=== PATIENT | male | born 1965 | race Two or more races ===

== ENCOUNTER 2023-11-25 05:59 | Emergency (ER) | payer MEDICARE, SELFPAY ==
[2023-11-25 06:07] VITALS: BP 110/68; PULSE 50; O2SAT 95
[2023-11-25 06:13] VITALS: BP 106/63; PULSE 53; RESP 20; TEMP 36.8; O2SAT 100; BMI 28.1
--- NOTE | 2023-11-25 06:52 | ED_ITS ---
HPI - General Adult General Chief complaint: General Medical Stated complaint: Urinary retention Time Seen by Provider: 11/25/23 06:37 Source: patient and EMS Mode of arrival: EMS Limitations: no limitations History of Present Illness ED Provider: Clarita Aguilar PA-C HPI narrative: Patient is a 58 year old assigned male at with a history of schizoaffective disorder presenting to the emergency department today with difficulty urinating and feeling generally fatigued. Patient arrives from [facility]. Patient states that over the last few days he has had an increased difficulty in urinating and has felt more fatigued. Patient states that he is prescribed flomax but has not gotten any of it while at [facility]. Patient denies any dizziness, lightheadedness, abdominal pain, nausea, vomiting, fever, chills, blurry vision, double vision, loss of vision, chest pain, difficulty breathing, shortness of breath, back pain, night sweats, pain with urination, increased urinary frequency, increased urinary urgency, blood in his urine or stool, syncope or a near syncopal episode, recent trauma or falls, bowel incontinence, bladder incontinence, bowel retention, bladder retention, or any other complaints at this time. Onset (ago): day(s) Severity: mild Severity scale (1-10): 3 Relieving factors: none Exacerbating factors: none Associated symptoms: denies other symptoms Treatments prior to arrival: none Related Data Previous Rx's ?Medication ?Instructions ?Recorded cefuroxime axetil 250 mg tablet 250 mg PO BID 7 days #14 tabs 11/25/23 ondansetron 4 mg disintegrating 4 mg PO Q8H 3 days #9 tabs 11/25/23 tablet Allergies Allergy/AdvReac Type Severity Reaction Status Date / Time haloperidol [From Haldol] AdvReac Anaphylaxis Verified 11/25/23 06:20 olanzapine [From Zyprexa] AdvReac Anaphylaxis Verified 11/25/23 06:20 Review of Systems 2 Constitutional: Constitutional: Reports no additional constitutional complaints, Denies chills, Reports fatigue, Denies fever(s) and Denies night sweats Eyes: Eyes: Reports no additional eye complaints, Denies blurry vision, Denies change in vision, Denies diplopia, Denies eye discharge, Denies loss of vision and Denies eye pain ENT: Denies dizziness Cardiovascular: Cardiovascular: Reports no additional cardiovascular complaints, Denies chest pain, Denies lightheadedness, Denies Loss of Consciousness and Denies dyspnea Respiratory: Respiratory: Reports no additional respiratory complaints and Denies dyspnea Gastrointestinal: Gastrointestinal: Reports no additional gastrointestinal complaints, Denies abdominal pain, Denies melena, Denies hematochezia, Denies change in bowel habits and Denies change in stool character Genitourinary: Genitourinary: Reports no additional male genitourinary complaints, Denies hematuria, Denies oliguria, Reports difficulty urinating, Denies dysuria, Denies urinary frequency, Denies urinary hesitancy, Denies urinary incontinence and Denies urinary urgency Musculoskeletal: Musculoskeletal: Reports no additional musculoskeletal complaints, Denies numbness and Denies tingling Neurologic: Denies dizziness, Denies loss of vision, Denies numbness and Denies tingling Psychiatric: Psychiatric: Reports no additional psychiatric complaints Endocrine: Endocrine: Reports no additional endocrine complaints and Reports fatigue Hematologic/Lymphatic: Hematologic/Lymphatic: Reports no additional hematologic/lymphatic complaints Allergic/Immunologic: Allergic/Immunologic: Reports no additional allergic/immunologic complaints [facility] Past Medical History Attestation statement: The following information was validated with the patient. Source: old records reviewed and nursing notes reviewed Social History Social History Alcohol intake: former Smoked in Last 30 Days: Yes Use of substances other than those prescribed or required for medical reasons: No Advance Directives: Yes Advance Directives Information Provided: Yes Advance Directives on File: No Do you have a plan to hurt others: No Plan Physical Exam ED Vital Signs: Vital Signs - 24 hr 11/25/23 06:13 11/25/23 09:44 Temperature 98.2 F 97.3 F Pulse Rate 53 64 Respiratory Rate 20 18 Blood Pressure 106/63 118/76 Pulse Oximetry 100 99 Oxygen Delivery Method Room Air Room Air BMI result Body Mass Index 28.1 Const General: cooperative, no acute distress, alert and awake Nutritional Appearance: well nourished Orientation/consciousness: patient oriented x3 Limitations: no limitations HENMT Head: Yes normal to inspection and Yes atraumatic Ears: hearing grossly normal bilaterally and external ears normal General nose exam: Normal external nose present, no nasal discharge noted and no epistaxis Face and sinus: Yes normal facial exam, No abrasion and No laceration Mouth: Normal oral and palatal mucosa present, no drooling and no muffled voice Eyes General: appearance normal, both eyes and all related structures Periorbital: periorbital findings normal Eyelids: Yes eyelids normal Conjunctivae: conjunctivae normal Pupils: Equal, round and reactive pupils present EOM: EOMs intact bilaterally Neck Neck: Yes normal visual inspection, Yes full ROM and Yes no lymphadenopathy Chest Chest palpation & inspection: normal inspection of the chest Resp Effort & Inspection: normal respiratory effort and able to speak in complete sentences GI Inspection: Yes normal to inspection Palpation (GI): Soft to palpation, not firm, nontender and no guarding Neuro General: patient oriented x3 and moves all extremities Cranial nerves: Yes Equal, round and reactive pupils present Cognition (Neuro): normal cognition Motor exam (neuro): 5/5 motor strength present throughout Sensory Exam: Normal double simultaneous stimulation for sensation Coordination: [id number] test normal Extrem General: Yes normal to inspection, Yes full ROM and Yes capillary refill normal Psych Appearance: grossly normal Mental Status: mental status grossly normal Affect: normal affect Attitude: cooperative Thought process: Normal thought process present Thought content: Normal thought content present Insight: Good insight present (Psych) Medications Administered Discontinued Medications Generic Name Dose Route Start Last Admin Trade Name Freq PRN Reason Stop Dose Admin Cefuroxime Axetil 250 mg 11/25/23 08:56 11/25/23 10:08 Cefuroxime Axetil 250 Mg Tablet PO 11/25/23 08:57 250 mg ONCE ONE Administration Tamsulosin HCl 0.4 mg 11/25/23 07:37 11/25/23 08:19 Tamsulosin Hcl 0.4 Mg Capsule PO 11/25/23 07:38 0.4 mg ONCE ONE Administration Medical Decision Making Medical Decision Making [facility] Narrative: Patient is a 58 year old assigned male at with a history of schizoaffective disorder presenting to the emergency department today with difficulty urinating and feeling exhausted. Patient's physical exam was unremarkable. Patient's blood work was unremarkable. Patient's urine showed a UTI. I explained my physical exam findings as well as all test results to the patient. I answered all questions asked by the patient. I stressed the importance of the patient taking his medication as prescribed. I stressed the importance of the patient following up with his primary care provider. I stressed the importance of the patient returning to the emergency department immediately if his symptoms were to worsen or if he were to develop any dizziness, shortness of breath, difficulty breathing, chest pain, blurry vision, loss of vision, nausea, vomiting, abdominal pain, fever, chills, back pain, or any other complaints. Patient verbalized agreement and understanding with this treatment plan and discharge. Differential Diagnosis Differential Diagnoses: The differential diagnosis associated with the presentation includes UTI Urinary retention Admission/Observation Consideration of admission/observation: Escalation of care including admission/observation considered Patient would have been admitted to the hospital had his work up had any findings where hospital admission was appropriate and his clinical presentation warranted hospital admission. Lab Data [facility] Lab Attestation statement: I reviewed the patient's lab results. My interpretation of these results are in the [facility] Rationale portion of this note. 11/25/23 07:45 11/25/23 07:45 Labs: Lab Results 11/25/23 11/25/23 Range/Units 07:20 07:45 WBC 5.8 (4.8-10.8) X10*3/uL RBC 4.75 (4.60-5.80) X10*6/uL Hgb 15.2 (14.0-18.0) g/dl Hct 44.1 (42.0-52.0) % MCV 92.8 (80.0-98.0) fL MCH 32.0 (27.0-33.0) pg MCHC 34.5 (31.0-36.0) g/dl RDW 13.1 (11.0-16.0) % Plt Count 155 L (160-400) X10*3/uL MPV 10.3 (9.4-12.4) fL Immature Gran % (Auto) 0.3 (0.0-0.4) % Neut % (Auto) 60.8 (45-73) % Lymph % (Auto) 25.3 (20-40) % Josephine % (Auto) 10.0 (2-11) % Eos % (Auto) 3.1 (0-4) % Baso % (Auto) 0.5 (0-2) % Lymph # (Auto) 1.5 (1.2-4.9) X10*3/uL Josephine # (Auto) 0.6 (0.1-1.2) X10*3/uL Eos # (Auto) 0.2 (0.0-0.4) X10*3/uL Baso # (Auto) 0.0 (0.0-0.2) X10*3/uL Abs Immat Gran (auto) 0.02 (0.00-0.03) X10*3/uL Absolute Neuts (auto) 3.5 (2.0-8.3) x10*3/uL Absolute Nucleated RBC 0.000 (0.0-0.012) X10*3/uL Nucleated RBC % (auto) 0.0 (0.0-0.2) /100WBC Sodium 140 (135-145) mmol/L Potassium 4.8 (3.3-5.1) mmol/L Chloride 105 (96-108) mmol/L Carbon Dioxide 28 (22-29) mmol/L Anion Gap 12 (12-20) BUN 15 (9-16) mg/dL Creatinine 0.90 (0.5-1.4) mg/dL Estim Creat Clear Calc 100.4 Estimated GFR > 60 Random Glucose 88 (60-115) mg/dL Calcium 9.5 (8.4-10.2) mg/dL Total Bilirubin 0.5 (0.0-1.0) mg/dL AST 58 H (5-37) U/L ALT 35 (0-40) U/L Alkaline Phosphatase 55 (39-117) U/L Total Protein 7.0 (6.5-8.0) g/dL Albumin 4.1 (3.5-5.0) g/dL Urine Color Yellow Urine Appearance Clear Urine pH 7.0 (5.0-9.0) Ur Specific [place] <= 1.005 (1.005-1.025) Urine Protein Negative (Neg-Trace) mg/dL Urine Glucose (UA) Negative (Negative) mg/dL Urine Ketones Negative (Negative) mg/dL Urine Blood Negative (Negative) Urine Nitrite Negative (Negative) Ur Leukocyte Esterase Moderate (2+) H (Negative) Urine RBC 0-2 (0-2) /HPF Urine WBC 11-20 H (0-5) /HPF Ur Squamous Epith Cells 0-2 (0-2) /HPF Urine Bacteria Trace (None Seen) Hyaline Casts 0-2 (0-2) /LPF Influenza Type A (PCR) NEGATIVE (Negative) Influenza Type B (PCR) NEGATIVE (Negative) RSV RNA Qual (PCR) NEGATIVE (Negative) SARS-CoV-2 RNA (RT-PCR) NEGATIVE (Negative) Independent Historian Clinical information obtained from an independent historian. History obtained from or confirmed by: EMS (EMS provided additional history and confirmed the history provided by the patient.) Prescription Management I considered prescription management with: Antibiotic (antibiotic prescribed for UTI) Discharge Plan Discharge Clinical Impression: Acute UTI Patient Disposition: Xfer Other Transfer Details: [facility] Instructions: Urinary Tract Infection in Men (DC) Additional Instructions: Your work up showed an acute urinary infection btu was otherwise urnemarkabel. Follow up with your primary care provider. Return to the emergency department immediately if your symptoms worsen or if you develop any dizziness, shortness of breath, difficulty breathing, chest pain, blurry vision, loss of vision, nausea, vomiting, abdominal pain, fever, chills, back pain, or any other complaints. Prescriptions: New ondansetron 4 mg tablet,disintegrating 4 mg PO Q8H 3 Days Qty: 9 0RF cefuroxime axetil 250 mg tablet 250 mg PO BID 7 Days Qty: 14 0RF Referrals: [facility] [Provider Group] (Call to establish and follow up with a primary care provider. If you already have a primary care provider, please follow up with them.) [facility] [Provider Group] [facility] [Provider Group] Print Language: Hebrew
--- NOTE | 2023-11-25 07:19 | PC.NURSE ---
Addendum entered by Shantelle Morris 11/25/23 07:23: according to paperwork from [facility], patient was started on flomax however has not received any to date at their facility. Original Note: post void bladder scan with 141 mL urine, patient states he has history of bladder wall thickening
[2023-11-25 07:27] LABS: Appearance Urine Clear; Color Urine Yellow; Glucose Urine UA Negative (Negative); Leukocyte Esterase Urine Moderate (2+) (Negative); Nitrite Urine Negative (Negative); Specific Gravity - Urine <= 1.005 (1.005-1.025); UMIC TRIGGER UACC YES; Urine Blood Negative (Negative); Urine Ketones Negative (Negative); Urine Protein Negative (Neg-Trace)
[2023-11-25 07:32] LABS: Bacteria Urine Trace (None Seen); Hyaline Casts Urine 0-2 /LPF (0-2); RBC Urine 0-2 /HPF (0-2); Squamous Epithelial Cell Urine 0-2 /HPF (0-2); UACC Culture Trigger YES
[2023-11-25 07:52] LABS: MANUAL DIFF FLAG NO
[2023-11-25 07:57] LABS: Basophils Percent Auto 0.5 % (0-2); Eosinophils Absolute Auto 0.2 X10*3/uL (0.0-0.4); Eosinophils Percent Auto 3.1 % (0-4); Hematocrit 44.1 % (42.0-52.0); Hemoglobin 15.2 g/dl (14.0-18.0); Imm Gran Abs Auto 0.02 X10*3/uL (0.00-0.03); Imm Gran Pct Auto 0.3 % (0.0-0.4); Lymphocytes Absolute Auto 1.5 X10*3/uL (1.2-4.9); Lymphocytes Percent Auto 25.3 % (20-40); Mean Corpuscular HGB Conc 34.5 g/dl (31.0-36.0); Mean Corpuscular Volume 92.8 fL (80.0-98.0); Mean Platelet Volume 10.3 fL (9.4-12.4); Monocytes Absolute Auto 0.6 X10*3/uL (0.1-1.2); Neutrophils Absolute Auto 3.5 x10*3/uL (2.0-8.3); Neutrophils Percent Auto 60.8 % (45-73); Platelet Count 155 X10*3/uL (160-400); Red Blood Count 4.75 X10*6/uL (4.60-5.80); Red Cell Distribution Width 13.1 % (11.0-16.0); White Blood Count 5.8 X10*3/uL (4.8-10.8)
[2023-11-25 08:17] LABS: Alanine Aminotransferase 35 U/L (0-40); Albumin Level 4.1 g/dL (3.5-5.0); Alkaline Phosphatase 55 U/L (39-117); Anion Gap 12 (12-20); Aspartate Amino Transferase 58 U/L (5-37); Bilirubin Total 0.5 mg/dL (0.0-1.0); Blood Urea Nitrogen 15 mg/dL (9-16); Calcium 9.5 mg/dL (8.4-10.2); Carbon Dioxide 28 mmol/L (22-29); Chloride 105 mmol/L (96-108); Creatinine Clr Calc Pharmacy 100.4; Estimated Glomerular Filt Rate > 60; Glucose Random 88 mg/dL (60-115); Potassium 4.8 mmol/L (3.3-5.1); Sodium 140 mmol/L (135-145)
[2023-11-25] MEDS: Tamsulosin HCL 0.4 MG CAPSULE PO (08:19)
[2023-11-25 08:41] LABS: Influenza A PCR NEGATIVE (Negative); Influenza B PCR NEGATIVE (Negative); Resp Syncy Virus RNA Qual PCR NEGATIVE (Negative); SARS COV2 PCR INHOUSE NEGATIVE (Negative)
[2023-11-25 09:44] VITALS: BP 118/76; PULSE 64; RESP 18; TEMP 36.3; O2SAT 99
[2023-11-25] MEDS: cefuroxime axetiL 250 MG TABLET PO (10:08)
== END 2023-11-25 15:28 | disposition other institution (70) ==
PROVIDERS: Physician Assistant Medical; Emergency Provider Student in an Organized Health Care Education/Training Program
DX: N39.0 Urinary tract infection, site not specified (principal); B95.7 Other staphylococcus as the cause of diseases classified elsewhere; R33.9 Retention of urine, unspecified; R53.83 Other fatigue; Z03.818 Encounter for observation for suspected exposure to other biological agents ruled out
CPT/HCPCS: 0241U; 36415; 80053; 81001; 85025; 87086; 87088; 87186; 99283; 99284

== ENCOUNTER 2024-01-02 07:02 | Inpatient (IN) | payer BC, MEDICARE, SELFPAY ==
[2024-01-02] VITALS (14 sets, daily range): BP systolic 91–137; BP diastolic 54–95; PULSE 58–94; RESP 12–22; TEMP 36.7–37.1; O2SAT 95–99; BMI 27.7
--- NOTE | ~2024-01-02 | CT_ITS ---
EXAMINATION: CT ABDOMEN AND PELVIS WITHOUT CONTRAST CLINICAL INFORMATION: Urinary retention COMPARISON: None available. TECHNIQUE: Multidetector volumetric imaging was performed from the superior aspect of the liver through the pubic symphysis. Sagittal and coronal reformatted images were obtained on the technologist's workstation. This CT examination was performed using dose optimization techniques as appropriate, variously including the following: *Automated exposure control *Adjustment of mA and/or kV according to patient size (this includes techniques or standardized protocols for targeted exams where dose is matched to indication/reason for exam; i.e. extremities or head) *Use of iterative reconstruction technique DLP: 469 mGy-cm FINDINGS: LUNG BASES: The visualized lung bases are unremarkable. LIVER, GALLBLADDER, AND BILIARY TREE: No focal hepatic mass. No intrahepatic biliary dilatation. These note that contrast was not utilized. The gallbladder is unremarkable with no evidence of radiopaque gallstones, gallbladder wall thickening, or obvious pericholecystic inflammatory changes. PANCREAS: Unremarkable. SPLEEN: Tiny punctate calcification in the central spleen likely a granuloma. Spleen otherwise normal. ADRENAL GLANDS: Unremarkable. KIDNEYS AND URETERS: The kidneys are normal in size, shape, and attenuation. No hydronephrosis, hydroureter, or calculi seen. No perinephric stranding. BLADDER: The bladder is decompressed around a Moses catheter balloon. GASTROINTESTINAL TRACT: Large stool burden within the rectal vault. Axial normal. No bowel obstruction or right or left lower quadrant inflammatory change. ABDOMINAL WALL: No significant hernia is appreciated. LYMPH NODES: Surgical clips seen in the right inguinal region. Surgical clips seen in the left internal iliac chain. VASCULAR: Left common iliac vascular stents. PELVIC VISCERA: Unremarkable. OSSEOUS STRUCTURES: Spondylitic change at the thoracolumbar junction. CT/CT abdomen pelvis wo IV con IMPRESSION: There is no evidence for renal mass or hydronephrosis. Evaluation of the bladder is limited since it is decompressed around a Moess catheter balloon. Fleischner guidelines were followed.
--- NOTE | ~2024-01-02 | XR_ITS ---
EXAMINATION: XR ABDOMEN COMPLETE CLINICAL INDICATION: Reason for Exam constipation and abd discomfort. Has Moses COMPARISON: CT abdomen pelvis 01/02/2024 TECHNIQUE: AP view of the abdomen. FINDINGS: Lines or devices: Left iliac vascular stent and embolization coil material in the left pelvis. Nonobstructive bowel gas pattern. Moderate colonic stool burden. No extraluminal subdiaphragmatic air. No abnormal calcifications. XR/XR abdomen min 2V IMPRESSION: Nonobstructive bowel gas pattern. Moderate colonic stool burden.
--- NOTE | ~2024-01-02 | XR_ITS ---
EXAMINATION: XR CHEST CLINICAL INFORMATION: Persisting cough COMPARISON: None available. TECHNIQUE: 2 views of the chest were obtained. FINDINGS: No significant abnormality is noted involving the heart, lungs, mediastinum, bony thorax or soft tissues. XR/XR chest 2V IMPRESSION: Unremarkable examination.
--- NOTE | 2024-01-02 07:23 | ED_ITS ---
HPI - Male Genitourinary General Chief complaint: Urogenital-Male Stated complaint: URINARY RETENTION,FROM [facility] PER EMS Time Seen by Provider: 01/02/24 07:14 Source: patient, EMS, RN notes reviewed and old records reviewed Mode of arrival: EMS History of Present Illness ED Provider: Denice Gomez PA-C HPI Narrative: 58-year-old male with a past medical history schizoaffective disorder, asthma, Mynor Luis F syndrome, presenting to the ED via EMS from [facility] complaining of urinary retention since last night. Per EMS patient was seen at [facility] ED yesterday for similar complaints and was straight cathed with 800cc output. Patient reports similar symptoms in the past. Reports lower abdominal/back discomfort. Denies nausea, vomiting, fever Related Data Previous Rx's ?Medication ?Instructions ?Recorded cefuroxime axetil 250 mg tablet 250 mg PO BID 7 days #14 tabs 11/25/23 ondansetron 4 mg disintegrating 4 mg PO Q8H 3 days #9 tabs 11/25/23 tablet nitrofurantoin 100 mg PO BID 5 days #10 caps 11/29/23 monohydrate/macrocrystals 100 mg capsule (Macrobid) Allergies Allergy/AdvReac Type Severity Reaction Status Date / Time haloperidol [From Haldol] AdvReac Anaphylaxis Verified 01/02/24 07:19 olanzapine [From Zyprexa] AdvReac Anaphylaxis Verified 01/02/24 07:19 Review of Systems 2 Review of Systems: Constitutional: No Fever, No Chills ENT/Mouth: No Ear Pain, No Nasal Congestion, No sore throat, No Rhinorrhea, No Swallowing Difficulty Cardiovascular: No Chest Pain, No SOB Respiratory: No Cough, No Sputum, No Wheezing Gastrointestinal: No Nausea, No Vomiting, No Diarrhea, No Constipation, No Abdominal pain Genitourinary: +urinary retention, No Dysuria, No Urinary Frequency, No Hematuria, No Urinary Incontinence, No Flank Pain Musculoskeletal: No joint pain, No Myalgias, No Joint Swelling Skin: No Skin Lesions, No rash Neuro: No Weakness Psych: + anxious Yes all other systems are reviewed and are negative Constitutional: Constitutional: Reports as per [facility] Past Medical History Attestation statement: The following information was validated with the patient. Source: old records reviewed Social History Social History Alcohol intake: former Smoked in Last 30 Days: No Use of substances other than those prescribed or required for medical reasons: No Advance Directives: No Do you have a plan to hurt others: No Plan Physical Exam 2 Vital Signs: Vital Signs: Last Vital Signs Temp 98.1 F 01/02/24 10:14 Pulse 68 01/02/24 10:14 Resp 16 01/02/24 12:25 BP 136/83 01/02/24 10:14 Pulse Ox 95 01/02/24 10:14 O2 Del Method Room Air 01/02/24 10:14 Oxygen Flow Rate 2 01/02/24 09:00 BMI result Body Mass Index 27.7 Const: Other: anxious, pacing General: no acute distress Orientation/consciousness: patient oriented x3 HEENT: Head: Yes normal to inspection and Yes atraumatic Ears: hearing grossly normal bilaterally General nose exam: Normal external nose present Face and sinus: Yes normal facial exam Eyes: General: appearance normal, both eyes and all related structures EOM: EOMs intact bilaterally Neck: Neck: Yes normal visual inspection and Yes no meningeal signs Resp: Effort & Inspection: normal respiratory effort and no respiratory distress Cardio: Rate: regular rate GI: Inspection: Yes normal to inspection Palpation (GI): Soft to palpation, Tenderness to palpation present (GI) suprapubicly, no guarding and not rigid : General: Yes no CVA tenderness Back/Spine/Pelvis: Back: no CVA tenderness Skin: Rashes: no rashes Wounds: no wounds Neuro: General: patient oriented x3, tone normal and no meningeal signs C ranial nerves: Yes CN's II-XII intact bilaterally Gait exam (Neuro): Normal gait present Extrem: General: Yes normal to inspection Course Course Course Narrative: -patient with 662 cc on bladder scan >> refused p.o. Ativan, patient requesting/needing to be sedated for Gracia catheter placement. Dr. Marks in agreement with plan -patient recived 200mg IV Propofol for procedural sedation and successful gracia catheter placement. Dr. Marks at bedside for procedure. Brief hypoxia noted & nonrebreather applied w/ good result. no other complications -15--patient awake and alert maintaining airway -WBC 14.6, Tbili 1.4, labs otherwise reassuring -UA not infected >> spoke with patient's nurse at [facility], unknown reason why patient is in urinary retention. Suspect side effect to medications. Will obtain CT for further eval. Your [facility] can also not accept patient back to facility with Gracia catheter in place. Case discussed with CARE team who will have to perform full eval CT abdomen pelvis wo IV con IMPRESSION: There is no evidence for renal mass or hydronephrosis. Evaluation of the bladder is limited since it is decompressed around a Gracia catheter balloon. Fleischner guidelines were followed. > physician observation initiated at 11:54 is patient needs more time to be evaluated by CARE team -1257--care team evaluated patient and will now be inpatient bed search -1630--ED care transferred to [facility] pending bedsearch Medications Administered Discontinued Medications Generic Name Dose Route Start Last Admin Trade Name Freq PRN Reason Stop Dose Admin Acetaminophen 975 mg 01/02/24 09:42 01/02/24 09:57 Acetaminophen 325 Mg Tablet PO 01/02/24 09:43 975 mg ONCE ONE Administration Lorazepam 2 mg 01/02/24 07:26 01/02/24 07:43 Lorazepam 1 Mg Tablet PO 01/02/24 07:27 Not Given ONCE ONE Propofol 200 mg 01/02/24 08:24 01/02/24 08:36 Propofol 200 Mg/20 Ml Vial IVPUSH 01/02/24 08:25 200 mg ONCE ONE Administration Medical Decision Making Medical Decision Making [facility] Narrative: 58-year-old male with a past medical history schizoaffective disorder, asthma, Mynor Luis F syndrome, presenting to the ED via EMS from [facility] complaining of urinary retention since last night. On exam vital signs stable, anxious, pacing, abdomen soft/nontender, no CVAT. Concern for urinary retention vs UTI. Lower suspicion for obstructing stone Plan: Labs, UA, Gracia catheter placement Please refer to course for remaining clinical decision making, interpretation of labs/imaging results, and discussions with consultants and/or family members. Differential Diagnosis Differential Diagnoses: The differential diagnosis associated with the presentation includes As above Admission/Observation Consideration of admission/observation: Escalation of care including admission/observation considered Consult Healthcare Provider ED Attending Dr. Marks Lab Data [facility] Lab Attestation statement: I reviewed the patient's lab results. 01/02/24 08:08 01/02/24 08:08 Labs: Lab Results 01/02/24 01/02/24 Range/Units 08:08 08:52 WBC 14.6 H (4.8-10.8) X10*3/uL RBC 5.12 (4.60-5.80) X10*6/uL Hgb 16.9 (14.0-18.0) g/dl Hct 45.7 (42.0-52.0) % MCV 89.3 (80.0-98.0) fL MCH 33.0 (27.0-33.0) pg MCHC 37.0 H (31.0-36.0) g/dl RDW 13.2 (11.0-16.0) % Plt Count 218 D (160-400) X10*3/uL MPV 10.4 (9.4-12.4) fL Immature Gran % (Auto) 0.3 (0.0-0.4) % Neut % (Auto) 76.0 H (45-73) % Lymph % (Auto) 15.9 L (20-40) % [place] % (Auto) 6.7 (2-11) % Eos % (Auto) 0.7 (0-4) % Baso % (Auto) 0.4 (0-2) % Lymph # (Auto) 2.3 (1.2-4.9) X10*3/uL [place] # (Auto) 1.0 (0.1-1.2) X10*3/uL Eos # (Auto) 0.1 (0.0-0.4) X10*3/uL Baso # (Auto) 0.1 (0.0-0.2) X10*3/uL Abs Immat Gran (auto) 0.05 H (0.00-0.03) X10*3/uL Absolute Neuts (auto) 11.1 H (2.0-8.3) x10*3/uL Absolute Nucleated RBC 0.000 (0.0-0.012) X10*3/uL Nucleated RBC % (auto) 0.0 (0.0-0.2) /100WBC Sodium 137 (135-145) mmol/L Potassium 4.0 (3.3-5.1) mmol/L Chloride 105 (96-108) mmol/L Carbon Dioxide 21 L (22-29) mmol/L Anion Gap 15 (12-20) BUN 17 H (9-16) mg/dL Creatinine 1.08 (0.5-1.4) mg/dL Estim Creat Clear Calc 76.9 Estimated GFR > 60 Random Glucose 103 (60-115) mg/dL Calcium 10.2 D (8.4-10.2) mg/dL Total Bilirubin 1.4 H (0.0-1.0) mg/dL Direct Bilirubin 0.5 (0.0-0.5) mg/dL AST 72 H (5-37) U/L ALT 25 (0-40) U/L Alkaline Phosphatase 74 (39-117) U/L Total Protein 8.3 H (6.5-8.0) g/dL Albumin 4.9 (3.5-5.0) g/dL Urine Color Yellow Urine Appearance Clear Urine pH 6.0 (5.0-9.0) Ur Specific [place] 1.020 (1.005-1.025) Urine Protein Negative (Neg-Trace) mg/dL Urine Glucose (UA) Negative (Negative) mg/dL Urine Ketones Trace (Negative) mg/dL Urine Blood Negative (Negative) Urine Nitrite Negative (Negative) Ur Leukocyte Esterase Negative (Negative) Radiology Impression Discussion of test interpretation with radiology: I have reviewed the radiologist's reading. Independent Historian Clinical information obtained from an independent historian. History obtained from or confirmed by: EMS External Record Review External record reviewed: Inpatient record, Office record, Outpatient record, Prior outpatient labs, Prior outpatient radiology, Primary care record and Outside ED record Tests considered The following testing was considered but not selected: As above Procedures Procedural Sedation Indication: other (gracia catheter placement) ASA Class: I Mallampati Class: I Preparation: cogeneration technician applied, pulse oximeter, capnometry used, supplemental O2 applied, suction/airway equipment at bedside and IV secured IV Propofol dose (mg): 200 Patient Tolerated Procedure: well Complications: hypoxia Interventions: oxygen applied Discharge Plan Discharge Clinical Impression: Acute retention of urine, Psychosis Patient Disposition: Still a Patient Prescriptions: No Action ondansetron 4 mg tablet,disintegrating 4 mg PO Q8H 3 Days Qty: 9 0RF cefuroxime axetil 250 mg tablet 250 mg PO BID 7 Days Qty: 14 0RF nitrofurantoin monohyd/m-cryst [Macrobid] 100 mg capsule 100 mg PO BID 5 Days Qty: 10 0RF Rx Instructions: must administer with a meal/food Referrals: [facility] [Provider Group] Karyna Gant MD [Primary Care Provider] - Print Language: Omani
[2024-01-02 08:12] LABS: MANUAL DIFF FLAG NO
[2024-01-02 08:14] LABS: Basophils Absolute Auto 0.1 X10*3/uL (0.0-0.2); Basophils Percent Auto 0.4 % (0-2); Eosinophils Absolute Auto 0.1 X10*3/uL (0.0-0.4); Eosinophils Percent Auto 0.7 % (0-4); Hematocrit 45.7 % (42.0-52.0); Hemoglobin 16.9 g/dl (14.0-18.0); Imm Gran Abs Auto 0.05 X10*3/uL (0.00-0.03); Imm Gran Pct Auto 0.3 % (0.0-0.4); Lymphocytes Absolute Auto 2.3 X10*3/uL (1.2-4.9); Lymphocytes Percent Auto 15.9 % (20-40); Mean Corpuscular Volume 89.3 fL (80.0-98.0); Mean Platelet Volume 10.4 fL (9.4-12.4); Monocytes Percent Auto 6.7 % (2-11); Neutrophils Absolute Auto 11.1 x10*3/uL (2.0-8.3); Platelet Count 218 X10*3/uL (160-400); Red Blood Count 5.12 X10*6/uL (4.60-5.80); Red Cell Distribution Width 13.2 % (11.0-16.0); White Blood Count 14.6 X10*3/uL (4.8-10.8)
[2024-01-02 08:27] LABS: Alanine Aminotransferase 25 U/L (0-40); Albumin Level 4.9 g/dL (3.5-5.0); Alkaline Phosphatase 74 U/L (39-117); Anion Gap 15 (12-20); Aspartate Amino Transferase 72 U/L (5-37); Bilirubin Direct 0.5 mg/dL (0.0-0.5); Bilirubin Total 1.4 mg/dL (0.0-1.0); Blood Urea Nitrogen 17 mg/dL (9-16); Calcium 10.2 mg/dL (8.4-10.2); Carbon Dioxide 21 mmol/L (22-29); Chloride 105 mmol/L (96-108); Creatinine Clr Calc Pharmacy 76.9; Estimated Glomerular Filt Rate > 60; Glucose Random 103 mg/dL (60-115); Sodium 137 mmol/L (135-145); Total Protein 8.3 g/dL (6.5-8.0)
[2024-01-02] MEDS: propofoL 200 MG/20 ML VIAL IVPUSH (08:36)
--- NOTE | 2024-01-02 09:08 | PC.NURSE ---
patient had conscious sedation for gracia placement. patient tolerated procedure well, patient is now awake and alert, took small sip of gingerale. VSS, respirations equal and unlabored. 700ml drainage from gracia cath after placement. patient states he feels much better. patient has sitetr 1:[address]
[2024-01-02 09:10] LABS: Appearance Urine Clear; Color Urine Yellow; Glucose Urine UA Negative (Negative); Leukocyte Esterase Urine Negative (Negative); Nitrite Urine Negative (Negative); Urine Blood Negative (Negative); Urine Ketones Trace mg/dL (Negative); Urine Protein Negative (Neg-Trace)
--- NOTE | 2024-01-02 09:12 | PC.NURSE ---
patient given ham sandwich, sitting up eating, alert and oriented.
[2024-01-02] MEDS: Acetaminophen 325 MG TABLET 975 MG PO (09:57)
--- NOTE | 2024-01-02 12:38 | PC.NURSE ---
Assumed care of patient at 1210, patient offers no complaints to this RN. He reports that he was at [facility] because of auditory and visual hallucinations, denies SI/HI. He reports that he was having trouble with urinary retention so he has a history of needing a catheter. Catheter was placed today, offering no concerns at this time. Patient aware of plan of care for CARE team evaluation patient is on a 1:1 due to having a catheter in the pod (making it a ligature risk)
--- NOTE | 2024-01-02 13:22 | MHC.EDTECH ---
Call to dining services for lunch tray. They will be sending one up.
[2024-01-02] MEDS: Nicotine Polacrilex 2 MG GUM BUCCAL ×2 (14:23→16:09)
--- NOTE | 2024-01-02 14:48 | MHC.CARE ---
Pt meets the criteria for IPLOC and will remain on the pod as an inpatient bed search at this time.
[2024-01-02 16:10] LABS: Amphetamine Screen Urine Not Detected (Not Detect); Barbiturates, Urine Not Detected (Not Detect); Benzodiazepines Screen Urine POSITIVE (Not Detect); Buprenorphine Scr Not Detected (Not Detect); Cannabinoid Screen Urine Not Detected (Not Detect); Cocaine Screen Urine Not Detected (Not Detect); Fentanyl, urine Not Detected (Not Detect); Methadone Screen, Urine Not Detected (Not Detect); Opiate Screen Urine Not Detected (Not Detect); Oxycodone Screen Urine Not Detected (Not Detect); Phencyclidine Screen Urine Not Detected (Not Detect)
[2024-01-02] MEDS: Tamsulosin HCL 0.4 MG CAPSULE PO (18:04)
[2024-01-02] MEDS: Nicotine Polacrilex 2 MG GUM 4 MG BUCCAL ×2 (18:34→21:00)
--- NOTE | 2024-01-02 19:25 | PC.NURSE ---
client maintained on 1:1 in behavioral pod, client requests analgesic and albuterol inhaler, request made to pod provider. t/w attempted to dc transfer orders, patient ambulates slowly in communal area.
--- NOTE | 2024-01-02 23:20 | PC.NURSE ---
notified supervisor mill in regards to medications still not available for client
[2024-01-02] MEDS: clonazePAM 1 MG TABLET PO (23:23)
[2024-01-03] VITALS: BP 138/82; PULSE 82; RESP 16; TEMP 37.1; O2SAT 97
--- NOTE | 2024-01-03 | ECG_ITS ---
Test Reason : ANXIETY Blood Pressure : / mmHG Vent. Rate : 062 BPM Atrial Rate : 062 BPM P-R Int : 168 ms QRS Dur : 088 ms QT Int : 422 ms P-R-T Axes : 021 027 042 degrees QTc Int : 428 ms Sinus rhythm with occasional Premature ventricular complexes Otherwise normal ECG No previous ECGs available Referred By: Caleb Villar Electronically Signed By:YENNI AVINA
--- NOTE | 2024-01-03 02:45 | PC.NURSE ---
patient during trip to restroom illustrates cough which is productive will advise morning shift to consult with medical should symptoms continue or with increased temps.
[2024-01-03] MEDS: Ondansetron ODT 4 MG TAB.RAPDIS TRANSLINGU (05:18)
[2024-01-03] MEDS: Nicotine Polacrilex 2 MG GUM 4 MG BUCCAL ×4 (06:33→22:10)
[2024-01-03 07:29] VITALS: BP 138/95; PULSE 87; RESP 14; TEMP 36.7; O2SAT 97
[2024-01-03] MEDS: Tamsulosin HCL 0.4 MG CAPSULE PO (08:22)
[2024-01-03] MEDS: LORazepam 2 MG/ML VIAL IM (11:27)
--- NOTE | 2024-01-03 11:31 | PC.NURSE ---
Patient noted to be diaphoretic and responding very little. Vitals were obtained t- 99.6 pulse was 109 b/p was 169/91 and o2 was 97%. Charge nurse and MD notified. MD was at bedside and discussed alternative measures for patient to take either po or im ativan for anxiety. Patient agreed to take IM ativan. Given in his right deltoid patient tolerated without issue. Patient 1:[address] will continue to monitor.
[2024-01-03 12:27] VITALS: BP 136/78; PULSE 75; RESP 17; TEMP 36.9; O2SAT 97
--- NOTE | 2024-01-03 13:02 | MHC.CARE ---
Pt re-evaluated by CARE team. Pt continues to meet criteria for IPLOC and will remain on the behavioral health pod at this time.
[2024-01-03 14:15] VITALS: BP 135/78; PULSE 60; RESP 17; TEMP 36.3; O2SAT 97
[2024-01-03] MEDS: Nicotine Polacrilex 2 MG GUM BUCCAL (14:54)
--- NOTE | 2024-01-03 15:11 | PC.NURSE ---
nURSE TO nURSE GIVEN TO m5 STAFF
[2024-01-03 16:04] VITALS: BP 126/91; PULSE 82; RESP 16; TEMP 36.9; O2SAT 99; BMI 26.7
[2024-01-03] MEDS: polyethylene glycoL 3350 17 GM POWD.PACK PO (17:19)
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
[2024-01-03 19:07] LABS: Influenza A PCR NEGATIVE (Negative); Influenza B PCR NEGATIVE (Negative); Resp Syncy Virus RNA Qual PCR NEGATIVE (Negative); SARS COV2 PCR INHOUSE NEGATIVE (Negative)
[2024-01-03] MEDS: Ibuprofen 600 MG TABLET PO (19:11)
[2024-01-03 20:00] VITALS: BP 134/76; PULSE 78; RESP 18; TEMP 36.2; O2SAT 97
[2024-01-03] MEDS: clonazePAM 1 MG TABLET PO (21:45)
[2024-01-03] MEDS: hydrOXYzine HCL 50 MG TABLET PO (21:45)
[2024-01-04] MEDS: guaiFENesin 100 MG/5 ML LIQUID PO ×2 (03:04→08:39)
[2024-01-04] MEDS: Ibuprofen 600 MG TABLET PO ×2 (03:04→23:47)
[2024-01-04] MEDS: Nicotine Polacrilex 2 MG GUM 4 MG BUCCAL ×4 (03:40→23:42)
[2024-01-04 08:00] VITALS: BP 123/76; PULSE 64; RESP 16; TEMP 36.3; O2SAT 95
[2024-01-04 08:28] LABS: MANUAL DIFF FLAG NO
[2024-01-04 08:34] LABS: Basophils Absolute Auto 0.1 X10*3/uL (0.0-0.2); Basophils Percent Auto 0.5 % (0-2); Eosinophils Absolute Auto 0.3 X10*3/uL (0.0-0.4); Eosinophils Percent Auto 2.4 % (0-4); Hematocrit 45.9 % (42.0-52.0); Imm Gran Abs Auto 0.03 X10*3/uL (0.00-0.03); Imm Gran Pct Auto 0.3 % (0.0-0.4); Lymphocytes Percent Auto 19.4 % (20-40); Mean Corpuscular HGB Conc 34.9 g/dl (31.0-36.0); Mean Corpuscular Hemoglobin 32.3 pg (27.0-33.0); Mean Corpuscular Volume 92.5 fL (80.0-98.0); Mean Platelet Volume 10.2 fL (9.4-12.4); Monocytes Absolute Auto 0.7 X10*3/uL (0.1-1.2); Monocytes Percent Auto 7.1 % (2-11); Neutrophils Absolute Auto 7.2 x10*3/uL (2.0-8.3); Neutrophils Percent Auto 70.3 % (45-73); Platelet Count 205 X10*3/uL (160-400); Red Blood Count 4.96 X10*6/uL (4.60-5.80); Red Cell Distribution Width 13.3 % (11.0-16.0); White Blood Count 10.2 X10*3/uL (4.8-10.8)
[2024-01-04] MEDS: Tamsulosin HCL 0.4 MG CAPSULE PO (08:34)
[2024-01-04] MEDS: Docusate Sodium 100 MG CAPSULE PO ×2 (08:34→23:41)
[2024-01-04 08:37] LABS: Estimated Average Glucose 103 mg/dL; Hemoglobin A1c % 5.2 % (<6.0)
[2024-01-04] MEDS: hydrOXYzine HCL 50 MG TABLET PO (08:38)
[2024-01-04 08:44] LABS: Cholesterol 177 mg/dL (<200); HDL Cholesterol 41 mg/dL (>40); LDL Cholesterol Calculated 120 mg/dL (<100); Triglycerides 80 mg/dL (<150)
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
--- NOTE | 2024-01-04 10:50 | MHC.CLN ---
NUTRITION CONSULT FOR RECENT 20# WEIGHT LOSS. MOST RECENT WEIGHT HX SHOWS WEIGHT ON 11/25/23=88.859 KG. WEIGHT ON 01/01=87.6 KG; WEIGHT ON 01/02=84.5 KG. SHOWS MAX WEIGHT LOSS X APPROX 7 WEEKS -4.9%, 9.6#. WEIGHT LOSS NOT SIGNIFICANT. PLEASE CONSULT RD IF PATIENT WITH POOR PO INTAKE.
[2024-01-04] MEDS: Milk of Magnesia 30 ML ORAL.SUSP PO (11:42)
[2024-01-04] MEDS: Acetaminophen 325 MG TABLET 650 MG PO (11:47)
[2024-01-04] MEDS: Nicotine 21 MG PATCH.TD24 TRANSDERMA (11:47)
[2024-01-04] MEDS: QUEtiapine Fumarate 50 MG TABLET PO ×2 (12:20→23:41)
--- NOTE | 2024-01-04 18:55 | PC.NURSE ---
Tera had a KUB ordered, when this nurse approached him to attempt to get him to xray. He was in bed, lying on his side, eyes closed, rocking side to side, moving his legs back and forth constantly. He wouldnt respond to this nurses attempts to get his attention. Dr Morales informed of Danay current condition, his inability to cooperate with xray request and the fact that he has a testosterone injection due tonight, but due to his state, it will not be given at this time. Dr Morales acknowledged the text, no new orders received.
[2024-01-04 22:35] VITALS: BP 129/78; PULSE 71; TEMP 36.7
[2024-01-05] MEDS: Nicotine Polacrilex 2 MG GUM 4 MG BUCCAL ×5 (06:01→21:51)
[2024-01-05] MEDS: Acetaminophen 325 MG TABLET 650 MG PO ×2 (07:08→14:30)
[2024-01-05 08:00] VITALS: BP 137/74; PULSE 68; RESP 16; TEMP 37.1; O2SAT 96
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
[2024-01-05] MEDS: QUEtiapine Fumarate 50 MG TABLET PO ×2 (09:18→22:03)
[2024-01-05] MEDS: Tamsulosin HCL 0.4 MG CAPSULE PO (09:18)
[2024-01-05] MEDS: Docusate Sodium 100 MG CAPSULE PO ×2 (09:19→22:04)
[2024-01-05 09:27] VITALS: BP 138/78
[2024-01-05] MEDS: cloNIDine HCL 0.1 MG TABLET 0.05 MG PO (09:27)
[2024-01-05] MEDS: Ibuprofen 600 MG TABLET PO (09:28)
--- NOTE | 2024-01-05 09:46 | P.CNUR_ITS ---
History of Present Illness Consult details Consult date: 01/05/24 Narrative: CC: Urinary retention secondary to constipation 58-year-old male Longstanding history of schizoaffective disorder with use of antipsychotics with significant anticholinergic side effects. These anticholinergic side effects include constipation with urinary retention. Presented to multiple facilities in past 3 days with urinary retention. Straight catheter [facility] for 800 cc. Seen at [facility] and catheter placed for 600 cc. Based on standard bladder protocols greater than 500 and less than a 1000 would be 7 days with catheter prior to voiding trial. Should use catheter cap. Catheter SHOULD NOT be placed to continuous drainage in this setting. Bladder should be emptied every [address] by nursing staff. CT scan - KIDNEYS AND URETERS: The kidneys are normal in size, shape, and attenuation. No hydronephrosis, hydroureter, or calculi seen. No perinephric stranding. BLADDER: The bladder is decompressed around a Moses catheter balloon. GASTROINTESTINAL TRACT: Large stool burden within the rectal vault Clearly has significant constipation and stool burden - this would be secondary to continuous loperamide which has been given for loose bowels indicative of overflow rectal incontinence. Suggest GI consult and aggressive bowel regimen including MiraLax and all lactulose daily. This will allow bladder to function. Perform voiding trial in 5-7 days Review of Systems 2 Constitutional: Constitutional: Reports as per HPI and Reports no additional constitutional complaints Cardiovascular: Cardiovascular: Reports as per HPI and Reports no additional cardiovascular complaints Respiratory: Respiratory: Reports as per HPI and Reports no additional respiratory complaints Gastrointestinal: Gastrointestinal: Reports as per HPI and Reports no additional gastrointestinal complaints Genitourinary: Genitourinary: Reports as per HPI Musculoskeletal: Musculoskeletal: Reports no additional musculoskeletal complaints and Reports as per HPI Neurologic: Reports system reviewed and no additional complaints, except as documented and Reports as per HPI [facility] Past Medical History Medical History (Updated 01/05/24 @ 09:51 by Giuliano Mota MD) Schizoaffective disorder Social History Social History Household Members: None Housing: House Do you presently have visiting nurse or other home services: No Alcohol intake: former Patient Tobacco Use Status: Former Tobacco user Tobacco use type: Cigarette Smoked in Last 30 Days: No e-Cigarette/Vaping Use: Never Used Patient Interested in Nicotine Replacement: No Patient Given Instructions on How to Stop Smoking: No Second Hand Smoke Exposure: No Use of substances other than those prescribed or required for medical reasons: Yes Substance Use Type: Marijuana Substance Use Frequency: Chronic Longstanding Last Used Substance: Weeks (ago) Currently Displaying Signs/Symptoms of Drug Intoxication Withdrawal: No Any prior treatment program specific to substance use: Yes Have you been hit, kicked, punched, or otherwise hurt by someone within the past year? If so, by whom?: No Do you feel safe in your current relationship?: No Current Relationship Is there a partner from a previous relationship who is making you feel unsafe now?: No Are you made to feel afraid or neglected: No Advance Directives: No Advance Directives Information Provided: No Do you have thoughts of harming others: None Do you have a plan to hurt others: No Plan Recently lost weight without trying: Yes How much weight loss: 24-33 pounds Eating poorly because of decreased appetite: Yes Nutrition screen score: 6 Nutrition Risks: No Nutritional Risk Poor oral hygiene: No Meds Allergies Allergy/AdvReac Type Severity Reaction Status Date / Time haloperidol [From Haldol] AdvReac Anaphylaxis Verified 01/02/24 07:19 olanzapine [From Zyprexa] AdvReac Anaphylaxis Verified 01/02/24 07:19 Active Medications: Current Medications Acetaminophen (Acetaminophen 325 Mg Tablet) 650 mg PO Q6H PRN PRN Reason: Headache/Pain Mild Scale (1-3) Last Admin: 01/05/24 07:08 Dose: 650 mg Al Hydroxide/Mg Hydroxide (Magnesium Hydrox/Alum Hydrox 30 Ml Oral.Susp) 30 ml PO Q6H PRN PRN Reason: Heartburn/Nausea Albuterol Sulfate (Albuterol Sulfate 90 Mcg 8 Gm Inhaler) 2 puff INHALE RQ4H PRN PRN Reason: Shortness of Breath Clonazepam (Clonazepam 1 Mg Tablet) 1 mg PO DAILY PRN PRN Reason: panic attack Last Admin: 01/03/24 21:45 Dose: 1 mg Clonidine HCl (Clonidine Hcl 0.1 Mg Tablet) 0.05 mg PO BID PRN; Protocol PRN Reason: Anxiety Docusate Sodium (Docusate Sodium 100 Mg Capsule) 100 mg PO BID [facility] Last Admin: 01/04/24 23:41 Dose: 100 mg Guaifenesin (Guaifenesin 100 Mg/5 Ml Liquid) 5 ml PO Q6H PRN PRN Reason: cough Last Admin: 01/04/24 08:39 Dose: 5 ml Hydroxyzine HCl (Hydroxyzine Hcl 50 Mg Tablet) 50 mg PO TID PRN PRN Reason: Anxiety Last Admin: 01/04/24 08:38 Dose: 50 mg Ibuprofen (Ibuprofen 600 Mg Tablet) 600 mg PO Q8H PRN PRN Reason: Pain, Mild (Pain Scale 1-3) Last Admin: 01/04/24 23:47 Dose: 600 mg Loperamide HCl (Loperamide Hcl 2 Mg Capsule) 2 mg PO Q6H PRN PRN Reason: After loose stools Magnesium Hydroxide (Milk Of Magnesia 30 Ml Oral.Susp) 30 ml PO DAILY PRN PRN Reason: Constipation Last Admin: 01/04/24 11:42 Dose: 30 ml Melatonin (Melatonin 3 Mg Tablet) 3 mg PO BEDTIME PRN PRN Reason: Insomnia Nicotine (Nicotine 21 Mg Patch.Td24) 21 mg TRANSDERMA DAILY PRN PRN Reason: smoking cessation Last Admin: 01/04/24 11:47 Dose: 21 mg Nicotine Polacrilex (Nicotine Polacrilex 2 Mg Gum) 4 mg BUCCAL Q2H PRN PRN Reason: Nicotine Cravings Last Admin: 01/05/24 06:01 Dose: 4 mg Ondansetron HCl (Ondansetron Odt 4 Mg Tab.Rapdis) 4 mg TRANSLINGU Q6H PRN PRN Reason: Nausea Last Admin: 01/03/24 05:18 Dose: 4 mg Quetiapine Fumarate (Quetiapine Fumarate 50 Mg Tablet) 50 mg PO BID [facility] Last Admin: 01/04/24 23:41 Dose: 50 mg Tamsulosin HCl (Tamsulosin Hcl 0.4 Mg Capsule) 0.4 mg PO DAILY [facility] Last Admin: 01/04/24 08:34 Dose: 0.4 mg Testosterone Cypionate (Testosterone Cypionate 200 Mg/1 Ml Vial) 200 mg IM Q7D [facility] Trazodone HCl (Trazodone Hcl 50 Mg Tablet) 50 mg PO BEDTIME MRX1 PRN PRN Reason: Insomnia Home Medications ?Medication ?Instructions ?Recorded ?Confirmed ?Last Taken ?Type clonazepam 1 mg tablet 1 mg PO DAILY PRN panic attack 01/02/24 01/02/24 01/02/24 History docusate sodium 100 mg tablet 100 mg PO BID PRN Constipation 01/02/24 01/02/24 01/02/24 History hydroxyzine pamoate 50 mg capsule 50 mg PO TID PRN Anxiety 01/02/24 01/02/24 01/02/24 History loperamide 2 mg capsule 2 mg PO Q6H PRN After loose stools 01/02/24 01/02/24 01/02/24 History melatonin 3 mg tablet 3 mg PO BEDTIME PRN Insomnia 01/02/24 01/02/24 01/02/24 History nicotine (polacrilex) 2 mg gum 4 mg PO Q2H PRN Nicotine Cravings 01/02/24 01/02/24 01/02/24 History ondansetron 4 mg disintegrating 4 mg PO Q6H PRN Nausea 01/02/24 01/02/24 01/02/24 History tablet tamsulosin 0.4 mg capsule 0.4 mg PO DAILY 01/02/24 01/02/24 01/02/24 History testosterone cypionate 200 mg/mL 200 mg IM QWEEK 01/02/24 01/02/24 01/01/24 History intramuscular oil Physical Exam 2 Vital Signs: Vital Signs: Last Vital Signs Temp 98.1 F 01/04/24 22:35 Pulse 71 01/04/24 22:35 Resp 16 01/04/24 08:00 BP 129/78 01/04/24 22:35 Pulse Ox 95 01/04/24 08:00 O2 Del Method Room Air 01/04/24 08:00 Oxygen Flow Rate 2 01/02/24 09:00 BMI result Body Mass Index 26.7 Const: General: cooperative, healthy appearing, comfortable and no acute distress Orientation/consciousness: patient oriented x3 HEENT: Face and sinus: Yes normal facial exam Mouth: moist mucous membranes Neck: Neck: Yes normal visual inspection, Yes full ROM and Yes trachea midline Chest: Chest palpation & inspection: normal inspection of the chest Resp: Effort & Inspection: normal respiratory effort, able to speak in complete sentences and no respiratory distress GI: Inspection: Yes normal to inspection Back/Spine/Pelvis: Cervical Spine: normal cervical lordosis Thoracic/Lumbar Spine: thoracic and lumbar spine normal to inspection Skin: General skin exam: no rashes or lesions noted Neuro: General: patient oriented x3, tone normal and moves all extremities Extrem: General: Yes normal to inspection and Yes capillary refill normal Results Labs 01/04/24 08:21 01/02/24 08:08 Labs: Urine 01/02/24 Range/Units 08:52 Urine Color Yellow Urine Appearance Clear Urine pH 6.0 (5.0-9.0) Ur Specific [place] 1.020 (1.005-1.025) Urine Protein Negative (Neg-Trace) mg/dL Urine Glucose (UA) Negative (Negative) mg/dL All other labs normal. Assessment and Plan (1) Acute retention of urine: Status: Acute (2) Constipation by delayed colonic transit: Status: Acute Plan 1.) Moses catheter. Five days. Use catheter cap. Do not use continuous drainage bag. Empty bladder every 4-6 hours. 2.) GI consult for constipation. Constipation is the driving precipitant behind urinary retention. Procedures Date of Service Date of Service: 01/05/24
[2024-01-05 10:54] LABS: Glucose, Whole Blood 103 mg/dL (60-115)
[2024-01-05 10:57] LABS: Estimated Average Glucose 103 mg/dL; Hemoglobin A1c % 5.2 % (<6.0)
--- NOTE | 2024-01-05 10:59 | P.EN_ITS ---
Event Note Date of Service: 01/05/24 Event Note: RESEARCH AND DEVELOPMENT DIRECTOR called for possible seizure activity. Pt iwth history of schizoaffective disorder, SJS, anxiety, with reported trauma history reportedly received a dose of seroquel per nursing about one hour ago. Was ambulating in the hallway and reported lightheadedness and then went and sat in a chair in the kitchen. The patient was witness to lean forward, head on crossed hands on table and then sat back in his chair and reportedly lost consciousness for about 5 seconds and was lowered to the floor. NO fall or headstrike. No convulsions witnessed. He has no known history of seizure disorder noted in chart. He is not on antiepileptic medication. On arrival pt alert, anxious appearing. No hypoxia, BP stable. Glucose 103. He makes eye contact in response to name and EOMs appear to be in tact. PERRLA. No tongue bite noted. No stressful precursors leading to event per nursing staff. Overall presentation arevalo snot appear consistent with epilepctic seizure disorder. No head strike or focal neuro. Head CT not indicated. ?pseudoseizure vs orthostatic hypotension. Per RN/provider report has not been eating or drinking much. Plan: -check orthostatic VS -check BMP, lactic acid, cpk Will follow for results Time Spent With Patient Time: Total time managing care of this patient today ____ minutes.
[2024-01-05 11:04] VITALS: BP 129/84; PULSE 71
[2024-01-05 11:05] VITALS: BP 111/70; PULSE 56
[2024-01-05 11:29] LABS: Free T4 (Free Thyroxine) 0.94 ng/dL (0.71-1.85); Thyroid Stimulating Hormone 0.77 uIU/mL (0.32-4.0); Vitamin D 25-OH Total 30.9 ng/mL (>30)
[2024-01-05 11:41] LABS: Folate 12.1 ng/mL (> or = 4.0); Vitamin B12 954 pg/mL (200-900)
[2024-01-05 11:56] LABS: Lactic Acid 1.2 mmol/L (0.5-2.0)
[2024-01-05 12:01] LABS: Alanine Aminotransferase 20 U/L (0-40); Albumin Level 4.2 g/dL (3.5-5.0); Alkaline Phosphatase 69 U/L (39-117); Anion Gap 16 (12-20); Aspartate Amino Transferase 33 U/L (5-37); Bilirubin Total 0.8 mg/dL (0.0-1.0); Blood Urea Nitrogen 13 mg/dL (9-16); Calcium 9.3 mg/dL (8.4-10.2); Carbon Dioxide 23 mmol/L (22-29); Chloride 103 mmol/L (96-108); Creatinine Clr Calc Pharmacy 74.8; Estimated Glomerular Filt Rate > 60; Glucose Random 99 mg/dL (60-115); Potassium 4.3 mmol/L (3.3-5.1); Sodium 138 mmol/L (135-145); Total Protein 7.4 g/dL (6.5-8.0)
--- NOTE | 2024-01-05 18:53 | PC.NURSE ---
Today at 1050, Tera got up quickly from bed, walked with walker to kitchen with 1:1, he complained of feeling dizzy. He entered the kitchen, sat in the chair and put his head on the table. When [facility] [place], he slumped backwards in the chair, briefly having loss of consciousness <1 minute. CLINICAL SUPPORT NURSE was called. Dr Carrillo was present immediately. He was alert by the time he was on floor. The CLINICAL SUPPORT NURSE responded. Vitals were taken. HR 71, RR 18, 129/84. POC was checked. He denies any pain, he was visibly very anxious due to being assessed by multiple people at one time. CLINICAL SUPPORT NURSE left the unit. He sat up with assist and then stood. He continued to feel dizzy, he sat in a wheelchair and was brought to his room to lie down. He reported feeling better lying down. He allowed labs to be drawn but it required encouragement and support from this nurse. He was visibly very anxious with the draw. He settled down afterwards. PO intake and fluids encouraged and offered.
[2024-01-05] MEDS: Magnesium Hydrox/Alum Hydrox 30 ML ORAL.SUSP PO (19:03)
[2024-01-05 20:00] VITALS: BP 168/117; PULSE 83; TEMP 36.4; O2SAT 98
[2024-01-05] MEDS: clonazePAM 1 MG TABLET PO (20:18)
[2024-01-05] MEDS: hydrOXYzine HCL 50 MG TABLET PO (20:18)
[2024-01-05 20:25] VITALS: BP 137/79; PULSE 81; TEMP 36.4
[2024-01-06] MEDS: guaiFENesin 100 MG/5 ML LIQUID PO (03:24)
[2024-01-06] MEDS: Nicotine Polacrilex 2 MG GUM 4 MG BUCCAL ×5 (03:24→21:12)
[2024-01-06 08:00] VITALS: BP 140/84; PULSE 60; RESP 16; TEMP 36.4; O2SAT 98
[2024-01-06] MEDS: Nicotine 21 MG PATCH.TD24 TRANSDERMA (08:25)
[2024-01-06] MEDS: QUEtiapine Fumarate 50 MG TABLET PO ×3 (08:25→21:11)
[2024-01-06] MEDS: Tamsulosin HCL 0.4 MG CAPSULE PO (08:27)
[2024-01-06] MEDS: Docusate Sodium 100 MG CAPSULE PO ×3 (08:27→21:12)
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
[2024-01-06] MEDS: clonazePAM 1 MG TABLET PO (11:10)
--- NOTE | 2024-01-06 17:44 | PM.EVENT ---
Event Note Date of Service: 01/06/24 Event Note: GI Consult-Full note dictated-History from patient, EMR, and nursing staff. Imp: Chronic constipation in association with urinary bladder issues with urinary retention requiring a Moses catheter. Suspect this is in relation to chronic IBS with some exacerbation from anticholinergic effects from some of his meds. His abdominal exam and imaging studies do not show any signs of obstruction nor any other acute intraabdominal process.He describes a colonoscopy > 10 years ago. Rec: Add Miralax BID on a regular basis. One Fleets enema this evening. Encouraged to eat fruits and vegetables along with a lot of water. He should have an outpatient colonoscopy once his psych issues stabilize. D/W patient in detail. He seemed to understand and was comfortable with the plan. D/W nursing staff as well. Thanks Time Spent With Patient Time: Total time managing care of this patient today ____ minutes.
[2024-01-06] MEDS: polyethylene glycoL 3350 17 GM POWD.PACK PO ×2 (17:50→21:12)
[2024-01-06] MEDS: Testosterone Cypionate 200 MG/1 ML VIAL IM (19:20)
[2024-01-06 20:00] VITALS: BP 141/96; PULSE 79; RESP 18; TEMP 36.7; O2SAT 98
--- NOTE | 2024-01-06 20:45 | PC.NURSE ---
Today at 1400, Danay gracia was disconnected from the bag and capped as per urology note and Dr Carrillo's MD/nurse order. Tera independently emptied it at 1700 as he felt alot of pressure , he was upset as it came out so fast and came out of my penis and the tube! , evidently the tubing was kinked off briefly during emptying leading to urine spilling around the catheter. Tera is visibly distressed and uncomfortable about the catheter and the fact that it will likely be in place until . The urinary meatus is reddened currently. But he is panicked about the possibility of needing it put back in. I could never be awake for it . He was seen by Dr Jones of GI. Orders were placed and miralax was started. Awaiting enema from pharmacy. He emptied his bladder at 1900 without issue, but complained of discomfort.
[2024-01-06] MEDS: Ibuprofen 600 MG TABLET PO (21:11)
[2024-01-07] MEDS: hydrOXYzine HCL 50 MG TABLET PO (00:16)
[2024-01-07 00:52] VITALS: BP 118/82; PULSE 70
--- NOTE | 2024-01-07 00:54 | PC.NURSE ---
Addendum entered by Shant Cain RN 01/07/24 05:12: Patient did not sleep at all tonight, worse auditory hallucinations and sleep deprivation exasperating his many symptoms he is already having. States he does not do well with trazadone. Patient has not uncapped his gracia since 0200, states fungal infection around his testicles and wants to know what to do about that. Continues to states he has not seen a urologist since he has been here and is very confused and upset about his care and doesn't understand what is going on. Original Note: Patient has many issues tonight about his gracia catheter, medications, the care he is getting and how many different staff members he cant keep track of and how much anxiety it is causing him, how dirty his room and the unit is just get me a broom and i will clean it myself, my trash hasnt been emptied in two days . and the unit. He showered this evening and had no stated issues with acute pain or feeling anxious. He did speak of the pain his gracia catheter has been causing him since it was inserted which he states was inserted wrong. Patient continues to want to empty his catheter because he states he feels his bladder is full. RN explained to the patient that it would take well over 2 hours to fill his bladder and encouraged him to extend the amount of time before he empties it and to notify RN when he does empty it. Patient came out around midnight sitting in the chair by the medication door. His sitter stated he wanted something for pain. RN assessed patient to be sitting in the chair with his eyes closed, looked like he was about to fall over. RN was told about his passing out the other day. RN asked the patient what was going on and patient was speaking quietly and almost mumbling but did say he thought he was going to have a panic attack. He then stated he was hungry and wanted a sandwich and something to drink. RN talked him through the short episode and advised that we get him to his room and to bed because he isnt safe sitting in the chair in the torres. RN re-checked vital signs which were stable at 118/82, h.r 70. RN assisted him up with a walker and assisted him to his room. Patient was walking with his eyes almost closed, RN requested he keep them open and stand up straight because he was acting as if he was going to fall. Patient states he doesnt want to be alone in his room because of the AH/ ringing that is very loud and constant when he is alone and laying down by himself. RN assured patient that he had a sitter and that he could sit in bed and I would get him meds, a sandwich, and something to drink. Patient was good with that. Patient didnt want clonidine beacause he states thats what caused him to pass out last time because it drops his blood pressure and he cant believe it is still on the list. Patient did agree to Hydroxyzine which he stated doesnt really help. Patient was out again at 0100 for something else to eat, this time looking awake and strong. Will continue to monitor behaviors and sleep overnight.
[2024-01-07] MEDS: Nicotine Polacrilex 2 MG GUM 4 MG BUCCAL ×8 (01:59→22:19)
--- NOTE | 2024-01-07 05:05 | CONS_ITS ---
DATE OF SERVICE: 01/06/2024 REASON FOR CONSULTATION: Constipation. HISTORY OF PRESENT ILLNESS: This has been obtained from the patient, the medical record, and the nursing staff. The patient is a 58-year-old male with underlying psychiatric illnesses of anxiety and schizoaffective disorder, who was admitted here and required Moses catheter placement for urinary retention. He was seen in consultation by Dr. Mota in that regard, who felt this was related to at least some of his medications with an anticholinergic side effect. CT scan also describes some rectal stool burden and he felt this might be contributing to the urinary retention as well. The patient does describe a longstanding history of constipation. He has been receiving a bowel regimen here of Colace 3 times a day and senna. He describes having been on Metamucil in the past, but that always just made him gassy and he did not like it. He also has an order for some milk of magnesia p.r.n. The patient describes only a small bowel movement recently, but he has gone days without a bowel movement. There has been no report of bleeding. He does have some lower abdominal discomfort, primarily in relation to the current Moses catheter. He denies any problems with heartburn, dysphagia, nausea, nor vomiting. He describes a colonoscopy many years ago. He denies any known family history of GI malignancy. MEDICATIONS: His present medications include acetaminophen, albuterol inhaler p.r.n., clonazepam p.r.n., clonidine p.r.n., Colace 100 mg t.i.d., guaifenesin p.r.n., hydroxyzine p.r.n., ibuprofen p.r.n., antacid p.r.n., melatonin p.r.n., milk of magnesia p.r.n., nicotine patch p.r.n., Zofran p.r.n., Seroquel 50 mg p.o. b.i.d., senna at bedtime, simethicone p.r.n., Flomax, testosterone, and trazodone p.r.n. PAST MEDICAL HISTORY: Psychiatric issues as above. Urinary retention. Constipation. He denies any history of GA, diabetes or stroke. SOCIAL HISTORY: He is single. REVIEW OF SYSTEMS: CARDIAC: He denies any chest pain. PULMONARY: He denies any coughing or hemoptysis. GI: As above. URINARY: As above. PHYSICAL EXAMINATION: GENERAL: The patient is a somewhat agitated male, who is cooperative. SKIN: Warm and dry. Nonjaundiced. Anicteric sclerae. Moist mucous membranes. NECK: Supple without lymphadenopathy. CHEST: Clear. CARDIAC: S1, S2. ABDOMEN: Soft, nondistended, nontender without organomegaly or mass. Bowel sounds are normal. LABORATORY DATA: White blood cell count 10.2, hemoglobin 16.0, MCV 93, platelets 205,000. Normal chemistries; BUN 13, creatinine 1.1, total bilirubin 0.8, AST 33, ALT 20, alkaline phosphatase 69, albumin 4.2. Normal B12 and folate level. Normal TSH and T4. He did have a CT scan of his abdomen on January 01, describing a large stool burden in the rectum, but no sign of any bowel obstruction. There was no sign of any liver disease, pancreatic disease, nor splenomegaly. He did have an abdominal x-ray today that was also negative for any type of bowel obstruction. Again, noted was some constipation. IMPRESSION: Given the patient's clinical history, I do suspect the chronic constipation is in relation to his chronic underlying irritable bowel syndrome and some exacerbation from anticholinergic side effects from some of his medications. At the present time, his abdominal exam does not show any sign of obstruction nor do his imaging studies. I do not think he requires a colonoscopy given no other worrisome signs such as bleeding or anemia. PLAN: At this point, I would recommend adding a regimen of MiraLAX twice a day on a regular basis. Given the stool noted in the rectum on his imaging studies, I would recommend a Fleet enema this evening to see if that can help clear some of that out and help improve his bowel regimen. I encouraged him to eat a high-fiber diet with fruits and vegetables along with a lot of water. I have placed that in the dietary orders as well. We did discuss that he should best have an outpatient colonoscopy once the psychiatric issues have stabilized. I do not think he requires that now as an inpatient given no sign of bleeding nor any other worrisome findings. I did review all this in detail with the patient and he seemed to understand and was comfortable with the plan. He was agreeable to receiving an enema as well. Thank you for the consultation. MD CONNER Butcher/HEATHER / [phone]
[2024-01-07 08:00] VITALS: BP 143/65; PULSE 60; RESP 15; TEMP 36.3; O2SAT 98
[2024-01-07] MEDS: Tamsulosin HCL 0.4 MG CAPSULE PO (09:04)
[2024-01-07] MEDS: QUEtiapine Fumarate 50 MG TABLET PO ×2 (09:04→22:01)
[2024-01-07] MEDS: Docusate Sodium 100 MG CAPSULE PO ×2 (09:05→15:12)
[2024-01-07] MEDS: Nicotine 21 MG PATCH.TD24 TRANSDERMA (09:21)
[2024-01-07] MEDS: clonazePAM 1 MG TABLET PO ×2 (09:21→15:26)
[2024-01-07] MEDS: guaiFENesin 100 MG/5 ML LIQUID PO (09:22)
--- NOTE | 2024-01-07 09:42 | PC.NURSE ---
Pt is paranoid with racing thoughts and anxious. I am worried that I am going to wake up and the 1:1 is going to have his knee on my neck. This room is getting smaller and smaller and they keep putting strangers in my room. I don't even know you! This information reported to Abilio Greer Np, via [employer].
[2024-01-07] MEDS: Ibuprofen 600 MG TABLET PO (15:28)
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
[2024-01-07] MEDS: Albuterol Sulfate 90 MCG 8 GM INHALER 2 PUFF INHALE (16:35)
[2024-01-07] MEDS: oxyBUTYnin chloride ER 5 MG TAB.ER.24 PO (16:37)
[2024-01-07 20:00] VITALS: BP 126/85; PULSE 88; RESP 18; TEMP 36.6; O2SAT 97
[2024-01-07] MEDS: polyethylene glycoL 3350 17 GM POWD.PACK PO (22:04)
[2024-01-08] MEDS: guaiFENesin 100 MG/5 ML LIQUID PO
[2024-01-08] MEDS: Ibuprofen 600 MG TABLET PO ×3 (00:01→17:38)
[2024-01-08] MEDS: Albuterol Sulfate 90 MCG 8 GM INHALER 2 PUFF INHALE (00:01)
[2024-01-08] MEDS: Nicotine Polacrilex 2 MG GUM 4 MG BUCCAL ×6 (00:54→21:42)
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
[2024-01-08 08:00] VITALS: BP 138/90; PULSE 82; RESP 16; TEMP 36.4; O2SAT 99
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
[2024-01-08] MEDS: Tamsulosin HCL 0.4 MG CAPSULE PO (10:17)
[2024-01-08] MEDS: polyethylene glycoL 3350 17 GM POWD.PACK PO ×2 (10:17→22:32)
[2024-01-08] MEDS: Nicotine 21 MG PATCH.TD24 TRANSDERMA (10:17)
[2024-01-08] MEDS: Calcium + Vitamin D 250 MG TABLET PO (10:17)
[2024-01-08] MEDS: oxyBUTYnin chloride ER 5 MG TAB.ER.24 PO (10:18)
[2024-01-08] MEDS: QUEtiapine Fumarate 50 MG TABLET PO ×2 (10:18→22:33)
[2024-01-08] MEDS: Multivitamin TABLET 1 TAB PO (10:18)
[2024-01-08] MEDS: Docusate Sodium 100 MG CAPSULE PO ×3 (10:18→22:33)
[2024-01-08] MEDS: clonazePAM 1 MG TABLET PO (10:33)
[2024-01-08 20:00] VITALS: BP 135/84; PULSE 80; RESP 18; TEMP 36.8; O2SAT 98
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
[2024-01-08] MEDS: Zolpidem Tartrate 5 MG TABLET 10 MG PO ×2 (22:33)
[2024-01-08] MEDS: Bethanechol Chloride 25 MG TABLET 50 MG PO (22:33)
[2024-01-09] MEDS: clonazePAM 1 MG TABLET PO ×2 (01:13→20:42)
[2024-01-09] MEDS: Nicotine Polacrilex 2 MG GUM 4 MG BUCCAL ×7 (01:13→22:52)
[2024-01-09] MEDS: Albuterol Sulfate 90 MCG 8 GM INHALER 2 PUFF INHALE ×3 (02:56→22:52)
[2024-01-09 08:00] VITALS: BP 132/83; PULSE 68; RESP 18; TEMP 36.6; O2SAT 96
[2024-01-09] MEDS: polyethylene glycoL 3350 17 GM POWD.PACK PO ×2 (09:37→20:43)
[2024-01-09] MEDS: Bethanechol Chloride 25 MG TABLET 50 MG PO ×3 (09:37→20:42)
[2024-01-09] MEDS: QUEtiapine Fumarate 50 MG TABLET PO (09:37)
[2024-01-09] MEDS: Docusate Sodium 100 MG CAPSULE PO ×3 (09:38→21:00)
[2024-01-09] MEDS: Multivitamin TABLET 1 TAB PO (09:38)
[2024-01-09] MEDS: Tamsulosin HCL 0.4 MG CAPSULE PO (09:38)
[2024-01-09] MEDS: Ibuprofen 600 MG TABLET PO (09:38)
[2024-01-09] MEDS: Calcium + Vitamin D 250 MG TABLET PO (09:38)
[2024-01-09] MEDS: Nicotine 21 MG PATCH.TD24 TRANSDERMA (10:02)
[2024-01-09] MEDS: OXcarbazepine 150 MG TABLET PO ×2 (12:32→20:42)
--- NOTE | 2024-01-09 16:51 | PC.NURSE ---
Tera approached me stating that he is experiencing chest pain that feels like a pin in his heart. BP 133/90, HR 77, and speaking fluently/calmly in no acute distress. Provider notified and recommended, however, Tera adamantly refused EKG stating that he does not want to have any testing done. He was advised that if he changes his mind we can order an EKG for him at any time.
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
[2024-01-09] MEDS: Zolpidem Tartrate 5 MG TABLET 10 MG PO (20:42)
[2024-01-09] MEDS: Ondansetron ODT 4 MG TAB.RAPDIS TRANSLINGU (20:43)
--- NOTE | 2024-01-10 | ECG_ITS ---
Test Reason : chest pain Blood Pressure : / mmHG Vent. Rate : 078 BPM Atrial Rate : 078 BPM P-R Int : 198 ms QRS Dur : 096 ms QT Int : 392 ms P-R-T Axes : 060 034 040 degrees QTc Int : 446 ms Poor data quality, interpretation may be adversely affected Sinus rhythm with Premature ventricular complexes or Fusion complexes Otherwise normal ECG When compared with ECG of 03-JAN-2024 13:29, Fusion complexes are now Present Referred By: Zhanna Lawton Electronically Signed By:Gama Carlson
[2024-01-10] MEDS: Nicotine Polacrilex 2 MG GUM 4 MG BUCCAL ×7 (00:43→23:04)
[2024-01-10] MEDS: chlorproMAZINE HCl 25 MG TABLET 50 MG PO (01:13)
[2024-01-10] MEDS: LORazepam 1 MG TABLET PO (01:13)
[2024-01-10 07:00] VITALS: BMI 28.1
--- NOTE | 2024-01-10 07:27 | PC.NURSE ---
At around 2029 it was brought to the attention of this nurse that, the presence of the security guards on the unit triggered Tera to experience high anxiety/panic attack which led him to create a barricade with his walker and a chair iinn his room. Staff was able to get into the room quickly, pt was found sitting in the bathroom, in a panicky state. This travel writer attended to pt, pt was led to do some deep breathing exercises as well as reassurances. pt agreed to take his meds. after some few mins, pt was much calmer and relaxed.
--- NOTE | 2024-01-10 07:43 | HE.NUR.EV ---
Status Change: pt reported chest tightness and discomfort around midnight. pt reported having night knight that keeps waking him up and thinks that might be the cause of this chestpain/discomfort. Immediate Actions Taken: EKG ordered. pt also ordered to take thorazine 50mg and ativan 1mg po with good effect. Notifications: Zhanna Berrios Further Monitoring and Treatment:
[2024-01-10 08:00] VITALS: BP 129/68; PULSE 74; RESP 16; TEMP 36.6; O2SAT 97
[2024-01-10] MEDS: polyethylene glycoL 3350 17 GM POWD.PACK PO ×2 (09:44→20:36)
[2024-01-10] MEDS: Docusate Sodium 100 MG CAPSULE PO ×3 (09:44→20:37)
[2024-01-10] MEDS: Calcium + Vitamin D 250 MG TABLET PO (09:44)
[2024-01-10] MEDS: Tamsulosin HCL 0.4 MG CAPSULE PO (09:44)
[2024-01-10] MEDS: Nicotine 21 MG PATCH.TD24 TRANSDERMA (09:44)
[2024-01-10] MEDS: OXcarbazepine 150 MG TABLET PO (09:44)
[2024-01-10] MEDS: Bethanechol Chloride 25 MG TABLET 50 MG PO ×3 (09:44→20:37)
[2024-01-10] MEDS: Multivitamin TABLET 1 TAB PO (09:44)
[2024-01-10] MEDS: Ibuprofen 600 MG TABLET PO (09:47)
[2024-01-10] MEDS: clonazePAM 1 MG TABLET PO ×2 (10:07→17:34)
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
[2024-01-10] MEDS: Albuterol Sulfate 90 MCG 8 GM INHALER 2 PUFF INHALE (18:34)
[2024-01-10] MEDS: chlorproMAZINE HCl 100 MG TABLET PO (20:37)
[2024-01-10] MEDS: OXcarbazepine 300 MG TABLET PO (20:37)
[2024-01-10 23:00] VITALS: BP 130/84; PULSE 75; RESP 17; TEMP 36.6; O2SAT 99
[2024-01-10] MEDS: Zolpidem Tartrate 5 MG TABLET 10 MG PO (23:02)
[2024-01-11] MEDS: Nicotine Polacrilex 2 MG GUM 4 MG BUCCAL ×6 (04:00→22:02)
[2024-01-11] MEDS: clonazePAM 1 MG TABLET PO ×3 (04:46→21:15)
[2024-01-11] MEDS: Albuterol Sulfate 90 MCG 8 GM INHALER 2 PUFF INHALE ×2 (04:47→09:42)
[2024-01-11] MEDS: guaiFENesin 100 MG/5 ML LIQUID PO ×2 (05:10→21:15)
[2024-01-11 08:00] VITALS: BP 115/74; PULSE 76; TEMP 36.4; O2SAT 96
[2024-01-11] MEDS: OXcarbazepine 300 MG TABLET PO ×2 (10:00→21:15)
[2024-01-11] MEDS: polyethylene glycoL 3350 17 GM POWD.PACK PO ×2 (10:00→21:16)
[2024-01-11] MEDS: Bethanechol Chloride 25 MG TABLET 50 MG PO ×3 (10:00→21:14)
[2024-01-11] MEDS: Multivitamin TABLET 1 TAB PO (10:00)
[2024-01-11] MEDS: Calcium + Vitamin D 250 MG TABLET PO (10:00)
[2024-01-11] MEDS: Tamsulosin HCL 0.4 MG CAPSULE PO (10:00)
[2024-01-11] MEDS: Docusate Sodium 100 MG CAPSULE PO ×3 (10:00→21:14)
[2024-01-11] MEDS: Nicotine 21 MG PATCH.TD24 TRANSDERMA (13:33)
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
[2024-01-11] MEDS: Simethicone 80 MG TAB.CHEW PO (19:57)
[2024-01-11 20:00] VITALS: BP 151/87; PULSE 89; RESP 18; TEMP 37.2; O2SAT 97
[2024-01-11] MEDS: chlorproMAZINE HCl 100 MG TABLET PO (21:14)
[2024-01-11] MEDS: Zolpidem Tartrate 5 MG TABLET 10 MG PO (21:15)
[2024-01-12] MEDS: Nicotine Polacrilex 2 MG GUM 4 MG BUCCAL ×8 (07:18→23:55)
[2024-01-12] MEDS: Albuterol Sulfate 90 MCG 8 GM INHALER 2 PUFF INHALE ×2 (07:20→19:19)
[2024-01-12 08:00] VITALS: BP 132/89; PULSE 81; RESP 18; TEMP 36.4; O2SAT 96
[2024-01-12] MEDS: Tamsulosin HCL 0.4 MG CAPSULE PO (09:09)
[2024-01-12] MEDS: Docusate Sodium 100 MG CAPSULE PO ×3 (09:09→21:34)
[2024-01-12] MEDS: OXcarbazepine 300 MG TABLET PO (09:09)
[2024-01-12] MEDS: polyethylene glycoL 3350 17 GM POWD.PACK PO ×2 (09:09→21:34)
[2024-01-12] MEDS: Multivitamin TABLET 1 TAB PO (09:09)
[2024-01-12] MEDS: Bethanechol Chloride 25 MG TABLET 50 MG PO ×3 (09:09→21:33)
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
[2024-01-12] MEDS: Calcium + Vitamin D 250 MG TABLET PO (10:34)
[2024-01-12 20:00] VITALS: BP 138/86; PULSE 89; RESP 18; TEMP 36.5; O2SAT 99
[2024-01-12] MEDS: Zolpidem Tartrate 5 MG TABLET 10 MG PO (21:33)
[2024-01-12] MEDS: OXcarbazepine 300 MG TABLET 600 MG PO (21:34)
[2024-01-12] MEDS: chlorproMAZINE HCl 100 MG TABLET PO (21:34)
[2024-01-12] MEDS: LORazepam 1 MG TABLET PO (21:37)
[2024-01-12] MEDS: clonazePAM 1 MG TABLET PO (21:37)
[2024-01-13] MEDS: Nicotine Polacrilex 2 MG GUM 4 MG BUCCAL ×7 (03:38→22:37)
[2024-01-13] MEDS: Simethicone 80 MG TAB.CHEW PO (03:38)
[2024-01-13 08:00] VITALS: BP 133/72; PULSE 78; RESP 16; TEMP 36.8; O2SAT 100
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
[2024-01-13] MEDS: OXcarbazepine 300 MG TABLET 600 MG PO ×2 (10:37→22:25)
[2024-01-13] MEDS: Tamsulosin HCL 0.4 MG CAPSULE PO (10:37)
[2024-01-13] MEDS: Bethanechol Chloride 25 MG TABLET 50 MG PO ×3 (10:37→22:26)
[2024-01-13] MEDS: Docusate Sodium 100 MG CAPSULE PO ×3 (10:37→22:26)
[2024-01-13] MEDS: Calcium + Vitamin D 250 MG TABLET PO (10:37)
[2024-01-13] MEDS: Multivitamin TABLET 1 TAB PO (10:38)
[2024-01-13] MEDS: Albuterol Sulfate 90 MCG 8 GM INHALER 2 PUFF INHALE (10:57)
[2024-01-13] MEDS: Testosterone Cypionate 200 MG/1 ML VIAL IM (15:11)
[2024-01-13 20:00] VITALS: BP 136/78; PULSE 80; RESP 17; TEMP 36.6; O2SAT 98
[2024-01-13] MEDS: polyethylene glycoL 3350 17 GM POWD.PACK PO (22:25)
[2024-01-13] MEDS: LORazepam 1 MG TABLET PO (22:26)
[2024-01-13] MEDS: chlorproMAZINE HCl 100 MG TABLET PO (22:26)
[2024-01-13] MEDS: Zolpidem Tartrate 5 MG TABLET 10 MG PO (22:26)
[2024-01-13] MEDS: clonazePAM 1 MG TABLET PO (22:26)
[2024-01-14] MEDS: Nicotine Polacrilex 2 MG GUM 4 MG BUCCAL ×7 (00:38→22:54)
[2024-01-14 08:00] VITALS: BP 128/64; PULSE 70; RESP 16; TEMP 36.4; O2SAT 97
[2024-01-14] MEDS: Tamsulosin HCL 0.4 MG CAPSULE PO (08:21)
[2024-01-14] MEDS: Nicotine 21 MG PATCH.TD24 TRANSDERMA (08:21)
[2024-01-14] MEDS: Docusate Sodium 100 MG CAPSULE PO ×3 (08:21→23:09)
[2024-01-14] MEDS: Multivitamin TABLET 1 TAB PO (08:21)
[2024-01-14] MEDS: OXcarbazepine 300 MG TABLET 600 MG PO ×2 (08:21→23:09)
[2024-01-14] MEDS: Bethanechol Chloride 25 MG TABLET 50 MG PO ×3 (08:21→23:08)
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
[2024-01-14] MEDS: clonazePAM 1 MG TABLET PO (13:56)
[2024-01-14 19:40] VITALS: BP 144/89; PULSE 103; TEMP 36.4; O2SAT 97
[2024-01-14] MEDS: polyethylene glycoL 3350 17 GM POWD.PACK PO (23:08)
[2024-01-14] MEDS: chlorproMAZINE HCl 100 MG TABLET PO (23:10)
[2024-01-14 23:58] LABS: Arsenic, Blood <3 mcg/L (<23); Lead, Blood <1.0 mcg/dL (<3.5); Mercury, Blood <4 mcg/L (<=10)
[2024-01-15] MEDS: Nicotine Polacrilex 2 MG GUM 4 MG BUCCAL ×7 (01:21→18:46)
[2024-01-15 08:00] VITALS: BP 126/84; PULSE 93; RESP 18; TEMP 35.6; O2SAT 97
[2024-01-15] MEDS: Calcium + Vitamin D 250 MG TABLET PO (08:28)
[2024-01-15] MEDS: Multivitamin TABLET 1 TAB PO (08:28)
[2024-01-15] MEDS: OXcarbazepine 300 MG TABLET 600 MG PO (08:28)
[2024-01-15] MEDS: Docusate Sodium 100 MG CAPSULE PO ×2 (08:29→14:13)
[2024-01-15] MEDS: Bethanechol Chloride 25 MG TABLET 50 MG PO ×2 (08:29→14:13)
[2024-01-15] MEDS: Nicotine 21 MG PATCH.TD24 TRANSDERMA (08:29)
[2024-01-15] MEDS: Tamsulosin HCL 0.4 MG CAPSULE PO (08:29)
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
[2024-01-15] MEDS: diphenhydrAMINE HCL 25 MG CAPSULE 50 MG PO (19:16)
[2024-01-15 20:00] VITALS: BP 155/82; PULSE 110; RESP 20; TEMP 36.7; O2SAT 96
[2024-01-15 23:00] VITALS: BP 119/68; PULSE 94; RESP 22; TEMP 36.8; O2SAT 97
[2024-01-15] MEDS: LORazepam 1 MG TABLET PO (23:48)
[2024-01-16] MEDS: Nicotine Polacrilex 2 MG GUM 4 MG BUCCAL ×10 (00:56→23:24)
[2024-01-16 08:00] VITALS: BP 130/79; PULSE 85; RESP 18; TEMP 36.6; O2SAT 97
[2024-01-16] MEDS: OXcarbazepine 300 MG TABLET 600 MG PO ×2 (08:15→21:48)
[2024-01-16] MEDS: Bethanechol Chloride 25 MG TABLET 50 MG PO ×3 (08:15→21:47)
[2024-01-16] MEDS: Tamsulosin HCL 0.4 MG CAPSULE PO (08:15)
[2024-01-16] MEDS: Multivitamin TABLET 1 TAB PO (08:15)
[2024-01-16] MEDS: Docusate Sodium 100 MG CAPSULE PO ×3 (08:15→21:48)
[2024-01-16] MEDS: Calcium + Vitamin D 250 MG TABLET PO (08:15)
[2024-01-16] MEDS: polyethylene glycoL 3350 17 GM POWD.PACK PO ×2 (08:21→21:47)
[2024-01-16] MEDS: Nicotine 21 MG PATCH.TD24 TRANSDERMA (11:03)
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
[2024-01-16] MEDS: Ibuprofen 600 MG TABLET PO (16:46)
[2024-01-16 20:00] VITALS: BP 138/65; PULSE 95; RESP 18; TEMP 36.8; O2SAT 97
[2024-01-16] MEDS: Zolpidem Tartrate 5 MG TABLET 10 MG PO (21:47)
[2024-01-16] MEDS: clonazePAM 1 MG TABLET PO (21:47)
[2024-01-16] MEDS: chlorproMAZINE HCl 100 MG TABLET PO (21:48)
[2024-01-16] MEDS: LORazepam 1 MG TABLET PO (21:49)
[2024-01-17] MEDS: Nicotine Polacrilex 2 MG GUM 4 MG BUCCAL ×8 (07:37→23:03)
[2024-01-17] MEDS: Docusate Sodium 100 MG CAPSULE PO ×3 (08:38→21:08)
[2024-01-17] MEDS: Tamsulosin HCL 0.4 MG CAPSULE PO (08:39)
[2024-01-17] MEDS: Bethanechol Chloride 25 MG TABLET 50 MG PO ×3 (08:39→21:07)
[2024-01-17] MEDS: OXcarbazepine 300 MG TABLET 600 MG PO ×2 (08:39→21:08)
[2024-01-17] MEDS: polyethylene glycoL 3350 17 GM POWD.PACK PO (08:40)
[2024-01-17] MEDS: Calcium + Vitamin D 250 MG TABLET PO (08:40)
[2024-01-17] MEDS: Multivitamin TABLET 1 TAB PO (08:40)
[2024-01-17] MEDS: Nicotine 21 MG PATCH.TD24 TRANSDERMA (09:22)
[2024-01-17 09:52] VITALS: BMI 28.7
[2024-01-17] MEDS: clonazePAM 1 MG TABLET PO (11:29)
[2024-01-17] MEDS: Ibuprofen 600 MG TABLET PO ×2 (11:29→21:08)
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
[2024-01-17] MEDS: LORazepam 1 MG TABLET PO (16:43)
[2024-01-17] MEDS: chlorproMAZINE HCl 25 MG TABLET 50 MG PO (16:44)
[2024-01-17] MEDS: chlorproMAZINE HCl 100 MG TABLET PO (21:07)
[2024-01-17 21:30] VITALS: BP 115/66; PULSE 92; RESP 16; TEMP 36.4; O2SAT 97
[2024-01-17] MEDS: Zolpidem Tartrate 5 MG TABLET 10 MG PO (23:03)
[2024-01-18] MEDS: Nicotine Polacrilex 2 MG GUM 4 MG BUCCAL ×8 (04:20→23:43)
[2024-01-18 08:00] VITALS: BP 127/80; PULSE 84; TEMP 36.4; O2SAT 98
[2024-01-18] MEDS: clonazePAM 1 MG TABLET PO (08:18)
[2024-01-18] MEDS: Docusate Sodium 100 MG CAPSULE PO ×3 (08:18→21:18)
[2024-01-18] MEDS: OXcarbazepine 300 MG TABLET 600 MG PO ×2 (08:18→21:18)
[2024-01-18] MEDS: Tamsulosin HCL 0.4 MG CAPSULE PO (08:18)
[2024-01-18] MEDS: Calcium + Vitamin D 250 MG TABLET PO (08:18)
[2024-01-18] MEDS: Bethanechol Chloride 25 MG TABLET 50 MG PO ×3 (08:18→21:18)
[2024-01-18] MEDS: Multivitamin TABLET 1 TAB PO (08:18)
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
[2024-01-18] MEDS: chlorproMAZINE HCl 25 MG TABLET 50 MG PO (11:45)
[2024-01-18] MEDS: Nicotine 21 MG PATCH.TD24 TRANSDERMA (11:45)
[2024-01-18] MEDS: LORazepam 1 MG TABLET PO (11:45)
[2024-01-18] MEDS: Ibuprofen 600 MG TABLET PO (15:42)
[2024-01-18 20:00] VITALS: BP 153/87; PULSE 103; RESP 18; TEMP 36.6; O2SAT 100
[2024-01-18] MEDS: polyethylene glycoL 3350 17 GM POWD.PACK PO (22:33)
[2024-01-18] MEDS: chlorproMAZINE HCl 100 MG TABLET PO (22:33)
[2024-01-18] MEDS: Zolpidem Tartrate 5 MG TABLET 10 MG PO (22:36)
[2024-01-19] MEDS: Ibuprofen 600 MG TABLET PO (05:35)
[2024-01-19] MEDS: Nicotine Polacrilex 2 MG GUM 4 MG BUCCAL ×6 (05:35→23:18)
[2024-01-19 08:00] VITALS: BP 130/88; PULSE 77; RESP 16; TEMP 36.4; O2SAT 99
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
[2024-01-19] MEDS: OXcarbazepine 300 MG TABLET 600 MG PO ×2 (09:15→20:18)
[2024-01-19] MEDS: Nicotine 21 MG PATCH.TD24 TRANSDERMA (09:15)
[2024-01-19] MEDS: Multivitamin TABLET 1 TAB PO (09:16)
[2024-01-19] MEDS: Calcium + Vitamin D 250 MG TABLET PO (09:16)
[2024-01-19] MEDS: Ziprasidone 20 MG CAPSULE PO (09:16)
[2024-01-19] MEDS: Bethanechol Chloride 25 MG TABLET 50 MG PO ×3 (09:16→20:16)
[2024-01-19] MEDS: Tamsulosin HCL 0.4 MG CAPSULE PO (09:16)
[2024-01-19] MEDS: Docusate Sodium 100 MG CAPSULE PO ×3 (09:27→20:16)
[2024-01-19] MEDS: diphenhydrAMINE HCL 25 MG CAPSULE PO (16:41)
--- NOTE | 2024-01-19 16:58 | PM.EVENT ---
Event Note Date of Service: 01/19/24 Event Note: Consult placed to hospitalist service for evaluation of edema of the R ankle/foot. pt denies injury. Feels for the last few days R ankle is swollen compared the the left. He is concerned because he has an unclipped iliac aneurysm on the R side. Denies symptoms of cluadication. On exam, there is no edema. The R ankle is minimally larger in size compared the the L without any appreciable soft tissue swelling. he has 2+ pedal pulses bilaterally. No erythema, warmth, calf tenderness. The ankle has full ROM and sensation is in tact. Pt is somewhat anxious appearing. He tells me his blood pressures have been high. He had an isolated elevated blood pressure of 153/87 with assocaited HR 103 otherwise has been normotensive with normal HR's. Suspect r/t anxiety. Can use compression stocking prn for swelling and/or ibuprofen prn. Can also use ice, however, there is no significant swelling or edema at this time. Reassurance offered to patient. Time Spent With Patient Time: Total time managing care of this patient today ____ minutes.
[2024-01-19] MEDS: LORazepam 1 MG TABLET PO (19:55)
[2024-01-19 20:00] VITALS: BP 139/87; PULSE 96; RESP 16; TEMP 35.8; O2SAT 95
[2024-01-19] MEDS: chlorproMAZINE HCl 25 MG TABLET 50 MG PO (22:51)
[2024-01-19] MEDS: Zolpidem Tartrate 5 MG TABLET 10 MG PO (22:53)
[2024-01-20] MEDS: Nicotine Polacrilex 2 MG GUM 4 MG BUCCAL ×6 (04:02→21:24)
[2024-01-20] MEDS: LORazepam 1 MG TABLET PO (04:02)
[2024-01-20 08:00] VITALS: BP 133/89; PULSE 75; RESP 16; TEMP 36.7; O2SAT 99
[2024-01-20] MEDS: Docusate Sodium 100 MG CAPSULE PO ×3 (09:20→20:52)
[2024-01-20] MEDS: Tamsulosin HCL 0.4 MG CAPSULE PO (09:20)
[2024-01-20] MEDS: Nicotine 21 MG PATCH.TD24 TRANSDERMA (09:20)
[2024-01-20] MEDS: Bethanechol Chloride 25 MG TABLET 50 MG PO ×3 (09:21→20:51)
[2024-01-20] MEDS: Multivitamin TABLET 1 TAB PO (09:21)
[2024-01-20] MEDS: Calcium + Vitamin D 250 MG TABLET PO (09:21)
[2024-01-20] MEDS: OXcarbazepine 300 MG TABLET 600 MG PO ×2 (09:21→20:52)
[2024-01-20] MEDS: diphenhydrAMINE HCL 25 MG CAPSULE PO ×2 (10:21→16:13)
[2024-01-20] MEDS: Ibuprofen 600 MG TABLET PO ×2 (11:47→18:42)
[2024-01-20] MEDS: clonazePAM 1 MG TABLET PO ×2 (12:11→18:43)
[2024-01-20] MEDS: Testosterone Cypionate 200 MG/1 ML VIAL IM (12:11)
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
[2024-01-20] MEDS: LORazepam 2 MG/ML VIAL IM (17:47)
--- NOTE | 2024-01-20 18:26 | PM.EVENT ---
Event Note Date of Service: 01/20/24 Event Note: patient seen post restraint, in no acute disress, alert, RR normal Time Spent With Patient Time: Total time managing care of this patient today ____ minutes.
[2024-01-20] MEDS: chlorproMAZINE HCl 25 MG TABLET 50 MG PO (18:42)
[2024-01-20] MEDS: Ziprasidone 20 MG CAPSULE PO (20:51)
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
[2024-01-21] MEDS: Nicotine Polacrilex 2 MG GUM 4 MG BUCCAL ×2 (00:02→08:10)
--- NOTE | 2024-01-21 03:14 | PC.NURSE ---
Patient sleeping soundly at beginning of shift following IM Ativan administration during previous shift. Woke at approximately 2000 with no recollection of what had happened earlier. Patient was asking for evening medications which had been administered. No safety or behavioral issues noted.
[2024-01-21 08:00] VITALS: BP 121/81; PULSE 88; RESP 18; TEMP 36.4; O2SAT 97
[2024-01-21] MEDS: Bethanechol Chloride 25 MG TABLET 50 MG PO (08:42)
[2024-01-21] MEDS: Tamsulosin HCL 0.4 MG CAPSULE PO (08:43)
[2024-01-21] MEDS: Ibuprofen 600 MG TABLET PO (08:43)
[2024-01-21] MEDS: OXcarbazepine 300 MG TABLET 600 MG PO (08:43)
[2024-01-21] MEDS: Calcium + Vitamin D 250 MG TABLET PO (08:43)
[2024-01-21] MEDS: Multivitamin TABLET 1 TAB PO (08:43)
[2024-01-21] MEDS: Docusate Sodium 100 MG CAPSULE PO (08:44)
[2024-01-21] MEDS: Nicotine 21 MG PATCH.TD24 TRANSDERMA (09:25)
[2024-01-21] MEDS: LORazepam 1 MG TABLET PO (09:29)
--- NOTE | 2024-01-21 12:01 | PC.NURSE ---
Patient easily engaged. Reports he is ready for discharge. Plans to return to home. Future oriented. Denies SI/HI plan or intent. Continues with anxiety however manageable. Discharge paperwork reviewed with patient, reports understanding. Medications from [facility] pharmacy arrived, reviewed and given to patient. Reports feeling a little overwhelmed however took notes for future reference. All belongings returned to patient. Crisis numbers provided to patient.
--- NOTE | 2024-01-21 16:43 | P.DS_ITS ---
DS: Providers Provider Date of Service: 01/21/24 Date of admission: 01/03/24 14:56 Date of discharge: 01/21/24 Primary care physician: Karyna Gant MD Admitting clinician: Zhanna Lawton Attending physician on admission: Wyatt Gaona Consults: 01/04/24 12:26 Consult to Urology Routine Consulting Provider: [facility] Reason for consultation: urinary retention, consult to plan further interventions Has provider been notified: No 01/04/24 13:29 Consult to Hospitalist Routine Comment: pt has hx of retention, trauma with gracia, Consulting Provider: Hospitalist Reason For Exam: urinary retention, should gracia be kept or removed 01/05/24 20:50 Consult to Gastroenterology Routine Consulting Provider: [facility] Gastroenterology Services Reason for consultation: Urology rec GI consult- Constipation is the driving urinary retention 01/07/24 15:10 Consult to Urology Routine Consulting Provider: [facility] Reason for consultation: urination from gracia/penis,painful erection, ?fungal infection Has provider been notified: Yes 01/19/24 15:40 Consult to Hospitalist Routine Comment: Bilat iliac aneurysms, Left with clip, R. no clip Consulting Provider: Hospitalist Reason For Exam: R foot/ankle edema Attending physician on discharge: Wyatt Gaona Discharging clinician: Zhanna Lawton DS: Diagnosis Discharge Diagnosis (1) PTSD (post-traumatic stress disorder): Status: Acute DS: Medications Discharge Medications Home Medications: Previous Rx's ?Medication ?Instructions ?Recorded albuterol sulfate 90 mcg/actuation 2 puff inhalation RQ4H PRN 01/18/24 aerosol inhaler (Ventolin HFA) Shortness Of Breath #1 inhaler calcium carbonate 250 mg-vitamin 1 tab PO DAILY #30 tabs 01/18/24 D3 3.125 mcg (125 unit) tablet clonazepam 1 mg tablet 1 mg PO DAILY PRN panic attack #7 01/18/24 tabs docusate sodium 100 mg capsule 100 mg PO TID #90 caps 01/18/24 multivitamin (Daily-Morgan tablet) 1 tab PO DAILY #30 tabs 01/18/24 nicotine (polacrilex) 2 mg gum 4 mg buccal Q2H PRN Nicotine 07/19/24 Cravings #100 ea oxcarbazepine 300 mg tablet 600 mg (2 x 300 mg) PO BID #60 tabs 01/18/24 polyethylene glycol 3350 17 gram 17 g PO BID #30 ea 01/18/24 oral powder packet senna leaf extract 176 mg/5 mL 15 ml PO BEDTIME #237 mL 01/18/24 oral syrup (senna) simethicone 80 mg chewable tablet 80 mg PO QIDWMHS PRN gas pain #60 01/18/24 (Gas Relief (simethicone)) tabs tamsulosin 0.4 mg capsule 0.4 mg PO DAILY #30 caps 01/18/24 zolpidem 5 mg tablet 10 mg (2 x 5 mg) PO BEDTIME PRN 01/18/24 Insomnia #7 tabs ziprasidone HCl 20 mg capsule 20 mg PO BEDTIME #30 caps 01/20/24 bethanechol chloride 50 mg tablet 50 mg PO TID #90 tabs 01/21/24 Mental Status Exam Mental Status Exam Patient Appearance: Appropriate Patient Orientation: Person, Place, Time and Situation Level of Consciousness: Alert Patient Behavior: Talkative, Anxious, Fearful, Distractible and Good Eye Contact Mood Description: Fearful, Anxious and Labile Affect Description: Fearful, Anxious and Labile Patient Cognition Impaired: No Ability to Follow Directions: Good Speech Pattern: Spontaneous Speech Memory Description: Intact Hallucinations: None Delusions: Not Present Perceptual Disturbances: Depersonalization and Derealization Thought Process: Intact Thought Content: positive for Circumstantial and positive for Perseveration Depressive Symptoms: Increased Anxiety Abnormal Motor Activity Signs and Symptoms: Restlessness Judgement: Good Data Data Completed and Pending Completed studies during hospitalization [Text1]: 01/10/24 09:51 Whole Blood Arsenic <3 Whole Blood Lead <1.0 Mercury <4 Imaging Diagnostic Imaging Impressions Abdomen/Pelvis CT 01/02/24 11:12 IMPRESSION: There is no evidence for renal mass or hydronephrosis. Evaluation of the bladder is limited since it is decompressed around a Gracia catheter balloon. Fleischner guidelines were followed. Abdomen X-Ray 01/06/24 14:28 IMPRESSION: Nonobstructive bowel gas pattern. Moderate colonic stool burden. Chest X-Ray 01/13/24 11:50 IMPRESSION: Unremarkable examination. DS: Summary Hospital Course Hospital Course: Admission to adult psychiatry in transfer from [facility] to exacerbation of PTSD with resulting exacerbation of dysfunctional elimination syndrome, both urinary and bowel. 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 In recent restraint in another facility ER pt was in need of catheterization. While restrained he injured himself with severe movements with the gracia in place, causing emboli and requiring surgical intervention. Pt admitted with cathedar in place. GI and urology consults encouraged the gracia to remain for 5-7 days to begin to retrain to minimize retention of both bowel and bladder. Pt asked for gracia removal. Urology attended him to complete this however pt's PTSD exacerbated and he would not allow this. He was able to calm and allow Chandni Stafford RN to assist him with removal. After removal there was no further retention during the admission. Pt was also seen by hospitalist team for r foot/ankle edema (hx of bilateral iliac aneurysms). There was no correlation found. Medications were evaluated and carefully adjusted as pt has a significant history of allergy and severe adverse responses. Precipitants to this admission he identified as living in a summer home of his father, but being essentially homeless (sister reports father is looking for a house for pt to live in), family reunion where daughter from the roy will attend (she was able to visit pt on the unit), and discord with fathers who is close to pt's age and who potentiates his anxiety and trauma,seemingly by gaslighting him often. Pt is a recent discharge from [facility] (5 days) where he climbed a 30 ft HVAC tower and fell 20 feet while admitted due to being triggered. On the unit, the team learned quickly that Tera is easily triggered when peers are agitated, loud or in questionable control. At one time he attempted to go through the door and required restraint. We discussed that the in pt setting may not be the most therapeutic and suggested an increased focus on out pt services which he will try. Pt is discharged with appointments. He was welcomed to call/return if needed but is aware that ER consults and admissions are exacerbations to his PTSD and he is attempting to work through emotions by creating a situation for himself where he can get into physical conflict to help manage sx. which can increase his traumatic response. Status at Discharge Functional status at discharge: independent ambulation Overall status at discharge: patient is progressing back to baseline Time Spent with Patient Time attestation: Total time managing care of this patient today ____ minutes. Time spent: Less than 30 minutes Discharge Plan Discharge Anticipated Discharge Date/Time: 01/21/24 12:00 Patient Disposition: Home, Self-Care Discharge Diagnosis: PTSD Referrals: Dr. Jude Rico [Other] - 01/28/24 10:30 am (Hospital Discharge Appointment with outpatient psychiatrist Appointment by telephone ) [facility]- Therapy Intake [Other] - 1 Week ([facility] will call you within 10 days to kirill arnold a therapy intake appointment, if you have not heard from them by 01/24 please call the provided number ) [facility] Urology Services [Provider Group] Karyna Gant MD [Primary Care Provider] - Discharge Medications: New albuterol sulfate [Ventolin HFA] 90 mcg/actuation Hfa Aerosol Inhaler 2 puff inhalation RQ4H PRN (Reason: Shortness Of Breath) Qty: 1 0RF nicotine (polacrilex) 2 mg Gum 4 mg buccal Q2H PRN (Reason: Nicotine Cravings) Qty: 100 0RF oxcarbazepine 300 mg Tablet 600 mg PO BID Qty: 60 0RF zolpidem 5 mg Tablet 10 mg PO BEDTIME PRN (Reason: Insomnia) Qty: 7 0RF calcium carbonate-vitamin D3 250 mg-3.125 mcg (125 unit) Tablet 1 tab PO DAILY Qty: 30 0RF docusate sodium 100 mg Capsule 100 mg PO TID Qty: 90 0RF polyethylene glycol 3350 17 gram Powder In Packet 17 g PO BID Qty: 30 0RF senna leaf extract [senna] 176 mg/5 mL Syrup 15 ml PO BEDTIME Qty: 237 0RF simethicone [Gas Relief (simethicone)] 80 mg Tablet,Chewable 80 mg PO QIDWMHS PRN (Reason: gas pain) Qty: 60 0RF multivitamin [Daily-Morgan] Tablet 1 tab PO DAILY Qty: 30 0RF ziprasidone HCl 20 mg Capsule 20 mg PO BEDTIME Qty: 30 0RF bethanechol chloride 50 mg tablet 50 mg PO TID Qty: 90 0RF Continued tamsulosin 0.4 mg capsule 0.4 mg PO DAILY Qty: 30 0RF clonazepam 1 mg tablet 1 mg PO DAILY PRN (Reason: panic attack) Qty: 7 0RF Discontinued nicotine (polacrilex) 2 mg gum 4 mg PO Q2H PRN (Reason: Nicotine Cravings) hydroxyzine pamoate 50 mg capsule 50 mg PO TID PRN (Reason: Anxiety) testosterone cypionate 200 mg/mL oil 200 mg IM QWEEK loperamide 2 mg Capsule 2 mg PO Q6H PRN (Reason: After loose stools) melatonin 3 mg Tablet 3 mg PO BEDTIME PRN (Reason: Insomnia) ondansetron 4 mg Tablet,Disintegrating 4 mg PO Q6H PRN (Reason: Nausea) docusate sodium 100 mg Tablet 100 mg PO BID PRN (Reason: Constipation) Discharge Orders: Discharge Order (Routine); Ordered 01/21/24 Ordered By: Zhanna Lawton Diet: Advance to usual diet Activity on Discharge: As tolerated Stand Alone Forms: Patient Portal Discharge page, Community Support Print Language: Telugu Care Plan Goals: Mood and Behavioral Stabilization Health Concerns: Mood and Behavioral Stabilization Plan of Treatment: Attend scheduled appointments Take medications as directed Abstinence from alcohol/substances is recommended Assessment: Scheduled discharge, pt requested this date vs 01/18/24. Discharge Date/Time: 01/21/24 11:40
== END 2024-01-21 11:40 | disposition home or self-care (01) | DRG 750 ==
LOC: HO.ED 17:26 → HO.PM5 01-03 15:11
PROVIDERS: Physician Assistant; Psychiatry & Neurology Psychiatry; Admitting Provider Psychiatry & Neurology Psychiatry; Emergency Provider Emergency Medicine; PCP Family Medicine; Visit Provider Clinical Nurse Specialist Psychiatric/Mental Health, Adult
DX: F25.9 Schizoaffective disorder, unspecified (principal); Z91.148 Patient's other noncompliance with medication regimen for other reason; F43.10 Post-traumatic stress disorder, unspecified; R33.9 Retention of urine, unspecified; K92.9 Disease of digestive system, unspecified; K59.03 Drug induced constipation; T47.6X5A Adverse effect of antidiarrheal drugs, initial encounter; Z20.822 Contact with and (suspected) exposure to COVID-19; Z79.899 Other long term (current) drug therapy
CPT/HCPCS: 0241U; 36415; 71046; 74019; 74176; 80048; 80053; 80061; 80076; 80307; 81003; 82175; 82306; 82550; 82607; 82746; 82947; 83036; 83605; 83655; 83825; 84439; 84443; 85025; 93005; 99285; J1071; J2060; J2704; S9485

== ENCOUNTER → 2024-01-03 13:29 | Outpatient (BNV) | payer BC, SELFPAY | PROVIDERS: Admitting Provider Psychiatry & Neurology Psychiatry; Emergency Provider Emergency Medicine; PCP Family Medicine; Visit Provider Internal Medicine | DX: I49.3 Ventricular premature depolarization (principal); F41.9 Anxiety disorder, unspecified | CPT/HCPCS: 93010 ==

== ENCOUNTER 2024-01-03 14:56 | Outpatient (BNV) | payer BC, SELFPAY | END 2024-01-10 00:32 | PROVIDERS: Admitting Provider Psychiatry & Neurology Psychiatry; Emergency Provider Emergency Medicine; PCP Family Medicine; Visit Provider Internal Medicine Cardiovascular Disease | DX: R07.9 Chest pain, unspecified (principal); I49.3 Ventricular premature depolarization | CPT/HCPCS: 93010 ==

== ENCOUNTER → 2024-01-03 14:56 | Outpatient (BNV) | payer BC, SELFPAY | PROVIDERS: Admitting Provider Psychiatry & Neurology Psychiatry; Emergency Provider Emergency Medicine; PCP Family Medicine; Visit Provider Urology | DX: R33.8 Other retention of urine (principal); K59.01 Slow transit constipation | CPT/HCPCS: 99222 ==

== ENCOUNTER → 2024-01-03 14:56 | Outpatient (BNV) | payer BC, SELFPAY | PROVIDERS: Admitting Provider Psychiatry & Neurology Psychiatry; Emergency Provider Emergency Medicine; PCP Family Medicine; Visit Provider Clinical Nurse Specialist Psychiatric/Mental Health, Adult | DX: F43.11 Post-traumatic stress disorder, acute (principal) | CPT/HCPCS: 90792; 99231; 99232; 99238 ==

== ENCOUNTER 2024-04-15 12:29 | Inpatient (IN) | payer MEDICARE, MEDICAID, SELFPAY ==
--- NOTE | ~2024-04-15 | XR_ITS ---
EXAMINATION: XR CHEST CLINICAL INFORMATION: Mental status change. COMPARISON: Chest radiograph 01/13/2024. TECHNIQUE: Frontal view of the chest was obtained. FINDINGS: Limited evaluation due to patient's rotation without discrete consolidation, pleural effusion or pneumothorax. Nonspecific diffuse interstitial thickening. No significant cardiomediastinal contour abnormality. No acute osseous findings. XR/XR chest 1V IMPRESSION: 1. Limited evaluation due to patient's rotation. 2. Nonspecific interstitial thickening, which could be seen in the setting of asthma, bronchitis, reactive airways disease or atypical infections. Electronically signed by: Nancy Hirsch MD 04/15/2024 08:34 PM EDT
[2024-04-15 12:53] VITALS: BP 140/99; PULSE 74; RESP 20; TEMP 37; O2SAT 95; BMI 30.4
--- NOTE | 2024-04-15 12:54 | ED.PSYCH ---
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 He states he recently ran out of his psych medications including his Ambien, and he can not sleep without it. He states he can not recall the last time he slept. He drove over 2 hours to get here so we can get help. He states he was admitted here over the summer and saw the psychiatrist here who helped him. He has been unable to get his medications filled and he is desperate to have someone to help him. He reports increased paranoid thoughts, anxiety, feeling ?out of body and nervous the bad things are going to happen. He does not feel safe driving back home. He feels confused. He denies any drug or alcohol use. MD complaint: feels depressed, anxiety and other (insomnia) Onset (ago): day(s) Duration: getting worse History of same: Yes Relieving factors: medication Context: not taking psychiatric medications and significant life stressor Associated psychiatric symptoms: depression, racing thoughts and other (paranoia) Associated symptoms: confusion and insomnia Treatments prior to arrival: none Related Data Home Medications ?Medication ?Instructions ?Recorded ?Confirmed quetiapine 100 mg tablet 100 mg PO BEDTIME 04/16/24 04/16/24 testosterone cypionate 200 mg/mL 80 mg IM QWEEK 04/16/24 04/18/24 intramuscular oil Previous Rx's ?Medication ?Instructions ?Recorded albuterol sulfate 90 mcg/actuation 2 puff inhalation RQ4H PRN 01/18/24 aerosol inhaler (Ventolin HFA) Shortness Of Breath #1 inhaler clonazepam 1 mg tablet 1 mg PO DAILY PRN panic attack #7 01/18/24 tabs oxcarbazepine 300 mg tablet 600 mg (2 x 300 mg) PO BID #60 tabs 01/18/24 polyethylene glycol 3350 17 gram 17 g PO BID #30 ea 01/18/24 oral powder packet tamsulosin 0.4 mg capsule 0.4 mg PO DAILY #30 caps 01/18/24 zolpidem 5 mg tablet 10 mg (2 x 5 mg) PO BEDTIME PRN 01/18/24 Insomnia #7 tabs ziprasidone HCl 20 mg capsule 20 mg PO BEDTIME #30 caps 01/20/24 Allergies Allergy/AdvReac Type Severity Reaction Status Date / Time olanzapine [From Zyprexa] AdvReac Severe Anaphylaxis Verified 04/18/24 12:52 clonidine AdvReac Fainting Verified 04/15/24 12:57 haloperidol [From Haldol] AdvReac Anaphylaxis Verified 04/15/24 12:57 tuna Allergy Severe Anaphylaxis Uncoded 04/18/24 12:52 Review of Systems Review of Systems: Yes all other systems are reviewed and are negative FORMERLY [facility], [facility] Past Medical History Medical History (Updated 04/19/24 @ 07:47 by Shagufta Mcelroy NP) Schizoaffective disorder Dysfunctional elimination syndrome Social History Social History Household Members: None Housing: House Do you presently have visiting nurse or other home services: No Unable to assess alcohol history related to: Refusing to respond Alcohol intake: former Patient Tobacco Use Status: Former Tobacco user Tobacco use type: Cigarette Smoked in Last 30 Days: Yes e-Cigarette/Vaping Use: Never Used Second Hand Smoke Exposure: No Use of substances other than those prescribed or required for medical reasons: Refusing to respond Substance Use Type: Marijuana Advance Directives: No Do you have a plan to hurt others: No Plan service: No Sexual orientation: Straight/Heterosexual Physical Exam Vital Signs: Vital Signs: Last Vital Signs Temp 98.5 F 04/21/24 23:21 Pulse 90 04/22/24 07:21 Resp 16 04/22/24 07:21 BP 134/73 04/22/24 07:21 Pulse Ox 97 04/22/24 07:21 O2 Del Method Room Air 04/22/24 07:21 BMI result Body Mass Index 30.4 Appearance: Alert. Oriented X3. anxious appearing, restless. Head: normocephalic, atraumatic. Eyes: Pupils equal, round and reactive to light. ENT: Pharynx normal. No tonsillar swelling or exudate. Neck: Normal inspection. Neck supple. CVS: Normal heart rate and rhythm. Pulses normal. Respiratory: No respiratory distress. Breath sounds normal. Abdomen: Soft and nontender. +BS x4 Skin: Skin warm and dry. Normal skin color. Normal skin turgor. No rashes. Extremities: No lower extremity edema. No joint swelling. Neuro/psych: Oriented X 3. No motor deficit. No sensory deficit. CN II-XII intact.makes brief eye contact, difficulty answering simple questions, paranoid. Not suicidal or homicidal Course Course Course Narrative: This is an RME: Additional HPI, ROS, PE not included below will be deferred to primary provider. RME assessment and note performed by: Karine Harper PA-C This is a 60-[id number]-male with a hx of PTSD, who presents to the ER with complaints of medication refill and insomnia. He was previously psychiatrically admitted here at the hospital for PTSD and was started on medications. HE has had difficulties with his insurance and has been unable to follow up with a psychiatrist. He reports that he has been unable to sleep. Upon his discharge from here he went to a hospital in [facility]. He states that he was ?strapped down to a chair and kneed in the chest He states that he tried to report this to the police but almost ended up arrested. He states that he drove 1.5 hours to get here. He has not been sleeping and does not feel right. He has no SI or HI. No physical complaints. He ran out of some of his medications and has been able to find another person with this medication to bridge him but he does not know what to do. He has no SI/HI, no AH/VH. He does not know how he will be able to get home from here due to his tiredness. No other complaints or concerns at this time. Plan: Labs, care team further ER eval needed. Reevaluation(s) Reevaluation #1: Physician observation started at 14:55. Patient placed in physician observation because patient is awaiting psychiatry evaluation for the possible need of inpatient psych admission. At the time observation was started patient's vital signs were stable. Patient is alert and oriented. Neuro exam is non-focal. CV: RRR and lungs are clear. Will continue to monitor. Time: 14:55 Reevaluation #2: Dr. Flores's progress note: Patient with history of PTSD, insomnia, anxiety, psychosis with multiple hospitalization, came in feeling very anxious despite been administrated multiple doses of Ativan, patient muscle chronically take Ambien that he ran out, patient acting very anxious, patient required one-to-one observation moved from room 1 H to room 4 for further assessment, patient now is calm down asking for medication to help him to calm down has history of anaphylaxis with Zyprexa, Ativan was tried several times with no improvement will give 1 dose of ketamine. Our staff is familiar with a prior episode of similar symptoms in the past. Expected to be severe anxiety attack. Continue with physician observation await for care team evaluation. Time: 19:07 Reevaluation #3: aggressive agitated attempting to harm staff and run out of EMS bay - meds and [address] HERBERT 929pm 04/15/24 Additional Reevaluation(s): 04/16/24--903--physician observation continued. Vital signs stable. CARE team evaluated patient and will be inpatient bed search. Patient became agitated this morning, standing at edge of room naked. Patient was redirected by staff/security. Given p.o. Ativan. Consultations Consultation #1: Physician observation continued. VS stable, inpatient bed search, REPEATED doses of PRN IM medications and patient makes requests at times for things like ketamine etc which have not worked - will continue with geodon and ativan and ask if psychiatry can evaluate patient this AM HERBERT 04/17/24 904am Consultation #2: Physician observation continued. Again yesterday acted out and broke a windown in his room. Had to be given IM medications. Will resume medications today and thank you for additional medications from psych and their input. Pending placement HERBERT 04/18/24 If need IM medication for agitation can use geodone 10-20mg IM up to twice a day with ativan 2mg IM. Avoid Ketamine as it may exacerbate psychosis. If need more antipsychotic for agitation, can use prolixin 2.5mg IM q6h prn agitation also with ativan 2mg IM. PER PSYCHIATRY PLEASE AVOID KETAMINE Consultation #3: Dr. Flores's progress note 04/19 :Patient observation continue, periods agitation and aggression require restraints patient is at this point, bed search is underway, VSS. DR. Flores's Progress note for 04/20: continue with the above plan,Patient observation continue, periods agitation and aggression require restraints patient is at this point, bed search is underway, VSS. Additional Consultation(s): Dr. Galvin' note 04/21/2024: The patient has remained in physician observation today. There has been no behavioral outburst today. Vital signs have been stable. We will continue physician observation. 2023 8:[address] ALARCON NOTE: PATIENT REMAIN INPATIENT LEVEL OF CARE, NO EVENT REPORTED OVERNIGHT SO FAR CALM AND COOPERATIVE VITAL SIGNS STABLE 07:21 Medications Administered Generic Name Dose Route Start Last Admin Trade Name Freq PRN Reason Stop Dose Admin Chlorpromazine HCl 50 mg 04/18/24 12:51 04/19/24 07:54 Chlorpromazine Hcl 25 Mg Tablet PO 50 mg Q6H PRN Administration agitation Clonazepam 1 mg 04/17/24 10:10 04/22/24 08:26 Clonazepam 1 Mg Tablet PO 1 mg BID RODGER Administration Lorazepam 1 mg 04/18/24 12:52 04/19/24 15:02 Lorazepam 1 Mg Tablet PO 1 mg TID PRN Administration severe anxiety Oxcarbazepine 600 mg 04/17/24 09:00 04/22/24 08:26 Oxcarbazepine 300 Mg Tablet PO 600 mg BID RODGER Administration Polyethylene Glycol 17 gm 04/18/24 21:00 04/22/24 08:26 Polyethylene Glycol 3350 17 Gm Powd.Pack PO 17 gm BID RODGER Administration Tamsulosin HCl 0.4 mg 04/19/24 09:00 04/22/24 08:26 Tamsulosin Hcl 0.4 Mg Capsule PO 0.4 mg DAILY RODGER Administration Ziprasidone 80 mg 04/18/24 17:00 04/22/24 08:27 Ziprasidone 80 Mg Capsule PO 80 mg BIDWM RODGER Administration Ziprasidone 20 mg 04/18/24 21:00 04/21/24 20:14 Ziprasidone 20 Mg Capsule PO 20 mg BEDTIME RODGER Administration Zolpidem Tartrate 10 mg 04/17/24 21:00 04/21/24 20:14 Zolpidem Tartrate 5 Mg Tablet PO 04/24/24 20:59 10 mg BEDTIME RODGER Administration Zolpidem Tartrate 10 mg 04/18/24 15:59 04/21/24 01:49 Zolpidem Tartrate 5 Mg Tablet PO 10 mg BEDTIME PRN Administration Insomnia Discontinued Medications Generic Name Dose Route Start Last Admin Trade Name Amanq PRN Reason Stop Dose Admin Chlorpromazine HCl 50 mg 04/17/24 21:30 04/17/24 21:35 Chlorpromazine Hcl 25 Mg/Ml Ampul IM 04/17/24 21:31 50 mg ONCE ONE Administration Chlorpromazine HCl 50 mg 04/21/24 03:28 04/21/24 03:25 Chlorpromazine Hcl 25 Mg/Ml Ampul IM 04/21/24 03:29 50 mg ONCE ONE Administration Clonazepam 1 mg 04/16/24 06:54 04/16/24 07:10 Clonazepam 1 Mg Tablet PO 04/16/24 06:55 1 mg ONCE ONE Administration Hydroxyzine HCl 50 mg 04/21/24 19:02 04/21/24 20:14 Hydroxyzine Hcl 50 Mg Tablet PO 04/21/24 19:03 50 mg ONCE ONE Administration Sodium Chloride 1,000 mls @ 999 mls/hr 04/15/24 18:25 04/15/24 21:06 Ns IV 04/15/24 19:25 Infused .Q1H1M ONE Infusion Ketamine HCl 20 mg 04/16/24 10:00 04/16/24 10:30 Ketamine Hcl/Ns 50 Mg/5 Ml Syringe IVPUSH 04/16/24 10:01 20 mg ONCE ONE Administration Lorazepam 2 mg 04/15/24 14:52 04/15/24 15:11 Lorazepam 1 Mg Tablet PO 04/15/24 14:53 2 mg ONCE ONE Administration Lorazepam 2 mg 04/15/24 16:53 04/15/24 17:28 Lorazepam 1 Mg Tablet PO 04/15/24 16:54 2 mg ONCE ONE Administration Lorazepam 2 mg 04/15/24 18:25 04/15/24 18:32 Lorazepam 2 Mg/Ml Vial IVPUSH 04/15/24 18:26 2 mg ONCE ONE Administration Lorazepam 2 mg 04/15/24 21:27 04/15/24 21:29 Lorazepam 2 Mg/Ml Vial IM 04/15/24 21:28 2 mg STAT STA Administration Lorazepam 2 mg 04/16/24 08:30 04/16/24 08:36 Lorazepam 1 Mg Tablet PO 04/16/24 08:31 2 mg ONCE ONE Administration Lorazepam 2 mg 04/16/24 13:54 04/16/24 14:01 Lorazepam 1 Mg Tablet PO 04/16/24 13:55 2 mg ONCE ONE Administration Lorazepam 2 mg 04/17/24 11:08 04/17/24 11:22 Lorazepam 2 Mg/Ml Vial IM 04/17/24 11:09 2 mg STAT STA Administration Lorazepam 2 mg 04/17/24 21:30 04/17/24 21:35 Lorazepam 2 Mg/Ml Vial IM 04/17/24 21:31 2 mg STAT STA Administration Lorazepam 2 mg 04/18/24 11:05 04/18/24 11:07 Lorazepam 1 Mg Tablet PO 04/18/24 11:06 2 mg ONCE ONE Administration Lorazepam 2 mg 04/21/24 03:28 04/21/24 03:25 Lorazepam 2 Mg/Ml Vial IM 04/21/24 03:29 2 mg STAT STA Administration Midazolam HCl 5 mg 04/16/24 09:20 04/16/24 09:22 Midazolam Hcl/Pf 2 Mg/2 Ml Vial IM 04/16/24 09:21 5 mg ONCE ONE Administration Quetiapine Fumarate 100 mg 04/16/24 21:27 04/16/24 21:37 Quetiapine Fumarate 100 Mg Tablet PO 04/16/24 21:28 Not Given ONCE ONE Testosterone Cypionate 80 mg 04/19/24 08:00 04/19/24 07:54 Testosterone Cypionate 200 Mg/1 Ml Vial IM 04/19/24 08:01 80 mg ONCE ONE Administration Ziprasidone 10 mg 04/15/24 21:27 04/15/24 21:29 Ziprasidone Mesylate 20 Mg Vial IM 04/15/24 21:28 10 mg ONCE ONE Administration Ziprasidone 20 mg 04/16/24 13:40 04/16/24 13:47 Ziprasidone 20 Mg Capsule PO 04/16/24 13:41 20 mg ONCE ONE Administration Ziprasidone 20 mg 04/16/24 22:13 04/16/24 22:41 Ziprasidone 20 Mg Capsule PO 04/16/24 22:14 20 mg ONCE ONE Administration Ziprasidone 60 mg 04/17/24 10:05 04/18/24 08:54 Ziprasidone 60 Mg Capsule PO 60 mg BID RODGER Administration Ziprasidone 20 mg 04/17/24 11:08 04/17/24 11:22 Ziprasidone Mesylate 20 Mg Vial IM 04/17/24 11:09 20 mg ONCE ONE Administration Zolpidem Tartrate 5 mg 04/15/24 18:10 04/15/24 18:33 Zolpidem Tartrate 5 Mg Tablet PO 04/15/24 18:11 Not Given ONCE ONE Zolpidem Tartrate 5 mg 04/15/24 19:58 04/15/24 20:52 Zolpidem Tartrate 5 Mg Tablet PO 04/15/24 19:59 5 mg ONCE ONE Administration Zolpidem Tartrate 5 mg 04/16/24 21:28 04/16/24 21:37 Zolpidem Tartrate 5 Mg Tablet PO 04/16/24 21:29 5 mg ONCE ONE Administration Medical Decision Making Medical Decision Making MDM Narrative: 50-year-old male with history of PTSD, dysfunctional elimination syndrome, recent multiple admissions to various psychiatric hospitals presents to the ER for evaluation of insomnia, increased anxiety and paranoia. This is in the setting of running out of his psych medications including Ambien. On arrival to the ER patient is visibly anxious and paranoid. He is in the hallway with significant stimuli, difficult to obtain accurate and reliable interview. He has been off of his medications for weeks. He will need to be seen by the care team. Seen by CARE team - concerns for patient's safety. not safe for discharge at this time. will keep overnight to be seen by psych in the morning Differential Diagnosis Differential Diagnoses: The differential diagnosis associated with the presentation includes delirium, substance induced mood disorder, acute psychosis, schizophrenia, schizoaffective disorder, PTSD, bipolar disorder, major depression with psychotic features Admission/Observation Consideration of admission/observation: Escalation of care including admission/observation considered Consult Healthcare Provider Management of the patient was discussed with: Behavioral Health Provider Lab Data MDM Lab Attestation statement: I reviewed the patient's lab results. 04/15/24 14:14 04/15/24 14:14 Labs: Lab Results 04/15/24 04/15/24 04/16/24 Range/Units 14:14 14:16 08:33 WBC 9.2 (4.8-10.8) X10*3/uL RBC 5.09 (4.60-5.80) X10*6/uL Hgb 17.0 (14.0-18.0) g/dl Hct 47.8 (42.0-52.0) % MCV 93.9 (80.0-98.0) fL MCH 33.4 H (27.0-33.0) pg MCHC 35.6 (31.0-36.0) g/dl RDW 12.7 (11.0-16.0) % Plt Count 173 (160-400) X10*3/uL MPV 10.7 (9.4-12.4) fL Immature Gran % (Auto) 0.2 (0.0-0.4) % Neut % (Auto) 71.2 (45-73) % Lymph % (Auto) 20.3 (20-40) % Kleberg % (Auto) 7.1 (2-11) % Eos % (Auto) 0.7 (0-4) % Baso % (Auto) 0.5 (0-2) % Lymph # (Auto) 1.9 (1.2-4.9) X10*3/uL Kleberg # (Auto) 0.7 (0.1-1.2) X10*3/uL Eos # (Auto) 0.1 (0.0-0.4) X10*3/uL Baso # (Auto) 0.1 (0.0-0.2) X10*3/uL Abs Immat Gran (auto) 0.02 (0.00-0.03) X10*3/uL Absolute Neuts (auto) 6.6 (2.0-8.3) x10*3/uL Absolute Nucleated RBC 0.000 (0.0-0.012) X10*3/uL Nucleated RBC % (auto) 0.0 (0.0-0.2) /100WBC Sodium 139 (135-145) mmol/L Potassium 4.3 (3.3-5.1) mmol/L Chloride 108 (96-108) mmol/L Carbon Dioxide 24 (22-29) mmol/L Anion Gap 11 L (12-20) BUN 16 (9-16) mg/dL Creatinine 1.03 (0.5-1.4) mg/dL Estim Creat Clear Calc 88.2 Estimated GFR > 60 Random Glucose 106 (60-115) mg/dL Calcium 9.7 (8.4-10.2) mg/dL Total Bilirubin 0.3 (0.0-1.0) mg/dL Direct Bilirubin 0.1 (0.0-0.5) mg/dL AST 27 (5-37) U/L ALT 27 (0-40) U/L Alkaline Phosphatase 41 (39-117) U/L Total Protein 7.4 (6.5-8.0) g/dL Albumin 4.5 (3.5-5.0) g/dL Urine Color Yellow Yellow Urine Appearance Clear Clear Urine pH 6.5 6.5 (5.0-9.0) Ur Specific Hampton 1.015 1.015 (1.005-1.025) Urine Protein Negative Negative (Neg-Trace) mg/dL Urine Glucose (UA) Negative Negative (Negative) mg/dL Urine Ketones Negative Negative (Negative) mg/dL Urine Blood Negative Negative (Negative) Urine Nitrite Negative Negative (Negative) Ur Leukocyte Esterase Negative Trace H (Negative) Urine RBC 0-2 (0-2) /HPF Urine WBC 0-5 (0-5) /HPF Ur Squamous Epith Cells 0-2 (0-2) /HPF Urine Bacteria None Seen (None Seen) Hyaline Casts 0-2 (0-2) /LPF Urine Opiates Screen Not Detected (Not Detect) Ur Buprenorphine Scrn Not Detected (Not Detect) ng/mL Ur Oxycodone Screen Not Detected (Not Detect) ng/mL Urine Methadone Screen Not Detected (Not Detect) ng/mL Urine Fentanyl Screen Not Detected (Not Detect) Ur Barbiturates Screen Not Detected (Not Detect) Ur Phencyclidine Scrn Not Detected (Not Detect) Ur Amphetamines Screen Not Detected (Not Detect) U Benzodiazepines Scrn Not Detected (Not Detect) Urine Cocaine Screen Not Detected (Not Detect) U Marijuana (THC) Screen Not Detected (Not Detect) Ethyl Alcohol < 10 mg/dL External Record Review External record reviewed: Inpatient record, Outpatient record, Prior outpatient labs and Prior outpatient radiology Prescription Management I considered prescription management with: Other (antipsychotic) Chronic Conditions Patient?s care impacted by: Other (PTSD) Social Determinants Patient?s care significantly limited by Social Determinants of Health including: Problems related to primary support group and Other Social Determinant of Health Critical Care Time Critical Care Time Critical Care Time: No Discharge Plan Discharge Clinical Impression: PTSD (post-traumatic stress disorder), Insomnia Patient Disposition: Still a Patient Prescriptions: No Action testosterone cypionate 200 mg/mL oil 80 mg IM QWEEK quetiapine 100 mg tablet 100 mg PO BEDTIME albuterol sulfate [Ventolin HFA] 90 mcg/actuation Hfa Aerosol Inhaler 2 puff inhalation RQ4H PRN (Reason: Shortness Of Breath) Qty: 1 0RF oxcarbazepine 300 mg Tablet 600 mg PO BID Qty: 60 0RF zolpidem 5 mg Tablet 10 mg PO BEDTIME PRN (Reason: Insomnia) Qty: 7 0RF polyethylene glycol 3350 17 gram Powder In Packet 17 g PO BID Qty: 30 0RF tamsulosin 0.4 mg capsule 0.4 mg PO DAILY Qty: 30 0RF clonazepam 1 mg tablet 1 mg PO DAILY PRN (Reason: panic attack) Qty: 7 0RF ziprasidone HCl 20 mg Capsule 20 mg PO BEDTIME Qty: 30 0RF Print Language: Croatian
[2024-04-15 14:24] LABS: MANUAL DIFF FLAG NO
[2024-04-15 14:25] LABS: Basophils Absolute Auto 0.1 X10*3/uL (0.0-0.2); Basophils Percent Auto 0.5 % (0-2); Eosinophils Absolute Auto 0.1 X10*3/uL (0.0-0.4); Eosinophils Percent Auto 0.7 % (0-4); Hematocrit 47.8 % (42.0-52.0); Imm Gran Abs Auto 0.02 X10*3/uL (0.00-0.03); Imm Gran Pct Auto 0.2 % (0.0-0.4); Lymphocytes Absolute Auto 1.9 X10*3/uL (1.2-4.9); Lymphocytes Percent Auto 20.3 % (20-40); Mean Corpuscular HGB Conc 35.6 g/dl (31.0-36.0); Mean Corpuscular Hemoglobin 33.4 pg (27.0-33.0); Mean Corpuscular Volume 93.9 fL (80.0-98.0); Mean Platelet Volume 10.7 fL (9.4-12.4); Monocytes Absolute Auto 0.7 X10*3/uL (0.1-1.2); Monocytes Percent Auto 7.1 % (2-11); Neutrophils Absolute Auto 6.6 x10*3/uL (2.0-8.3); Neutrophils Percent Auto 71.2 % (45-73); Platelet Count 173 X10*3/uL (160-400); Red Blood Count 5.09 X10*6/uL (4.60-5.80); Red Cell Distribution Width 12.7 % (11.0-16.0); White Blood Count 9.2 X10*3/uL (4.8-10.8)
[2024-04-15 14:26] LABS: Appearance Urine Clear; Color Urine Yellow; Glucose Urine UA Negative (Negative); Leukocyte Esterase Urine Negative (Negative); Nitrite Urine Negative (Negative); PH 6.5 (5.0-9.0); Specific Gravity - Urine 1.015 (1.005-1.025); Urine Blood Negative (Negative); Urine Ketones Negative (Negative); Urine Protein Negative (Neg-Trace)
[2024-04-15 14:43] LABS: Amphetamine Screen Urine Not Detected (Not Detect); Barbiturates, Urine Not Detected (Not Detect); Benzodiazepines Screen Urine Not Detected (Not Detect); Buprenorphine Scr Not Detected (Not Detect); Cannabinoid Screen Urine Not Detected (Not Detect); Cocaine Screen Urine Not Detected (Not Detect); Fentanyl, urine Not Detected (Not Detect); Methadone Screen, Urine Not Detected (Not Detect); Opiate Screen Urine Not Detected (Not Detect); Oxycodone Screen Urine Not Detected (Not Detect); Phencyclidine Screen Urine Not Detected (Not Detect)
[2024-04-15 14:46] LABS: Alanine Aminotransferase 27 U/L (0-40); Albumin Level 4.5 g/dL (3.5-5.0); Alkaline Phosphatase 41 U/L (39-117); Anion Gap 11 (12-20); Aspartate Amino Transferase 27 U/L (5-37); Bilirubin Direct 0.1 mg/dL (0.0-0.5); Bilirubin Total 0.3 mg/dL (0.0-1.0); Blood Urea Nitrogen 16 mg/dL (9-16); Calcium 9.7 mg/dL (8.4-10.2); Carbon Dioxide 24 mmol/L (22-29); Chloride 108 mmol/L (96-108); Creatinine Clr Calc Pharmacy 88.2; Estimated Glomerular Filt Rate > 60; Ethanol < 10 mg/dL; Glucose Random 106 mg/dL (60-115); Potassium 4.3 mmol/L (3.3-5.1); Sodium 139 mmol/L (135-145); Total Protein 7.4 g/dL (6.5-8.0)
[2024-04-15] MEDS: LORazepam 1 MG TABLET 2 MG PO ×2 (15:11→17:28)
--- NOTE | 2024-04-15 15:38 | MHC.EDTECH ---
Pt changeover in to psych clothing per order of cartographic technician Ebony. PATIENT BELONGINGS SECURED IN PAPER CLOSET SPACE C8 BOTTOM SHELF, 2 Bags Tied to together and Labeled
[2024-04-15 18:22] VITALS: BP 143/76; PULSE 77; RESP 18; O2SAT 96
--- NOTE | 2024-04-15 18:25 | ECG_ITS ---
Test Reason : mental status change Blood Pressure : / mmHG Vent. Rate : 074 BPM Atrial Rate : 074 BPM P-R Int : 188 ms QRS Dur : 088 ms QT Int : 356 ms P-R-T Axes : 035 -05 018 degrees QTc Int : 395 ms Normal sinus rhythm Normal ECG When compared with ECG of 10-JAN-2024 00:32, QT has shortened Referred By: Dionna Flores Electronically Signed By:YENNI AVINA
[2024-04-15] MEDS: LORazepam 2 MG/ML VIAL IVPUSH (18:32)
[2024-04-15] MEDS: 0.9 % Sodium Chloride 1,000 ML 999 ML IV (18:33)
--- NOTE | 2024-04-15 18:34 | PC.NURSE ---
pt tremulous and not responsive, md to chair 1 h and pt moved to 4, iv placed and medicated as ordered, pt not able to follow commands, not verbal and no eye contact
[2024-04-15 20:06] VITALS: BP 114/71; PULSE 78; RESP 16; TEMP 36.4; O2SAT 93
[2024-04-15] MEDS: Zolpidem Tartrate 5 MG TABLET PO (20:52)
--- NOTE | 2024-04-15 21:28 | PC.NURSE ---
Pt became acutely agitated and attempted to leave despite 1:1 at bedside. This RN attempted redirection, and although initially successful, pt then escalated and required security presence to relocate pt back to room. Pt restrained and medicated per orders from .
[2024-04-15] MEDS: LORazepam 2 MG/ML VIAL IM (21:29)
[2024-04-15] MEDS: Ziprasidone Mesylate 20 MG VIAL 10 MG IM (21:29)
--- NOTE | 2024-04-15 21:47 | PC.NURSE ---
Please see tati documentation regarding pt agitation, restraints and medications
--- NOTE | 2024-04-15 22:45 | PC.NURSE ---
Pt now calm and cooperative, all restraints removed. Pt remains 1:1 for safety.
[2024-04-16 00:20] VITALS: BP 122/73; PULSE 93; RESP 18; TEMP 36.7; O2SAT 94
[2024-04-16 02:07] VITALS: BP 124/79; PULSE 79; RESP 16; TEMP 36.9; O2SAT 94
[2024-04-16 05:34] VITALS: BP 124/83; PULSE 70; RESP 17; TEMP 36.7; O2SAT 96
[2024-04-16] MEDS: clonazePAM 1 MG TABLET PO (07:10)
[2024-04-16 07:15] VITALS: BP 111/60; PULSE 64; RESP 16; TEMP 36.5; O2SAT 95
--- NOTE | 2024-04-16 07:35 | PC.NURSE ---
pt speaking w/ care team at this time.
[2024-04-16] MEDS: LORazepam 1 MG TABLET 2 MG PO ×2 (08:36→14:01)
[2024-04-16 08:44] LABS: Appearance Urine Clear; Color Urine Yellow; Glucose Urine UA Negative (Negative); Leukocyte Esterase Urine Trace (Negative); Nitrite Urine Negative (Negative); PH 6.5 (5.0-9.0); Specific Gravity - Urine 1.015 (1.005-1.025); UMIC TRIGGER UACC YES; Urine Blood Negative (Negative); Urine Ketones Negative (Negative); Urine Protein Negative (Neg-Trace)
--- NOTE | 2024-04-16 08:45 | PC.NURSE ---
pt ambulated to the restroom independently w/ strong steady gait - no use of assistive devices needed. sitter accompanied pt to restroom. pt then became increasingly agitated that he was not able to urinate/have BM on his own. pt then proceeded to take off hospital attire/refuse to put new attire back on standing completely naked in room. pt became more agitated as he states that no one has talked to him in regards to plan of care. pt educated that he has been seen by CARE team twice and that the plan is to be an inpatient bed search. pt originally declined putting new clothes on/remained naked. security bedside. security/this RN/care team bedside in attempts to deescalate situation. pt agreeable to put hospital attire back on/take PO medication d/t increase in anxiety. pt medicated per provider order. now resting comfortably w/ ligature free hospital attire while sitting on bed. pt provided w/ coffee. 1:1 sitter remains present.
[2024-04-16 08:49] LABS: Bacteria Urine None Seen (None Seen); Hyaline Casts Urine 0-2 /LPF (0-2); RBC Urine 0-2 /HPF (0-2); Squamous Epithelial Cell Urine 0-2 /HPF (0-2); WBC Urine 0-5 /HPF (0-5)
[2024-04-16] MEDS: Midazolam HCl/PF 2 MG/2 ML VIAL 5 MG IM (09:22)
--- NOTE | 2024-04-16 09:36 | PC.NURSE ---
pt once again ambulated to restroom/became agitated/combative w/ staff when sitter accompanied him. security bedside. pt placed in 4 point restraints by security. IM administered per provider order. effectiveness pending.
--- NOTE | 2024-04-16 10:05 | PC.NURSE ---
pt self removed RA/LA restraints by himself. pt currently calm/cooperative post removal. security called to bedside in attempts to remove RL/LL restraints. pt now free of restraints in all 4 extremities at this time. pt calm/cooperative.
--- NOTE | 2024-04-16 10:10 | PHA.MEDREC ---
Addendum entered by Shahab Frye 04/16/24 10:28: reviewed Original Note: Pharmacy Consult ? Medication Reconciliation Pharmacy has completed the medication reconciliation. Tried to spake with patient, however he was agitated,combative with staff and was placed in restraints by security. There are no contacts on file for patient at this time. I could only confirm what is in claims. Clonazapam 1 mg daily prn last filled 02/23/24 for 30 days, Oxycarbazepine 600 mg bid last filled 02/17/24 for 30 days, Ziprasidone 20 mg at bedtime last filled 03/24/24 for 30 days, Testosterone cyp 80 mg Qweek last filled 03/25/24 for 15 days, Zolpidem 10 mg at bedtime prn last filled 02/23/24 for 30 days
[2024-04-16] MEDS: Ketamine HCl/NS 50 MG/5 ML SYRINGE 20 MG IVPUSH (10:30)
--- NOTE | 2024-04-16 10:35 | PC.NURSE ---
medication administered per provider order as previous interventions for anxiety were not successful. 20mg ketamine infusing in 100ml bag of NS via pump at this time. effectiveness pending.
--- NOTE | 2024-04-16 11:31 | PC.NURSE ---
pt calm/cooperative post medication administration. pt ambulating in room w/ strong steady gait w/o use of assistive devices. respirations remain even/unlabored.
--- NOTE | 2024-04-16 12:37 | PC.NURSE ---
report given to LELAND Andrews in the pod.
[2024-04-16] MEDS: Ziprasidone 20 MG CAPSULE PO ×2 (13:47→22:41)
--- NOTE | 2024-04-16 13:52 | PC.NURSE ---
Pt came to nursing station- telling the ghost writer he is having violent intrusive thoughts and he feels like a rat in the cage - Pt is pacing around unit- exit seeking- security on the unit. Pt did take Geodon but is requesting a strong anti-anxiety medication- the thoughts need to stop before I hurt someone
--- NOTE | 2024-04-16 14:04 | PC.NURSE ---
Pt took PO lorazepam
--- NOTE | 2024-04-16 19:09 | PC.NURSE ---
patient appears to remain at rest presently respirations are even and unlabored patient appears in no distress.
--- NOTE | 2024-04-16 20:58 | PC.NURSE ---
t/w asked provider for meds apparently wanted someone other than t/w to pursue/provide medications. t/w has had no interactions with this pattern chart writer as yet this visit.
[2024-04-16 21:00] VITALS: BP 121/79; PULSE 69; RESP 20; TEMP 36.8; O2SAT 95
[2024-04-16] MEDS: Zolpidem Tartrate 5 MG TABLET PO (21:37)
--- NOTE | 2024-04-16 22:00 | PC.NURSE ---
patient medicated and within 30 minutes out to common area to watch television. patient redirected about being away from doors.
--- NOTE | 2024-04-16 22:14 | ECG_ITS ---
Test Reason : MED CLEAR Blood Pressure : / mmHG Vent. Rate : 066 BPM Atrial Rate : 066 BPM P-R Int : 170 ms QRS Dur : 088 ms QT Int : 392 ms P-R-T Axes : 019 033 038 degrees QTc Int : 410 ms Normal sinus rhythm Normal ECG When compared with ECG of 15-APR-2024 18:34, No significant change was found Referred By: Dominick Hoskins Electronically Signed By:YENNI AVINA
--- NOTE | 2024-04-16 23:07 | PC.NURSE ---
patient laid down in bed of his own accord.
--- NOTE | 2024-04-16 23:19 | PC.NURSE ---
patient back out to group seating area.
[2024-04-16 23:30] VITALS: BP 124/79; PULSE 59; RESP 17; O2SAT 96
--- NOTE | 2024-04-17 04:13 | PC.NURSE ---
patient ad sly to rest room
[2024-04-17] MEDS: OXcarbazepine 300 MG TABLET 600 MG PO ×2 (08:30→20:13)
--- NOTE | 2024-04-17 08:46 | MHC.CARE ---
T/w emailed financial counseling to assist with insurance.
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
[2024-04-17] MEDS: clonazePAM 1 MG TABLET PO ×2 (10:30→20:13)
[2024-04-17] MEDS: Ziprasidone 60 MG CAPSULE PO ×2 (10:30→20:13)
[2024-04-17] MEDS: LORazepam 2 MG/ML VIAL IM ×2 (11:22→21:35)
[2024-04-17] MEDS: Ziprasidone Mesylate 20 MG VIAL IM (11:22)
--- NOTE | 2024-04-17 14:06 | PC.NURSE ---
At approx. 1100 this account underwriter observed the patient with increasing agitation and anxiety. The patient was observed attempting to elope the unit from the windows in his room. The patient stated that he would elope from the unit by kicking down the door and he would hurt anyone who happened to get in his way. was made aware and ordered Geodon 20mg IM once and Ativan 2mg IM once for agitation and anxiety. The patient was agreeable to IM medications and medications were administered per AUG.
--- NOTE | 2024-04-17 16:50 | MHC.CARE ---
Patient's sister returned clinician's call from yesterday, she is out of state managing an family emergency and did not see the call. CARE Team updated that her brother is still in the ED, has not been placed yet and was referred to Financial Counseling for [facility] application. Patient can have calls and visitors.
--- NOTE | 2024-04-17 16:57 | PC.NURSE ---
PT requesting placement at [facility]. Per sister the pt had a good therapeutic experience last time he was admitted to [facility].
[2024-04-17 17:48] VITALS: RESP 18
--- NOTE | 2024-04-17 19:19 | PC.NURSE ---
patient periodically looking at exits, quiet, seems internally preoccupied. appears in no acute distress presently.
[2024-04-17] MEDS: Zolpidem Tartrate 5 MG TABLET 10 MG PO (20:13)
[2024-04-17] MEDS: chlorproMAZINE HCl 25 MG/ML AMPUL 50 MG IM (21:35)
--- NOTE | 2024-04-17 21:46 | PC.NURSE ---
patient had (since about 1999 ) been intermittently looking at /checking doors, for a few minutes gestured like he was hanging his weight on his opened room door, redirected and difficult to redirect (client moving slowly and ignoring staff/not hearing us) t/w speculates that he tests limits more when only female staff are present. (trying to swap out staff while meds take effect) patient soon after being redirected about hanging on door pulled off sensor off wall, security had been called but could not arrive in time to stop client from removing cover over camera. client just now made statements saying im not doing anything and i have west on me now that i didnt have before coming to the hospital patient states he has discomfort on his knee and back.
--- NOTE | 2024-04-18 00:03 | PC.NURSE ---
patient up ad sly to rest room
--- NOTE | 2024-04-18 03:13 | PC.NURSE ---
this rn assumed care of pt, pt resting in bed, respirations even and unlabored, no acute distress noted. plan of care continues.
--- NOTE | 2024-04-18 04:03 | PC.NURSE ---
pt awake and sitting at edge of bed, pt appears calm, pt noted to lay back down and place blanket over self, respirations even and unlabored.
[2024-04-18 06:00] VITALS: RESP 18
--- NOTE | 2024-04-18 06:04 | PC.NURSE ---
pt refusing vitals at this time, aware at this time.
--- NOTE | 2024-04-18 06:41 | PC.NURSE ---
pt awake and ambulatory to bathroom at this time, no acute distress noted.
--- NOTE | 2024-04-18 06:54 | PC.NURSE ---
Assumed care of patient at 0645, patient appears to be in no apparent distress, resting on bed in BH1, respirations even and unlabored. Continue plan of care for inpatient bedsearch
[2024-04-18] MEDS: clonazePAM 1 MG TABLET PO ×2 (08:54→20:38)
[2024-04-18] MEDS: Ziprasidone 60 MG CAPSULE PO (08:54)
[2024-04-18] MEDS: OXcarbazepine 300 MG TABLET 600 MG PO ×2 (08:54→20:38)
--- NOTE | 2024-04-18 10:34 | PC.NURSE ---
Pt has been calm and cooperative, occasionally conversation with staff. He reports feeling isolated in his room, feeling as though he is not getting help being in the emergency department. this RN validated those feeling, and encouraged patient to come out to the common area for the calm milieu. Pt agreeable, sitting in common area watching TV at this time. pt appears more relaxed in common area than in his room. Pt aware of plan of care for psych to meet with him at some point today
[2024-04-18] MEDS: LORazepam 1 MG TABLET 2 MG PO (11:07)
--- NOTE | 2024-04-18 11:09 | PC.NURSE ---
Pt observed to be sitting on ground next to desk in his room, pt reporting anxiety and requesting medication to help. NYDIA Eagle aware, 2mg Ativan PO ordered and administered per AUG. Pt continues to sit on floor, examining the table and bed. Appears to be in no apparent distress at this time, calm and cooperative, willing to participate in conversation with this RN
--- NOTE | 2024-04-18 11:35 | MHC.CARE ---
After re-evaluating Pt earlier this morning T/W sat with Pt to provide support at Pt's request. Pt was in his room calm and cooperative. He reported that he was provided with good treatment when he was on a unit at [facility] previously and advocated for an inpatient admission here. T/W explained that he was not able to admit to an [facility] unit today however other outside facilities were reviewing him. Pt was focused on medications and staying medication adherent. He is aware of what psychiatric medications have been helpful for him and advocated to resume those medications. Pt presented with insight and good judgment. He was future oriented as he plans to have his 18 year old daughter move in with him in May. This was verified with Pt's sister. Pt's daughter will be attending college in the [place] area and staying with Pt to provide support. Pt showed insight into the fact that he isolates at home frequently causing him to feel increasingly depressed. Pt plans to isolate less moving forward. He was encouraged to spend time outside his room in the common area of the pod. Per Pt the common area can be too acute and overstimulating for him at times which is why he feels he becomes dysregulated. Pt did spend time outside in the common area today as it was quiet and he was calm during that time. Pt has been in good behavioral control today and required no redirection. Pt stated that he was not attempting to take the smoke detectors down to destroy property. He reported that he believed they were cameras as he is exhibiting some paranoia. Pt was very upset in regard to having to discontinue his medications as it was not a choice and a medical insurance issue that he has been working to resolve. Pt has greatly improved since arriving to the hospital, is medication adherent, help seeking, and shows insight. It appears that the longer Pt remains in the behavioral health pod the more he will decompensate as he feels trapped, isolated and there is limited therapeutic support. T/W plans to check in with Pt later today and over the weekend to provide support. Pt feels this was beneficial today and agreed that if he felt triggered he would seek staff out for support rather than escalate.
--- NOTE | 2024-04-18 12:37 | P.CNPS_ITS ---
History of Present Illness Date of Service: 04/18/2024 Chief Complaint: Medication refill Sources of Information: patient interviewed, chart reviewed and crisis/core team assessment reviewed HPI Narrative: Interim Hx: pt continues to present as paranoid and suspicious, trying to take covers of smoke alarms because he thinks they have cameras inside. He is not fully forthcoming with extend of delusional system. His dx is clearly beyong PTSD, and prior psych records from [facility] document dx schizoaffective which seems much more accurate. He continues to present as hypervigilant, and fearful but less so. Past Psychiatric History: IP: Sisi Pierre-2, [facility] OP: Brijesh- a psychiatrist who is from [facility] along with therapy psychiatric issues since first grade Trials: Haldol- seizure, fainting, anaphylaxis Olanzapine- SJS Latuda Risperdal-facial tic Seroquel-facial tic Sedatives- no response Review of Systems Review of Systems Yes all other systems are reviewed and are negative [facility] Medical History (Updated 04/19/24 @ 07:47 by Shagufta Mcelroy NP) Schizoaffective disorder Dysfunctional elimination syndrome Family History: Depression, Alcohol Use, Hx of psychological trauma, no suicide attempts Social History: I am the joke of the family . Psychiatric issues since first grade Trauma History: Medical trauma in childhood Diagnostics Vital Signs (24Hr): Vital Signs - 24 hr 04/17/24 17:48 04/18/24 06:00 Respiratory Rate 18 18 BMI result Body Mass Index 30.4 Labs 04/15/24 14:14 04/15/24 14:14 Imaging Radiology Impressions: ITS Impressions Chest X-Ray 04/15/24 18:25 IMPRESSION: 1. Limited evaluation due to patient's rotation. 2. Nonspecific interstitial thickening, which could be seen in the setting of asthma, bronchitis, reactive airways disease or atypical infections. Electronically signed by: Nancy Hirsch MD 04/15/2024 08:34 PM EDT RP Mental Status Exam Mental Status Exam Narrative: Appearance: wearing hospital gown, fearful, in corner, scanning room, looking suspiciously outside of his room. Behavior: very hypervigilant, fearful, guarded Psychomotor: no overt agitation or retardation noted Speech: mostly clear, regular rate/rhythm, volume, spontaneous TP: thought blocking TC: paranoid, but not fully forthcoming with extend of paranoid/persecutory delusions Mood: anxious' Affect: congruent, fearful SI: denies HI: denies VH/AH: denies when asked but appears internally preoccupied Delusions: paranoid/persecutory delusions Insight/judgment: poor x 2. Memory/cog: alert, oriented x 3. Medications Medications Current Medications Clonazepam (Clonazepam 1 Mg Tablet) 1 mg PO BID [facility] Last Admin: 04/18/24 08:54 Dose: 1 mg Oxcarbazepine (Oxcarbazepine 300 Mg Tablet) 600 mg PO BID [facility] Last Admin: 04/18/24 08:54 Dose: 600 mg Ziprasidone (Ziprasidone 60 Mg Capsule) 60 mg PO BID [facility] Last Admin: 04/18/24 08:54 Dose: 60 mg Zolpidem Tartrate (Zolpidem Tartrate 5 Mg Tablet) 10 mg PO BEDTIME [facility] Stop: 04/24/24 20:59 Last Admin: 04/17/24 20:13 Dose: 10 mg Allergies Allergies Allergy/AdvReac Type Severity Reaction Status Date / Time clonidine AdvReac Fainting Verified 04/15/24 12:57 haloperidol [From Haldol] AdvReac Anaphylaxis Verified 04/15/24 12:57 olanzapine [From Zyprexa] AdvReac Anaphylaxis Verified 04/15/24 12:57 Assessment & Plan Assessment & Plan (1) Psychosis: Status: Resolved Code(s): F29 - Unspecified psychosis not due to a substance or known physiological condition (2) Schizoaffective disorder: Status: Acute Code(s): F25.9 - Schizoaffective disorder, unspecified Plan Mr. Patterson presents as very suspicious, guarded, hypervigilant and paranoid. He also does not present as fully forthcoming with extend of delusional beliefs. We discussed re-starting geodone, which he received 40mg yesterday, continue trileptal, add clonazepam 1mg po BID, as pt presents with less psychosis. Continue bedsearch for stabilization, safety and containment. Avoid Ketamine as it may exacerbate psychosis. If need more antipsychotic for agitation, can use prolixin 2.5mg IM q6h prn agitation also with ativan 2mg IM. PLAN 10/18- increase geodone to 80mg BID. clonazepam 1mg po BID. continue trileptal 600mg po BID. 2. Continue bedsearch for inpt level of care, pt presents as very fearful, paranoid, and needs ILOC for safety, containment and stabilization. Total time managing care of this patient today ____ minutes.
[2024-04-18] MEDS: chlorproMAZINE HCl 25 MG TABLET 50 MG PO (13:19)
--- NOTE | 2024-04-18 13:21 | PC.NURSE ---
pt reports feeling agitated and would like to have something to help with that feeling
--- NOTE | 2024-04-18 14:42 | PC.NURSE ---
pt verbalizes being very upset that someone took his papers out of his room yesterday. This RN found said papers in his chart and returned them too him. pt expresses that he feels as though someone should have never taken the papers out of his room. Pt was able to be re-directed and is now calm, laying in bed, respirations even and unlabored
[2024-04-18 14:43] VITALS: PULSE 84; RESP 16; O2SAT 98
--- NOTE | 2024-04-18 16:40 | PC.NURSE ---
Addendum entered by Cindi Christian 04/18/24 18:44: Pharmacy called again for 5pm Geodon dose Original Note: Pharmacy called for 5pm Geodon dose
[2024-04-18] MEDS: LORazepam 1 MG TABLET PO (16:44)
--- NOTE | 2024-04-18 16:44 | PC.NURSE ---
Pt observed to be sitting on the floor next to his desk, rocking back and forth. this RN approached patient to inquire about what is going on. Pt reports that he smells . he is observed to be telling people to move from one side of the desk to the other. This RN inquired about visual or auditory hallucinations. Pt endorses both. Pt then moved to underneath the desk. Pt reports that he feels more comfortable there due to increased anxiety. this RN offered PRN Ativan which he took willingly. Pt now laying under desk, no apparent distress is noted, respirations even and unlabored
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
[2024-04-18] MEDS: Ziprasidone 80 MG CAPSULE PO (18:55)
[2024-04-18] MEDS: polyethylene glycoL 3350 17 GM POWD.PACK PO (20:37)
[2024-04-18] MEDS: Zolpidem Tartrate 5 MG TABLET 10 MG PO (20:38)
[2024-04-18] MEDS: Ziprasidone 20 MG CAPSULE PO (20:38)
[2024-04-19 03:13] VITALS: BP 121/82; PULSE 74; RESP 17; TEMP 37.2; O2SAT 95
--- NOTE | 2024-04-19 07:09 | PC.NURSE ---
Assumed care of patient at 0645, patient appears to be in no apparent distress this am, calm and cooperative, offering no complaints to this RN. Pt ate breakfast without issue. Pt aware of continued plan of care for inpatient bedsearch
[2024-04-19] MEDS: Ziprasidone 80 MG CAPSULE PO ×2 (07:53→17:03)
[2024-04-19] MEDS: Tamsulosin HCL 0.4 MG CAPSULE PO (07:53)
[2024-04-19] MEDS: clonazePAM 1 MG TABLET PO ×2 (07:53→21:10)
[2024-04-19] MEDS: chlorproMAZINE HCl 25 MG TABLET 50 MG PO (07:54)
[2024-04-19] MEDS: Testosterone Cypionate 200 MG/1 ML VIAL 80 MG IM (07:54)
[2024-04-19] MEDS: OXcarbazepine 300 MG TABLET 600 MG PO ×2 (07:54→21:09)
[2024-04-19 08:49] VITALS: BP 121/73; PULSE 100; RESP 18; O2SAT 94
--- NOTE | 2024-04-19 10:27 | P.CNPS_ITS ---
History of Present Illness Date of Service: t Chief Complaint: Medication refill Reason for Consult: Reassessment Discussed with referring provider: Yes Sources of Information: patient interviewed, chart reviewed and crisis/core team assessment reviewed HPI Narrative: The patient is a 58-year-old male very well known by this team with a history of schizoaffective disorder bipolar type and personality disorder NOS who was brought into this facility for exacerbation of disorganized behavior in the context of noncompliance. While he was on the port he needed to be restrained twice. On interview the patient denies new symptoms he looks internally preoccupied. He denies active auditory hallucinations. Was very resistant to engage in conversation. The nursing staff reported the patient had been responding to internal stimuli, he admits auditory and visual hallucinations. They have used chlorpromazine p.r.n. with for improvement. So far he has not been under restraints for the last 2 days. Past Psychiatric History: IP: Sisi Pierre-Barron, [facility] OP: Brijesh- a psychiatrist who is from [facility] along with therapy psychiatric issues since first grade Trials: Haldol- seizure, fainting, anaphylaxis Olanzapine- SJS Latuda Risperdal-facial tic Seroquel-facial tic Sedatives- no response [facility] Medical History (Updated 04/19/24 @ 07:47 by Shagufta Mcelroy NP) Schizoaffective disorder Dysfunctional elimination syndrome Family History: Depression, Alcohol Use, Hx of psychological trauma, no suicide attempts Social History: I am the joke of the family . Psychiatric issues since first grade Trauma History: Medical trauma in childhood Diagnostics Vital Signs (24Hr): Vital Signs - 24 hr 04/18/24 14:43 04/19/24 03:13 04/19/24 08:49 Temperature 98.9 F Pulse Rate 84 74 100 Respiratory Rate 16 17 18 Blood Pressure 121/82 121/73 Pulse Oximetry 98 95 94 Oxygen Delivery Method Room Air Room Air Room Air BMI result Body Mass Index 30.4 Labs 04/15/24 14:14 04/15/24 14:14 Imaging Radiology Impressions: ITS Impressions Chest X-Ray 04/15/24 18:25 IMPRESSION: 1. Limited evaluation due to patient's rotation. 2. Nonspecific interstitial thickening, which could be seen in the setting of asthma, bronchitis, reactive airways disease or atypical infections. Electronically signed by: Nancy Hirsch MD 04/15/2024 08:34 PM EDT RP Mental Status Exam Mental Status Exam Patient Appearance: Appropriate (On hospital gowns) Patient Orientation: Person and Situation Level of Consciousness: Awake and Appropriate Patient Behavior: Guarded Mood Description: Calm Affect Description: Labile Patient Cognition Impaired: Yes Ability to Follow Directions: Good Speech Pattern: Clear Hallucinations: Auditory and Visual Delusions: Ideas of Reference Thought Process: Distracted and Slowed Thinking Thought Content: positive for [place] and positive for Poverty of Content Judgement: Poor Medications Medications Current Medications Albuterol Sulfate (Albuterol Sulfate 90 Mcg 8 Gm Inhaler) 2 puff INHALE RQ4H PRN PRN Reason: Shortness Of Breath Chlorpromazine HCl (Chlorpromazine Hcl 25 Mg Tablet) 50 mg PO Q6H PRN PRN Reason: agitation Last Admin: 04/19/24 07:54 Dose: 50 mg Clonazepam (Clonazepam 1 Mg Tablet) 1 mg PO BID [facility] Last Admin: 04/19/24 07:53 Dose: 1 mg Lorazepam (Lorazepam 1 Mg Tablet) 1 mg PO TID PRN PRN Reason: severe anxiety Last Admin: 04/18/24 16:44 Dose: 1 mg Oxcarbazepine (Oxcarbazepine 300 Mg Tablet) 600 mg PO BID [facility] Last Admin: 04/19/24 07:54 Dose: 600 mg Polyethylene Glycol (Polyethylene Glycol 3350 17 Gm Powd.Pack) 17 gm PO BID [facility] Last Admin: 04/19/24 07:54 Dose: Not Given Tamsulosin HCl (Tamsulosin Hcl 0.4 Mg Capsule) 0.4 mg PO DAILY [facility] Last Admin: 04/19/24 07:53 Dose: 0.4 mg Ziprasidone (Ziprasidone 80 Mg Capsule) 80 mg PO BIDWM [facility] Last Admin: 04/19/24 07:53 Dose: 80 mg Ziprasidone (Ziprasidone 20 Mg Capsule) 20 mg PO BEDTIME [facility] Last Admin: 04/18/24 20:38 Dose: 20 mg Zolpidem Tartrate (Zolpidem Tartrate 5 Mg Tablet) 10 mg PO BEDTIME [facility] Stop: 04/24/24 20:59 Last Admin: 04/18/24 20:38 Dose: 10 mg Zolpidem Tartrate (Zolpidem Tartrate 5 Mg Tablet) 10 mg PO BEDTIME PRN PRN Reason: Insomnia Allergies Allergies Allergy/AdvReac Type Severity Reaction Status Date / Time olanzapine [From Zyprexa] AdvReac Severe Anaphylaxis Verified 04/18/24 12:52 clonidine AdvReac Fainting Verified 04/15/24 12:57 haloperidol [From Haldol] AdvReac Anaphylaxis Verified 04/15/24 12:57 tuna Allergy Severe Anaphylaxis Uncoded 04/18/24 12:52 Assessment & Plan Assessment & Plan (1) Schizoaffective disorder: Status: Acute Code(s): F25.9 - Schizoaffective disorder, unspecified Plan The patient is a 58-year-old male with a history of schizoaffective disorder and borderline personality disorder who was brought to the facility for exacerbation of disorganization in the context of noncompliance. The patient had been restrained twice since he arrived in the emergency room. Plan 1. Continue with same treatments. 2. No need to increase Geodon his at the highest dose at this point. 3. The patient requires inpatient level of care he can not sign AMA if needed the patient needs to be admitted on a 12. 4. Reassessment as demand. Total time managing care of this patient today _30___ minutes. Informed Consent: further education needed
[2024-04-19] MEDS: LORazepam 1 MG TABLET PO (15:02)
--- NOTE | 2024-04-19 17:40 | PC.NURSE ---
Patient has had uneventful day so far, pt does voice concern over long stay in the ER, this RN validated those feelings. Pt appears to be in better spirits today compared to days past, talking to this RN about his favorite movies/ his childhood and jobs. Pt does appear to be having auditory and visual hallucinations occasionally, but again, less severe than days past. Pt has been exercising in his room to distract himself. Pt is calm and cooperative, re-directable and offers no complaints to this RN at this time
--- NOTE | 2024-04-19 17:59 | PC.NURSE ---
Pt was found sitting on floor in shower by NICHELLE Diaz. Pt not responding to staff, staring into the distance . About 1 minute later pt came to, and reported that he did not remember walking to the bathroom and sitting in the shower. Pt seemed concerned that he had an episode of forgetfulness. Pt now asking for shower. Pt provided with shower items
[2024-04-19] MEDS: Zolpidem Tartrate 5 MG TABLET 10 MG PO (21:10)
[2024-04-19 21:16] VITALS: BP 103/73; PULSE 95; RESP 18; TEMP 36.8; O2SAT 95
--- NOTE | 2024-04-19 21:50 | PC.NURSE ---
[place] [id number]. PT a/o, ambulating independently throughout mileu. Denies pain and SI/HI at this time. Medicated as per AUG. Pt requested and provider sandwich, juice and tea. PT currently resting quietly. Plan of care ongoing
--- NOTE | 2024-04-19 22:01 | PC.NURSE ---
pt resting quietly on stretcher, watching the phone, Father states, pt is still foaming in his mouth at times. no s/s of any resp distress, at this time,
[2024-04-20 05:38] VITALS: BP 113/63; PULSE 58; RESP 17; TEMP 36.8; O2SAT 97
--- NOTE | 2024-04-20 07:00 | PC.NURSE ---
Assumed care of patient at 0645, patient appears to be in no apparent distress at this time, pt was found sitting in the bathroom, staring into the distance, pt took about 3-4 minutes to snap out of it . He ambulated independently back to his bedroom and is now resting with his eyes closed. continue plan of care for inpatient bedsearch
[2024-04-20] MEDS: Tamsulosin HCL 0.4 MG CAPSULE PO (08:07)
[2024-04-20] MEDS: clonazePAM 1 MG TABLET PO ×2 (08:07→20:01)
[2024-04-20] MEDS: OXcarbazepine 300 MG TABLET 600 MG PO ×2 (08:07→20:01)
[2024-04-20] MEDS: Ziprasidone 80 MG CAPSULE PO ×2 (08:07→17:35)
[2024-04-20] MEDS: polyethylene glycoL 3350 17 GM POWD.PACK PO ×2 (09:14→20:00)
--- NOTE | 2024-04-20 11:58 | P.CNPS_ITS ---
History of Present Illness Date of Service: t Chief Complaint: Medication refill Reason for Consult: F/U med management Sources of Information: patient interviewed, chart reviewed and crisis/core team assessment reviewed HPI Narrative: Asked to be reassessed for medicatnon managment. The nursing staff reported that he is refusing PRN medications but he was seen responding to internal stimuli. On interview, he reported that he woke up at 3 AM but he adamantly denies auditory hallucinations, looks tired and internally preoccupied. Past Psychiatric History: IP: Sisi Pierre[facility]Barron, [facility]: Brijesh- a psychiatrist who is from [facility] along with therapy psychiatric issues since first grade Trials: Haldol- seizure, fainting, anaphylaxis Olanzapine- SJS Latuda Risperdal-facial tic Seroquel-facial tic Sedatives- no response Medical Evaluation Reviewed: Yes [facility] Medical History (Updated 04/19/24 @ 07:47 by Shagufta Mcelroy NP) Schizoaffective disorder Dysfunctional elimination syndrome Family History: Depression, Alcohol Use, Hx of psychological trauma, no suicide attempts Social History: I am the joke of the family . Psychiatric issues since first grade Trauma History: Medical trauma in childhood Diagnostics Vital Signs (24Hr): Vital Signs - 24 hr 04/19/24 21:16 04/20/24 05:38 Temperature 98.3 F 98.2 F Pulse Rate 95 58 Respiratory Rate 18 17 Blood Pressure 103/73 113/63 Pulse Oximetry 95 97 Oxygen Delivery Method Room Air Room Air BMI result Body Mass Index 30.4 Labs 04/15/24 14:14 04/15/24 14:14 Imaging Radiology Impressions: ITS Impressions Chest X-Ray 04/15/24 18:25 IMPRESSION: 1. Limited evaluation due to patient's rotation. 2. Nonspecific interstitial thickening, which could be seen in the setting of asthma, bronchitis, reactive airways disease or atypical infections. Electronically signed by: Nancy Hirsch MD 04/15/2024 08:34 PM EDT RP Mental Status Exam Mental Status Exam Patient Appearance: Appropriate (on hospital gowns) Patient Orientation: Person, Place and Situation Level of Consciousness: Awake Patient Behavior: Guarded Mood Description: Calm Affect Description: Blunted Ability to Follow Directions: Fair Speech Pattern: Clear Hallucinations: None Delusions: Paranoid Ideation Thought Process: Evasive Thought Content: positive for Poverty of Content Judgement: Poor Medications Medications Current Medications Albuterol Sulfate (Albuterol Sulfate 90 Mcg 8 Gm Inhaler) 2 puff INHALE RQ4H PRN PRN Reason: Shortness Of Breath Chlorpromazine HCl (Chlorpromazine Hcl 25 Mg Tablet) 50 mg PO Q6H PRN PRN Reason: agitation Last Admin: 04/19/24 07:54 Dose: 50 mg Clonazepam (Clonazepam 1 Mg Tablet) 1 mg PO BID [facility] Last Admin: 04/20/24 08:07 Dose: 1 mg Lorazepam (Lorazepam 1 Mg Tablet) 1 mg PO TID PRN PRN Reason: severe anxiety Last Admin: 04/19/24 15:02 Dose: 1 mg Oxcarbazepine (Oxcarbazepine 300 Mg Tablet) 600 mg PO BID [facility] Last Admin: 04/20/24 08:07 Dose: 600 mg Polyethylene Glycol (Polyethylene Glycol 3350 17 Gm Powd.Pack) 17 gm PO BID [facility] Last Admin: 04/20/24 09:14 Dose: 17 gm Tamsulosin HCl (Tamsulosin Hcl 0.4 Mg Capsule) 0.4 mg PO DAILY [facility] Last Admin: 04/20/24 08:07 Dose: 0.4 mg Ziprasidone (Ziprasidone 80 Mg Capsule) 80 mg PO BIDWM [facility] Last Admin: 04/20/24 08:07 Dose: 80 mg Ziprasidone (Ziprasidone 20 Mg Capsule) 20 mg PO BEDTIME [facility] Last Admin: 04/19/24 21:14 Dose: Not Given Zolpidem Tartrate (Zolpidem Tartrate 5 Mg Tablet) 10 mg PO BEDTIME [facility] Stop: 04/24/24 20:59 Last Admin: 04/19/24 21:10 Dose: 10 mg Zolpidem Tartrate (Zolpidem Tartrate 5 Mg Tablet) 10 mg PO BEDTIME PRN PRN Reason: Insomnia Allergies Allergies Allergy/AdvReac Type Severity Reaction Status Date / Time olanzapine [From Zyprexa] AdvReac Severe Anaphylaxis Verified 04/18/24 12:52 clonidine AdvReac Fainting Verified 04/15/24 12:57 haloperidol [From Haldol] AdvReac Anaphylaxis Verified 04/15/24 12:57 tuna Allergy Severe Anaphylaxis Uncoded 04/18/24 12:52 Assessment & Plan Assessment & Plan (1) Schizoaffective disorder: Status: Acute Code(s): F25.9 - Schizoaffective disorder, unspecified Plan 1. Keep same treatent, he is at the highest dose of Geodon 2. IPLOC 3. Resassessment as demand. Total time managing care of this patient today _30___ minutes. Informed Consent: understands
--- NOTE | 2024-04-20 14:51 | PC.NURSE ---
Pt is sitting in common area at this time with another patient coloring/drawing and engaging in meaningful conversation about life, music, movies and jobs. Pt is calm and cooperative, offering no complaints to this RN at this time. Pt remains aware of plan of care for inpatient bedsearch. Pt advocating for discharge with medications and plan in place which has been discussed with care team and this RN. Pt seems to have improved significantly from first arrival
[2024-04-20 14:54] VITALS: RESP 18
--- NOTE | 2024-04-20 19:37 | PC.NURSE ---
patient appears to remain at rest presently respirations are even and unlabored patient appears in no distress.
[2024-04-20] MEDS: Zolpidem Tartrate 5 MG TABLET 10 MG PO (20:00)
--- NOTE | 2024-04-21 01:31 | PC.NURSE ---
OOB to communal area
[2024-04-21] MEDS: Zolpidem Tartrate 5 MG TABLET 10 MG PO ×2 (01:49→20:14)
--- NOTE | 2024-04-21 02:08 | PC.NURSE ---
tech informs me patient is immobile and nonverbal.
--- NOTE | 2024-04-21 02:17 | PC.NURSE ---
patient now verbal w staff
[2024-04-21 02:34] VITALS: BP 129/75; PULSE 73; RESP 17; TEMP 36.9; O2SAT 96
--- NOTE | 2024-04-21 03:12 | PC.NURSE ---
patient starts pacing
--- NOTE | 2024-04-21 03:24 | PC.NURSE ---
client offered meds, declined.
[2024-04-21] MEDS: chlorproMAZINE HCl 25 MG/ML AMPUL 50 MG IM (03:25)
[2024-04-21] MEDS: LORazepam 2 MG/ML VIAL IM (03:25)
--- NOTE | 2024-04-21 03:25 | PC.NURSE ---
encouraged to get rest would be the focus for him to have a successful dc
[2024-04-21 04:15] VITALS: BP 104/65; PULSE 68; RESP 17; TEMP 36.6; O2SAT 95
--- NOTE | 2024-04-21 04:42 | PC.NURSE ---
patient soon thereafter increased pacing (late entry) made statements he was feeling trapped declined offered meds, patient threw body weight against door near ambulance bay, staff directing firmly and client did not comply. security intervened with client wherein he got up of own accord and walked back in to pod. t/w obtained ordered medications for IM administration of cpz 50mg and ativan 2mg . cleitn stated how hed prefer to not have them and t/w indicated it was for his benefit, and would aid in his goal of eventual release form hospital. t/w administered medications and within ten minutes client was seated in his room, 40 minutes later client appears entirely restful.
[2024-04-21] MEDS: clonazePAM 1 MG TABLET PO ×2 (08:35→20:15)
[2024-04-21] MEDS: Ziprasidone 80 MG CAPSULE PO ×2 (08:35→17:23)
[2024-04-21] MEDS: OXcarbazepine 300 MG TABLET 600 MG PO ×2 (08:35→20:14)
[2024-04-21] MEDS: Tamsulosin HCL 0.4 MG CAPSULE PO (09:42)
--- NOTE | 2024-04-21 10:13 | MHC.CARE ---
Statewide bed search for this individual has been conducted. There are no appropriate beds available today. This search is now exhausted and will be resumed tomorrow if deemed appropriate.
--- NOTE | 2024-04-21 14:43 | P.CNPS_ITS ---
History of Present Illness Date of Service: 04/21/24 Chief Complaint: Medication refill Reason for Consult: Reassessment Sources of Information: patient interviewed, chart reviewed and crisis/core team assessment reviewed HPI Narrative: Reviewed with Dr. Gaona and Care Team. Pt keeping to self. Guarded during interaction. Responding with yes or no; very brief. Per Care Team, pt was retrained early this morning d/t trying to elope from POD. Pt reports feeling fine ; he states sleeping well with the medications. Pt stated, I just want to leave . Continue with current medication regimen; reevaluate tomorrow to determine if improved/need for IPLOC. Past Psychiatric History: IP: Sisi Pierre-Barron, [facility] OP: Brijesh- a psychiatrist who is from [place] along with therapy psychiatric issues since first grade Trials: Haldol- seizure, fainting, anaphylaxis Olanzapine- SJS Latuda Risperdal-facial tic Seroquel-facial tic Sedatives- no response [facility] Medical History (Updated 04/19/24 @ 07:47 by Shagufta Mcelroy NP) Schizoaffective disorder Dysfunctional elimination syndrome Family History: Depression, Alcohol Use, Hx of psychological trauma, no suicide attempts Social History: I am the joke of the family . Psychiatric issues since first grade Trauma History: Medical trauma in childhood Diagnostics Vital Signs (24Hr): Vital Signs - 24 hr 04/20/24 14:54 04/21/24 02:34 04/21/24 04:15 Temperature 98.4 F 97.8 F Pulse Rate 73 68 Respiratory Rate 18 17 17 Blood Pressure 129/75 104/65 Pulse Oximetry 96 95 Oxygen Delivery Method Room Air Room Air BMI result Body Mass Index 30.4 Labs 04/15/24 14:14 04/15/24 14:14 Imaging Radiology Impressions: ITS Impressions Chest X-Ray 04/15/24 18:25 IMPRESSION: 1. Limited evaluation due to patient's rotation. 2. Nonspecific interstitial thickening, which could be seen in the setting of asthma, bronchitis, reactive airways disease or atypical infections. Electronically signed by: Nancy Hirsch MD 04/15/2024 08:34 PM EDT RP Mental Status Exam Mental Status Exam Patient Appearance: Appropriate (on hospital gowns) Patient Orientation: Person, Place and Situation Level of Consciousness: Awake Patient Behavior: Guarded Mood Description: Calm Affect Description: Blunted Patient Cognition Impaired: Yes Ability to Follow Directions: Fair Speech Pattern: Clear Medications Medications Current Medications Albuterol Sulfate (Albuterol Sulfate 90 Mcg 8 Gm Inhaler) 2 puff INHALE RQ4H PRN PRN Reason: Shortness Of Breath Chlorpromazine HCl (Chlorpromazine Hcl 25 Mg Tablet) 50 mg PO Q6H PRN PRN Reason: agitation Last Admin: 04/19/24 07:54 Dose: 50 mg Clonazepam (Clonazepam 1 Mg Tablet) 1 mg PO BID [facility] Last Admin: 04/21/24 08:35 Dose: 1 mg Lorazepam (Lorazepam 1 Mg Tablet) 1 mg PO TID PRN PRN Reason: severe anxiety Last Admin: 04/19/24 15:02 Dose: 1 mg Oxcarbazepine (Oxcarbazepine 300 Mg Tablet) 600 mg PO BID [facility] Last Admin: 04/21/24 08:35 Dose: 600 mg Polyethylene Glycol (Polyethylene Glycol 3350 17 Gm Powd.Pack) 17 gm PO BID [facility] Last Admin: 04/21/24 08:40 Dose: Not Given Tamsulosin HCl (Tamsulosin Hcl 0.4 Mg Capsule) 0.4 mg PO DAILY [facility] Last Admin: 04/21/24 09:42 Dose: 0.4 mg Ziprasidone (Ziprasidone 80 Mg Capsule) 80 mg PO BIDWM [facility] Last Admin: 04/21/24 08:35 Dose: 80 mg Ziprasidone (Ziprasidone 20 Mg Capsule) 20 mg PO BEDTIME [facility] Last Admin: 04/20/24 22:10 Dose: Not Given Zolpidem Tartrate (Zolpidem Tartrate 5 Mg Tablet) 10 mg PO BEDTIME [facility] Stop: 04/24/24 20:59 Last Admin: 04/20/24 20:00 Dose: 10 mg Zolpidem Tartrate (Zolpidem Tartrate 5 Mg Tablet) 10 mg PO BEDTIME PRN PRN Reason: Insomnia Last Admin: 04/21/24 01:49 Dose: 10 mg Allergies Allergies Allergy/AdvReac Type Severity Reaction Status Date / Time olanzapine [From Zyprexa] AdvReac Severe Anaphylaxis Verified 04/18/24 12:52 clonidine AdvReac Fainting Verified 04/15/24 12:57 haloperidol [From Haldol] AdvReac Anaphylaxis Verified 04/15/24 12:57 tuna Allergy Severe Anaphylaxis Uncoded 04/18/24 12:52 Assessment & Plan Assessment & Plan (1) Schizoaffective disorder: Status: Acute Code(s): F25.9 - Schizoaffective disorder, unspecified Plan Pt keeping to self. Guarded during interaction. Responding with yes or no; very brief. Per Care Team, pt was retrained early this morning d/t trying to elope from POD. Pt reports feeling fine ; he states sleeping well with the medications. Pt stated, I just want to leave . Continue with current medication regimen; reevaluate tomorrow to determine if improved/need for IPLOC. Total time managing care of this patient today _20___ minutes. Patient educated on: medication risk/benefits
--- NOTE | 2024-04-21 16:41 | PC.NURSE ---
pt speaking w/ care team per pt request.
--- NOTE | 2024-04-21 19:05 | PC.NURSE ---
report received from Harjit HA, assume care of pt at this time
[2024-04-21] MEDS: hydrOXYzine HCL 50 MG TABLET PO (20:14)
[2024-04-21] MEDS: Ziprasidone 20 MG CAPSULE PO (20:14)
--- NOTE | 2024-04-21 20:18 | PC.NURSE ---
pt at nurse's desk, requests sandwich and bhaskar sofia, both given. Pt back to his room, no acute distress noted at this time
[2024-04-21 23:21] VITALS: BP 108/74; PULSE 96; RESP 16; TEMP 36.9; O2SAT 95
--- NOTE | 2024-04-22 05:51 | MHC.EDTECH ---
at this time the pt is in the bathroom, around the time of 0500 am the pt awoken and has been witnessed consistently going in and out of the bathroom. Washing hands multiple times per bathroom visit, and appears to show signs of restlessness
--- NOTE | 2024-04-22 07:06 | PC.NURSE ---
Assumed care of patient at 0645, patient appears to be in no apparent distress this am, calm and cooperative, alert and oriented x4, currently having conversations with other patients in the common area. Pt offers no complaints to this RN a this time
[2024-04-22 07:21] VITALS: BP 134/73; PULSE 90; RESP 16; O2SAT 97
[2024-04-22] MEDS: Tamsulosin HCL 0.4 MG CAPSULE PO (08:26)
[2024-04-22] MEDS: OXcarbazepine 300 MG TABLET 600 MG PO ×2 (08:26→21:24)
[2024-04-22] MEDS: polyethylene glycoL 3350 17 GM POWD.PACK PO (08:26)
[2024-04-22] MEDS: clonazePAM 1 MG TABLET PO ×2 (08:26→21:25)
[2024-04-22] MEDS: Ziprasidone 80 MG CAPSULE PO (08:27)
--- NOTE | 2024-04-22 10:34 | PC.NURSE ---
Pt has been calm and cooperative, needing no PRNs, able to make needs known, talking with other patients about artwork and painting. Pt offers no complaints at this time
--- NOTE | 2024-04-22 10:54 | HO.PSYADMNOT ---
HPI Date of Service: 04/22/24 Chief Complaint: PTSD, schizoaffective disorder, dysfuntional elimi Sources of Information: patient interviewed, chart reviewed and crisis/core team assessment reviewed HPI Subjective Notes: Narvaez Warning and Conditional Voluntary Healthcare Proxy: No Guardianship: No Medical Problems Affecting Mental Status: No Narrative: 58 yo male, history of PTSD, Schizoaffective Disorder, Dysfunctional Elimination Syndrome, to ER 04/15 after running out of medications and needing a refill. Pt reports loss of insurance resulting in his having to taper medications. As he had no out patient providers he drove from his home in [place], [place] to [facility] ER as meds were last filled here. Pt required chemical and mechanical restraints in ER. He was in the ER for 7 days. By history, PTSD exacerbations for pt precipitate severe anxiety with self destructive actions and combative presentations. I just feel so trapped that I have to get out and I will do anything to do that Met with pt and Tera LOBO. Pt is alert, oriented, forthcoming. His goal is to re-establish regime and return home. He plans to travel in May to his former home in [place]. His daughter will return with him and has applied to a local college. She will live with him. He is positive about this and wanting to be in his best health. His sister Ashly is very supportive. Past Psychiatric History: IP: Sisi Pierre-2, [facility] OP: Brijesh- a psychiatrist who is from [facility] along with therapy psychiatric issues since first grade Trials: Haldol- seizure, fainting, anaphylaxis Olanzapine- SJS Latuda Risperdal-facial tic Seroquel-facial tic Sedatives- no response Medical Evaluation Reviewed: Yes [facility] Medical History (Updated 04/23/24 @ 21:29 by Zhanna Lawton, HELADIO) PTSD (post-traumatic stress disorder) Schizoaffective disorder Dysfunctional elimination syndrome Family History: Depression, Alcohol Use, Hx of psychological trauma, no suicide attempts Social History: I am the joke of the family . Psychiatric issues since first grade Substance History: Alcohol by history. Denies current use. Trauma History: Medical trauma in childhood Diagnostics Vital Signs (24Hr): Vital Signs - 24 hr 04/21/24 23:21 04/22/24 07:21 Temperature 98.5 F Pulse Rate 96 90 Respiratory Rate 16 16 Blood Pressure 108/74 134/73 Pulse Oximetry 95 97 Oxygen Delivery Method Room Air Room Air BMI result Body Mass Index 30.4 Labs 04/15/24 14:14 04/15/24 14:14 Imaging Radiology Impressions: ITS Impressions Chest X-Ray 04/15/24 18:25 IMPRESSION: 1. Limited evaluation due to patient's rotation. 2. Nonspecific interstitial thickening, which could be seen in the setting of asthma, bronchitis, reactive airways disease or atypical infections. Electronically signed by: Nancy Hirsch MD 04/15/2024 08:34 PM EDT RP Meds/Allergies Meds Home Medications ?Medication ?Instructions ?Recorded ?Confirmed ?Type quetiapine 100 mg tablet 100 mg PO BEDTIME 04/16/24 04/16/24 History testosterone cypionate 200 mg/mL 80 mg IM QWEEK 04/16/24 04/18/24 History intramuscular oil Allergies Allergies Allergy/AdvReac Type Severity Reaction Status Date / Time olanzapine [From Zyprexa] AdvReac Severe Anaphylaxis Verified 04/18/24 12:52 clonidine AdvReac Fainting Verified 04/15/24 12:57 haloperidol [From Haldol] AdvReac Anaphylaxis Verified 04/15/24 12:57 tuna Allergy Severe Anaphylaxis Uncoded 04/18/24 12:52 Mental Status Exam Mental Status Exam Patient Appearance: Appropriate Patient Orientation: Person, Place, Time and Situation Level of Consciousness: Alert Patient Behavior: Appropriate, Talkative, Anxious and Good Eye Contact Mood Description: Anxious Affect Description: Anxious Patient Cognition Impaired: No Ability to Follow Directions: Good Speech Pattern: Spontaneous Speech Memory Description: Intact Hallucinations: None Delusions: Not Present Thought Process: Intact and Goal Oriented Thought Content: positive for Intact and positive for Goal Oriented Depressive Symptoms: Increased Anxiety Abnormal Motor Activity Signs and Symptoms: Restlessness Judgement: Fair Assessment & Plan Assessment & Plan (1) Schizoaffective disorder: Status: Acute Code(s): F25.9 - Schizoaffective disorder, unspecified (2) PTSD (post-traumatic stress disorder): Status: Acute Code(s): F43.10 - Post-traumatic stress disorder, unspecified (3) Dysfunctional elimination syndrome: Status: Acute Code(s): K92.9 - Disease of digestive system, unspecified; N39.9 - Disorder of urinary system, unspecified Plan Schizoaffective Disorder, PTSD. Plan: Admit, CV, 5 minute checks to begin Collateral Contact Coping Skill Education, Trigger Mgt Education Aftercare Planning Continue Regime Plan for a brief stay to re-establish regime Full Milieu Patient educated on: medication risk/benefits and therapeutic strategies Informed Consent: understands Reason for continued inpatient stay Substantial Risk for: rapid decompensation Statement Statement: I have reviewed the history and physical and performed a pertinent examination on my patient. No changes have occurred unless specified. If the History and Physical was not performed prior to admission, the Hospitalist's service will be consulted for completing the admission physical. Time Spent With Patient Time: Total time managing care of this patient today ____ minutes.
[2024-04-22 11:34] VITALS: BMI 30.8
[2024-04-22] MEDS: LORazepam 1 MG TABLET PO ×2 (13:14→23:19)
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
[2024-04-22] MEDS: Ziprasidone 20 MG CAPSULE PO ×2 (17:33→21:24)
[2024-04-22] MEDS: Flu Vacc TS2024-25(6mos up)/PF 0.5 ML SYRINGE IM (17:35)
[2024-04-22 20:00] VITALS: BP 132/81; PULSE 72; RESP 14; TEMP 36.2; O2SAT 98
[2024-04-22] MEDS: Zolpidem Tartrate 5 MG TABLET 10 MG PO (21:25)
[2024-04-22] MEDS: hydrOXYzine HCL 25 MG TABLET PO (23:19)
--- NOTE | 2024-04-22 23:30 | PC.NURSE ---
medical HX-reports missing a f/u appointment for an iliac aneurism as he was uninsured.
[2024-04-23 08:00] VITALS: BP 130/70; PULSE 67; RESP 16; TEMP 36.8; O2SAT 97
[2024-04-23 09:06] LABS: Estimated Average Glucose 108 mg/dL; Hemoglobin A1C 150.9116 umol/L; Hemoglobin A1c % 5.4 % (<6.0); Total Hemoglobin (HGBA1C) 4246.0223 umol/L
[2024-04-23] MEDS: Tamsulosin HCL 0.4 MG CAPSULE PO (09:14)
[2024-04-23] MEDS: Ziprasidone 20 MG CAPSULE PO ×3 (09:14→21:43)
[2024-04-23] MEDS: OXcarbazepine 300 MG TABLET 600 MG PO ×2 (09:14→21:43)
[2024-04-23] MEDS: clonazePAM 1 MG TABLET PO ×2 (09:14→21:43)
[2024-04-23 09:27] LABS: Cholesterol 188 mg/dL (<200); HDL Cholesterol 45 mg/dL (>40); LDL Cholesterol Calculated 112 mg/dL (<100); Triglycerides 157 mg/dL (<150)
[2024-04-23] MEDS: LORazepam 1 MG TABLET PO ×2 (09:35→15:32)
[2024-04-23 09:43] LABS: Free T4 (Free Thyroxine) 0.76 ng/dL (0.71-1.85); Thyroid Stimulating Hormone 1.03 uIU/mL (0.32-4.0)
[2024-04-23 09:54] LABS: Folate 11.5 ng/mL (> or = 4.0); Vitamin B12 644 pg/mL (200-900)
--- NOTE | 2024-04-23 15:32 | P.PNPSI_ITS ---
Subjective Subjective Date of Service: 04/23/24 Reason For Visit: PTSD, schizoaffective disorder, dysfuntional elimi Subjective Notes: Conditional Voluntary Healthcare Proxy: No Guardianship: No Medical Problems Affecting Mental Status: No Interim History: Met with pt and Tera LOBO. Milieu is loud and triggering for pt. Discussed discharge, planning for 04/25 a.m. Review of meds. Geodon dosing changed per pt request with prn's to equal previous dosage. Pt reports being able to sleep, interacting with team. Difficulty this a.m. with rapid response for a peer. Several staff and security responded which is triggering for pt, however, he was able to maintain control. Medication Compliance: Yes Side effects from medications: No Attending Groups: Yes Review of Systems Acute medical concerns: No Medical Review of Systems: unchanged Review of Systems Review of Systems Yes all other systems are reviewed and are negative Mental Status Exam Mental Status Exam Patient Appearance: Appropriate Patient Orientation: Person, Place, Time and Situation Level of Consciousness: Alert Patient Behavior: Appropriate, Talkative, Anxious and Good Eye Contact Mood Description: Anxious Affect Description: Anxious Patient Cognition Impaired: No Ability to Follow Directions: Good Speech Pattern: Spontaneous Speech Memory Description: Intact Hallucinations: None Delusions: Not Present Thought Process: Intact and Goal Oriented Thought Content: positive for Intact and positive for Goal Oriented Depressive Symptoms: Increased Anxiety Abnormal Motor Activity Signs and Symptoms: Restlessness Judgement: Fair Diagnostics Vital Signs (24Hr): Vital Signs - 24 hr 04/22/24 20:00 04/23/24 08:00 Temperature 97.1 F 98.3 F Pulse Rate 72 67 Respiratory Rate 14 16 Blood Pressure 132/81 130/70 Pulse Oximetry 98 97 Oxygen Delivery Method Room Air Room Air BMI result Body Mass Index 30.8 Labs 04/15/24 14:14 04/15/24 14:14 Labs: Laboratory Results - last 48 hr 04/23/24 08:38 Estimat Average Glucose 108 Hemoglobin A1c % 5.4 Magnesium 2.0 Triglycerides 157 H Cholesterol 188 LDL Cholesterol, Calc 112 H HDL Cholesterol 45 Vitamin B12 644 Folate 11.5 TSH 1.03 Free T4 0.76 Imaging Radiology Impressions: ITS Impressions Chest X-Ray 04/15/24 18:25 IMPRESSION: 1. Limited evaluation due to patient's rotation. 2. Nonspecific interstitial thickening, which could be seen in the setting of asthma, bronchitis, reactive airways disease or atypical infections. Electronically signed by: Nancy Hirsch MD 04/15/2024 08:34 PM EDT RP Medications Medications Current Medications Acetaminophen (Acetaminophen 325 Mg Tablet) 650 mg PO Q6H PRN PRN Reason: Headache/Pain Mild Scale (1-3) Al Hydroxide/Mg Hydroxide (Magnesium Hydrox/Alum Hydrox 30 Ml Oral.Susp) 30 ml PO Q6H PRN PRN Reason: Heartburn/Nausea Albuterol Sulfate (Albuterol Sulfate 90 Mcg 8 Gm Inhaler) 2 puff INHALE RQ4H PRN PRN Reason: Shortness Of Breath Chlorpromazine HCl (Chlorpromazine Hcl 25 Mg Tablet) 25 mg PO Q6H PRN PRN Reason: agitation Clonazepam (Clonazepam 1 Mg Tablet) 1 mg PO BID REPLACED BY [facility] Last Admin: 04/23/24 09:14 Dose: 1 mg Diphenhydramine HCl (Diphenhydramine Hcl 25 Mg Capsule) 50 mg PO Q6H PRN PRN Reason: EPS Hydroxyzine HCl (Hydroxyzine Hcl 25 Mg Tablet) 25 mg PO Q6H PRN PRN Reason: Anxiety Last Admin: 04/22/24 23:19 Dose: 25 mg Lorazepam (Lorazepam 1 Mg Tablet) 1 mg PO TID PRN PRN Reason: severe anxiety Last Admin: 04/23/24 09:35 Dose: 1 mg Magnesium Hydroxide (Milk Of Magnesia 30 Ml Oral.Susp) 30 ml PO DAILY PRN PRN Reason: Constipation Nicotine (Nicotine 21 Mg Patch.Td24) 21 mg TRANSDERMA DAILY PRN PRN Reason: nicotine cravings Nicotine Polacrilex (Nicotine Polacrilex 2 Mg Gum) 4 mg BUCCAL Q2H PRN PRN Reason: Nicotine Cravings Oxcarbazepine (Oxcarbazepine 300 Mg Tablet) 600 mg PO BID REPLACED BY [facility] Last Admin: 04/23/24 09:14 Dose: 600 mg Polyethylene Glycol (Polyethylene Glycol 3350 17 Gm Powd.Pack) 17 gm PO BID REPLACED BY [facility] Last Admin: 04/23/24 09:14 Dose: Not Given Tamsulosin HCl (Tamsulosin Hcl 0.4 Mg Capsule) 0.4 mg PO DAILY REPLACED BY [facility] Last Admin: 04/23/24 09:14 Dose: 0.4 mg Ziprasidone (Ziprasidone 20 Mg Capsule) 20 mg PO BEDTIME RODGER Last Admin: 04/22/24 21:24 Dose: 20 mg Ziprasidone (Ziprasidone 20 Mg Capsule) 20 mg PO BIDWM RODEGR Last Admin: 04/23/24 09:14 Dose: 20 mg Ziprasidone (Ziprasidone 60 Mg Capsule) 60 mg PO BID PRN PRN Reason: agitation, psychosis, grounding need Zolpidem Tartrate (Zolpidem Tartrate 5 Mg Tablet) 10 mg PO BEDTIME PRN PRN Reason: Insomnia Last Admin: 04/22/24 21:25 Dose: 10 mg Allergies Allergies Allergy/AdvReac Type Severity Reaction Status Date / Time olanzapine [From Zyprexa] AdvReac Severe Anaphylaxis Verified 04/18/24 12:52 clonidine AdvReac Fainting Verified 04/15/24 12:57 haloperidol [From Haldol] AdvReac Anaphylaxis Verified 04/15/24 12:57 tuna Allergy Severe Anaphylaxis Uncoded 04/18/24 12:52 Assessment & Plan Assessment & Plan (1) PTSD (post-traumatic stress disorder): Status: Acute Code(s): F43.10 - Post-traumatic stress disorder, unspecified (2) Schizoaffective disorder: Status: Acute Code(s): F25.9 - Schizoaffective disorder, unspecified (3) Dysfunctional elimination syndrome: Status: Acute Code(s): K92.9 - Disease of digestive system, unspecified; N39.9 - Disorder of urinary system, unspecified Plan 04/23: Discharge 04/25 Continue regime Encourage milieu participation. Patient educated on: medication risk/benefits Reason for continued inpatient stay Substantial Risk for: rapid decompensation Time Spent With Patient Time: Total time managing care of this patient today ____ minutes.
--- NOTE | 2024-04-23 15:46 | MHC.CLN ---
NUTRITION CONSULT FOR DOUBLE PORTIONS. VISITED WITH PATIENT ON THE UNIT. DOUBLE PORTION ENTREE TO INCREASE PROTEIN INTAKE. PATIENT COMPLETING MENU WITH DESIRED FOODS AND AMOUNTS. COMMUNICATED WITH KITCHEN.
[2024-04-23 20:00] VITALS: BP 128/78; PULSE 74; RESP 18; TEMP 36.9; O2SAT 97
[2024-04-23] MEDS: Acetaminophen 325 MG TABLET 650 MG PO (21:46)
[2024-04-23] MEDS: Zolpidem Tartrate 5 MG TABLET 10 MG PO (23:23)
[2024-04-24 07:00] VITALS: BMI 31.0
[2024-04-24 08:24] VITALS: BP 166/83; PULSE 78; RESP 18; TEMP 36.2; O2SAT 97
[2024-04-24] MEDS: clonazePAM 1 MG TABLET PO ×2 (08:38→20:34)
[2024-04-24] MEDS: Tamsulosin HCL 0.4 MG CAPSULE PO (08:38)
[2024-04-24] MEDS: OXcarbazepine 300 MG TABLET 600 MG PO ×2 (08:38→20:34)
[2024-04-24] MEDS: Ziprasidone 20 MG CAPSULE PO ×3 (08:38→20:36)
[2024-04-24] MEDS: hydrOXYzine HCL 25 MG TABLET PO ×2 (10:53→20:36)
[2024-04-24] MEDS: LORazepam 1 MG TABLET PO (17:38)
--- NOTE | 2024-04-24 18:44 | HO.PSYCHPN ---
Subjective Subjective Date of Service: 04/24/24 Reason For Visit: PTSD, schizoaffective disorder, dysfuntional elimi Subjective Notes: Conditional Voluntary Healthcare Proxy: No Guardianship: No Medical Problems Affecting Mental Status: No Interim History: Preparing for discharge. Talked today of his daughter moving from [place] to [place] and planning re3D in [place]. He is looking forward to this. Wanting to discharge early, however able to remain in the milieu until arrangements with medicines and insurance are finalized. Medication Compliance: Yes Side effects from medications: No Attending Groups: Intermittent Review of Systems Acute medical concerns: No Medical Review of Systems: unchanged Review of Systems Review of Systems Yes all other systems are reviewed and are negative Mental Status Exam Mental Status Exam Patient Appearance: Appropriate Patient Orientation: Person, Place, Time and Situation Level of Consciousness: Alert Patient Behavior: Appropriate, Talkative, Anxious and Good Eye Contact Mood Description: Anxious Affect Description: Anxious Patient Cognition Impaired: No Ability to Follow Directions: Good Speech Pattern: Spontaneous Speech Memory Description: Intact Hallucinations: None Delusions: Not Present Thought Process: Intact and Goal Oriented Thought Content: positive for Intact and positive for Goal Oriented Depressive Symptoms: Increased Anxiety Abnormal Motor Activity Signs and Symptoms: Restlessness Judgement: Fair Diagnostics Vital Signs (24Hr): Vital Signs - 24 hr 04/23/24 20:00 04/24/24 08:24 Temperature 98.4 F 97.1 F Pulse Rate 74 78 Respiratory Rate 18 18 Blood Pressure 128/78 166/83 H Pulse Oximetry 97 97 Oxygen Delivery Method Room Air Room Air BMI result Body Mass Index 31.0 Labs 04/15/24 14:14 04/15/24 14:14 Labs: Laboratory Results - last 48 hr 04/23/24 08:38 Estimat Average Glucose 108 Hemoglobin A1c % 5.4 Magnesium 2.0 Triglycerides 157 H Cholesterol 188 LDL Cholesterol, Calc 112 H HDL Cholesterol 45 Vitamin B12 644 Folate 11.5 TSH 1.03 Free T4 0.76 Imaging Radiology Impressions: ITS Impressions Chest X-Ray 04/15/24 18:25 IMPRESSION: 1. Limited evaluation due to patient's rotation. 2. Nonspecific interstitial thickening, which could be seen in the setting of asthma, bronchitis, reactive airways disease or atypical infections. Electronically signed by: Nancy Hirsch MD 04/15/2024 08:34 PM EDT Medications Medications Current Medications Acetaminophen (Acetaminophen 325 Mg Tablet) 650 mg PO Q6H PRN PRN Reason: Headache/Pain Mild Scale (1-3) Last Admin: 04/23/24 21:46 Dose: 650 mg Al Hydroxide/Mg Hydroxide (Magnesium Hydrox/Alum Hydrox 30 Ml Oral.Susp) 30 ml PO Q6H PRN PRN Reason: Heartburn/Nausea Albuterol Sulfate (Albuterol Sulfate 90 Mcg 8 Gm Inhaler) 2 puff INHALE RQ4H PRN PRN Reason: Shortness Of Breath Chlorpromazine HCl (Chlorpromazine Hcl 25 Mg Tablet) 25 mg PO Q6H PRN PRN Reason: agitation Clonazepam (Clonazepam 1 Mg Tablet) 1 mg PO BID [facility] Last Admin: 04/24/24 08:38 Dose: 1 mg Diphenhydramine HCl (Diphenhydramine Hcl 25 Mg Capsule) 50 mg PO Q6H PRN PRN Reason: EPS Hydroxyzine HCl (Hydroxyzine Hcl 25 Mg Tablet) 25 mg PO Q6H PRN PRN Reason: Anxiety Last Admin: 04/24/24 10:53 Dose: 25 mg Lorazepam (Lorazepam 1 Mg Tablet) 1 mg PO TID PRN PRN Reason: severe anxiety Last Admin: 04/24/24 17:38 Dose: 1 mg Magnesium Hydroxide (Milk Of Magnesia 30 Ml Oral.Susp) 30 ml PO DAILY PRN PRN Reason: Constipation Nicotine (Nicotine 21 Mg Patch.Td24) 21 mg TRANSDERMA DAILY PRN PRN Reason: nicotine cravings Nicotine Polacrilex (Nicotine Polacrilex 2 Mg Gum) 4 mg BUCCAL Q2H PRN PRN Reason: Nicotine Cravings Oxcarbazepine (Oxcarbazepine 300 Mg Tablet) 600 mg PO BID [facility] Last Admin: 04/24/24 08:38 Dose: 600 mg Polyethylene Glycol (Polyethylene Glycol 3350 17 Gm Powd.Pack) 17 gm PO BID [facility] Last Admin: 04/24/24 08:39 Dose: Not Given Tamsulosin HCl (Tamsulosin Hcl 0.4 Mg Capsule) 0.4 mg PO DAILY [facility] Last Admin: 04/24/24 08:38 Dose: 0.4 mg Ziprasidone (Ziprasidone 20 Mg Capsule) 20 mg PO BEDTIME [facility] Last Admin: 04/23/24 21:43 Dose: 20 mg Ziprasidone (Ziprasidone 20 Mg Capsule) 20 mg PO BIDWM [facility]OD[facility] Last Admin: 04/24/24 17:38 Dose: 20 mg Ziprasidone (Ziprasidone 60 Mg Capsule) 60 mg PO BID PRN PRN Reason: agitation, psychosis, grounding need Zolpidem Tartrate (Zolpidem Tartrate 5 Mg Tablet) 10 mg PO BEDTIME PRN PRN Reason: Insomnia Last Admin: 04/23/24 23:23 Dose: 10 mg Allergies Allergies Allergy/AdvReac Type Severity Reaction Status Date / Time olanzapine [From Zyprexa] AdvReac Severe Anaphylaxis Verified 04/18/24 12:52 clonidine AdvReac Fainting Verified 04/15/24 12:57 haloperidol [From Haldol] AdvReac Anaphylaxis Verified 04/15/24 12:57 tuna Allergy Severe Anaphylaxis Uncoded 04/18/24 12:52 Assessment & Plan Assessment & Plan (1) PTSD (post-traumatic stress disorder): Status: Acute Code(s): F43.10 - Post-traumatic stress disorder, unspecified (2) Schizoaffective disorder: Status: Acute Code(s): F25.9 - Schizoaffective disorder, unspecified (3) Dysfunctional elimination syndrome: Status: Acute Code(s): K92.9 - Disease of digestive system, unspecified; N39.9 - Disorder of urinary system, unspecified Plan 04/23: Discharge 04/25 Continue regime Encourage milieu participation. 04/24: Discharge 04/25. Reason for continued inpatient stay Substantial Risk for: stable for discharge Time Spent With Patient Time: Total time managing care of this patient today ____ minutes.
[2024-04-24 19:47] VITALS: BP 134/79; PULSE 78; RESP 20; TEMP 36.9; O2SAT 97
[2024-04-24] MEDS: Zolpidem Tartrate 5 MG TABLET 10 MG PO (20:36)
[2024-04-25 08:00] VITALS: BP 131/89; PULSE 73; RESP 16; TEMP 36.1; O2SAT 98
[2024-04-25] MEDS: Tamsulosin HCL 0.4 MG CAPSULE PO (08:36)
[2024-04-25] MEDS: clonazePAM 1 MG TABLET PO (08:36)
[2024-04-25] MEDS: Ziprasidone 20 MG CAPSULE PO (08:36)
[2024-04-25] MEDS: OXcarbazepine 300 MG TABLET 600 MG PO (08:36)
--- NOTE | 2024-04-25 10:03 | PM.PSYDC ---
DS: Providers Provider Date of Service: 04/25/24 Date of admission: 04/22/24 10:23 Date of discharge: 04/25/24 Primary care physician: Glenn Physician Admitting clinician: Zhanna Lawton Attending physician on admission: Wyatt Gaona Attending physician on discharge: Wyatt Gaona Discharging clinician: Zhanna Lawton DS: Diagnosis Discharge Diagnosis (1) PTSD (post-traumatic stress disorder): Status: Acute (2) Schizoaffective disorder: Status: Acute (3) Dysfunctional elimination syndrome: Status: Acute DS: Medications Discharge Medications Home Medications: Previous Rx's ?Medication ?Instructions ?Recorded clonazepam 1 mg tablet 1 mg PO BID #60 tabs 04/24/24 hydroxyzine HCl 25 mg tablet 25 mg PO Q6H PRN Anxiety #60 tabs 04/24/24 oxcarbazepine 600 mg tablet 600 mg PO BID #60 tabs 04/24/24 (Trileptal) testosterone cypionate 200 mg/mL 80 mg (0.4 mL) IM QWEEK #4 mL 04/24/24 intramuscular oil ziprasidone HCl 20 mg capsule 20 mg PO TID #90 caps 04/24/24 (Geodon) ziprasidone HCl 60 mg capsule 60 mg PO BID PRN agitation, 04/24/24 psychosis, grounding need #60 caps zolpidem 5 mg tablet 10 mg (2 x 5 mg) PO BEDTIME PRN 04/24/24 Insomnia #30 tabs needle (disp) 18 G 18 gauge x 1 #4 ea 04/25/24 1/2 needle (disp) 25 gauge 25 gauge x #4 ea 04/25/24 1 2 syringe (disposable) #4 ea 04/25/24 Mental Status Exam Mental Status Exam Patient Appearance: Appropriate Patient Orientation: Person, Place, Time and Situation Level of Consciousness: Alert Patient Behavior: Appropriate, Talkative, Anxious and Good Eye Contact Mood Description: Anxious Affect Description: Anxious Patient Cognition Impaired: No Ability to Follow Directions: Good Speech Pattern: Spontaneous Speech Memory Description: Intact Hallucinations: None Delusions: Not Present Thought Process: Intact and Goal Oriented Thought Content: positive for Intact and positive for Goal Oriented Depressive Symptoms: Increased Anxiety Abnormal Motor Activity Signs and Symptoms: Restlessness Judgement: Fair Data Data Completed and Pending Completed studies during hospitalization [Text1]: 04/23/24 08:38 Estimat Average Glucose 108 Hemoglobin A1c % 5.4 Magnesium 2.0 Triglycerides 157 H Cholesterol 188 LDL Cholesterol, Calc 112 H HDL Cholesterol 45 Vitamin B12 644 Folate 11.5 TSH 1.03 Free T4 0.76 Imaging Diagnostic Imaging Impressions Chest X-Ray 04/15/24 18:25 IMPRESSION: 1. Limited evaluation due to patient's rotation. 2. Nonspecific interstitial thickening, which could be seen in the setting of asthma, bronchitis, reactive airways disease or atypical infections. Electronically signed by: Nancy Hirsch MD 04/15/2024 08:34 PM EDT DS: Summary Hospital Course Hospital Course: Admission to adult psychiatry for exacerbation of PTSD, Schizoaffective Disorder. Pt reports a loss of insurance and loss of prescriptions as a result so he needed to wean himself off of his regime which was initiated during his December 2023 admission [place] [facility] Pt required physical and chemical restraint in the emergency dept. He was in control upon admission, medications were assessed and titrated. He utilized the milieu appropriately. Pt was stabilized and discharged to his home. He is planning to travel to his daughter's home in [place] so she may return to [place] and attend college. He is very pleased with this plan and it is a strong motivator for ongoing well-being for Tera, thus the rationale for his presentation for this admission. Status at Discharge Functional status at discharge: independent ambulation Overall status at discharge: patient is back to baseline Time Spent with Patient Time attestation: Total time managing care of this patient today ____ minutes. Time spent: Less than 30 minutes Discharge Plan Discharge Anticipated Discharge Date/Time: 04/25/24 12:00 Patient Disposition: Home, Self-Care Discharge Diagnosis: PTSD Schizoaffective Disorder by history Referrals: Karyna Gant MD [Physician] - (Office will call to schedule) Discharge Medications: New clonazepam 1 mg Tablet 1 mg PO BID Qty: 60 0RF hydroxyzine HCl 25 mg Tablet 25 mg PO Q6H PRN (Reason: Anxiety) Qty: 60 2RF zolpidem 5 mg Tablet 10 mg PO BEDTIME PRN (Reason: Insomnia) Qty: 30 0RF ziprasidone HCl 60 mg Capsule 60 mg PO BID PRN (Reason: agitation, psychosis, grounding need) Qty: 60 2RF oxcarbazepine [Trileptal] 600 mg tablet 600 mg PO BID Qty: 60 2RF ziprasidone HCl [Geodon] 20 mg capsule 20 mg PO TID Qty: 90 2RF Rx Instructions: give with food (meal/snack) (DME) needle (disp) 18 G 18 gauge x 1 1/2 needle See Rx Instructions .Route Qty: 4 2RF Rx Instructions: As directed (DME) needle (disp) 25 gauge 25 gauge x 1 1/2 needle See Rx Instructions .Route Qty: 4 2RF Rx Instructions: As directed (DME) syringe (disposable) Syringe See Rx Instructions .Route Qty: 4 2RF Rx Instructions: As directed Continued testosterone cypionate 200 mg/mL oil 80 mg IM QWEEK Qty: 4 2RF Discontinued quetiapine 100 mg tablet 100 mg PO BEDTIME albuterol sulfate [Ventolin HFA] 90 mcg/actuation Hfa Aerosol Inhaler 2 puff inhalation RQ4H PRN (Reason: Shortness Of Breath) Qty: 1 0RF oxcarbazepine 300 mg Tablet 600 mg PO BID Qty: 60 0RF zolpidem 5 mg Tablet 10 mg PO BEDTIME PRN (Reason: Insomnia) Qty: 7 0RF polyethylene glycol 3350 17 gram Powder In Packet 17 g PO BID Qty: 30 0RF tamsulosin 0.4 mg capsule 0.4 mg PO DAILY Qty: 30 0RF clonazepam 1 mg tablet 1 mg PO DAILY PRN (Reason: panic attack) Qty: 7 0RF ziprasidone HCl 20 mg Capsule 20 mg PO BEDTIME Qty: 30 0RF Discharge Orders: Discharge Order (Routine); Ordered 04/25/24 Ordered By: Zhanna Lawton Diet: Advance to usual diet Activity on Discharge: As tolerated Stand Alone Forms: Patient Portal Discharge page, Community Support Print Language: Kosovan Care Plan Goals: Mood and Behavioral Stabilization Health Concerns: Mood and Behavioral Stabilization Plan of Treatment: Attend follow up appointments Take medications as directed You should have labs every three months, complete blood count and chemistry panel for monitoring of your regime. Please call if we need to schedule these at [facility] [phone]. Call and or return if needed Assessment: No SI/HI/AH/VH No sx of gabriel or psychosis Prepared to leave, future oriented with plans with his children. Discharge Date/Time: 04/25/24 11:01
== END 2024-04-25 11:01 | disposition home or self-care (01) | DRG 750 ==
LOC: HO.ED 04-21 08:57 → HO.PM5 04-22 10:30
PROVIDERS: Emergency Medicine; Physician Assistant Medical; Admitting Provider Clinical Nurse Specialist Psychiatric/Mental Health, Adult; Emergency Provider Emergency Medicine; Visit Provider Clinical Nurse Specialist Psychiatric/Mental Health, Adult
DX: F25.9 Schizoaffective disorder, unspecified (principal); Z91.141 Patient's other noncompliance with medication regimen due to financial hardship; F43.10 Post-traumatic stress disorder, unspecified; Z23 Encounter for immunization; K92.9 Disease of digestive system, unspecified; N39.9 Disorder of urinary system, unspecified; Z87.891 Personal history of nicotine dependence; Z78.1 Physical restraint status; Z79.899 Other long term (current) drug therapy
CPT/HCPCS: 36415; 71045; 80048; 80061; 80076; 80307; 81001; 81003; 82607; 82746; 83036; 83735; 84439; 84443; 85025; 90656; 93005; 99285; J1071; J2060; J2250; J3230; J3486; S9485

== ENCOUNTER → 2024-04-15 13:04 | Outpatient (BNV) | payer MEDICARE, MEDICAID, SELFPAY | PROVIDERS: Emergency Provider Emergency Medicine; Visit Provider Social Worker | DX: F29 Unspecified psychosis not due to a substance or known physiological condition (principal); F25.9 Schizoaffective disorder, unspecified | CPT/HCPCS: 99231; 99232; 99284 ==

== ENCOUNTER → 2024-04-15 18:25 | Outpatient (BNV) | payer MEDICAID, SELFPAY | PROVIDERS: Emergency Provider Emergency Medicine Emergency Medical Services; Visit Provider Internal Medicine | DX: R41.82 Altered mental status, unspecified (principal) | CPT/HCPCS: 93010 ==

== ENCOUNTER → 2024-04-16 22:14 | Outpatient (BNV) | payer MEDICARE, MEDICAID, SELFPAY | PROVIDERS: Emergency Provider Emergency Medicine; Visit Provider Internal Medicine | DX: R07.9 Chest pain, unspecified (principal) | CPT/HCPCS: 93010 ==

== ENCOUNTER 2025-05-20 10:44 | Inpatient (IN) | payer MEDICARE, MEDICAID, SELFPAY ==
--- NOTE | ~2025-05-20 | XR_ITS ---
CLINICAL HISTORY: r o pneumonia --- Additional Notes or Special Instructions: not portable 1 view chest x-ray. Comparison: 04/15/2024 Findings: No consolidation or effusion. Cardiac and mediastinal contours appear unremarkable. Bones unremarkable. Impression: 1. No acute pulmonary disease. This document has been electronically signed by: Yuan Fernando MD on 06/13/2025 17:13:43
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
[2025-05-20 10:47] VITALS: BP 145/96; PULSE 65; RESP 18; TEMP 36.9; O2SAT 98; BMI 30.4
--- NOTE | 2025-05-20 10:47 | ED.PSYCH ---
HPI - Psych General Chief Complaint: Psychiatric Symptoms Stated Complaint: psych Time Seen by Provider: 05/20/25 10:52 Source: EMS, RN notes reviewed and old records reviewed Mode of arrival: ambulatory Limitations: no limitations History of Present Illness ED Provider: JAYSHREE Shelby HPI Narrative: 59-year-old male with medical history of PTSD, schizoaffective disorder, dysfunctional elimination syndrome presents to the ED due behavioral health issue. While patient was in triage he told the nurse in triage provider that he ?was not doing good? and endorsed SI. When I went to interview the patient he would not answer any of my questions. I was extremely gentle with the patient, giving him many different ways to answer my questions such as yes or no, blinking and/or glancing at me if the answer was yes however the patient just stare down at the floor and did not interact with me. I asked the patient if he had any physical complaints today or discomfort he did not answer me. I listed out several complaints but he did not interact with me. Related Data Home Medications ?Medication ?Instructions ?Recorded ?Confirmed aspirin 81 mg tablet,delayed 81 mg PO DAILY 05/20/25 05/20/25 release clonazepam 0.5 mg tablet 0.25 mg PO BID PRN anxiety 05/20/25 05/20/25 clopidogrel 75 mg tablet 75 mg PO DAILY 05/20/25 05/20/25 gabapentin 100 mg capsule 100 mg PO Q8H 05/20/25 05/20/25 metoprolol succinate 25 mg 12.5 mg PO DAILY 05/20/25 05/20/25 tablet,extended release 24 hr oxcarbazepine 300 mg tablet 300 mg PO Q12H 05/20/25 05/20/25 risperidone 1 mg tablet 1 mg PO BID PRN Anxiety 05/20/25 05/20/25 rosuvastatin 20 mg tablet 20 mg PO BEDTIME 05/20/25 05/20/25 tamsulosin 0.4 mg capsule 0.4 mg PO DAILY 05/20/25 05/20/25 testosterone 50 mg/5 gram (1 %) 2 packet topical DAILY 05/20/25 05/20/25 transdermal gel ziprasidone HCl 40 mg capsule 40 mg PO BID 05/20/25 05/20/25 Allergies Allergy/AdvReac Type Severity Reaction Status Date / Time olanzapine (From Zyprexa) AdvReac Severe Anaphylaxis Verified 05/20/25 10:47 clonidine AdvReac Fainting Verified 05/20/25 10:47 haloperidol (From Haldol) AdvReac Anaphylaxis Verified 05/20/25 10:47 tuna Allergy Severe Anaphylaxis Uncoded 04/18/24 12:52 Review of Systems Review of Systems: Unable to perform ROS as patient is cooperative however will not engage. Yes all other systems are reviewed and are negative PMFSH Past Medical History Attestation statement: The following information was validated with the patient. Source: old records reviewed and nursing notes reviewed Medical History PTSD (post-traumatic stress disorder) Schizoaffective disorder Dysfunctional elimination syndrome Social History Social History Household Members: None Housing: House Do you presently have visiting nurse or other home services: No Unable to assess alcohol history related to: Unknown Alcohol intake: former Patient Tobacco Use Status: Former Tobacco user Tobacco use type: Cigarette e-Cigarette/Vaping Use: Never Used Second Hand Smoke Exposure: No Substance Use Type: Marijuana Advance Directives: No Advance Directives Information Provided: Yes Do you have a plan to hurt others: No Plan service: No Sexual orientation: Straight/Heterosexual Physical Exam Vital Signs: Vital Signs: Last Vital Signs Temp 98.4 F 05/20/25 10:47 Pulse 65 05/20/25 10:47 Resp 18 05/20/25 10:47 BP 145/96 H 05/20/25 10:47 Pulse Ox 98 05/20/25 10:47 O2 Del Method Room Air 05/20/25 10:47 BMI result Body Mass Index 30.4 GENERAL APPEARANCE: ?AxOx4, avoids eye contact, flat affect, continuously looking down at the floor, no acute distress. HEENT: ?NC, AT. MMM. EOMI, clear conjunctiva. NECK: ?Supple without lymphadenopathy.? No stiffness or restricted ROM as patient is walking around the room and does glance around to the gupta intermittently HEART:? Normal rate and regular rhythm, normal S1/S2, no m/r/g LUNGS:? CTAB, moving air well. No crackles or wheezes are heard. ABDOMEN: ?Soft, nontender, nondistended BACK: No CVAT, no obvious deformity. EXTREMITIES: ?Without cyanosis, clubbing or edema. NEUROLOGICAL: ?Grossly nonfocal. Alert and oriented, moving all 4 extremities. Observed to ambulate with normal gait. Skin: ?Warm and dry without any rash. Course Course Course Narrative: This is a Rapid Medical Exam performed in triage by Denice Gomez PA-C. Full HPI, ROS and PE to be performed by primary ED provider. 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 Flores's progress note; 05/20/2025; 14:00. Patient now is under section 12, VSS, inpatient bed search is underway, continue with physician observation. Time: 14:01 Medical Decision Making Medical Decision Making MDM Narrative: 59-year-old male with medical history of PTSD, schizoaffective disorder, dysfunctional elimination syndrome presents to the ED due behavioral health issue. While patient was in triage he told the nurse in triage provider that he ?was not doing good? and endorsed SI. When I went to interview the patient he would not answer any of my questions. I was extremely gentle with the patient, giving him many different ways to answer my questions such as yes or no, blinking and/or glancing at me if the answer was yes however the patient just stare down at the floor and did not interact with me. I asked the patient if he had any physical complaints today or discomfort he did not answer me. I listed out several complaints but he did not interact with me. VS on initial observation-BP 145/96, pulse rate of 65, respiratory rate of 18, afebrile with oral temp of 98.4?, O2 saturation 98% on room air. On physical exam patient is somewhat avoidant, with flat affect, we will not look me directly in the eye, does glands around the room however mostly looks down at the floor during our interaction. lungs clear to auscultation bilaterally, cardiac exam reveals normal rate and rhythm without murmurs/rubs/gallops, abdomen is soft, nondistended, no rigidity, nontender, no evidence of edema of lower extremities, patient is ambulating around the room without ataxic/antalgic gait. Labs without leukocytosis/leukopenia, no evidence of anemia, thrombocytopenia with a platelet count of 157, no electrolyte abnormalities. Toxicology negative, ethanol negative at <10 I spoke with mental health counselor Yuan Sarkar who called the patients sister. Patient was seen approximately 3 weeks ago at [facility] and was store where he had chest pain however while he was in the waiting room hospital staff saw him carrying on a conversation without anybody there experiencing auditory hallucinations. Sister reported that the patient told her today that he was suicidal prior to arrival. Patient has a history of inpatient psychiatric admissions including [facility], [facility], and [facility]. Section [address] Patient is inpatient adult bed search at this time. Differential Diagnosis Differential Diagnoses: The differential diagnosis associated with the presentation includes Increased depression Schizoaffective disorder Suicidal ideation Psychosis Admission/Observation Consideration of admission/observation: Escalation of care including admission/observation considered Consult Healthcare Provider Management of the patient was discussed with: Floor Broker (CARE team ) Lab Data [facility] Lab Attestation statement: I reviewed the patient's lab results. 05/20/25 11:22 05/20/25 11:22 Labs: Lab Results 05/20/25 05/20/25 Range/Units 11:22 11:23 WBC 7.5 (4.8-10.8) X10*3/uL RBC 4.94 (4.60-5.80) X10*6/uL Hgb 15.9 (14.0-18.0) g/dl Hct 45.0 (42.0-52.0) % MCV 91.1 (80.0-98.0) fL MCH 32.2 (27.0-33.0) pg MCHC 35.3 (31.0-36.0) g/dl RDW 12.1 (11.0-16.0) % Plt Count 157 L (160-400) X10*3/uL MPV 10.4 (9.4-12.4) fL Immature Gran % (Auto) 0.3 (0.0-0.4) % Neut % (Auto) 70.5 (45-73) % Lymph % (Auto) 20.9 (20-40) % Phillips % (Auto) 7.2 (2-11) % Eos % (Auto) 0.7 (0-4) % Baso % (Auto) 0.4 (0-2) % Lymph # (Auto) 1.6 (1.2-4.9) X10*3/uL Phillips # (Auto) 0.5 (0.1-1.2) X10*3/uL Eos # (Auto) 0.1 (0.0-0.4) X10*3/uL Baso # (Auto) 0.0 (0.0-0.2) X10*3/uL Abs Immat Gran (auto) 0.02 (0.00-0.03) X10*3/uL Absolute Neuts (auto) 5.3 (2.0-8.3) x10*3/uL Absolute Nucleated RBC 0.000 (0.0-0.012) X10*3/uL Nucleated RBC % (auto) 0.0 (0.0-0.2) /100WBC Sodium 136 (135-145) mmol/L Potassium 4.2 (3.3-5.1) mmol/L Chloride 105 (96-108) mmol/L Carbon Dioxide 24 (22-29) mmol/L Anion Gap 11 L (12-20) BUN 13 (9-16) mg/dL Creatinine 0.97 (0.5-1.4) mg/dL Estim Creat Clear Calc 86.8 Estimated GFR > 60 Random Glucose 108 (60-115) mg/dL Calcium 9.5 (8.4-10.2) mg/dL Magnesium 1.9 (1.6-2.6) mg/dL Total Bilirubin 0.9 (0.0-1.0) mg/dL Direct Bilirubin 0.3 (0.0-0.5) mg/dL AST 25 (5-37) U/L ALT 28 (0-40) U/L Alkaline Phosphatase 52 (39-117) U/L Total Protein 7.6 (6.5-8.0) g/dL Albumin 4.9 (3.5-5.0) g/dL Hold Yellow Top See Note Ethyl Alcohol < 10 mg/dL Independent Historian Clinical information obtained from an independent historian. History obtained from or confirmed by: Other (Sister who was called by phone by mental health counselor Yuan sarkar) External Record Review External record reviewed: Inpatient record, Office record, Outpatient record and Prior outpatient labs Chronic Conditions Patient?s care impacted by: Other (PTSD, schizoaffective disorder, dysfunctional elimination syndrome) Social Determinants Patient?s care significantly limited by Social Determinants of Health including: Other Social Determinant of Health Discharge Plan Discharge Clinical Impression: Schizoaffective disorder Patient Disposition: Admitted As Inpatient Interventions: Juana Diaz-Suicide Risk Severity Scale Last Done: 05/20/25 10:50 Print Language: Malaysian
[2025-05-20 11:29] LABS: MANUAL DIFF FLAG NO
[2025-05-20 11:31] LABS: Hematocrit 45.0 % (42.0-52.0); Hemoglobin 15.9 g/dl (14.0-18.0); Imm Gran Abs Auto 0.02 X10*3/uL (0.00-0.03); Imm Gran Pct Auto 0.3 % (0.0-0.4); Lymphocytes Absolute Auto 1.6 X10*3/uL (1.2-4.9); Mean Corpuscular HGB Conc 35.3 g/dl (31.0-36.0); Mean Corpuscular Hemoglobin 32.2 pg (27.0-33.0); Mean Corpuscular Volume 91.1 fL (80.0-98.0); NRBC Abs Auto 0.000 X10*3/uL (0.0-0.012); NRBC Pct Auto 0.0 /100WBC (0.0-0.2); Platelet Count 157 X10*3/uL (160-400); Red Blood Count 4.94 X10*6/uL (4.60-5.80); White Blood Count 7.5 X10*3/uL (4.8-10.8)
[2025-05-20 11:56] LABS: Alanine Aminotransferase 28 U/L (0-40); Albumin Level 4.9 g/dL (3.5-5.0); Alkaline Phosphatase 52 U/L (39-117); Anion Gap 11 (12-20); Aspartate Amino Transferase 25 U/L (5-37); Blood Urea Nitrogen 13 mg/dL (9-16); Calcium 9.5 mg/dL (8.4-10.2); Carbon Dioxide 24 mmol/L (22-29); Chloride 105 mmol/L (96-108); Creatinine Clr Calc Pharmacy 86.8; Estimated Glomerular Filt Rate > 60; Magnesium 1.9 mg/dL (1.6-2.6); Potassium 4.2 mmol/L (3.3-5.1); Sodium 136 mmol/L (135-145); Total Protein 7.6 g/dL (6.5-8.0)
--- NOTE | 2025-05-20 12:46 | MHC.CARE ---
Pt will be an inpatient adult bedsearch
--- NOTE | 2025-05-20 15:14 | PC.NURSE ---
Pt remains quiet and not responding verbally to any staff members that have been into evaluate him. He did not eat lunch and is startled every time someone goes in the room. He has poor eye contact, appears to be responding to internal stimuli. Pt has not used the bathroom since arrival.
[2025-05-20 18:13] VITALS: BP 123/89; PULSE 61; RESP 16; TEMP 36.1; O2SAT 95
[2025-05-20 18:26] VITALS: BMI 29.5
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
[2025-05-20 20:00] VITALS: BP 114/71; PULSE 75; TEMP 36.9; O2SAT 98
--- NOTE | 2025-05-21 10:17 | HO.PSYADMNOT ---
HPI Date of Service: 05/21/25 Chief Complaint: PTSD, schizoaffective disorder Sources of Information: patient interviewed, chart reviewed and crisis/core team assessment reviewed Additional Sources of Information: Seen 1040am HPI Subjective Notes: Narvaez Warning and Conditional Voluntary Healthcare Proxy: No Guardianship: No Medical Problems Affecting Mental Status: No Narrative: 59 yo male, history of PTSD, Schizoaffective Disorder, self presented to ER on 05/20 reporting to crisis SI and I am not doing well. He has been essentially mute since admission with reported hyperactive startle response. Collateral contact reports a recent discharge from [facility] as he had presented with psychosis and chest pain. He has has a difficult time caring for himself. Met with pt and Arnol LOBO. Pt is in bed, head covered, he does not startle when his name is called. He sits up, does not speak, does nod his head once and is asked if he would like to meet or if he would like team to contact sister Jyoti to collect background and return to him. There was no response, however he does have minimal eye contact. Past Psychiatric History: IP: [facility], [facility], [facility] [place] [facility] [place] [facility] OP: Brijesh- a psychiatrist who is from [facility] along with therapy psychiatric issues since first grade Trials: Haldol- seizure, fainting, anaphylaxis Olanzapine- SJS Latuda Risperdal-facial tic Seroquel-facial tic Sedatives- no response Sister Ashly Patterson [phone] Medical Evaluation Reviewed: Yes FOR[facility]LY [facility] Medical History PTSD (post-traumatic stress disorder) Schizoaffective disorder Dysfunctional elimination syndrome Family History: Depression, Alcohol Use, Hx of psychological trauma, no suicide attempts Social History: I am the joke of the family . Psychiatric issues since first grade Substance History: Refuses toxic screen Trauma History: Medical trauma in childhood Diagnostics Vital Signs (24Hr): Vital Signs - 24 hr 05/20/25 10:47 05/20/25 18:13 05/20/25 20:00 Temperature 98.4 F 97.0 F 98.4 F Pulse Rate 65 61 75 Respiratory Rate 18 16 Blood Pressure 145/96 H 123/89 114/71 Pulse Oximetry 98 95 98 Oxygen Delivery Method Room Air Room Air Room Air BMI result Body Mass Index 29.5 Labs 05/20/25 11:22 05/20/25 11:22 Labs: Laboratory Results - last 48 hr 05/20/25 05/20/25 11:22 11:23 WBC 7.5 RBC 4.94 Hgb 15.9 Hct 45.0 MCV 91.1 MCH 32.2 MCHC 35.3 RDW 12.1 Plt Count 157 L MPV 10.4 Immature Gran % (Auto) 0.3 Neut % (Auto) 70.5 Lymph % (Auto) 20.9 [place] % (Auto) 7.2 Eos % (Auto) 0.7 Baso % (Auto) 0.4 Lymph # (Auto) 1.6 [place] # (Auto) 0.5 Eos # (Auto) 0.1 Baso # (Auto) 0.0 Abs Immat Gran (auto) 0.02 Absolute Neuts (auto) 5.3 Absolute Nucleated RBC 0.000 Nucleated RBC % (auto) 0.0 Sodium 136 Potassium 4.2 Chloride 105 Carbon Dioxide 24 Anion Gap 11 L BUN 13 Creatinine 0.97 Estim Creat Clear Calc 86.8 Estimated GFR > 60 Random Glucose 108 Calcium 9.5 Magnesium 1.9 Total Bilirubin 0.9 Direct Bilirubin 0.3 AST 25 ALT 28 Alkaline Phosphatase 52 Total Protein 7.6 Albumin 4.9 Hold Yellow Top See Note Ethyl Alcohol < 10 EKG EKG Comment: Pt refused EKG Meds/Allergies Meds Home Medications ?Medication ?Instructions ?Recorded ?Confirmed ?Type aspirin 81 mg tablet,delayed 81 mg PO DAILY 05/20/25 05/20/25 History release clonazepam 0.5 mg tablet 0.25 mg PO BID PRN anxiety 05/20/25 05/20/25 History clopidogrel 75 mg tablet 75 mg PO DAILY 05/20/25 05/20/25 History gabapentin 100 mg capsule 100 mg PO Q8H 05/20/25 05/20/25 History metoprolol succinate 25 mg 12.5 mg PO DAILY 05/20/25 05/20/25 History tablet,extended release 24 hr oxcarbazepine 300 mg tablet 300 mg PO Q12H 05/20/25 05/20/25 History risperidone 1 mg tablet 1 mg PO BID PRN Anxiety 05/20/25 05/20/25 History rosuvastatin 20 mg tablet 20 mg PO BEDTIME 05/20/25 05/20/25 History tamsulosin 0.4 mg capsule 0.4 mg PO DAILY 05/20/25 05/20/25 History ziprasidone HCl 40 mg capsule 40 mg PO BID 05/20/25 05/20/25 History Allergies Allergies Allergy/AdvReac Type Severity Reaction Status Date / Time olanzapine (From Zyprexa) AdvReac Severe Anaphylaxis Verified 05/20/25 10:47 clonidine AdvReac Fainting Verified 05/20/25 10:47 haloperidol (From Haldol) AdvReac Anaphylaxis Verified 05/20/25 10:47 tuna Allergy Severe Anaphylaxis Uncoded 04/18/24 12:52 Mental Status Exam Mental Status Exam Patient Appearance: Fatigued and Disheveled Patient Orientation: Person Level of Consciousness: Awake Patient Behavior: Guarded, Suspicious, Timid, Fearful, Avoidant, Fatigued, Distractible and Good Eye Contact Mood Description: Suspicious, Withdrawn, Fearful, Flat, Sad, Nervous and Apprehensive Affect Description: Withdrawn and Flat Ability to Follow Directions: Fair Speech Pattern: No Speech Perceptual Disturbances: Depersonalization and Derealization Thought Content: positive for Suicidal Ideation Depressive Symptoms: Diff. Making Decisions, Increased Fatigue and Loss of Energy Judgement: Poor Assessment & Plan Assessment & Plan (1) Schizoaffective disorder: Status: Acute Code(s): F25.9 - Schizoaffective disorder, unspecified (2) PTSD (post-traumatic stress disorder): Status: Acute Code(s): F43.10 - Post-traumatic stress disorder, unspecified Plan 59 yo male, history of PTSD, Schizoaffective Disorder, self presented to ER on 05/20 reporting to crisis SI and I am not doing well. He has been essentially mute since admission with reported hyperactive startle response. Collateral contact reports a recent discharge from [facility] as he had presented with psychosis and chest pain. He has has a difficult time caring for himself. Met with pt and Arnol LOBO. Pt is in bed, head covered, he does not startle when his name is called. He sits up, does not speak, does nod his head once and is asked if he would like to meet or if he would like team to contact sister Jyoti to collect background and return to him. There was no response, however he does have minimal eye contact. Plan: Admit/CV/15 minute checks Ativan 1 mg tid-rule out catatonia Continue previous regime Diagnostics as needed and as pt will allow. Collateral contact Encourage milieu engagement Discharge planning Patient educated on: other Reason for continued inpatient stay Substantial Risk for: harm to self, harm to others, inability to function and rapid decompensation Statement Statement: I have reviewed the history and physical and performed a pertinent examination on my patient. No changes have occurred unless specified. If the History and Physical was not performed prior to admission, the Hospitalist's service will be consulted for completing the admission physical. Time Spent With Patient Time: Total time managing care of this patient today ____ minutes.
[2025-05-21 20:00] VITALS: BP 113/71; PULSE 67; TEMP 36.4; O2SAT 95
[2025-05-22] MEDS: Aspirin Enteric Coated 81 MG TABLET.DR PO (08:56)
--- NOTE | 2025-05-22 10:29 | HO.PSYCHPN ---
Subjective Subjective Date of Service: 05/22/25 Reason For Visit: PTSD, schizoaffective disorder Subjective Notes: Conditional Voluntary Healthcare Proxy: No Guardianship: No Medical Problems Affecting Mental Status: No Interim History: Refusing Geodon, Metoprolol. Accepting of other meds. Continues non verbal. Able to sit with tw today, some eye contact, silent for ~35 minutes. Non responsive to questions. Appears to take in information. Asked pt if he was having any trouble with urination and he did not answer. Discussed with team. We may need to retract CV if pt continues to refuse psychiatric meds. ?Catatonia- accepting 3 mg Ativan daily. Eating, drinking, sleeping, some visability in the milieu. Medication Compliance: Intermittent Side effects from medications: No Attending Groups: No Review of Systems Acute medical concerns: No Medical Review of Systems: unchanged Review of Systems Review of Systems Yes Unobtainable due to mental status Mental Status Exam Mental Status Exam Patient Appearance: Fatigued and Disheveled Patient Orientation: Person Level of Consciousness: Awake Patient Behavior: Guarded, Suspicious, Timid, Fearful, Avoidant, Fatigued, Distractible and Good Eye Contact Mood Description: Suspicious, Withdrawn, Fearful, Flat, Sad, Nervous and Apprehensive Affect Description: Withdrawn and Flat Ability to Follow Directions: Fair Speech Pattern: No Speech Perceptual Disturbances: Depersonalization and Derealization Thought Content: positive for Suicidal Ideation Depressive Symptoms: Diff. Making Decisions, Increased Fatigue and Loss of Energy Judgement: Poor Diagnostics Vital Signs (24Hr): Vital Signs - 24 hr 05/21/25 20:00 Temperature 97.6 F Pulse Rate 67 Blood Pressure 113/71 Pulse Oximetry 95 Oxygen Delivery Method Room Air BMI result Body Mass Index 29.5 Labs 05/20/25 11:22 05/20/25 11:22 Labs: Laboratory Results - last 48 hr 05/20/25 05/20/25 11:22 11:23 WBC 7.5 RBC 4.94 Hgb 15.9 Hct 45.0 MCV 91.1 MCH 32.2 MCHC 35.3 RDW 12.1 Plt Count 157 L MPV 10.4 Immature Gran % (Auto) 0.3 Neut % (Auto) 70.5 Lymph % (Auto) 20.9 [place] % (Auto) 7.2 Eos % (Auto) 0.7 Baso % (Auto) 0.4 Lymph # (Auto) 1.6 [place] # (Auto) 0.5 Eos # (Auto) 0.1 Baso # (Auto) 0.0 Abs Immat Gran (auto) 0.02 Absolute Neuts (auto) 5.3 Absolute Nucleated RBC 0.000 Nucleated RBC % (auto) 0.0 Sodium 136 Potassium 4.2 Chloride 105 Carbon Dioxide 24 Anion Gap 11 L BUN 13 Creatinine 0.97 Estim Creat Clear Calc 86.8 Estimated GFR > 60 Random Glucose 108 Calcium 9.5 Magnesium 1.9 Total Bilirubin 0.9 Direct Bilirubin 0.3 AST 25 ALT 28 Alkaline Phosphatase 52 Total Protein 7.6 Albumin 4.9 Hold Yellow Top See Note Ethyl Alcohol < 10 Medications Medications Current Medications Acetaminophen (Acetaminophen 325 Mg Tablet) 650 mg PO Q6H PRN PRN Reason: Headache/Pain, Scale 1-10 Al Hydroxide/Mg Hydroxide (Magnesium Hydrox/Alum Hydrox 30 Ml Oral.Susp) 30 ml PO Q6H PRN PRN Reason: Heartburn/Nausea Aspirin (Aspirin Enteric Coated 81 Mg Tablet.Dr) 81 mg PO DAILY [facility] Last Admin: 05/22/25 08:56 Dose: 81 mg Atorvastatin Calcium (Atorvastatin Calcium 80 Mg Tablet) 80 mg PO BEDTIME [facility] Last Admin: 05/21/25 21:26 Dose: 80 mg Clopidogrel Bisulfate (Clopidogrel Bisulfate 75 Mg Tablet) 75 mg PO DAILY [facility] Last Admin: 05/22/25 08:56 Dose: 75 mg Gabapentin (Gabapentin 100 Mg Capsule) 100 mg PO Q8H [facility] Last Admin: 05/22/25 08:56 Dose: 100 mg Hydroxyzine HCl (Hydroxyzine Hcl 25 Mg Tablet) 25 mg PO Q6H PRN PRN Reason: mild anxiety Last Admin: 05/21/25 16:47 Dose: 25 mg Lorazepam (Lorazepam 1 Mg Tablet) 1 mg PO TID [facility] Last Admin: 05/22/25 08:55 Dose: 1 mg Magnesium Hydroxide (Milk Of Magnesia 30 Ml Oral.Susp) 30 ml PO DAILY PRN PRN Reason: Constipation Metoprolol Succinate (Metoprolol Succinate Er 12.5 Mg Halftab.Er.24h) 12.5 mg PO DAILY [facility]; Protocol Last Admin: 05/22/25 09:01 Dose: Not Given Nicotine Polacrilex (Nicotine Polacrilex 2 Mg Gum) 4 mg BUCCAL Q2H PRN PRN Reason: Nicotine Cravings Non-Formulary Medication (Testosterone) 2 packet TOPICAL DAILY [facility] Oxcarbazepine (Oxcarbazepine 300 Mg Tablet) 300 mg PO Q12H [facility] Last Admin: 05/22/25 06:23 Dose: 300 mg Risperidone (Risperidone 1 Mg Tablet) 1 mg PO BID PRN PRN Reason: Anxiety Tamsulosin HCl (Tamsulosin Hcl 0.4 Mg Capsule) 0.4 mg PO DAILY [facility] Last Admin: 05/22/25 08:56 Dose: 0.4 mg Trazodone HCl (Trazodone Hcl 50 Mg Tablet) 50 mg PO BEDTIME MRX1 PRN PRN Reason: Insomnia Ziprasidone (Ziprasidone 40 Mg Capsule) 40 mg PO BID [facility] Last Admin: 05/22/25 09:02 Dose: Not Given Allergies Allergies Allergy/AdvReac Type Severity Reaction Status Date / Time olanzapine (From Zyprexa) AdvReac Severe Anaphylaxis Verified 05/20/25 10:47 clonidine AdvReac Fainting Verified 05/20/25 10:47 haloperidol (From Haldol) AdvReac Anaphylaxis Verified 05/20/25 10:47 tuna Allergy Severe Anaphylaxis Uncoded 04/18/24 12:52 Assessment & Plan Assessment & Plan (1) Schizoaffective disorder: Status: Acute Code(s): F25.9 - Schizoaffective disorder, unspecified (2) PTSD (post-traumatic stress disorder): Status: Acute Code(s): F43.10 - Post-traumatic stress disorder, unspecified Plan 59 yo male, history of PTSD, Schizoaffective Disorder, self presented to ER on 05/20 reporting to crisis SI and I am not doing well. He has been essentially mute since admission with reported hyperactive startle response. Collateral contact reports a recent discharge from [facility] as he had presented with psychosis and chest pain. He has has a difficult time caring for himself. Met with pt and Arnol LOBO. Pt is in bed, head covered, he does not startle when his name is called. He sits up, does not speak, does nod his head once and is asked if he would like to meet or if he would like team to contact sister Jyoti to collect background and return to him. There was no response, however he does have minimal eye contact. Plan: Admit/CV/15 minute checks Ativan 1 mg tid-rule out catatonia Continue previous regime Diagnostics as needed and as pt will allow. Collateral contact Encourage milieu engagement Discharge planning 05/22: Encourage treatment. Reason for continued inpatient stay Substantial Risk for: rapid decompensation Time Spent With Patient Time: Total time managing care of this patient today ____ minutes.
[2025-05-22 19:45] VITALS: BP 116/67; PULSE 82; TEMP 36.5; O2SAT 97
[2025-05-22 21:23] LABS: Appearance Urine Clear; Glucose Urine UA Negative (Negative); PH 5.5 (5.0-9.0); Specific Gravity - Urine 1.025 (1.005-1.025)
[2025-05-23] MEDS: Aspirin Enteric Coated 81 MG TABLET.DR PO (09:03)
[2025-05-23 09:27] LABS: Cholesterol 110 mg/dL (<200); HDL Cholesterol 44 mg/dL (>40); Magnesium 1.9 mg/dL (1.6-2.6); Triglycerides 63 mg/dL (<150)
[2025-05-23 09:44] LABS: Free T4 (Free Thyroxine) 1.01 ng/dL (0.71-1.85); Thyroid Stimulating Hormone 0.54 uIU/mL (0.32-4.0)
[2025-05-23 09:57] LABS: Folate 9.5 ng/mL (> or = 4.0); Vitamin B12 506 pg/mL (200-900)
--- NOTE | 2025-05-23 11:44 | P.PNPSI_ITS ---
Subjective Subjective Date of Service: 05/23/25 Reason For Visit: PTSD, schizoaffective disorder Interim History: met with patient; discussed with team; reviewed chart Patient very angry and told commercial insurance underwriter so. Says that he is thinking about provoking security so that they will beat him up, sit on his chest and caused him to have a heart attack so he will be . Patient very resistant to trying medications to help with anger, saying he has tried everything and nothing works. Patient has been taking Trileptal but otherwise refuses Geodon. Chemical Equipment Sales Engineer discussed risks/side effects of Clozaril, 1 medication he has not taken before. Patient initially refused but then later said he was willing to try it. He also asked for Valium, saying this was helpful in the past. Of note, corner mirror was broken and hanging; staff removed it. Patient said he did not do it but was like that when he got there taking Trileptal.... refuses Geodone refuses Testoserone Gel (says too much) refused BP/vitals so no Metopolol Mental Status Exam Mental Status Exam Narrative: Pt is alert and oriented; behavior is guarded, resistant to treatment, keeping to himself, selectively mute, seething with anger; able to engage in conversation about treatment; patient is not in distress; dressed in casual attire with unkempt hair but adequate hygiene; mood is described as angry and affect congruent; eye contact appropriate; Speech is a little loud, a little quick; not pressured; both psychomotor agitation/retardation intermittently present; thought process is organized and goal directed; Thought content is on angry feelings and on aggressive thoughts; does not disclose much else; passive wish; denies HI. Did not discuss AVH. Patients insight and judgment impaired Diagnostics Vital Signs (24Hr): Vital Signs - 24 hr 05/22/25 19:45 Temperature 97.7 F Pulse Rate 82 Blood Pressure 116/67 Pulse Oximetry 97 Oxygen Delivery Method Room Air BMI result Body Mass Index 29.5 Labs 05/20/25 11:22 05/20/25 11:22 Labs: Laboratory Results - last 48 hr 05/22/25 05/23/25 20:45 08:27 Estimat Average Glucose 114 Hemoglobin A1c % 5.6 Magnesium 1.9 Triglycerides 63 Cholesterol 110 LDL Cholesterol, Calc 54 HDL Cholesterol 44 Vitamin B12 506 Folate 9.5 TSH 0.54 Free T4 1.01 Urine Color Yellow Urine Appearance Clear Urine pH 5.5 Ur Specific [place] 1.025 Urine Protein Negative Urine Glucose (UA) Negative Urine Ketones Negative Urine Blood Negative Urine Nitrite Negative Ur Leukocyte Esterase Negative Urine RBC 0-2 Urine WBC 0-5 Ur Squamous Epith Cells 0-2 Urine Bacteria None Seen Hyaline Casts 0-2 Medications Medications Current Medications Acetaminophen (Acetaminophen 325 Mg Tablet) 650 mg PO Q6H PRN PRN Reason: Headache/Pain, Scale 1-10 Last Admin: 05/23/25 01:06 Dose: 650 mg Al Hydroxide/Mg Hydroxide (Magnesium Hydrox/Alum Hydrox 30 Ml Oral.Susp) 30 ml PO Q6H PRN PRN Reason: Heartburn/Nausea Aspirin (Aspirin Enteric Coated 81 Mg Tablet.Dr) 81 mg PO DAILY [facility] Last Admin: 05/23/25 09:03 Dose: 81 mg Atorvastatin Calcium (Atorvastatin Calcium 80 Mg Tablet) 80 mg PO BEDTIME [facility] Last Admin: 05/22/25 20:34 Dose: 80 mg Clopidogrel Bisulfate (Clopidogrel Bisulfate 75 Mg Tablet) 75 mg PO DAILY [facility] Last Admin: 05/23/25 09:03 Dose: 75 mg Gabapentin (Gabapentin 100 Mg Capsule) 100 mg PO Q8H [facility] Last Admin: 05/23/25 06:36 Dose: 100 mg Hydroxyzine HCl (Hydroxyzine Hcl 25 Mg Tablet) 25 mg PO Q6H PRN PRN Reason: mild anxiety Last Admin: 05/21/25 16:47 Dose: 25 mg Loperamide HCl (Loperamide Hcl 2 Mg Capsule) 2 mg PO Q4H PRN PRN Reason: Diarrhea Last Admin: 05/22/25 21:19 Dose: 2 mg Lorazepam (Lorazepam 1 Mg Tablet) 1 mg PO TID [facility] Last Admin: 05/23/25 09:03 Dose: 1 mg Magnesium Hydroxide (Milk Of Magnesia 30 Ml Oral.Susp) 30 ml PO DAILY PRN PRN Reason: Constipation Metoprolol Succinate (Metoprolol Succinate Er 12.5 Mg Halftab.Er.24h) 12.5 mg PO DAILY [facility]; Protocol Last Admin: 05/23/25 09:07 Dose: Not Given Nicotine Polacrilex (Nicotine Polacrilex 2 Mg Gum) 4 mg BUCCAL Q2H PRN PRN Reason: Nicotine Cravings Pt Own Medication ( Testosterone 50 Mg/5 Gram (1 %) Gel) 1 packet TOPICAL DAILY [facility] Last Admin: 05/23/25 09:07 Dose: Not Given Oxcarbazepine (Oxcarbazepine 300 Mg Tablet) 300 mg PO Q12H [facility] Last Admin: 05/23/25 06:36 Dose: 300 mg Risperidone (Risperidone 1 Mg Tablet) 1 mg PO BID PRN PRN Reason: Anxiety Last Admin: 05/23/25 01:06 Dose: 1 mg Tamsulosin HCl (Tamsulosin Hcl 0.4 Mg Capsule) 0.4 mg PO DAILY [facility] Last Admin: 05/23/25 09:03 Dose: 0.4 mg Trazodone HCl (Trazodone Hcl 50 Mg Tablet) 50 mg PO BEDTIME MRX1 PRN PRN Reason: Insomnia Last Admin: 05/23/25 01:06 Dose: 50 mg Ziprasidone (Ziprasidone 40 Mg Capsule) 40 mg PO BID [facility] Last Admin: 05/23/25 09:09 Dose: Not Given Allergies Allergies Allergy/AdvReac Type Severity Reaction Status Date / Time olanzapine (From Zyprexa) AdvReac Severe Anaphylaxis Verified 05/20/25 10:47 clonidine AdvReac Fainting Verified 05/20/25 10:47 haloperidol (From Haldol) AdvReac Anaphylaxis Verified 05/20/25 10:47 tuna Allergy Severe Anaphylaxis Uncoded 04/18/24 12:52 Assessment & Plan Assessment & Plan (1) Schizoaffective disorder: Status: Acute Code(s): F25.9 - Schizoaffective disorder, unspecified (2) PTSD (post-traumatic stress disorder): Status: Acute Code(s): F43.10 - Post-traumatic stress disorder, unspecified Plan 59 yo male, history of PTSD, Schizoaffective Disorder, self presented to ER on 05/20 reporting to crisis SI and I am not doing well. He has been essentially mute since admission with reported hyperactive startle response. Collateral contact reports a recent discharge from [facility] as he had presented with psychosis and chest pain. He has has a difficult time caring for himself. Met with pt and Arnol LOBO. Pt is in bed, head covered, he does not startle when his name is called. He sits up, does not speak, does nod his head once and is asked if he would like to meet or if he would like team to contact sister Jyoti to collect background and return to him. There was no response, however he does have minimal eye contact. Hospital course: 05/23 Patient very angry and told commercial insurance underwriter so. Says that he is thinking about provoking security so that they will beat him up, sit on his chest and caused him to have a heart attack so he will be . Patient very resistant to trying medications to help with anger, saying he has tried everything and nothing works. Patient has been taking Trileptal but otherwise refuses Geodon. Chemical Equipment Sales Engineer discussed risks/side effects of Clozaril, 1 medication he has not taken before. Patient initially refused but then later said he was willing to try it. He also asked for Valium, saying this was helpful in the past. Of note, corner mirror was broken and hanging; staff removed it. Patient said he did not do it but was like that when he got there only taking Trileptal.... refuses Geodone refuses Testoserone Gel (says too much) refused BP/vitals so no Metopolol Impression: Patient exceedingly angry. He refuses Geodon and so commercial insurance underwriter will discontinue. Patient eventually amenable to starting Clozaril which can be significantly helpful for psychosis, mood stabilization and anger related to paranoid ideations. Initial concern about catatonia since patient was selectively mute; this seems to have resolved, either due to the Ativan or that he was not catatonic but just angry and resistive to treatment. Either way, Valium can also mitigate catatonic symptoms and given patient's aggressive history and current presentation, commercial insurance underwriter agrees that if Valium helps him that is preferable. Plan: Admit/CV/15 minute checks Start clozapine 25 mg q.h.s. Start Valium 10 mg daily -Will see if patient prefers Valium verse Ativan p.r.n. Ativan 1 mg tid-rule out catatonia Discontinue Geodon; patient refuses Continue previous regime Diagnostics as needed and as pt will allow. Collateral contact Encourage milieu engagement Discharge planning Patient educated on: diagnosis, medication risk/benefits and therapeutic strategies Informed Consent: understands, does not understand and further education needed Reason for continued inpatient stay Substantial Risk for: inability to function Time Spent With Patient Time: Total time managing care of this patient today ____ minutes.
--- NOTE | 2025-05-23 19:58 | PC.NURSE ---
At approximately 1930, this patient told this tag writer that he was having wild thoughts...I want to call security and have them sit on my neck and chest so I can't breathe and . Provider Francisco Augustine was contacted, and gave TO orders for one time 100 mg PO of Thorazine, as well as 100 mg Thorazine PO BID PRN. Although a warning was noted that there can be prolonged QT from interactions, provider and this tag writer agreed that an EKG would not be possible at this time due to the level of agitation.
[2025-05-23 20:00] VITALS: BP 114/72; PULSE 74; TEMP 36.7; O2SAT 96
--- NOTE | 2025-05-23 20:08 | PC.NURSE ---
Addendum entered by Chantell Wang RN 05/23/25 23:07: yard general car supervisor notified by [employer] at 2014. Addendum entered by Chantell Wang RN 05/23/25 20:17: Provider Francisco Augustine notified at 2010. Original Note: Patient stated he had an unwitnessed fall during the day, in his bathroom. He was laughing at the time and telling this remote mortgage underwriter that he wanted to smoke his thorazine tablet with tinfoil and a hospital admissions officer.
[2025-05-24 08:00] VITALS: BP 124/76; PULSE 60; RESP 18; TEMP 36.9; O2SAT 99
[2025-05-24] MEDS: Aspirin Enteric Coated 81 MG TABLET.DR PO (08:43)
[2025-05-24] MEDS: Metoprolol Succinate ER 12.5 MG HALFTAB.ER.24H PO (08:44)
--- NOTE | 2025-05-24 09:57 | P.PNPSI_ITS ---
Subjective Subjective Date of Service: 05/24/25 Reason For Visit: PTSD, schizoaffective disorder Interim History: Met with patient; discussed with team Patient reports he is still feeling very angry but seems less so. Says he woke up very tired Like had a lobotomy and blames it on Clozaril though sign writer letterer or painter said it could very well be from the combination of Valium and Thorazine that he got. Patient irritable but amenable to continuing with treatment. Later in the day he complained of getting akathisia which was resolved with propranolol Mental Status Exam Mental Status Exam Narrative: Pt is alert and oriented; behavior is guarded, resistant to treatment, keeping to himself but now talking; still angry with irritable edge but less intense than yesterday; able to engage in conversation about treatment; patient is not in distress; dressed in casual attire with unkempt hair but adequate hygiene; mood is described as angry and affect congruent; eye contact appropriate; Speech is a little loud, a little quick; not pressured; no psychomotor agitation/retardation; thought process is organized and goal directed; Thought content is on angry feelings, treatment; does not disclose much else; passive wish; denies HI. Did not discuss AVH but patient clearly internally preoccupied, having conversation with himself while sign writer letterer or painter was in the room. Patients insight and judgment impaired Diagnostics Vital Signs (24Hr): Vital Signs - 24 hr 05/23/25 20:00 05/24/25 08:00 Temperature 98.0 F 98.4 F Pulse Rate 74 60 Respiratory Rate 18 Blood Pressure 114/72 124/76 Pulse Oximetry 96 99 Oxygen Delivery Method Room Air Room Air BMI result Body Mass Index 29.5 Labs 05/20/25 11:22 05/20/25 11:22 Labs: Laboratory Results - last 48 hr 05/22/25 05/23/25 20:45 08:27 Estimat Average Glucose 114 Hemoglobin A1c % 5.6 Magnesium 1.9 Triglycerides 63 Cholesterol 110 LDL Cholesterol, Calc 54 HDL Cholesterol 44 Vitamin B12 506 Folate 9.5 TSH 0.54 Free T4 1.01 Urine Color Yellow Urine Appearance Clear Urine pH 5.5 Ur Specific [place] 1.025 Urine Protein Negative Urine Glucose (UA) Negative Urine Ketones Negative Urine Blood Negative Urine Nitrite Negative Ur Leukocyte Esterase Negative Urine RBC 0-2 Urine WBC 0-5 Ur Squamous Epith Cells 0-2 Urine Bacteria None Seen Hyaline Casts 0-2 Medications Medications Current Medications Acetaminophen (Acetaminophen 325 Mg Tablet) 650 mg PO Q6H PRN PRN Reason: Headache/Pain, Scale 1-10 Last Admin: 05/23/25 01:06 Dose: 650 mg Al Hydroxide/Mg Hydroxide (Magnesium Hydrox/Alum Hydrox 30 Ml Oral.Susp) 30 ml PO Q6H PRN PRN Reason: Heartburn/Nausea Aspirin (Aspirin Enteric Coated 81 Mg Tablet.Dr) 81 mg PO DAILY [facility] Last Admin: 05/24/25 08:43 Dose: 81 mg Atorvastatin Calcium (Atorvastatin Calcium 80 Mg Tablet) 80 mg PO BEDTIME [facility] Last Admin: 05/23/25 19:38 Dose: 80 mg Chlorpromazine HCl (Chlorpromazine Hcl 100 Mg Tablet) 100 mg PO BID PRN PRN Reason: anxiety/restlessness Clopidogrel Bisulfate (Clopidogrel Bisulfate 75 Mg Tablet) 75 mg PO DAILY [facility] Last Admin: 05/24/25 08:44 Dose: 75 mg Clozapine (Clozapine 25 Mg Tablet) 50 mg PO BEDTIME [facility] Diazepam (Diazepam 5 Mg Tablet) 10 mg PO DAILY [facility] Last Admin: 05/24/25 09:15 Dose: 10 mg Gabapentin (Gabapentin 100 Mg Capsule) 100 mg PO TID@0800,1400,2000 [facility] Last Admin: 05/24/25 08:44 Dose: 100 mg Hydroxyzine HCl (Hydroxyzine Hcl 25 Mg Tablet) 25 mg PO Q6H PRN PRN Reason: mild anxiety Last Admin: 05/23/25 19:38 Dose: 25 mg Loperamide HCl (Loperamide Hcl 2 Mg Capsule) 2 mg PO Q4H PRN PRN Reason: Diarrhea Last Admin: 05/22/25 21:19 Dose: 2 mg Lorazepam (Lorazepam 1 Mg Tablet) 1 mg PO TID [facility] Last Admin: 05/24/25 08:44 Dose: 1 mg Magnesium Hydroxide (Milk Of Magnesia 30 Ml Oral.Susp) 30 ml PO DAILY PRN PRN Reason: Constipation Metoprolol Succinate (Metoprolol Succinate Er 12.5 Mg Halftab.Er.24h) 12.5 mg PO DAILY [facility]; Protocol Last Admin: 05/24/25 08:44 Dose: 12.5 mg Nicotine Polacrilex (Nicotine Polacrilex 2 Mg Gum) 4 mg BUCCAL Q2H PRN PRN Reason: Nicotine Cravings Pt Own Medication ( Testosterone 50 Mg/5 Gram (1 %) Gel) 1 packet TOPICAL DAILY [facility] Last Admin: 05/24/25 08:45 Dose: Not Given Oxcarbazepine (Oxcarbazepine 300 Mg Tablet) 300 mg PO BID [facility] Last Admin: 05/24/25 08:43 Dose: 300 mg Propranolol HCl (Propranolol Hcl 10 Mg Tablet) 10 mg PO TID PRN; Protocol PRN Reason: akathesia Risperidone (Risperidone 1 Mg Tablet) 1 mg PO BID PRN PRN Reason: Anxiety Last Admin: 05/23/25 01:06 Dose: 1 mg Tamsulosin HCl (Tamsulosin Hcl 0.4 Mg Capsule) 0.4 mg PO DAILY [facility] Last Admin: 05/24/25 08:43 Dose: 0.4 mg Trazodone HCl (Trazodone Hcl 50 Mg Tablet) 50 mg PO BEDTIME MRX1 PRN PRN Reason: Insomnia Last Admin: 05/23/25 19:38 Dose: 50 mg Allergies Allergies Allergy/AdvReac Type Severity Reaction Status Date / Time olanzapine (From Zyprexa) AdvReac Severe Anaphylaxis Verified 05/20/25 10:47 clonidine AdvReac Fainting Verified 05/20/25 10:47 haloperidol (From Haldol) AdvReac Anaphylaxis Verified 05/20/25 10:47 tuna Allergy Severe Anaphylaxis Uncoded 04/18/24 12:52 Assessment & Plan Assessment & Plan (1) Schizoaffective disorder: Status: Acute Code(s): F25.9 - Schizoaffective disorder, unspecified (2) PTSD (post-traumatic stress disorder): Status: Acute Code(s): F43.10 - Post-traumatic stress disorder, unspecified Plan 59 yo male, history of PTSD, Schizoaffective Disorder, self presented to ER on 05/20 reporting to crisis SI and I am not doing well. He has been essentially mute since admission with reported hyperactive startle response. Collateral contact reports a recent discharge from [facility] as he had presented with psychosis and chest pain. He has has a difficult time caring for himself. Met with pt and Arnol LOBO. Pt is in bed, head covered, he does not startle when his name is called. He sits up, does not speak, does nod his head once and is asked if he would like to meet or if he would like team to contact sister Jyoti to collect background and return to him. There was no response, however he does have minimal eye contact. Hospital course: 05/23 Patient very angry and told sign writer letterer or painter so. Says that he is thinking about provoking security so that they will beat him up, sit on his chest and caused him to have a heart attack so he will be . Patient very resistant to trying medications to help with anger, saying he has tried everything and nothing works. Patient has been taking Trileptal but otherwise refuses Geodon. Credit Negotiator discussed risks/side effects of Clozaril, 1 medication he has not taken before. Patient initially refused but then later said he was willing to try it. He also asked for Valium, saying this was helpful in the past. Of note, corner mirror was broken and hanging; staff removed it. Patient said he did not do it but was like that when he got there only taking Trileptal.... refuses Geodone refuses Testoserone Gel (says too much) refused BP/vitals so no Metopolol Impression: Patient exceedingly angry. He refuses Geodon and so sign writer letterer or painter will discontinue. Patient eventually amenable to starting Clozaril which can be significantly helpful for psychosis, mood stabilization and anger related to paranoid ideations. Initial concern about catatonia since patient was selectively mute; this seems to have resolved, either due to the Ativan or that he was not catatonic but just angry and resistive to treatment. Either way, Valium can also mitigate catatonic symptoms and given patient's aggressive history and current presentation, sign writer letterer or painter agrees that if Valium helps him that is preferable. Plan: Admit/CV/15 minute checks Start propranolol 10 mg t.i.d. for akathisia Start clozapine 25 mg q.h.s. Start Valium 10 mg daily Taper and DC Ativan Ativan 1 mg tid-rule out catatonia Discontinue Geodon; patient refuses Continue previous regime Diagnostics as needed and as pt will allow. Collateral contact Encourage milieu engagement Discharge planning Patient educated on: diagnosis, medication risk/benefits and therapeutic strategies Informed Consent: understands, does not understand and further education needed Reason for continued inpatient stay Substantial Risk for: inability to function and rapid decompensation Time Spent With Patient Time: Total time managing care of this patient today ____ minutes.
[2025-05-24 15:01] VITALS: BP 120/71; PULSE 68
[2025-05-24 20:00] VITALS: BP 125/77; PULSE 77; TEMP 36.9; O2SAT 95
[2025-05-25 08:00] VITALS: BP 144/94; PULSE 65; TEMP 36.9; O2SAT 96
[2025-05-25] MEDS: Aspirin Enteric Coated 81 MG TABLET.DR PO (08:16)
[2025-05-25] MEDS: Metoprolol Succinate ER 12.5 MG HALFTAB.ER.24H PO (08:17)
--- NOTE | 2025-05-25 10:03 | P.PNPSI_ITS ---
Subjective Subjective Date of Service: 05/25/25 Reason For Visit: PTSD, schizoaffective disorder Subjective Notes: Conditional Voluntary Healthcare Proxy: No Guardianship: No Medical Problems Affecting Mental Status: No Interim History: I am alone. I feel like dying No one is there. Pt talking with team today, expressing depressive sx, worry, fear for his future, anger with some family members (step mother) +SI,+HI-no plans or intent, no AH,VH, Sibs Sleep, Appetite are intact More visable in milieu. Not in agreement with medications. Weekend med changes- chlorpromazine prn, clozapine initiated, Valium scheduled and prn, Lorazepam decreased, Trileptal/Propranolol scheduled. Discussed with sister Ashly [phone]. Pt has great support in his family. Father and Ashly are currently looking to purchase a home for pt. They have engaged a realtor, have had pt look at a few places. 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 He started to decline when his daughter left for colleged at [place]. Family plans to learn what expenses pt has and set up an auto pay account so he will not need to worry. Family believes he has lived through a great deal of trauma and stress. This in addition to daughter leaving, the economic climate currently, family member (an MD) who believes he has a post psychosis depression have made the family more committed to helping him to manage these daily living stressors and obtain peace and security. Medication Compliance: Yes Side effects from medications: No Attending Groups: No Review of Systems Acute medical concerns: No Medical Review of Systems: unchanged Review of Systems Review of Systems no one cares anyway Yes Unobtainable due to mental status Mental Status Exam Mental Status Exam Patient Appearance: Fatigued Patient Orientation: Person, Place, Time and Situation Level of Consciousness: Alert Patient Behavior: Talkative Mood Description: Depressed and Angry Affect Description: Flat Patient Cognition Impaired: No Ability to Follow Directions: Good Speech Pattern: Spontaneous Speech Memory Description: Episodic Impaired Hallucinations: None Delusions: Paranoid Ideation and Present Perceptual Disturbances: Depersonalization and Derealization Thought Process: Rumination Thought Content: positive for Circumstantial, positive for Perseveration and positive for Suicidal Ideation Depressive Symptoms: Increased Irritability, Feelings of Worthlessness and Thoughts of /Suicide Abnormal Motor Activity Signs and Symptoms: Agitation Judgement: Poor Diagnostics Vital Signs (24Hr): Vital Signs - 24 hr 05/24/25 15:01 05/24/25 20:00 05/25/25 08:00 Temperature 98.4 F 98.4 F Pulse Rate 68 77 65 Blood Pressure 120/71 125/77 144/94 H Pulse Oximetry 95 96 Oxygen Delivery Method Room Air Room Air BMI result Body Mass Index 29.5 Labs 05/20/25 11:22 05/20/25 11:22 Medications Medications Current Medications Acetaminophen (Acetaminophen 325 Mg Tablet) 650 mg PO Q6H PRN PRN Reason: Headache/Pain, Scale 1-10 Last Admin: 05/25/25 00:27 Dose: 650 mg Al Hydroxide/Mg Hydroxide (Magnesium Hydrox/Alum Hydrox 30 Ml Oral.Susp) 30 ml PO Q6H PRN PRN Reason: Heartburn/Nausea Aspirin (Aspirin Enteric Coated 81 Mg Tablet.Dr) 81 mg PO DAILY [facility] Last Admin: 05/25/25 08:16 Dose: 81 mg Atorvastatin Calcium (Atorvastatin Calcium 80 Mg Tablet) 80 mg PO BEDTIME [facility] Last Admin: 05/24/25 20:59 Dose: 80 mg Chlorpromazine HCl (Chlorpromazine Hcl 100 Mg Tablet) 100 mg PO BID PRN PRN Reason: anxiety/restlessness Clopidogrel Bisulfate (Clopidogrel Bisulfate 75 Mg Tablet) 75 mg PO DAILY [facility] Last Admin: 05/25/25 08:16 Dose: 75 mg Clozapine (Clozapine 25 Mg Tablet) 25 mg PO BEDTIME [facility] Last Admin: 05/24/25 21:00 Dose: 25 mg Diazepam (Diazepam 5 Mg Tablet) 10 mg PO DAILY [facility] Last Admin: 05/25/25 08:17 Dose: 10 mg Diazepam (Diazepam 5 Mg Tablet) 5 mg PO BID PRN PRN Reason: anxiety/restlessness Last Admin: 05/25/25 00:28 Dose: 5 mg Gabapentin (Gabapentin 100 Mg Capsule) 100 mg PO TID@0800,1400,2000 [facility] Last Admin: 05/25/25 08:16 Dose: 100 mg Hydroxyzine HCl (Hydroxyzine Hcl 25 Mg Tablet) 25 mg PO Q6H PRN PRN Reason: mild anxiety Last Admin: 05/24/25 16:56 Dose: 25 mg Loperamide HCl (Loperamide Hcl 2 Mg Capsule) 2 mg PO Q4H PRN PRN Reason: Diarrhea Last Admin: 05/22/25 21:19 Dose: 2 mg Lorazepam (Lorazepam 0.5 Mg Tablet) 0.5 mg PO TID [facility] Last Admin: 05/25/25 08:17 Dose: 0.5 mg Magnesium Hydroxide (Milk Of Magnesia 30 Ml Oral.Susp) 30 ml PO DAILY PRN PRN Reason: Constipation Metoprolol Succinate (Metoprolol Succinate Er 12.5 Mg Halftab.Er.24h) 12.5 mg PO DAILY [facility]; Protocol Last Admin: 05/25/25 08:17 Dose: 12.5 mg Nicotine Polacrilex (Nicotine Polacrilex 2 Mg Gum) 4 mg BUCCAL Q2H PRN PRN Reason: Nicotine Cravings Last Admin: 05/25/25 08:57 Dose: 4 mg Pt Own Medication ( Testosterone 50 Mg/5 Gram (1 %) Gel) 1 packet TOPICAL DAILY [facility] Last Admin: 05/24/25 08:45 Dose: Not Given Oxcarbazepine (Oxcarbazepine 300 Mg Tablet) 300 mg PO BID [facility] Last Admin: 05/25/25 08:17 Dose: 300 mg Propranolol HCl (Propranolol Hcl 10 Mg Tablet) 10 mg PO TID PRN; Protocol PRN Reason: akathesia Last Admin: 05/24/25 15:01 Dose: 10 mg Propranolol HCl (Propranolol Hcl 10 Mg Tablet) 10 mg PO TID [facility]; Protocol Last Admin: 05/25/25 08:16 Dose: 10 mg Risperidone (Risperidone 1 Mg Tablet) 1 mg PO BID PRN PRN Reason: Anxiety Last Admin: 05/23/25 01:06 Dose: 1 mg Tamsulosin HCl (Tamsulosin Hcl 0.4 Mg Capsule) 0.4 mg PO DAILY [facility] Last Admin: 05/25/25 08:16 Dose: 0.4 mg Trazodone HCl (Trazodone Hcl 50 Mg Tablet) 50 mg PO BEDTIME MRX1 PRN PRN Reason: Insomnia Last Admin: 05/25/25 00:27 Dose: 50 mg Allergies Allergies Allergy/AdvReac Type Severity Reaction Status Date / Time olanzapine (From Zyprexa) AdvReac Severe Anaphylaxis Verified 05/20/25 10:47 clonidine AdvReac Fainting Verified 05/20/25 10:47 haloperidol (From Haldol) AdvReac Anaphylaxis Verified 05/20/25 10:47 tuna Allergy Severe Anaphylaxis Uncoded 04/18/24 12:52 Assessment & Plan Assessment & Plan (1) Schizoaffective disorder: Status: Acute Code(s): F25.9 - Schizoaffective disorder, unspecified (2) PTSD (post-traumatic stress disorder): Status: Acute Code(s): F43.10 - Post-traumatic stress disorder, unspecified Plan 59 yo male, history of PTSD, Schizoaffective Disorder, self presented to ER on 05/20 reporting to crisis SI and I am not doing well. He has been essentially mute since admission with reported hyperactive startle response. Collateral contact reports a recent discharge from [facility] as he had presented with psychosis and chest pain. He has has a difficult time caring for himself. Met with pt and Arnol LOBO. Pt is in bed, head covered, he does not startle when his name is called. He sits up, does not speak, does nod his head once and is asked if he would like to meet or if he would like team to contact sister Jyoti to collect background and return to him. There was no response, however he does have minimal eye contact. Hospital course: 05/23 Patient very angry and told real estate underwriter so. Says that he is thinking about provoking security so that they will beat him up, sit on his chest and caused him to have a heart attack so he will be . Patient very resistant to trying medications to help with anger, saying he has tried everything and nothing works. Patient has been taking Trileptal but otherwise refuses Geodon. Mold Checker discussed risks/side effects of Clozaril, 1 medication he has not taken before. Patient initially refused but then later said he was willing to try it. He also asked for Valium, saying this was helpful in the past. Of note, corner mirror was broken and hanging; staff removed it. Patient said he did not do it but was like that when he got there only taking Trileptal.... refuses Geodone refuses Testoserone Gel (says too much) refused BP/vitals so no Metopolol Impression: Patient exceedingly angry. He refuses Geodon and so real estate underwriter will discontinue. Patient eventually amenable to starting Clozaril which can be significantly helpful for psychosis, mood stabilization and anger related to paranoid ideations. Initial concern about catatonia since patient was selectively mute; this seems to have resolved, either due to the Ativan or that he was not catatonic but just angry and resistive to treatment. Either way, Valium can also mitigate catatonic symptoms and given patient's aggressive history and current presentation, real estate underwriter agrees that if Valium helps him that is preferable. 05/25: I am alone. I feel like dying No one is there. Pt talking with team today, expressing depressive sx, worry, fear for his future, anger with some family members (step mother) +SI,+HI-no plans or intent, no AH,VH, Sibs Sleep, Appetite are intact More visable in milieu. Not in agreement with medications. Weekend med changes- chlorpromazine prn, clozapine initiated, Valium scheduled and prn, Lorazepam decreased, Trileptal/Propranolol scheduled. Discussed with sister Ashly [phone]. Pt has great support in his family. Father and Ashly are currently looking to purchase a home for pt. They have engaged a realtor, have had pt look at a few places. 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 He started to decline when his daughter left for colleged at [place]. Family plans to learn what expenses pt has and set up an auto pay account so he will not need to worry. Family believes he has lived through a great deal of trauma and stress. This in addition to daughter leaving, the economic climate currently, family member (an MD) who believes he has a post psychosis depression have made the family more committed to helping him to manage these daily living stressors and obtain peace and security. Plan: Continue current tx Will provide information on Clozapine for pt Plan: Admit/CV/15 minute checks Start clozapine 25 mg q.h.s. Start Valium 10 mg daily -Will see if patient prefers Valium verse Ativan p.r.n. Ativan 1 mg tid-rule out catatonia Discontinue Geodon; patient refuses Continue previous regime Diagnostics as needed and as pt will allow. Collateral contact Encourage milieu engagement Discharge planning Reason for continued inpatient stay Substantial Risk for: rapid decompensation Time Spent With Patient Time: Total time managing care of this patient today ____ minutes.
[2025-05-25 14:11] VITALS: BP 136/79; PULSE 79
[2025-05-25 19:52] VITALS: BP 122/77; PULSE 80; RESP 18; TEMP 37.8; O2SAT 95
[2025-05-26 08:00] VITALS: BP 116/60; PULSE 73; RESP 16; TEMP 36.5; O2SAT 95
[2025-05-26] MEDS: Aspirin Enteric Coated 81 MG TABLET.DR PO (08:59)
[2025-05-26 09:00] VITALS: BP 116/60; PULSE 73
[2025-05-26 09:19] VITALS: BP 116/60; PULSE 73
[2025-05-26] MEDS: Metoprolol Succinate ER 12.5 MG HALFTAB.ER.24H PO (09:19)
--- NOTE | 2025-05-26 10:22 | P.PNPSI_ITS ---
Subjective Subjective Date of Service: 05/26/25 Reason For Visit: PTSD, schizoaffective disorder Subjective Notes: Conditional Voluntary Healthcare Proxy: No Guardianship: No Medical Problems Affecting Mental Status: No Interim History: Attempted to meet with pt and Arnol LOBO. Pt asleep, he would not awaken, but stirred when his name was called. Information provided on Clozapine for pt. He did accept his dose last evening. Will increase to 50 mg this evening. Team reports pt has been approaching the front door and attempting to leave last evening. Not attending groups. Sleep and appetite appear intact. Accepting medications-declines testosterone. Medication Compliance: Yes Side effects from medications: No Attending Groups: No Review of Systems Acute medical concerns: No Medical Review of Systems: unchanged Review of Systems Review of Systems Yes Unobtainable due to mental status Mental Status Exam Mental Status Exam Patient Behavior: Asleep Diagnostics Vital Signs (24Hr): Vital Signs - 24 hr 05/25/25 14:11 05/25/25 19:52 05/26/25 08:00 Temperature 100.0 F 97.7 F Pulse Rate 79 80 73 Respiratory Rate 18 16 Blood Pressure 136/79 122/77 116/60 Pulse Oximetry 95 95 Oxygen Delivery Method Room Air Room Air 05/26/25 09:00 05/26/25 09:19 Temperature Pulse Rate 73 73 Respiratory Rate Blood Pressure 116/60 116/60 Pulse Oximetry Oxygen Delivery Method BMI result Body Mass Index 29.5 Labs 05/20/25 11:22 05/20/25 11:22 Medications Medications Current Medications Acetaminophen (Acetaminophen 325 Mg Tablet) 650 mg PO Q6H PRN PRN Reason: Headache/Pain, Scale 1-10 Last Admin: 05/25/25 00:27 Dose: 650 mg Al Hydroxide/Mg Hydroxide (Magnesium Hydrox/Alum Hydrox 30 Ml Oral.Susp) 30 ml PO Q6H PRN PRN Reason: Heartburn/Nausea Aspirin (Aspirin Enteric Coated 81 Mg Tablet.) 81 mg PO DAILY [facility] Last Admin: 05/26/25 08:59 Dose: 81 mg Atorvastatin Calcium (Atorvastatin Calcium 80 Mg Tablet) 80 mg PO BEDTIME [facility] Last Admin: 05/25/25 20:43 Dose: 80 mg Chlorpromazine HCl (Chlorpromazine Hcl 100 Mg Tablet) 100 mg PO BID PRN PRN Reason: anxiety/restlessness Clopidogrel Bisulfate (Clopidogrel Bisulfate 75 Mg Tablet) 75 mg PO DAILY [facility] Last Admin: 05/26/25 08:59 Dose: 75 mg Clozapine (Clozapine 25 Mg Tablet) 25 mg PO BEDTIME [facility] Last Admin: 05/25/25 20:44 Dose: 25 mg Diazepam (Diazepam 5 Mg Tablet) 10 mg PO DAILY [facility] Last Admin: 05/26/25 08:55 Dose: 10 mg Diazepam (Diazepam 5 Mg Tablet) 5 mg PO BID PRN PRN Reason: anxiety/restlessness Last Admin: 05/25/25 16:26 Dose: 5 mg Gabapentin (Gabapentin 100 Mg Capsule) 100 mg PO TID@0800,1400,2000 [facility] Last Admin: 05/26/25 08:59 Dose: 100 mg Hydroxyzine HCl (Hydroxyzine Hcl 25 Mg Tablet) 25 mg PO Q6H PRN PRN Reason: mild anxiety Last Admin: 05/24/25 16:56 Dose: 25 mg Loperamide HCl (Loperamide Hcl 2 Mg Capsule) 2 mg PO Q4H PRN PRN Reason: Diarrhea Last Admin: 05/22/25 21:19 Dose: 2 mg Lorazepam (Lorazepam 0.5 Mg Tablet) 0.5 mg PO TID [facility] Last Admin: 05/26/25 09:01 Dose: 0.5 mg Magnesium Hydroxide (Milk Of Magnesia 30 Ml Oral.Susp) 30 ml PO DAILY PRN PRN Reason: Constipation Metoprolol Succinate (Metoprolol Succinate Er 12.5 Mg Halftab.Er.24h) 12.5 mg PO DAILY [facility]; Protocol Last Admin: 05/26/25 09:19 Dose: 12.5 mg Nicotine Polacrilex (Nicotine Polacrilex 2 Mg Gum) 4 mg BUCCAL Q2H PRN PRN Reason: Nicotine Cravings Last Admin: 05/25/25 08:57 Dose: 4 mg Pt Own Medication ( Testosterone 50 Mg/5 Gram (1 %) Gel) 1 packet TOPICAL DAILY [facility] Last Admin: 05/26/25 09:05 Dose: Not Given Oxcarbazepine (Oxcarbazepine 300 Mg Tablet) 300 mg PO BID [facility] Last Admin: 05/26/25 09:01 Dose: 300 mg Propranolol HCl (Propranolol Hcl 10 Mg Tablet) 10 mg PO TID PRN; Protocol PRN Reason: akathesia Last Admin: 05/24/25 15:01 Dose: 10 mg Propranolol HCl (Propranolol Hcl 10 Mg Tablet) 10 mg PO TID [facility]; Protocol Last Admin: 05/26/25 09:00 Dose: 10 mg Risperidone (Risperidone 1 Mg Tablet) 1 mg PO BID PRN PRN Reason: Anxiety Last Admin: 05/23/25 01:06 Dose: 1 mg Tamsulosin HCl (Tamsulosin Hcl 0.4 Mg Capsule) 0.4 mg PO DAILY [facility] Last Admin: 05/26/25 09:01 Dose: 0.4 mg Trazodone HCl (Trazodone Hcl 50 Mg Tablet) 50 mg PO BEDTIME [facility] PRN PRN Reason: Insomnia Last Admin: 05/25/25 00:27 Dose: 50 mg Allergies Allergies Allergy/AdvReac Type Severity Reaction Status Date / Time olanzapine (From Zyprexa) AdvReac Severe Anaphylaxis Verified 05/20/25 10:47 clonidine AdvReac Fainting Verified 05/20/25 10:47 haloperidol (From Haldol) AdvReac Anaphylaxis Verified 05/20/25 10:47 ziprasidone (From Geodon) AdvReac speech Verified 05/25/25 13:11 difficulty tuna Allergy Severe Anaphylaxis Uncoded 04/18/24 12:52 Assessment & Plan Assessment & Plan (1) Schizoaffective disorder: Status: Acute Code(s): F25.9 - Schizoaffective disorder, unspecified (2) PTSD (post-traumatic stress disorder): Status: Acute Code(s): F43.10 - Post-traumatic stress disorder, unspecified Plan 59 yo male, history of PTSD, Schizoaffective Disorder, self presented to ER on 05/20 reporting to crisis SI and I am not doing well. He has been essentially mute since admission with reported hyperactive startle response. Collateral contact reports a recent discharge from [facility] as he had presented with psychosis and chest pain. He has has a difficult time caring for himself. Met with pt and Arnol LOBO. Pt is in bed, head covered, he does not startle when his name is called. He sits up, does not speak, does nod his head once and is asked if he would like to meet or if he would like team to contact sister Jyoti to collect background and return to him. There was no response, however he does have minimal eye contact. Hospital course: 05/23 Patient very angry and told publications writer so. Says that he is thinking about provoking security so that they will beat him up, sit on his chest and caused him to have a heart attack so he will be . Patient very resistant to trying medications to help with anger, saying he has tried everything and nothing works. Patient has been taking Trileptal but otherwise refuses Geodon. Game Manager discussed risks/side effects of Clozaril, 1 medication he has not taken before. Patient initially refused but then later said he was willing to try it. He also asked for Valium, saying this was helpful in the past. Of note, corner mirror was broken and hanging; staff removed it. Patient said he did not do it but was like that when he got there only taking Trileptal.... refuses Geodone refuses Testoserone Gel (says too much) refused BP/vitals so no Metopolol Impression: Patient exceedingly angry. He refuses Geodon and so publications writer will discontinue. Patient eventually amenable to starting Clozaril which can be significantly helpful for psychosis, mood stabilization and anger related to paranoid ideations. Initial concern about catatonia since patient was selectively mute; this seems to have resolved, either due to the Ativan or that he was not catatonic but just angry and resistive to treatment. Either way, Valium can also mitigate catatonic symptoms and given patient's aggressive history and current presentation, publications writer agrees that if Valium helps him that is preferable. Plan: Admit/CV/15 minute checks Start propranolol 10 mg t.i.d. for akathisia Start clozapine 25 mg q.h.s. Start Valium 10 mg daily Taper and DC Ativan Ativan 1 mg tid-rule out catatonia Discontinue Geodon; patient refuses Continue previous regime Diagnostics as needed and as pt will allow. Collateral contact Encourage milieu engagement Discharge planning 05/26:Attempted to meet with pt and Arnol LOBO. Pt asleep, he would not awaken, but stirred when his name was called. Information provided on Clozapine for pt. He did accept his dose last evening. Will increase to 50 mg this evening. Team reports pt has been approaching the front door and attempting to leave last evening. Not attending groups. Sleep and appetite appear intact. Accepting medications-declines testosterone. Reason for continued inpatient stay Substantial Risk for: rapid decompensation Time Spent With Patient Time: Total time managing care of this patient today ____ minutes.
[2025-05-26 14:01] VITALS: BP 112/75
[2025-05-27 09:23] VITALS: BP 126/78
[2025-05-27] MEDS: Metoprolol Succinate ER 12.5 MG HALFTAB.ER.24H PO (09:24)
[2025-05-27] MEDS: Aspirin Enteric Coated 81 MG TABLET.DR PO (09:24)
--- NOTE | 2025-05-27 10:42 | P.PNPSI_ITS ---
Subjective Subjective Date of Service: 05/27/25 Reason For Visit: PTSD, schizoaffective disorder Subjective Notes: Conditional Voluntary Healthcare Proxy: No Guardianship: No Medical Problems Affecting Mental Status: No Interim History: Met with pt to discuss treatment noncompliance. Team has contacted sister as well to discuss. Discussed discharge with both pt and sister. Pt states, I just want to . I will take my medication. Review of all meds/rationale for meds. Pt struggling with dissociations, paranoia, tinnitus and anxiety. It is too loud here. Discussed with pt team willingness to work with him, however that we cannot force treatment upon him. Discussed the benefits of medications for symptom control. Discussed how invested family is in helping him feel secure in a living environment with resources to assist him. I don't deserve this you know. Team reports pt slept last night, no group attendance, taking meds today, I am sorry, I did not know I refused medicine last night. Medication Compliance: Intermittent Side effects from medications: No Attending Groups: No Review of Systems as noted Medical Review of Systems: unchanged Review of Systems Review of Systems tinnitus Mental Status Exam Mental Status Exam Patient Appearance: Fatigued Patient Orientation: Person, Place and Situation Level of Consciousness: Alert Patient Behavior: Talkative, Anxious, Fearful, Distractible and Poor Eye Contact Mood Description: Withdrawn, Anxious and Apprehensive Affect Description: Withdrawn, Anxious and Apprehensive Patient Cognition Impaired: No Ability to Follow Directions: Good Speech Pattern: Spontaneous Speech and Soft-Spoken Memory Description: Episodic Impaired Hallucinations: None Delusions: Paranoid Ideation and Present Perceptual Disturbances: Depersonalization and Derealization Thought Process: Rumination Thought Content: positive for Perseveration and positive for Suicidal Ideation Depressive Symptoms: Thoughts of /Suicide Judgement: Fair Diagnostics Vital Signs (24Hr): Vital Signs - 24 hr 05/26/25 14:01 05/27/25 09:23 Blood Pressure 112/75 126/78 BMI result Body Mass Index 29.5 Labs 05/20/25 11:22 05/20/25 11:22 Medications Medications Current Medications Acetaminophen (Acetaminophen 325 Mg Tablet) 650 mg PO Q6H PRN PRN Reason: Headache/Pain, Scale 1-10 Last Admin: 05/27/25 01:22 Dose: 650 mg Al Hydroxide/Mg Hydroxide (Magnesium Hydrox/Alum Hydrox 30 Ml Oral.Susp) 30 ml PO Q6H PRN PRN Reason: Heartburn/Nausea Aspirin (Aspirin Enteric Coated 81 Mg Tablet.Dr) 81 mg PO DAILY [facility] Last Admin: 05/27/25 09:24 Dose: 81 mg Atorvastatin Calcium (Atorvastatin Calcium 80 Mg Tablet) 80 mg PO BEDTIME [facility] Last Admin: 05/26/25 20:28 Dose: Not Given Chlorpromazine HCl (Chlorpromazine Hcl 100 Mg Tablet) 100 mg PO BID PRN PRN Reason: anxiety/restlessness Clopidogrel Bisulfate (Clopidogrel Bisulfate 75 Mg Tablet) 75 mg PO DAILY [facility] Last Admin: 05/27/25 09:23 Dose: 75 mg Clozapine (Clozapine 25 Mg Tablet) 50 mg PO BEDTIME [facility] Last Admin: 05/26/25 20:28 Dose: Not Given Diazepam (Diazepam 5 Mg Tablet) 10 mg PO DAILY [facility] Last Admin: 05/27/25 09:23 Dose: 10 mg Diazepam (Diazepam 5 Mg Tablet) 5 mg PO BID PRN PRN Reason: anxiety/restlessness Last Admin: 05/25/25 16:26 Dose: 5 mg Gabapentin (Gabapentin 100 Mg Capsule) 100 mg PO TID@0800,1400,2000 [facility] Last Admin: 05/27/25 09:23 Dose: 100 mg Hydroxyzine HCl (Hydroxyzine Hcl 25 Mg Tablet) 25 mg PO Q6H PRN PRN Reason: mild anxiety Last Admin: 05/24/25 16:56 Dose: 25 mg Loperamide HCl (Loperamide Hcl 2 Mg Capsule) 2 mg PO Q4H PRN PRN Reason: Diarrhea Last Admin: 05/22/25 21:19 Dose: 2 mg Lorazepam (Lorazepam 0.5 Mg Tablet) 0.5 mg PO TID [facility] Last Admin: 05/27/25 09:23 Dose: 0.5 mg Magnesium Hydroxide (Milk Of Magnesia 30 Ml Oral.Susp) 30 ml PO DAILY PRN PRN Reason: Constipation Metoprolol Succinate (Metoprolol Succinate Er 12.5 Mg Halftab.Er.24h) 12.5 mg PO DAILY [facility]; Protocol Last Admin: 05/27/25 09:24 Dose: 12.5 mg Nicotine Polacrilex (Nicotine Polacrilex 2 Mg Gum) 4 mg BUCCAL Q2H PRN PRN Reason: Nicotine Cravings Last Admin: 05/27/25 10:38 Dose: 4 mg Pt Own Medication ( Testosterone 50 Mg/5 Gram (1 %) Gel) 1 packet TOPICAL DAILY [facility] Last Admin: 05/26/25 09:05 Dose: Not Given Oxcarbazepine (Oxcarbazepine 300 Mg Tablet) 300 mg PO BID [facility] Last Admin: 05/27/25 09:24 Dose: 300 mg Propranolol HCl (Propranolol Hcl 10 Mg Tablet) 10 mg PO TID PRN; Protocol PRN Reason: akathesia Last Admin: 05/24/25 15:01 Dose: 10 mg Propranolol HCl (Propranolol Hcl 10 Mg Tablet) 10 mg PO TID [facility]; Protocol Last Admin: 05/27/25 09:23 Dose: 10 mg Risperidone (Risperidone 1 Mg Tablet) 1 mg PO BID PRN PRN Reason: Anxiety Last Admin: 05/23/25 01:06 Dose: 1 mg Tamsulosin HCl (Tamsulosin Hcl 0.4 Mg Capsule) 0.4 mg PO DAILY [facility] Last Admin: 05/27/25 09:25 Dose: 0.4 mg Trazodone HCl (Trazodone Hcl 50 Mg Tablet) 50 mg PO BEDTIME [facility] PRN PRN Reason: Insomnia Last Admin: 05/25/25 00:27 Dose: 50 mg Allergies Allergies Allergy/AdvReac Type Severity Reaction Status Date / Time olanzapine (From Zyprexa) AdvReac Severe Anaphylaxis Verified 05/20/25 10:47 clonidine AdvReac Fainting Verified 05/20/25 10:47 haloperidol (From Haldol) AdvReac Anaphylaxis Verified 05/20/25 10:47 ziprasidone (From Geodon) AdvReac speech Verified 05/25/25 13:11 difficulty tuna Allergy Severe Anaphylaxis Uncoded 04/18/24 12:52 Assessment & Plan Assessment & Plan (1) Schizoaffective disorder: Status: Acute Code(s): F25.9 - Schizoaffective disorder, unspecified (2) PTSD (post-traumatic stress disorder): Status: Acute Code(s): F43.10 - Post-traumatic stress disorder, unspecified Plan 59 yo male, history of PTSD, Schizoaffective Disorder, self presented to ER on 05/20 reporting to crisis SI and I am not doing well. He has been essentially mute since admission with reported hyperactive startle response. Collateral contact reports a recent discharge from [facility] as he had presented with psychosis and chest pain. He has has a difficult time caring for himself. Met with pt and Arnol LOBO. Pt is in bed, head covered, he does not startle when his name is called. He sits up, does not speak, does nod his head once and is asked if he would like to meet or if he would like team to contact sister Jyoti to collect background and return to him. There was no response, however he does have minimal eye contact. Hospital course: 05/23 Patient very angry and told group underwriter so. Says that he is thinking about provoking security so that they will beat him up, sit on his chest and caused him to have a heart attack so he will be . Patient very resistant to trying medications to help with anger, saying he has tried everything and nothing works. Patient has been taking Trileptal but otherwise refuses Geodon. Offset Plate Preparation Supervisor discussed risks/side effects of Clozaril, 1 medication he has not taken before. Patient initially refused but then later said he was willing to try it. He also asked for Valium, saying this was helpful in the past. Of note, corner mirror was broken and hanging; staff removed it. Patient said he did not do it but was like that when he got there only taking Trileptal.... refuses Geodone refuses Testoserone Gel (says too much) refused BP/vitals so no Metopolol Impression: Patient exceedingly angry. He refuses Geodon and so group underwriter will discontinue. Patient eventually amenable to starting Clozaril which can be significantly helpful for psychosis, mood stabilization and anger related to paranoid ideations. Initial concern about catatonia since patient was selectively mute; this seems to have resolved, either due to the Ativan or that he was not catatonic but just angry and resistive to treatment. Either way, Valium can also mitigate catatonic symptoms and given patient's aggressive history and current presentation, group underwriter agrees that if Valium helps him that is preferable. Plan: Admit/CV/15 minute checks Start propranolol 10 mg t.i.d. for akathisia Start clozapine 25 mg q.h.s. Start Valium 10 mg daily Taper and DC Ativan Ativan 1 mg tid-rule out catatonia Discontinue Geodon; patient refuses Continue previous regime Diagnostics as needed and as pt will allow. Collateral contact Encourage milieu engagement Discharge planning 05/26:Attempted to meet with pt and Arnol LOBO. Pt asleep, he would not awaken, but stirred when his name was called. Information provided on Clozapine for pt. He did accept his dose last evening. Will increase to 50 mg this evening. Team reports pt has been approaching the front door and attempting to leave last evening. Not attending groups. Sleep and appetite appear intact. Accepting medications-declines testosterone. 05/27: Met with pt to discuss treatment noncompliance. Team has contacted sister as well to discuss. Discussed discharge with both pt and sister. Pt states, I just want to . I will take my medication. Review of all meds/rationale for meds. Pt struggling with dissociations, paranoia, tinnitus and anxiety. It is too loud here. Discussed with pt team willingness to work with him, however that we cannot force treatment upon him. Discussed the benefits of medications for symptom control. Discussed how invested family is in helping him feel secure in a living environment with resources to assist him. I don't deserve this you know. Team reports pt slept last night, no group attendance, taking meds today, I am sorry, I did not know I refused medicine last night. Plan: Continue tx Reason for continued inpatient stay Substantial Risk for: rapid decompensation Time Spent With Patient Time: Total time managing care of this patient today ____ minutes.
[2025-05-27 20:00] VITALS: BP 109/74; PULSE 78; RESP 16; TEMP 37.1; O2SAT 96
[2025-05-28 07:00] VITALS: BMI 30.7
[2025-05-28 08:01] VITALS: BP 112/63; PULSE 63; RESP 17; TEMP 36.8; O2SAT 95
[2025-05-28 09:07] VITALS: BP 112/63; PULSE 63
[2025-05-28] MEDS: Aspirin Enteric Coated 81 MG TABLET.DR PO (09:09)
[2025-05-28 09:10] VITALS: BP 112/63; PULSE 63
[2025-05-28] MEDS: Metoprolol Succinate ER 12.5 MG HALFTAB.ER.24H PO (09:10)
[2025-05-28 14:58] VITALS: BP 91/58; PULSE 87
[2025-05-28 20:00] VITALS: BP 140/72; PULSE 107; RESP 15; TEMP 36.7; O2SAT 99
--- NOTE | 2025-05-28 23:22 | P.PNPSI_ITS ---
Subjective Subjective Date of Service: 05/28/25 Reason For Visit: PTSD, schizoaffective disorder Subjective Notes: Conditional Voluntary Healthcare Proxy: No Guardianship: No Medical Problems Affecting Mental Status: No Interim History: Medical record and nursing notes reviewed; case discussed during rounds with team/nursing staff, and met with patient for supportive therapy/psychoeducation, as well as medication management. Meet with patient in assigned room, denies SI/SIB/HI/AVH, denies anxiety and depression not at this moment as I jsut woke up . Report stomach pain I am sick because of medications . Report pain 5/10. Feeling nausea. Advised to take medication with food to see if it improved. Patient is out to he torres, more soical, was talking and laughing per nursing this morning. Patient slept for 8 hours and started clozaril first dose last night. Nursing also report some bruised that bring concerns. Advised to contact hospitalist for medical concerns as patient in on blood thinner and continue to monitor for any bleeding. Medication Compliance: Yes (except for non formulary med- Testosterones ) Side effects from medications: No (stomach pain which could be from multi factors. Will continue to monitor) Attending Groups: No Review of Systems Acute medical concerns: No Medical Review of Systems: unchanged Review of Systems Review of Systems Report stomach pain Mental Status Exam Mental Status Exam Narrative: More visible, denies SI/SIB/HI/AVH, walking in the torres. Denies anxiety, depression. Fair insight and judgment Diagnostics Vital Signs (24Hr): Vital Signs - 24 hr 05/28/25 08:01 05/28/25 09:07 05/28/25 09:10 Temperature 98.2 F Pulse Rate 63 63 63 Respiratory Rate 17 Blood Pressure 112/63 112/63 112/63 Pulse Oximetry 95 Oxygen Delivery Method Room Air 05/28/25 14:58 05/28/25 20:00 Temperature 98.1 F Pulse Rate 87 107 H Respiratory Rate 15 Blood Pressure 91/58 L 140/72 H Pulse Oximetry 99 Oxygen Delivery Method BMI result Body Mass Index 30.7 Labs 05/20/25 11:22 05/20/25 11:22 Medications Medications Current Medications Acetaminophen (Acetaminophen 325 Mg Tablet) 650 mg PO Q6H PRN PRN Reason: Headache/Pain, Scale 1-10 Last Admin: 05/27/25 01:22 Dose: 650 mg Al Hydroxide/Mg Hydroxide (Magnesium Hydrox/Alum Hydrox 30 Ml Oral.Susp) 30 ml PO Q6H PRN PRN Reason: Heartburn/Nausea Aspirin (Aspirin Enteric Coated 81 Mg Tablet.Dr) 81 mg PO DAILY [facility] Last Admin: 05/28/25 09:09 Dose: 81 mg Atorvastatin Calcium (Atorvastatin Calcium 80 Mg Tablet) 80 mg PO BEDTIME [facility] Last Admin: 05/28/25 20:17 Dose: 80 mg Chlorpromazine HCl (Chlorpromazine Hcl 100 Mg Tablet) 100 mg PO BID PRN PRN Reason: anxiety/restlessness Last Admin: 05/28/25 20:17 Dose: 100 mg Clopidogrel Bisulfate (Clopidogrel Bisulfate 75 Mg Tablet) 75 mg PO DAILY [facility] Last Admin: 05/28/25 09:10 Dose: 75 mg Clozapine (Clozapine 25 Mg Tablet) 50 mg PO BEDTIME [facility] Last Admin: 05/28/25 20:17 Dose: 50 mg Diazepam (Diazepam 5 Mg Tablet) 10 mg PO DAILY [facility] Last Admin: 05/28/25 09:09 Dose: 10 mg Diazepam (Diazepam 5 Mg Tablet) 5 mg PO BID PRN PRN Reason: anxiety/restlessness Last Admin: 05/28/25 20:20 Dose: 5 mg Gabapentin (Gabapentin 100 Mg Capsule) 100 mg PO TID@0800,1400,2000 [facility] Last Admin: 05/28/25 20:17 Dose: 100 mg Hydroxyzine HCl (Hydroxyzine Hcl 25 Mg Tablet) 25 mg PO Q6H PRN PRN Reason: mild anxiety Last Admin: 05/27/25 20:56 Dose: 25 mg Loperamide HCl (Loperamide Hcl 2 Mg Capsule) 2 mg PO Q4H PRN PRN Reason: Diarrhea Last Admin: 05/22/25 21:19 Dose: 2 mg Lorazepam (Lorazepam 0.5 Mg Tablet) 0.5 mg PO TID [facility] Last Admin: 05/28/25 20:17 Dose: 0.5 mg Magnesium Hydroxide (Milk Of Magnesia 30 Ml Oral.Susp) 30 ml PO DAILY PRN PRN Reason: Constipation Metoprolol Succinate (Metoprolol Succinate Er 12.5 Mg Halftab.Er.24h) 12.5 mg PO DAILY [facility]; Protocol Last Admin: 05/28/25 09:10 Dose: 12.5 mg Nicotine Polacrilex (Nicotine Polacrilex 2 Mg Gum) 4 mg BUCCAL Q2H PRN PRN Reason: Nicotine Cravings Last Admin: 05/28/25 19:49 Dose: 4 mg Pt Own Medication ( Testosterone 50 Mg/5 Gram (1 %) Gel) 1 packet TOPICAL DAILY ROD[facility] Last Admin: 05/28/25 14:27 Dose: 1 packet Oxcarbazepine (Oxcarbazepine 300 Mg Tablet) 300 mg PO BID [facility]OD[facility] Last Admin: 05/28/25 20:17 Dose: 300 mg Propranolol HCl (Propranolol Hcl 10 Mg Tablet) 10 mg PO TID PRN; Protocol PRN Reason: akathesia Last Admin: 05/24/25 15:01 Dose: 10 mg Propranolol HCl (Propranolol Hcl 10 Mg Tablet) 10 mg PO TID RODGER; Protocol Last Admin: 05/28/25 20:18 Dose: 10 mg Risperidone (Risperidone 1 Mg Tablet) 1 mg PO BID PRN PRN Reason: Anxiety Last Admin: 05/23/25 01:06 Dose: 1 mg Tamsulosin HCl (Tamsulosin Hcl 0.4 Mg Capsule) 0.4 mg PO DAILY [facility] Last Admin: 05/28/25 09:07 Dose: 0.4 mg Trazodone HCl (Trazodone Hcl 50 Mg Tablet) 50 mg PO BEDTIME MRX1 PRN PRN Reason: Insomnia Last Admin: 05/28/25 22:58 Dose: 50 mg Allergies Allergies Allergy/AdvReac Type Severity Reaction Status Date / Time olanzapine (From Zyprexa) AdvReac Severe Anaphylaxis Verified 05/20/25 10:47 clonidine AdvReac Fainting Verified 05/20/25 10:47 haloperidol (From Haldol) AdvReac Anaphylaxis Verified 05/20/25 10:47 ziprasidone (From Geodon) AdvReac speech Verified 05/25/25 13:11 difficulty tuna Allergy Severe Anaphylaxis Uncoded 04/18/24 12:52 Assessment & Plan Assessment & Plan (1) Schizoaffective disorder: Status: Acute Code(s): F25.9 - Schizoaffective disorder, unspecified (2) PTSD (post-traumatic stress disorder): Status: Acute Code(s): F43.10 - Post-traumatic stress disorder, unspecified Plan 59 yo male, history of PTSD, Schizoaffective Disorder, self presented to ER on 05/20 reporting to crisis SI and I am not doing well. He has been essentially mute since admission with reported hyperactive startle response. Collateral contact reports a recent discharge from [facility] as he had presented with psychosis and chest pain. He has has a difficult time caring for himself. Met with pt and Arnol LOBO. Pt is in bed, head covered, he does not startle when his name is called. He sits up, does not speak, does nod his head once and is asked if he would like to meet or if he would like team to contact sister Jyoti to collect background and return to him. There was no response, however he does have minimal eye contact. Hospital course: 05/23 Patient very angry and told investment underwriter so. Says that he is thinking about provoking security so that they will beat him up, sit on his chest and caused him to have a heart attack so he will be . Patient very resistant to trying medications to help with anger, saying he has tried everything and nothing works. Patient has been taking Trileptal but otherwise refuses Geodon. Content Writer discussed risks/side effects of Clozaril, 1 medication he has not taken before. Patient initially refused but then later said he was willing to try it. He also asked for Valium, saying this was helpful in the past. Of note, corner mirror was broken and hanging; staff removed it. Patient said he did not do it but was like that when he got there only taking Trileptal.... refuses Geodone refuses Testoserone Gel (says too much) refused BP/vitals so no Metopolol Impression: Patient exceedingly angry. He refuses Geodon and so investment underwriter will discontinue. Patient eventually amenable to starting Clozaril which can be significantly helpful for psychosis, mood stabilization and anger related to paranoid ideations. Initial concern about catatonia since patient was selectively mute; this seems to have resolved, either due to the Ativan or that he was not catatonic but just angry and resistive to treatment. Either way, Valium can also mitigate catatonic symptoms and given patient's aggressive history and current presentation, investment underwriter agrees that if Valium helps him that is preferable. Plan: Admit/CV/15 minute checks Start propranolol 10 mg t.i.d. for akathisia Start clozapine 25 mg q.h.s. Start Valium 10 mg daily Taper and DC Ativan Ativan 1 mg tid-rule out catatonia Discontinue Geodon; patient refuses Continue previous regime Diagnostics as needed and as pt will allow. Collateral contact Encourage milieu engagement Discharge planning 05/26:Attempted to meet with pt and Arnol LOBO. Pt asleep, he would not awaken, but stirred when his name was called. Information provided on Clozapine for pt. He did accept his dose last evening. Will increase to 50 mg this evening. Team reports pt has been approaching the front door and attempting to leave last evening. Not attending groups. Sleep and appetite appear intact. Accepting medications-declines testosterone. 05/27: Met with pt to discuss treatment noncompliance. Team has contacted sister as well to discuss. Discussed discharge with both pt and sister. Pt states, I just want to . I will take my medication. Review of all meds/rationale for meds. Pt struggling with dissociations, paranoia, tinnitus and anxiety. It is too loud here. Discussed with pt team willingness to work with him, however that we cannot force treatment upon him. Discussed the benefits of medications for symptom control. Discussed how invested family is in helping him feel secure in a living environment with resources to assist him. I don't deserve this you know. Team reports pt slept last night, no group attendance, taking meds today, I am sorry, I did not know I refused medicine last night. Plan: Continue tx 05/28/25: Meet with patient in assigned room, denies SI/SIB/HI/AVH, denies anxiety and depression not at this moment as I jsut woke up . Report stomach pain I am sick because of medications . Report pain 5/10. Feeling nausea. Advised to take medication with food to see if it improved. Patient is out to he torres, more soical, was talking and laughing per nursing this morning. Patient slept for 8 hours and started clozaril first dose last night. Nursing also report some bruised that bring concerns. Advised to contact hospitalist for medical concerns as patient in on blood thinner and continue to monitor for any bleeding. Patient educated on: diagnosis, medication risk/benefits and therapeutic strategies Informed Consent: understands and further education needed Reason for continued inpatient stay Substantial Risk for: med/psych decompensation Time Spent With Patient Time: Total time managing care of this patient today ____ minutes.
[2025-05-29 09:22] VITALS: BP 109/64; PULSE 64; RESP 14; TEMP 37; O2SAT 96
[2025-05-29] MEDS: Aspirin Enteric Coated 81 MG TABLET.DR PO (09:24)
[2025-05-29 09:25] VITALS: BP 112/73; PULSE 83
[2025-05-29] MEDS: Metoprolol Succinate ER 12.5 MG HALFTAB.ER.24H PO (09:25)
--- NOTE | 2025-05-29 10:17 | HO.PSYCHPN ---
Subjective Subjective Date of Service: 05/29/25 Reason For Visit: PTSD, schizoaffective disorder Subjective Notes: Conditional Voluntary Healthcare Proxy: No Guardianship: No Medical Problems Affecting Mental Status: No Interim History: I don't have access to my phone, I cannot check the internet, I have no advocate except for myself, I have no one to talk with, I feel medicated-no focus, no concentration, no memory. I have no access to medicine literature, I can sleep through the night, I was incontinent of urine last night, groups are a waste-I am irritated, they made the art room one half of what it should be, you want to do an EKG-it is theivery to make money. I am degraded, someone calls for me no one will take a message, groups are useless. Pt refusing of meds, diagnostics, not feeling milieu is adequate. Discussed providing literature for all psychotropics as he does not acknowledge daily discussions of his regime. Angry, targeting, apologetic. Changes made in session-diazepam decreased to 5 mg daily, lorazepam changed to prn only, propranolol decreased to 5 mg tid, trazodone decreased and changed to prn only. The standing psychotropics currently are Clozapine 50 mg, Valium 5 mg, Gabapentin 100 mg tid, Trileptal 300 mg BID and Propranolol 5 mg bid. Pt provocative in his anger- asking team for 80 pills, 80 yards of rope . Later in the afternoon, tells primary RN that meds were never discussed with him- identifies propranolol, tylenol, ASA, hydroxyzine. As a result propranolol is now prn, tylenol, hydroxyzine remain prn and ASA is a medical regime and that is left for pt to refuse at will. Will ask human rights officer and nurse hotel assistant manager to meet with pt to discuss his concerns. Medication Compliance: Intermittent Side effects from medications: Yes (reports sedation, however, is very active, angry and clear in observation) Attending Groups: Intermittent Review of Systems reports incontinence of urine. Declines culture Review of Systems: Reviewed labs with pt as he reports these were never reviewed with him on admission (Most he refused as his presentation was that of catatonia on admit. Review of Systems Review of Systems Yes Unobtainable due to mental status Mental Status Exam Mental Status Exam Patient Appearance: Disheveled Patient Orientation: Person, Place, Time and Situation Level of Consciousness: Alert Patient Behavior: Talkative, Aggressive, Restless, Belligerent, Resistive to Care and Distractible Mood Description: Apathetic, Hostile, Labile and Angry Affect Description: Labile and Angry Patient Cognition Impaired: No Ability to Follow Directions: Fair Speech Pattern: Spontaneous Speech Memory Description: Intact and Episodic Impaired Hallucinations: None Delusions: Not Present Perceptual Disturbances: Depersonalization and Derealization Thought Process: Distracted and Rumination Thought Content: positive for [facility], positive for Circumstantial, positive for Perseveration, positive for Preoccupation, positive for Evasive and positive for Suicidal Ideation Depressive Symptoms: Increased Irritability, Loss of Int. in Activity, Hopelessness, Thoughts of /Suicide and Low Self Esteem Abnormal Motor Activity Signs and Symptoms: Agitation Judgement: Poor Diagnostics Vital Signs (24Hr): Vital Signs - 24 hr 05/28/25 14:58 05/28/25 20:00 05/29/25 09:22 Temperature 98.1 F 98.6 F Pulse Rate 87 107 H 64 Respiratory Rate 15 14 Blood Pressure 91/58 L 140/72 H 109/64 Pulse Oximetry 99 96 Oxygen Delivery Method Room Air 05/29/25 09:25 05/29/25 09:25 Temperature Pulse Rate 83 83 Respiratory Rate Blood Pressure 112/73 112/73 Pulse Oximetry Oxygen Delivery Method BMI result Body Mass Index 30.7 Labs 05/20/25 11:22 05/20/25 11:22 Medications Medications Current Medications Acetaminophen (Acetaminophen 325 Mg Tablet) 650 mg PO Q6H PRN PRN Reason: Headache/Pain, Scale 1-10 Last Admin: 05/27/25 01:22 Dose: 650 mg Al Hydroxide/Mg Hydroxide (Magnesium Hydrox/Alum Hydrox 30 Ml Oral.Susp) 30 ml PO Q6H PRN PRN Reason: Heartburn/Nausea Aspirin (Aspirin Enteric Coated 81 Mg Tablet.) 81 mg PO DAILY [facility] Last Admin: 05/29/25 09:24 Dose: 81 mg Atorvastatin Calcium (Atorvastatin Calcium 80 Mg Tablet) 80 mg PO BEDTIME [facility] Last Admin: 05/28/25 20:17 Dose: 80 mg Chlorpromazine HCl (Chlorpromazine Hcl 100 Mg Tablet) 100 mg PO BID PRN PRN Reason: anxiety/restlessness Last Admin: 05/28/25 20:17 Dose: 100 mg Clopidogrel Bisulfate (Clopidogrel Bisulfate 75 Mg Tablet) 75 mg PO DAILY [facility] Last Admin: 05/29/25 09:24 Dose: 75 mg Clozapine (Clozapine 25 Mg Tablet) 50 mg PO BEDTIME [facility] Last Admin: 05/28/25 20:17 Dose: 50 mg Diazepam (Diazepam 5 Mg Tablet) 10 mg PO DAILY [facility] Last Admin: 05/29/25 09:25 Dose: 10 mg Diazepam (Diazepam 5 Mg Tablet) 5 mg PO BID PRN PRN Reason: anxiety/restlessness Last Admin: 05/28/25 20:20 Dose: 5 mg Gabapentin (Gabapentin 100 Mg Capsule) 100 mg PO TID@0800,1400,2000 [facility] Last Admin: 05/29/25 09:24 Dose: 100 mg Hydroxyzine HCl (Hydroxyzine Hcl 25 Mg Tablet) 25 mg PO Q6H PRN PRN Reason: mild anxiety Last Admin: 05/27/25 20:56 Dose: 25 mg Loperamide HCl (Loperamide Hcl 2 Mg Capsule) 2 mg PO Q4H PRN PRN Reason: Diarrhea Last Admin: 05/22/25 21:19 Dose: 2 mg Lorazepam (Lorazepam 0.5 Mg Tablet) 0.5 mg PO TID [facility] Last Admin: 05/29/25 09:25 Dose: 0.5 mg Magnesium Hydroxide (Milk Of Magnesia 30 Ml Oral.Susp) 30 ml PO DAILY PRN PRN Reason: Constipation Metoprolol Succinate (Metoprolol Succinate Er 12.5 Mg Halftab.Er.24h) 12.5 mg PO DAILY [facility]; Protocol Last Admin: 05/29/25 09:25 Dose: 12.5 mg Nicotine Polacrilex (Nicotine Polacrilex 2 Mg Gum) 4 mg BUCCAL Q2H PRN PRN Reason: Nicotine Cravings Last Admin: 05/29/25 09:32 Dose: 4 mg Pt Own Medication ( Testosterone 50 Mg/5 Gram (1 %) Gel) 1 packet TOPICAL DAILY [facility] Last Admin: 05/29/25 10:16 Dose: 1 packet Oxcarbazepine (Oxcarbazepine 300 Mg Tablet) 300 mg PO BID [facility] Last Admin: 05/29/25 09:24 Dose: 300 mg Propranolol HCl (Propranolol Hcl 10 Mg Tablet) 10 mg PO TID PRN; Protocol PRN Reason: akathesia Last Admin: 05/24/25 15:01 Dose: 10 mg Propranolol HCl (Propranolol Hcl 10 Mg Tablet) 10 mg PO TID RODGER; Protocol Last Admin: 05/29/25 09:25 Dose: 10 mg Risperidone (Risperidone 1 Mg Tablet) 1 mg PO BID PRN PRN Reason: Anxiety Last Admin: 05/23/25 01:06 Dose: 1 mg Tamsulosin HCl (Tamsulosin Hcl 0.4 Mg Capsule) 0.4 mg PO DAILY [facility] Last Admin: 05/29/25 09:24 Dose: 0.4 mg Trazodone HCl (Trazodone Hcl 50 Mg Tablet) 50 mg PO BEDTIME MRX1 PRN PRN Reason: Insomnia Last Admin: 05/28/25 22:58 Dose: 50 mg Allergies Allergies Allergy/AdvReac Type Severity Reaction Status Date / Time olanzapine (From Zyprexa) AdvReac Severe Anaphylaxis Verified 05/20/25 10:47 clonidine AdvReac Fainting Verified 05/20/25 10:47 haloperidol (From Haldol) AdvReac Anaphylaxis Verified 05/20/25 10:47 ziprasidone (From Geodon) AdvReac speech Verified 05/25/25 13:11 difficulty tuna Allergy Severe Anaphylaxis Uncoded 04/18/24 12:52 Assessment & Plan Assessment & Plan (1) Schizoaffective disorder: Status: Acute Code(s): F25.9 - Schizoaffective disorder, unspecified (2) PTSD (post-traumatic stress disorder): Status: Acute Code(s): F43.10 - Post-traumatic stress disorder, unspecified Plan 59 yo male, history of PTSD, Schizoaffective Disorder, self presented to ER on 05/20 reporting to crisis SI and I am not doing well. He has been essentially mute since admission with reported hyperactive startle response. Collateral contact reports a recent discharge from [facility] as he had presented with psychosis and chest pain. He has has a difficult time caring for himself. Met with pt and Arnol LOBO. Pt is in bed, head covered, he does not startle when his name is called. He sits up, does not speak, does nod his head once and is asked if he would like to meet or if he would like team to contact sister Jyoti to collect background and return to him. There was no response, however he does have minimal eye contact. Hospital course: 05/23 Patient very angry and told racebook writer so. Says that he is thinking about provoking security so that they will beat him up, sit on his chest and caused him to have a heart attack so he will be . Patient very resistant to trying medications to help with anger, saying he has tried everything and nothing works. Patient has been taking Trileptal but otherwise refuses Geodon. Crm Technical Lead discussed risks/side effects of Clozaril, 1 medication he has not taken before. Patient initially refused but then later said he was willing to try it. He also asked for Valium, saying this was helpful in the past. Of note, corner mirror was broken and hanging; staff removed it. Patient said he did not do it but was like that when he got there only taking Trileptal.... refuses Geodone refuses Testoserone Gel (says too much) refused BP/vitals so no Metopolol Impression: Patient exceedingly angry. He refuses Geodon and so racebook writer will discontinue. Patient eventually amenable to starting Clozaril which can be significantly helpful for psychosis, mood stabilization and anger related to paranoid ideations. Initial concern about catatonia since patient was selectively mute; this seems to have resolved, either due to the Ativan or that he was not catatonic but just angry and resistive to treatment. Either way, Valium can also mitigate catatonic symptoms and given patient's aggressive history and current presentation, racebook writer agrees that if Valium helps him that is preferable. Plan: Admit/CV/15 minute checks Start propranolol 10 mg t.i.d. for akathisia Start clozapine 25 mg q.h.s. Start Valium 10 mg daily Taper and DC Ativan Ativan 1 mg tid-rule out catatonia Discontinue Geodon; patient refuses Continue previous regime Diagnostics as needed and as pt will allow. Collateral contact Encourage milieu engagement Discharge planning 05/26:Attempted to meet with pt and Arnol LOBO. Pt asleep, he would not awaken, but stirred when his name was called. Information provided on Clozapine for pt. He did accept his dose last evening. Will increase to 50 mg this evening. Team reports pt has been approaching the front door and attempting to leave last evening. Not attending groups. Sleep and appetite appear intact. Accepting medications-declines testosterone. 05/27: Met with pt to discuss treatment noncompliance. Team has contacted sister as well to discuss. Discussed discharge with both pt and sister. Pt states, I just want to . I will take my medication. Review of all meds/rationale for meds. Pt struggling with dissociations, paranoia, tinnitus and anxiety. It is too loud here. Discussed with pt team willingness to work with him, however that we cannot force treatment upon him. Discussed the benefits of medications for symptom control. Discussed how invested family is in helping him feel secure in a living environment with resources to assist him. I don't deserve this you know. Team reports pt slept last night, no group attendance, taking meds today, I am sorry, I did not know I refused medicine last night. Plan: Continue tx 05/28/25: Meet with patient in assigned room, denies SI/SIB/HI/AVH, denies anxiety and depression not at this moment as I jsut woke up . Report stomach pain I am sick because of medications . Report pain 5/10. Feeling nausea. Advised to take medication with food to see if it improved. Patient is out to he torres, more soical, was talking and laughing per nursing this morning. Patient slept for 8 hours and started clozaril first dose last night. Nursing also report some bruised that bring concerns. Advised to contact hospitalist for medical concerns as patient in on blood thinner and continue to monitor for any bleeding. 05/29: I don't have access to my phone, I cannot check the internet, I have no advocate except for myself, I have no one to talk with, I feel medicated-no focus, no concentration, no memory. I have no access to medicine literature, I can sleep through the night, I was incontinent of urine last night, groups are a waste-I am irritated, they made the art room one half of what it should be, you want to do an EKG-it is theivery to make money. I am degraded, someone calls for me no one will take a message, groups are useless. Pt refusing of meds, diagnostics, not feeling milieu is adequate. Discussed providing literature for all psychotropics as he does not acknowledge daily discussions of his regime. Angry, targeting, apologetic. Changes made in session-diazepam decreased to 5 mg daily, lorazepam changed to prn only, propranolol decreased to 5 mg tid, trazodone decreased and changed to prn only. The standing psychotropics currently are Clozapine 50 mg, Valium 5 mg, Gabapentin 100 mg tid, Trileptal 300 mg BID and Propranolol 5 mg bid. Pt provocative in his anger- asking team for 80 pills, 80 yards of rope . Later in the afternoon, tells primary RN that meds were never discussed with him- identifies propranolol, tylenol, ASA, hydroxyzine. As a result propranolol is now prn, tylenol, hydroxyzine remain prn and ASA is a medical regime and that is left for pt to refuse at will. Will ask human rights officer and nurse hotel assistant manager to meet with pt to discuss his concerns. Plan: Refuses diagnostics Several changes made to regime today. Pt, at this time, tells nursing he will refuse meds. Patient educated on: medication risk/benefits and therapeutic strategies Reason for continued inpatient stay Substantial Risk for: harm to self and rapid decompensation Time Spent With Patient Time: Total time managing care of this patient today ____ minutes.
[2025-05-29 19:40] VITALS: BP 126/75; PULSE 100; RESP 18; TEMP 37; O2SAT 95
[2025-05-30] MEDS: Magnesium Hydrox/Alum Hydrox 30 ML ORAL.SUSP PO (07:46)
[2025-05-30 07:50] VITALS: BP 137/90; PULSE 90; PULSE 94; RESP 18; TEMP 36.4; O2SAT 97
[2025-05-30] MEDS: Metoprolol Succinate ER 12.5 MG HALFTAB.ER.24H PO (07:50)
[2025-05-30 08:02] LABS: Neut%MD 63.7 %; WBCANC 7.0 X10*3/uL
[2025-05-30 18:50] VITALS: BP 113/75; PULSE 81
[2025-05-30 20:00] VITALS: BP 127/83; PULSE 81; RESP 18; TEMP 36.9; O2SAT 98
--- NOTE | 2025-05-30 22:43 | HO.PSYCHPN ---
Subjective Subjective Date of Service: 05/30/25 Reason For Visit: PTSD, schizoaffective disorder Subjective Notes: Conditional Voluntary Healthcare Proxy: No Guardianship: No Medical Problems Affecting Mental Status: No Interim History: Medical record and nursing notes reviewed; case discussed during rounds with team/nursing staff, and met with patient for supportive therapy/psychoeducation, as well as medication management. Met with patient in the exam room, he is talkative, pleasant, and cooperative. He his medication yesterday but took medication today. Reports that pharmacy is evil they are contraindicated themself. You give me medications to high and then give me dull feeling with sexually issues and other side effects. Reports feeling tension headache from the right side to the top of his head and sometimes feeling like is stabbing pain even though he denies headache at this moment. Patient spent really long time talking about suicidal thoughts and voices, suicide attempts history. Reported that he had passive SI and AH daily as he can not do anything on the unit. Reports feeling dizzy this morning when he was up. Educate patient on position change slowly to prevent dizziness. Also encourage p.o. fluid intake. He recall the incident a couple of days ago that he was in the bathroom, passing out when this provider asked what happens his right eye as some bruises around the eyes observed. Per nursing, patient slept for 7 hours. Vital signs stable. No unsafe behavior noted. Compiant with meds this morning. Medication Compliance: No Side effects from medications: Yes Attending Groups: Intermittent Review of Systems Acute medical concerns: No Medical Review of Systems: unchanged Review of Systems Review of Systems Report no stomach pain. No physical complaint. No SOB/Wheezing but report feeling dizzy when up in the morning. Some have very tension headache- on right and top of the head and feeling like stabbing pain but denies at this time. Mental Status Exam Mental Status Exam Narrative: More visible, wearing casual attire, pleasant and cooperative. Report passive SI and AH, walking in the torres. Denies anxiety, depression. poor insight and judgment Diagnostics Vital Signs (24Hr): Vital Signs - 24 hr 05/30/25 07:50 05/30/25 07:50 05/30/25 18:50 Temperature 97.6 F Pulse Rate 94 90 81 Respiratory Rate 18 Blood Pressure 137/90 H 137/90 H 113/75 Pulse Oximetry 97 Oxygen Delivery Method Room Air BMI result Body Mass Index 30.7 Labs 05/20/25 11:22 05/20/25 11:22 Labs: Laboratory Results - last 48 hr 05/30/25 07:39 Absolute Neuts (auto) 4.5 Medications Medications Current Medications Acetaminophen (Acetaminophen 325 Mg Tablet) 650 mg PO Q6H PRN PRN Reason: Headache/Pain, Scale 1-10 Last Admin: 05/30/25 07:45 Dose: 650 mg Al Hydroxide/Mg Hydroxide (Magnesium Hydrox/Alum Hydrox 30 Ml Oral.Susp) 30 ml PO Q6H PRN PRN Reason: Heartburn/Nausea Last Admin: 05/30/25 07:46 Dose: 30 ml Aspirin (Aspirin Enteric Coated 81 Mg Tablet.Dr) 81 mg PO DAILY [facility] Last Admin: 05/30/25 09:25 Dose: Not Given Atorvastatin Calcium (Atorvastatin Calcium 80 Mg Tablet) 80 mg PO BEDTIME [facility] Last Admin: 05/30/25 21:11 Dose: 80 mg Clopidogrel Bisulfate (Clopidogrel Bisulfate 75 Mg Tablet) 75 mg PO DAILY [facility] Last Admin: 05/30/25 09:25 Dose: Not Given Clozapine (Clozapine 25 Mg Tablet) 50 mg PO BEDTIME [facility] Last Admin: 05/30/25 21:12 Dose: 50 mg Diazepam (Diazepam 5 Mg Tablet) 5 mg PO BID PRN PRN Reason: anxiety/restlessness Last Admin: 05/30/25 18:50 Dose: 5 mg Diazepam (Diazepam 5 Mg Tablet) 5 mg PO DAILY [facility] Last Admin: 05/30/25 11:20 Dose: 5 mg Gabapentin (Gabapentin 100 Mg Capsule) 100 mg PO TID@0800,1400,2000 [facility] Last Admin: 05/30/25 21:11 Dose: 100 mg Hydroxyzine HCl (Hydroxyzine Hcl 25 Mg Tablet) 25 mg PO Q6H PRN PRN Reason: mild anxiety Last Admin: 05/30/25 18:05 Dose: 25 mg Loperamide HCl (Loperamide Hcl 2 Mg Capsule) 2 mg PO Q4H PRN PRN Reason: Diarrhea Last Admin: 05/22/25 21:19 Dose: 2 mg Lorazepam (Lorazepam 0.5 Mg Tablet) 0.5 mg PO TID PRN PRN Reason: anxiety Magnesium Hydroxide (Milk Of Magnesia 30 Ml Oral.Susp) 30 ml PO DAILY PRN PRN Reason: Constipation Metoprolol Succinate (Metoprolol Succinate Er 12.5 Mg Halftab.Er.24h) 12.5 mg PO DAILY [facility]; Protocol Last Admin: 05/30/25 07:50 Dose: 12.5 mg Nicotine Polacrilex (Nicotine Polacrilex 2 Mg Gum) 4 mg BUCCAL Q2H PRN PRN Reason: Nicotine Cravings Last Admin: 05/30/25 20:12 Dose: 4 mg Pt Own Medication ( Testosterone 50 Mg/5 Gram (1 %) Gel) 1 packet TOPICAL DAILY [facility] Last Admin: 05/30/25 09:11 Dose: 1 packet Oxcarbazepine (Oxcarbazepine 300 Mg Tablet) 300 mg PO BID [facility] Last Admin: 05/30/25 21:11 Dose: 300 mg Propranolol HCl (Propranolol Hcl 10 Mg Tablet) 10 mg PO TID PRN; Protocol PRN Reason: akathesia Last Admin: 05/30/25 18:50 Dose: 10 mg Risperidone (Risperidone 1 Mg Tablet) 1 mg PO BID PRN PRN Reason: Anxiety Last Admin: 05/30/25 18:50 Dose: 1 mg Tamsulosin HCl (Tamsulosin Hcl 0.4 Mg Capsule) 0.4 mg PO DAILY [facility] Last Admin: 05/30/25 07:49 Dose: 0.4 mg Trazodone HCl (Trazodone Hcl 50 Mg Tablet) 50 mg PO BEDTIME PRN PRN Reason: Sleep Last Admin: 05/29/25 21:21 Dose: 50 mg Allergies Allergies Allergy/AdvReac Type Severity Reaction Status Date / Time olanzapine (From Zyprexa) AdvReac Severe Anaphylaxis Verified 05/20/25 10:47 clonidine AdvReac Fainting Verified 05/20/25 10:47 haloperidol (From Haldol) AdvReac Anaphylaxis Verified 05/20/25 10:47 ziprasidone (From Geodon) AdvReac speech Verified 05/25/25 13:11 difficulty tuna Allergy Severe Anaphylaxis Uncoded 04/18/24 12:52 Assessment & Plan Assessment & Plan (1) Schizoaffective disorder: Status: Acute Code(s): F25.9 - Schizoaffective disorder, unspecified (2) PTSD (post-traumatic stress disorder): Status: Acute Code(s): F43.10 - Post-traumatic stress disorder, unspecified Plan 59 yo male, history of PTSD, Schizoaffective Disorder, self presented to ER on 05/20 reporting to crisis SI and I am not doing well. He has been essentially mute since admission with reported hyperactive startle response. Collateral contact reports a recent discharge from [facility] as he had presented with psychosis and chest pain. He has has a difficult time caring for himself. Met with pt and Arnol LOBO. Pt is in bed, head covered, he does not startle when his name is called. He sits up, does not speak, does nod his head once and is asked if he would like to meet or if he would like team to contact sister Jyoti to collect background and return to him. There was no response, however he does have minimal eye contact. Hospital course: 05/23 Patient very angry and told typewriter assembler so. Says that he is thinking about provoking security so that they will beat him up, sit on his chest and caused him to have a heart attack so he will be . Patient very resistant to trying medications to help with anger, saying he has tried everything and nothing works. Patient has been taking Trileptal but otherwise refuses Geodon. Physics Teacher discussed risks/side effects of Clozaril, 1 medication he has not taken before. Patient initially refused but then later said he was willing to try it. He also asked for Valium, saying this was helpful in the past. Of note, corner mirror was broken and hanging; staff removed it. Patient said he did not do it but was like that when he got there only taking Trileptal.... refuses Geodone refuses Testoserone Gel (says too much) refused BP/vitals so no Metopolol Impression: Patient exceedingly angry. He refuses Geodon and so typewriter assembler will discontinue. Patient eventually amenable to starting Clozaril which can be significantly helpful for psychosis, mood stabilization and anger related to paranoid ideations. Initial concern about catatonia since patient was selectively mute; this seems to have resolved, either due to the Ativan or that he was not catatonic but just angry and resistive to treatment. Either way, Valium can also mitigate catatonic symptoms and given patient's aggressive history and current presentation, typewriter assembler agrees that if Valium helps him that is preferable. Plan: Admit/CV/15 minute checks Start propranolol 10 mg t.i.d. for akathisia Start clozapine 25 mg q.h.s. Start Valium 10 mg daily Taper and DC Ativan Ativan 1 mg tid-rule out catatonia Discontinue Geodon; patient refuses Continue previous regime Diagnostics as needed and as pt will allow. Collateral contact Encourage milieu engagement Discharge planning 05/26:Attempted to meet with pt and Arnol LOBO. Pt asleep, he would not awaken, but stirred when his name was called. Information provided on Clozapine for pt. He did accept his dose last evening. Will increase to 50 mg this evening. Team reports pt has been approaching the front door and attempting to leave last evening. Not attending groups. Sleep and appetite appear intact. Accepting medications-declines testosterone. 05/27: Met with pt to discuss treatment noncompliance. Team has contacted sister as well to discuss. Discussed discharge with both pt and sister. Pt states, I just want to . I will take my medication. Review of all meds/rationale for meds. Pt struggling with dissociations, paranoia, tinnitus and anxiety. It is too loud here. Discussed with pt team willingness to work with him, however that we cannot force treatment upon him. Discussed the benefits of medications for symptom control. Discussed how invested family is in helping him feel secure in a living environment with resources to assist him. I don't deserve this you know. Team reports pt slept last night, no group attendance, taking meds today, I am sorry, I did not know I refused medicine last night. Plan: Continue tx 05/28/25: Meet with patient in assigned room, denies SI/SIB/HI/AVH, denies anxiety and depression not at this moment as I jsut woke up . Report stomach pain I am sick because of medications . Report pain 5/10. Feeling nausea. Advised to take medication with food to see if it improved. Patient is out to he torres, more soical, was talking and laughing per nursing this morning. Patient slept for 8 hours and started clozaril first dose last night. Nursing also report some bruised that bring concerns. Advised to contact hospitalist for medical concerns as patient in on blood thinner and continue to monitor for any bleeding. 05/29: I don't have access to my phone, I cannot check the internet, I have no advocate except for myself, I have no one to talk with, I feel medicated-no focus, no concentration, no memory. I have no access to medicine literature, I can sleep through the night, I was incontinent of urine last night, groups are a waste-I am irritated, they made the art room one half of what it should be, you want to do an EKG-it is theivery to make money. I am degraded, someone calls for me no one will take a message, groups are useless. Pt refusing of meds, diagnostics, not feeling milieu is adequate. Discussed providing literature for all psychotropics as he does not acknowledge daily discussions of his regime. Angry, targeting, apologetic. Changes made in session-diazepam decreased to 5 mg daily, lorazepam changed to prn only, propranolol decreased to 5 mg tid, trazodone decreased and changed to prn only. The standing psychotropics currently are Clozapine 50 mg, Valium 5 mg, Gabapentin 100 mg tid, Trileptal 300 mg BID and Propranolol 5 mg bid. Pt provocative in his anger- asking team for 80 pills, 80 yards of rope . Later in the afternoon, tells primary RN that meds were never discussed with him- identifies propranolol, tylenol, ASA, hydroxyzine. As a result propranolol is now prn, tylenol, hydroxyzine remain prn and ASA is a medical regime and that is left for pt to refuse at will. Will ask human rights officer and nurse lottery office manager to meet with pt to discuss his concerns. Plan: Refuses diagnostics Several changes made to regime today. Pt, at this time, tells nursing he will refuse meds. 05/30/25: Met with patient in the exam room, he is talkative, pleasant, and cooperative. He his medication yesterday but took medication today. Reports that pharmacy is evil they are contraindicated themself. You give me medications to high and then give me dull feeling with sexually issues and other side effects. Reports feeling tension headache from the right side to the top of his head and sometimes feeling like is stabbing pain even though he denies headache at this moment. Patient spent really long time talking about suicidal thoughts and voices, suicide attempts history. Reported that he had passive SI and AH daily as he can not do anything on the unit. Reports feeling dizzy this morning when he was up. Educate patient on position change slowly to prevent dizziness. Also encourage p.o. fluid intake. He recall the incident a couple of days ago that he was in the bathroom, passing out when this provider asked what happens his right eye as some bruises around the eyes observed. Per nursing, patient slept for 7 hours. Vital signs stable. No unsafe behavior noted. Compiant with meds this morning. ANC 4.5 WNL. Patient educated on: diagnosis, medication risk/benefits and therapeutic strategies Informed Consent: further education needed Reason for continued inpatient stay Substantial Risk for: med/psych decompensation Time Spent With Patient Time: Total time managing care of this patient today ____ minutes.
[2025-05-31 08:06] VITALS: BP 121/72; PULSE 62; TEMP 36.4; O2SAT 97
[2025-05-31] MEDS: Metoprolol Succinate ER 12.5 MG HALFTAB.ER.24H PO (09:02)
[2025-05-31] MEDS: Aspirin Enteric Coated 81 MG TABLET.DR PO (09:02)
--- NOTE | 2025-05-31 19:15 | PC.NURSE ---
Tera signed a three day notice, which will be up 06/03.
[2025-05-31 19:44] VITALS: BP 118/81; PULSE 109; TEMP 35.6; O2SAT 95
--- NOTE | 2025-05-31 21:41 | HO.PSYCHPN ---
Subjective Subjective Date of Service: 05/31/25 Reason For Visit: PTSD, schizoaffective disorder Subjective Notes: Conditional Voluntary Healthcare Proxy: No Guardianship: No Medical Problems Affecting Mental Status: No Interim History: Medical record and nursing notes reviewed; case discussed during rounds with team/nursing staff, and met with patient for supportive therapy/psychoeducation, as well as medication management. Patient continues to be negative but denies SI and AVH today. Report that he pees all the time . Mood is not good . He wants to be on DNR. He does not want staff to take on him every 5 min states that he won't do anything here and nothing here for him to kill himself. Request to take 5 min check away. Visible at times, appears miserable, restless, disorganized, negative, not future focus. Refuse some of his meds. Continue with curent plan,encourage to compliant with meds and consistently taking them for better result. Medication Compliance: Intermittent Side effects from medications: No Attending Groups: No Review of Systems Acute medical concerns: No Medical Review of Systems: unchanged Review of Systems Review of Systems No physical complaint. No SOB/Wheezing but report feeling dizzy when up in the morning. Report peeing a lot . Will continue to monitor Mental Status Exam Mental Status Exam Narrative: Visible, wearing casual attire, pleasant and cooperative. NO SI/AVH, walking in the torres. Denies anxiety, depression. poor insight and judgment Disorganized, Diagnostics Vital Signs (24Hr): Vital Signs - 24 hr 05/31/25 08:06 05/31/25 19:44 Temperature 97.6 F 96.0 F L Pulse Rate 62 109 H Blood Pressure 121/72 118/81 Pulse Oximetry 97 95 Oxygen Delivery Method Room Air Room Air BMI result Body Mass Index 30.7 Labs 05/20/25 11:22 05/20/25 11:22 Labs: Laboratory Results - last 48 hr 05/30/25 07:39 Absolute Neuts (auto) 4.5 Medications Medications Current Medications Acetaminophen (Acetaminophen 325 Mg Tablet) 650 mg PO Q6H PRN PRN Reason: Headache/Pain, Scale 1-10 Last Admin: 05/30/25 07:45 Dose: 650 mg Al Hydroxide/Mg Hydroxide (Magnesium Hydrox/Alum Hydrox 30 Ml Oral.Susp) 30 ml PO Q6H PRN PRN Reason: Heartburn/Nausea Last Admin: 05/30/25 07:46 Dose: 30 ml Aspirin (Aspirin Enteric Coated 81 Mg Tablet.Dr) 81 mg PO DAILY [facility] Last Admin: 05/31/25 09:02 Dose: 81 mg Atorvastatin Calcium (Atorvastatin Calcium 80 Mg Tablet) 80 mg PO BEDTIME [facility] Last Admin: 05/31/25 20:05 Dose: 80 mg Clopidogrel Bisulfate (Clopidogrel Bisulfate 75 Mg Tablet) 75 mg PO DAILY [facility] Last Admin: 05/31/25 09:03 Dose: 75 mg Clozapine (Clozapine 25 Mg Tablet) 50 mg PO BEDTIME [facility] Last Admin: 05/31/25 20:05 Dose: 50 mg Diazepam (Diazepam 5 Mg Tablet) 5 mg PO BID PRN PRN Reason: anxiety/restlessness Last Admin: 05/30/25 18:50 Dose: 5 mg Diazepam (Diazepam 5 Mg Tablet) 5 mg PO DAILY [facility] Last Admin: 05/31/25 08:01 Dose: 5 mg Gabapentin (Gabapentin 100 Mg Capsule) 100 mg PO TID@0800,1400,2000 [facility] Last Admin: 05/31/25 20:05 Dose: 100 mg Hydroxyzine HCl (Hydroxyzine Hcl 25 Mg Tablet) 25 mg PO Q6H PRN PRN Reason: mild anxiety Last Admin: 05/30/25 18:05 Dose: 25 mg Loperamide HCl (Loperamide Hcl 2 Mg Capsule) 2 mg PO Q4H PRN PRN Reason: Diarrhea Last Admin: 05/22/25 21:19 Dose: 2 mg Lorazepam (Lorazepam 0.5 Mg Tablet) 0.5 mg PO TID PRN PRN Reason: anxiety Magnesium Hydroxide (Milk Of Magnesia 30 Ml Oral.Susp) 30 ml PO DAILY PRN PRN Reason: Constipation Metoprolol Succinate (Metoprolol Succinate Er 12.5 Mg Halftab.Er.24h) 12.5 mg PO DAILY [facility]; Protocol Last Admin: 05/31/25 09:02 Dose: 12.5 mg Nicotine Polacrilex (Nicotine Polacrilex 2 Mg Gum) 4 mg BUCCAL Q2H PRN PRN Reason: Nicotine Cravings Last Admin: 05/31/25 21:09 Dose: 4 mg Pt Own Medication ( Testosterone 50 Mg/5 Gram (1 %) Gel) 1 packet TOPICAL DAILY [facility] Last Admin: 05/31/25 09:02 Dose: 1 packet Oxcarbazepine (Oxcarbazepine 300 Mg Tablet) 300 mg PO BID RODGER Last Admin: 05/31/25 20:05 Dose: 300 mg Propranolol HCl (Propranolol Hcl 10 Mg Tablet) 10 mg PO TID PRN; Protocol PRN Reason: akathesia Last Admin: 05/30/25 18:50 Dose: 10 mg Risperidone (Risperidone 1 Mg Tablet) 1 mg PO BID PRN PRN Reason: Anxiety Last Admin: 05/30/25 18:50 Dose: 1 mg Tamsulosin HCl (Tamsulosin Hcl 0.4 Mg Capsule) 0.4 mg PO DAILY RODGER Last Admin: 05/31/25 09:02 Dose: 0.4 mg Trazodone HCl (Trazodone Hcl 50 Mg Tablet) 50 mg PO BEDTIME PRN PRN Reason: Sleep Last Admin: 05/31/25 21:09 Dose: 50 mg Allergies Allergies Allergy/AdvReac Type Severity Reaction Status Date / Time olanzapine (From Zyprexa) AdvReac Severe Anaphylaxis Verified 05/20/25 10:47 clonidine AdvReac Fainting Verified 05/20/25 10:47 haloperidol (From Haldol) AdvReac Anaphylaxis Verified 05/20/25 10:47 ziprasidone (From Geodon) AdvReac speech Verified 05/25/25 13:11 difficulty tuna Allergy Severe Anaphylaxis Uncoded 04/18/24 12:52 Assessment & Plan Assessment & Plan (1) Schizoaffective disorder: Status: Acute Code(s): F25.9 - Schizoaffective disorder, unspecified (2) PTSD (post-traumatic stress disorder): Status: Acute Code(s): F43.10 - Post-traumatic stress disorder, unspecified Plan 59 yo male, history of PTSD, Schizoaffective Disorder, self presented to ER on 05/20 reporting to crisis SI and I am not doing well. He has been essentially mute since admission with reported hyperactive startle response. Collateral contact reports a recent discharge from [facility] as he had presented with psychosis and chest pain. He has has a difficult time caring for himself. Met with pt and Arnol LOBO. Pt is in bed, head covered, he does not startle when his name is called. He sits up, does not speak, does nod his head once and is asked if he would like to meet or if he would like team to contact sister Jyoti to collect background and return to him. There was no response, however he does have minimal eye contact. Hospital course: 05/23 Patient very angry and told show card writer so. Says that he is thinking about provoking security so that they will beat him up, sit on his chest and caused him to have a heart attack so he will be . Patient very resistant to trying medications to help with anger, saying he has tried everything and nothing works. Patient has been taking Trileptal but otherwise refuses Geodon. Data Consultant discussed risks/side effects of Clozaril, 1 medication he has not taken before. Patient initially refused but then later said he was willing to try it. He also asked for Valium, saying this was helpful in the past. Of note, corner mirror was broken and hanging; staff removed it. Patient said he did not do it but was like that when he got there only taking Trileptal.... refuses Geodone refuses Testoserone Gel (says too much) refused BP/vitals so no Metopolol Impression: Patient exceedingly angry. He refuses Geodon and so show card writer will discontinue. Patient eventually amenable to starting Clozaril which can be significantly helpful for psychosis, mood stabilization and anger related to paranoid ideations. Initial concern about catatonia since patient was selectively mute; this seems to have resolved, either due to the Ativan or that he was not catatonic but just angry and resistive to treatment. Either way, Valium can also mitigate catatonic symptoms and given patient's aggressive history and current presentation, show card writer agrees that if Valium helps him that is preferable. Plan: Admit/CV/15 minute checks Start propranolol 10 mg t.i.d. for akathisia Start clozapine 25 mg q.h.s. Start Valium 10 mg daily Taper and DC Ativan Ativan 1 mg tid-rule out catatonia Discontinue Geodon; patient refuses Continue previous regime Diagnostics as needed and as pt will allow. Collateral contact Encourage milieu engagement Discharge planning 05/26:Attempted to meet with pt and Arnol LOBO. Pt asleep, he would not awaken, but stirred when his name was called. Information provided on Clozapine for pt. He did accept his dose last evening. Will increase to 50 mg this evening. Team reports pt has been approaching the front door and attempting to leave last evening. Not attending groups. Sleep and appetite appear intact. Accepting medications-declines testosterone. 05/27: Met with pt to discuss treatment noncompliance. Team has contacted sister as well to discuss. Discussed discharge with both pt and sister. Pt states, I just want to . I will take my medication. Review of all meds/rationale for meds. Pt struggling with dissociations, paranoia, tinnitus and anxiety. It is too loud here. Discussed with pt team willingness to work with him, however that we cannot force treatment upon him. Discussed the benefits of medications for symptom control. Discussed how invested family is in helping him feel secure in a living environment with resources to assist him. I don't deserve this you know. Team reports pt slept last night, no group attendance, taking meds today, I am sorry, I did not know I refused medicine last night. Plan: Continue tx 05/28/25: Meet with patient in assigned room, denies SI/SIB/HI/AVH, denies anxiety and depression not at this moment as I jsut woke up . Report stomach pain I am sick because of medications . Report pain 5/10. Feeling nausea. Advised to take medication with food to see if it improved. Patient is out to he torres, more soical, was talking and laughing per nursing this morning. Patient slept for 8 hours and started clozaril first dose last night. Nursing also report some bruised that bring concerns. Advised to contact hospitalist for medical concerns as patient in on blood thinner and continue to monitor for any bleeding. 05/29: I don't have access to my phone, I cannot check the internet, I have no advocate except for myself, I have no one to talk with, I feel medicated-no focus, no concentration, no memory. I have no access to medicine literature, I can sleep through the night, I was incontinent of urine last night, groups are a waste-I am irritated, they made the art room one half of what it should be, you want to do an EKG-it is theivery to make money. I am degraded, someone calls for me no one will take a message, groups are useless. Pt refusing of meds, diagnostics, not feeling milieu is adequate. Discussed providing literature for all psychotropics as he does not acknowledge daily discussions of his regime. Angry, targeting, apologetic. Changes made in session-diazepam decreased to 5 mg daily, lorazepam changed to prn only, propranolol decreased to 5 mg tid, trazodone decreased and changed to prn only. The standing psychotropics currently are Clozapine 50 mg, Valium 5 mg, Gabapentin 100 mg tid, Trileptal 300 mg BID and Propranolol 5 mg bid. Pt provocative in his anger- asking team for 80 pills, 80 yards of rope . Later in the afternoon, tells primary RN that meds were never discussed with him- identifies propranolol, tylenol, ASA, hydroxyzine. As a result propranolol is now prn, tylenol, hydroxyzine remain prn and ASA is a medical regime and that is left for pt to refuse at will. Will ask human rights officer and nurse social media content manager to meet with pt to discuss his concerns. Plan: Refuses diagnostics Several changes made to regime today. Pt, at this time, tells nursing he will refuse meds. 05/30/25: Met with patient in the exam room, he is talkative, pleasant, and cooperative. He his medication yesterday but took medication today. Reports that pharmacy is evil they are contraindicated themself. You give me medications to high and then give me dull feeling with sexually issues and other side effects. Reports feeling tension headache from the right side to the top of his head and sometimes feeling like is stabbing pain even though he denies headache at this moment. Patient spent really long time talking about suicidal thoughts and voices, suicide attempts history. Reported that he had passive SI and AH daily as he can not do anything on the unit. Reports feeling dizzy this morning when he was up. Educate patient on position change slowly to prevent dizziness. Also encourage p.o. fluid intake. He recall the incident a couple of days ago that he was in the bathroom, passing out when this provider asked what happens his right eye as some bruises around the eyes observed. Per nursing, patient slept for 7 hours. Vital signs stable. No unsafe behavior noted. Compiant with meds this morning. ANC 4.5 WNL. 05/31/25: Patient continues to be negative but denies SI and AVH today. Report that he pees all the time . Mood is not good . He wants to be on DNR. He does not want staff to take on him every 5 min states that he won't do anything here and nothing here for him to kill himself. Request to take 5 min check away. Visible at times, appears miserable, restless, disorganized, negative, not future focus. Refuse some of his meds. Continue with curent plan,encourage to compliant with meds and consistently taking them for better result. Patient educated on: medication risk/benefits and therapeutic strategies Informed Consent: further education needed Reason for continued inpatient stay Substantial Risk for: med/psych decompensation Time Spent With Patient Time: Total time managing care of this patient today ____ minutes.
[2025-06-01 08:00] VITALS: BP 118/70; PULSE 87; RESP 18; TEMP 36.6; O2SAT 96
[2025-06-01] MEDS: Metoprolol Succinate ER 12.5 MG HALFTAB.ER.24H PO (08:54)
[2025-06-01] MEDS: Aspirin Enteric Coated 81 MG TABLET.DR PO (10:23)
[2025-06-01 11:51] VITALS: BP 120/83; PULSE 78
[2025-06-01 20:00] VITALS: BP 124/85; PULSE 101; RESP 24; TEMP 37.4; O2SAT 94
[2025-06-01 21:16] VITALS: TEMP 36.9
[2025-06-01 23:26] LABS: Resp Syncy Virus RNA Qual PCR NEGATIVE (Negative); SARS COV2 PCR INHOUSE NEGATIVE (Negative)
--- NOTE | 2025-06-01 23:38 | P.PNPSI_ITS ---
Subjective Subjective Date of Service: 06/01/25 Reason For Visit: PTSD, schizoaffective disorder Subjective Notes: 3 Day Healthcare Proxy: No Guardianship: No Medical Problems Affecting Mental Status: No Interim History: Medical record and nursing notes reviewed; case discussed during rounds with team/nursing staff, and met with patient for supportive therapy/psychoeducation, as well as medication management. Patient is negative, report side effects from possible of all medications. Report he does not like Valium how it makes he feels but it is helpful for anixety. Report chemical induced sleep when asked if he was able to sleep last night. Report medication makes me hungry, tired, dry mouth and feeling drain, low energy . Brain feels sluggish . Later on reports his brain does not sleep all I do is think, and think and think . Report I am having intrusive thoughts. I am having bad thoughts. Feeling like everyone is lying to me . Patient also later on says that he used to be on Adderall and asked if he can restart on it. Discuss with patient, it not impossibly but it is not a appropriate time. We need to see him more stable first. He agrees to have Clozaril up to total of 75mg. Disorganized, racing thoughts, psychotic, paranoid, irritable. Advised to take PRN which he did ask take meds. He took all meds this morning but selective yesterday. Medication Compliance: Yes Side effects from medications: No (Report but not observable. ) Attending Groups: Intermittent Review of Systems Acute medical concerns: No Medical Review of Systems: unchanged Review of Systems Review of Systems No SOB/Wheezing. No N/V. Will continue to monitor Mental Status Exam Mental Status Exam Narrative: Visible, wearing casual attire, pleasant and cooperative but can be irritable. NO SI/AVH, walking in the torres. Anxious, restless, racing thought, Not treatment focus, very negative. poor insight and judgment Disorganized, Diagnostics Vital Signs (24Hr): Vital Signs - 24 hr 06/01/25 08:00 06/01/25 11:51 06/01/25 20:00 Temperature 97.9 F 99.3 F Pulse Rate 87 78 101 H Respiratory Rate 18 24 H Blood Pressure 118/70 120/83 124/85 Pulse Oximetry 96 94 Oxygen Delivery Method Room Air Room Air 06/01/25 21:16 Temperature 98.4 F Pulse Rate Respiratory Rate Blood Pressure Pulse Oximetry Oxygen Delivery Method BMI result Body Mass Index 30.7 Labs 05/20/25 11:22 05/20/25 11:22 Labs: Laboratory Results - last 48 hr 06/01/25 22:15 Influenza Type A (PCR) NEGATIVE Influenza Type B (PCR) NEGATIVE RSV RNA Qual (PCR) NEGATIVE SARS-CoV-2 RNA (RT-PCR) NEGATIVE Medications Medications Current Medications Acetaminophen (Acetaminophen 325 Mg Tablet) 650 mg PO Q6H PRN PRN Reason: Headache/Pain, Scale 1-10 Last Admin: 06/01/25 20:06 Dose: 650 mg Al Hydroxide/Mg Hydroxide (Magnesium Hydrox/Alum Hydrox 30 Ml Oral.Susp) 30 ml PO Q6H PRN PRN Reason: Heartburn/Nausea Last Admin: 05/30/25 07:46 Dose: 30 ml Aspirin (Aspirin Enteric Coated 81 Mg Tablet.Dr) 81 mg PO DAILY [facility] Last Admin: 06/01/25 10:23 Dose: 81 mg Atorvastatin Calcium (Atorvastatin Calcium 80 Mg Tablet) 80 mg PO BEDTIME [facility] Last Admin: 06/01/25 20:05 Dose: 80 mg Clopidogrel Bisulfate (Clopidogrel Bisulfate 75 Mg Tablet) 75 mg PO DAILY [facility] Last Admin: 06/01/25 08:53 Dose: 75 mg Clozapine (Clozapine 25 Mg Tablet) 50 mg PO BEDTIME [facility] Last Admin: 06/01/25 20:06 Dose: 50 mg Diazepam (Diazepam 5 Mg Tablet) 5 mg PO BID PRN PRN Reason: anxiety/restlessness Last Admin: 06/01/25 16:39 Dose: 5 mg Diazepam (Diazepam 5 Mg Tablet) 5 mg PO DAILY [facility] Last Admin: 06/01/25 08:53 Dose: 5 mg Gabapentin (Gabapentin 100 Mg Capsule) 100 mg PO TID@0800,1400,2000 [facility] Last Admin: 06/01/25 20:05 Dose: 100 mg Hydroxyzine HCl (Hydroxyzine Hcl 25 Mg Tablet) 25 mg PO Q6H PRN PRN Reason: mild anxiety Last Admin: 05/30/25 18:05 Dose: 25 mg Loperamide HCl (Loperamide Hcl 2 Mg Capsule) 2 mg PO Q4H PRN PRN Reason: Diarrhea Last Admin: 05/22/25 21:19 Dose: 2 mg Lorazepam (Lorazepam 0.5 Mg Tablet) 0.5 mg PO TID PRN PRN Reason: anxiety Last Admin: 06/01/25 11:51 Dose: 0.5 mg Magnesium Hydroxide (Milk Of Magnesia 30 Ml Oral.Susp) 30 ml PO DAILY PRN PRN Reason: Constipation Metoprolol Succinate (Metoprolol Succinate Er 12.5 Mg Halftab.Er.24h) 12.5 mg PO DAILY RODGER; Protocol Last Admin: 06/01/25 08:54 Dose: 12.5 mg Nicotine Polacrilex (Nicotine Polacrilex 2 Mg Gum) 4 mg BUCCAL Q2H PRN PRN Reason: Nicotine Cravings Last Admin: 06/01/25 19:04 Dose: 4 mg Pt Own Medication ( Testosterone 50 Mg/5 Gram (1 %) Gel) 1 packet TOPICAL DAILY RODGER Last Admin: 06/01/25 09:02 Dose: 1 packet Oxcarbazepine (Oxcarbazepine 300 Mg Tablet) 300 mg PO BID RODGER Last Admin: 06/01/25 20:05 Dose: 300 mg Propranolol HCl (Propranolol Hcl 10 Mg Tablet) 10 mg PO TID PRN; Protocol PRN Reason: akathesia Last Admin: 06/01/25 11:51 Dose: 10 mg Risperidone (Risperidone 1 Mg Tablet) 1 mg PO BID PRN PRN Reason: Anxiety Last Admin: 06/01/25 11:51 Dose: 1 mg Tamsulosin HCl (Tamsulosin Hcl 0.4 Mg Capsule) 0.4 mg PO DAILY RODGER Last Admin: 06/01/25 08:55 Dose: 0.4 mg Trazodone HCl (Trazodone Hcl 50 Mg Tablet) 50 mg PO BEDTIME PRN PRN Reason: Sleep Last Admin: 06/01/25 21:07 Dose: 50 mg Allergies Allergies Allergy/AdvReac Type Severity Reaction Status Date / Time olanzapine (From Zyprexa) AdvReac Severe Anaphylaxis Verified 05/20/25 10:47 clonidine AdvReac Fainting Verified 05/20/25 10:47 haloperidol (From Haldol) AdvReac Anaphylaxis Verified 05/20/25 10:47 ziprasidone (From Geodon) AdvReac speech Verified 05/25/25 13:11 difficulty tuna Allergy Severe Anaphylaxis Uncoded 04/18/24 12:52 Assessment & Plan Assessment & Plan (1) Schizoaffective disorder: Status: Acute Code(s): F25.9 - Schizoaffective disorder, unspecified (2) PTSD (post-traumatic stress disorder): Status: Acute Code(s): F43.10 - Post-traumatic stress disorder, unspecified Plan 59 yo male, history of PTSD, Schizoaffective Disorder, self presented to ER on 05/20 reporting to crisis SI and I am not doing well. He has been essentially mute since admission with reported hyperactive startle response. Collateral contact reports a recent discharge from [facility] as he had presented with psychosis and chest pain. He has has a difficult time caring for himself. Met with pt and Arnol LOBO. Pt is in bed, head covered, he does not startle when his name is called. He sits up, does not speak, does nod his head once and is asked if he would like to meet or if he would like team to contact sister Jyoti to collect background and return to him. There was no response, however he does have minimal eye contact. Hospital course: 05/23 Patient very angry and told program writer so. Says that he is thinking about provoking security so that they will beat him up, sit on his chest and caused him to have a heart attack so he will be . Patient very resistant to trying medications to help with anger, saying he has tried everything and nothing works. Patient has been taking Trileptal but otherwise refuses Geodon. Rfid Manager discussed risks/side effects of Clozaril, 1 medication he has not taken before. Patient initially refused but then later said he was willing to try it. He also asked for Valium, saying this was helpful in the past. Of note, corner mirror was broken and hanging; staff removed it. Patient said he did not do it but was like that when he got there only taking Trileptal.... refuses Geodone refuses Testoserone Gel (says too much) refused BP/vitals so no Metopolol Impression: Patient exceedingly angry. He refuses Geodon and so program writer will discontinue. Patient eventually amenable to starting Clozaril which can be significantly helpful for psychosis, mood stabilization and anger related to paranoid ideations. Initial concern about catatonia since patient was selectively mute; this seems to have resolved, either due to the Ativan or that he was not catatonic but just angry and resistive to treatment. Either way, Valium can also mitigate catatonic symptoms and given patient's aggressive history and current presentation, program writer agrees that if Valium helps him that is preferable. Plan: Admit/CV/15 minute checks Start propranolol 10 mg t.i.d. for akathisia Start clozapine 25 mg q.h.s. Start Valium 10 mg daily Taper and DC Ativan Ativan 1 mg tid-rule out catatonia Discontinue Geodon; patient refuses Continue previous regime Diagnostics as needed and as pt will allow. Collateral contact Encourage milieu engagement Discharge planning 05/26:Attempted to meet with pt and Arnol LOBO. Pt asleep, he would not awaken, but stirred when his name was called. Information provided on Clozapine for pt. He did accept his dose last evening. Will increase to 50 mg this evening. Team reports pt has been approaching the front door and attempting to leave last evening. Not attending groups. Sleep and appetite appear intact. Accepting medications-declines testosterone. 05/27: Met with pt to discuss treatment noncompliance. Team has contacted sister as well to discuss. Discussed discharge with both pt and sister. Pt states, I just want to . I will take my medication. Review of all meds/rationale for meds. Pt struggling with dissociations, paranoia, tinnitus and anxiety. It is too loud here. Discussed with pt team willingness to work with him, however that we cannot force treatment upon him. Discussed the benefits of medications for symptom control. Discussed how invested family is in helping him feel secure in a living environment with resources to assist him. I don't deserve this you know. Team reports pt slept last night, no group attendance, taking meds today, I am sorry, I did not know I refused medicine last night. Plan: Continue tx 05/28/25: Meet with patient in assigned room, denies SI/SIB/HI/AVH, denies anxiety and depression not at this moment as I jsut woke up . Report stomach pain I am sick because of medications . Report pain 5/10. Feeling nausea. Advised to take medication with food to see if it improved. Patient is out to he torres, more soical, was talking and laughing per nursing this morning. Patient slept for 8 hours and started clozaril first dose last night. Nursing also report some bruised that bring concerns. Advised to contact hospitalist for medical concerns as patient in on blood thinner and continue to monitor for any bleeding. 05/29: I don't have access to my phone, I cannot check the internet, I have no advocate except for myself, I have no one to talk with, I feel medicated-no focus, no concentration, no memory. I have no access to medicine literature, I can sleep through the night, I was incontinent of urine last night, groups are a waste-I am irritated, they made the art room one half of what it should be, you want to do an EKG-it is theivery to make money. I am degraded, someone calls for me no one will take a message, groups are useless. Pt refusing of meds, diagnostics, not feeling milieu is adequate. Discussed providing literature for all psychotropics as he does not acknowledge daily discussions of his regime. Angry, targeting, apologetic. Changes made in session-diazepam decreased to 5 mg daily, lorazepam changed to prn only, propranolol decreased to 5 mg tid, trazodone decreased and changed to prn only. The standing psychotropics currently are Clozapine 50 mg, Valium 5 mg, Gabapentin 100 mg tid, Trileptal 300 mg BID and Propranolol 5 mg bid. Pt provocative in his anger- asking team for 80 pills, 80 yards of rope . Later in the afternoon, tells primary RN that meds were never discussed with him- identifies propranolol, tylenol, ASA, hydroxyzine. As a result propranolol is now prn, tylenol, hydroxyzine remain prn and ASA is a medical regime and that is left for pt to refuse at will. Will ask human rights officer and nurse surgical territory manager to meet with pt to discuss his concerns. Plan: Refuses diagnostics Several changes made to regime today. Pt, at this time, tells nursing he will refuse meds. 05/30/25: Met with patient in the exam room, he is talkative, pleasant, and cooperative. He his medication yesterday but took medication today. Reports that pharmacy is evil they are contraindicated themself. You give me medications to high and then give me dull feeling with sexually issues and other side effects. Reports feeling tension headache from the right side to the top of his head and sometimes feeling like is stabbing pain even though he denies headache at this moment. Patient spent really long time talking about suicidal thoughts and voices, suicide attempts history. Reported that he had passive SI and AH daily as he can not do anything on the unit. Reports feeling dizzy this morning when he was up. Educate patient on position change slowly to prevent dizziness. Also encourage p.o. fluid intake. He recall the incident a couple of days ago that he was in the bathroom, passing out when this provider asked what happens his right eye as some bruises around the eyes observed. Per nursing, patient slept for 7 hours. Vital signs stable. No unsafe behavior noted. Compiant with meds this morning. ANC 4.5 WNL. 05/31/25: Patient continues to be negative but denies SI and AVH today. Report that he pees all the time . Mood is not good . He wants to be on DNR. He does not want staff to take on him every 5 min states that he won't do anything here and nothing here for him to kill himself. Request to take 5 min check away. Visible at times, appears miserable, restless, disorganized, negative, not future focus. Refuse some of his meds. Continue with curent plan,encourage to compliant with meds and consistently taking them for better result. 06/01/25: Patient is negative, report side effects from possible of all medications. Report he does not like Valium how it makes he feels but it is helpful for anixety. Report chemical induced sleep when asked if he was able to sleep last night. Report medication makes me hungry, tired, dry mouth and feeling drain, low energy . Brain feels sluggish . Later on reports his brain does not sleep all I do is think, and think and think . Report I am having intrusive thoughts. I am having bad thoughts. Feeling like everyone is lying to me . Patient also later on says that he used to be on Adderall and asked if he can restart on it. Discuss with patient, it not impossibly but it is not a appropriate time. We need to see him more stable first. He agrees to have Clozaril up to total of 75mg. Disorganized, racing thoughts, psychotic, paranoid, irritable. Advised to take PRN which he did ask take meds. He took all meds this morning but selective yesterday. Covid/flu: negative. Patient educated on: diagnosis, medication risk/benefits and therapeutic strategies Informed Consent: understands and further education needed Reason for continued inpatient stay Substantial Risk for: med/psych decompensation Time Spent With Patient Time: Total time managing care of this patient today ____ minutes.
--- NOTE | 2025-06-02 05:33 | PC.NURSE ---
Addendum entered by Mary Aragon RN 06/02/25 07:19: No changes to careplan at this time. Pt encouraged to drink fluids. Addendum entered by Mary Aragon RN 06/02/25 06:35: Pt woke up this am and had been incontinent of urine, bed and clothes change needed. Pt c/o weakness. Pt states sx started 06/01 mid day. Assessment done lungs are clear, Heart is regular. BP 95/59, O2 96% HR 89. Afebrile, RR 24. Provider notified. Original Note: Coordination of Care with Provider, Patient c/o not feeling well upon assessment pt reports fatigue and malaise. Pt reports joint pain, sharp/throbbing pain directly on top of his head, SOB, and weakness. VS checked temp 99.3, O2 94-95%, HR 101, RR 24 and BP 124/85. Pt given PRN Tylenol with good effect. Provider paged, and respiratory panel ordered. Collected and sent to lab. Respiratory Panel came back negative. Pt resting through night comfortable appearing.
[2025-06-02 07:17] VITALS: BP 95/59; PULSE 89; RESP 24; TEMP 36.9; O2SAT 96
[2025-06-02 08:30] VITALS: BP 109/59; PULSE 84; RESP 16; TEMP 36.7; O2SAT 98
[2025-06-02] MEDS: Aspirin Enteric Coated 81 MG TABLET.DR PO (08:52)
[2025-06-02] MEDS: Metoprolol Succinate ER 12.5 MG HALFTAB.ER.24H PO (08:53)
--- NOTE | 2025-06-02 12:33 | HO.PSYCHPN ---
Subjective Subjective Date of Service: 06/02/25 Reason For Visit: PTSD, schizoaffective disorder Subjective Notes: Conditional Voluntary and 3 Day (retraction) Healthcare Proxy: No Guardianship: No Medical Problems Affecting Mental Status: No Interim History: Reports feeling weak, tired, having dry mouth, joints ache, forgetful, blurred vision. Memory is poor, states he did not recall his daughter visiting. Too much activity in his brain, too much chaos, starving for an answer, everything is a loose association that does not make sense he reports. Full review of meds- asks to re-start chlorpromazine prn as he felt it was helpful. Discussed use of Adderall XR 20 mg by history-he reports it was very helpful and asks to trial again. Gabapentin increased to 200 mg tid as it has been helpful in the past. Discussed ECT as well. Medication Compliance: Yes Side effects from medications: Yes (???) Attending Groups: Intermittent Review of Systems as noted Medical Review of Systems: unchanged Review of Systems Review of Systems as noted in HPI Mental Status Exam Mental Status Exam Patient Appearance: Fatigued Patient Orientation: Person, Place, Time and Situation Level of Consciousness: Alert Patient Behavior: Talkative Mood Description: Withdrawn and Depressed Affect Description: Flat Patient Cognition Impaired: No Ability to Follow Directions: Good Speech Pattern: Spontaneous Speech Memory Description: Remote Impaired Hallucinations: None Perceptual Disturbances: Depersonalization and Derealization Thought Process: Racing, Distracted and Rumination Thought Content: positive for Racing, positive for Circumstantial and positive for Suicidal Ideation Depressive Symptoms: Diff. Making Decisions and Thoughts of /Suicide Judgement: Fair Diagnostics Vital Signs (24Hr): Vital Signs - 24 hr 06/01/25 20:00 06/01/25 21:16 06/02/25 07:17 Temperature 99.3 F 98.4 F 98.4 F Pulse Rate 101 H 89 Respiratory Rate 24 H 24 H Blood Pressure 124/85 95/59 L Pulse Oximetry 94 96 Oxygen Delivery Method Room Air Room Air 06/02/25 08:30 Temperature 98.0 F Pulse Rate 84 Respiratory Rate 16 Blood Pressure 109/59 L Pulse Oximetry 98 Oxygen Delivery Method Room Air BMI result Body Mass Index 30.7 Labs 05/20/25 11:22 05/20/25 11:22 Labs: Laboratory Results - last 48 hr 06/01/25 22:15 Influenza Type A (PCR) NEGATIVE Influenza Type B (PCR) NEGATIVE RSV RNA Qual (PCR) NEGATIVE SARS-CoV-2 RNA (RT-PCR) NEGATIVE Medications Medications Current Medications Acetaminophen (Acetaminophen 325 Mg Tablet) 650 mg PO Q6H PRN PRN Reason: Headache/Pain, Scale 1-10 Last Admin: 06/01/25 20:06 Dose: 650 mg Al Hydroxide/Mg Hydroxide (Magnesium Hydrox/Alum Hydrox 30 Ml Oral.Susp) 30 ml PO Q6H PRN PRN Reason: Heartburn/Nausea Last Admin: 05/30/25 07:46 Dose: 30 ml Aspirin (Aspirin Enteric Coated 81 Mg Tablet.Dr) 81 mg PO DAILY [facility] Last Admin: 06/02/25 08:52 Dose: 81 mg Atorvastatin Calcium (Atorvastatin Calcium 80 Mg Tablet) 80 mg PO BEDTIME [facility] Last Admin: 06/01/25 20:05 Dose: 80 mg Clopidogrel Bisulfate (Clopidogrel Bisulfate 75 Mg Tablet) 75 mg PO DAILY [facility] Last Admin: 06/02/25 08:53 Dose: 75 mg Clozapine (Clozapine 25 Mg Tablet) 50 mg PO BEDTIME [facility] Last Admin: 06/01/25 20:06 Dose: 50 mg Clozapine (Clozapine 25 Mg Tablet) 25 mg PO DAILY [facility] Last Admin: 06/02/25 08:53 Dose: 25 mg Diazepam (Diazepam 5 Mg Tablet) 5 mg PO BID PRN PRN Reason: anxiety/restlessness Last Admin: 06/01/25 16:39 Dose: 5 mg Diazepam (Diazepam 5 Mg Tablet) 5 mg PO DAILY [facility] Last Admin: 06/02/25 08:53 Dose: 5 mg Gabapentin (Gabapentin 100 Mg Capsule) 100 mg PO TID@0800,1400,2000 [facility] Last Admin: 06/02/25 08:53 Dose: 100 mg Hydroxyzine HCl (Hydroxyzine Hcl 25 Mg Tablet) 25 mg PO Q6H PRN PRN Reason: mild anxiety Last Admin: 05/30/25 18:05 Dose: 25 mg Loperamide HCl (Loperamide Hcl 2 Mg Capsule) 2 mg PO Q4H PRN PRN Reason: Diarrhea Last Admin: 05/22/25 21:19 Dose: 2 mg Lorazepam (Lorazepam 0.5 Mg Tablet) 0.5 mg PO TID PRN PRN Reason: anxiety Last Admin: 06/01/25 11:51 Dose: 0.5 mg Magnesium Hydroxide (Milk Of Magnesia 30 Ml Oral.Susp) 30 ml PO DAILY PRN PRN Reason: Constipation Metoprolol Succinate (Metoprolol Succinate Er 12.5 Mg Halftab.Er.24h) 12.5 mg PO DAILY [facility]; Protocol Last Admin: 06/02/25 08:53 Dose: 12.5 mg Nicotine Polacrilex (Nicotine Polacrilex 2 Mg Gum) 4 mg BUCCAL Q2H PRN PRN Reason: Nicotine Cravings Last Admin: 06/02/25 06:33 Dose: 4 mg Pt Own Medication ( Testosterone 50 Mg/5 Gram (1 %) Gel) 1 packet TOPICAL DAILY [facility] Last Admin: 06/01/25 09:02 Dose: 1 packet Oxcarbazepine (Oxcarbazepine 300 Mg Tablet) 300 mg PO BID [facility] Last Admin: 06/02/25 08:53 Dose: 300 mg Propranolol HCl (Propranolol Hcl 10 Mg Tablet) 10 mg PO TID PRN; Protocol PRN Reason: akathesia Last Admin: 06/01/25 11:51 Dose: 10 mg Risperidone (Risperidone 1 Mg Tablet) 1 mg PO BID PRN PRN Reason: Anxiety Last Admin: 06/01/25 11:51 Dose: 1 mg Tamsulosin HCl (Tamsulosin Hcl 0.4 Mg Capsule) 0.4 mg PO DAILY [facility] Last Admin: 06/02/25 08:53 Dose: 0.4 mg Trazodone HCl (Trazodone Hcl 50 Mg Tablet) 50 mg PO BEDTIME PRN PRN Reason: Sleep Last Admin: 06/01/25 21:07 Dose: 50 mg Allergies Allergies Allergy/AdvReac Type Severity Reaction Status Date / Time olanzapine (From Zyprexa) AdvReac Severe Anaphylaxis Verified 05/20/25 10:47 clonidine AdvReac Fainting Verified 05/20/25 10:47 haloperidol (From Haldol) AdvReac Anaphylaxis Verified 05/20/25 10:47 ziprasidone (From Geodon) AdvReac speech Verified 05/25/25 13:11 difficulty tuna Allergy Severe Anaphylaxis Uncoded 04/18/24 12:52 Assessment & Plan Assessment & Plan (1) Schizoaffective disorder: Status: Acute Code(s): F25.9 - Schizoaffective disorder, unspecified (2) PTSD (post-traumatic stress disorder): Status: Acute Code(s): F43.10 - Post-traumatic stress disorder, unspecified Plan 59 yo male, history of PTSD, Schizoaffective Disorder, self presented to ER on 05/20 reporting to crisis SI and I am not doing well. He has been essentially mute since admission with reported hyperactive startle response. Collateral contact reports a recent discharge from [facility] as he had presented with psychosis and chest pain. He has has a difficult time caring for himself. Met with pt and Arnol LOBO. Pt is in bed, head covered, he does not startle when his name is called. He sits up, does not speak, does nod his head once and is asked if he would like to meet or if he would like team to contact sister Jyoti to collect background and return to him. There was no response, however he does have minimal eye contact. Hospital course: 05/23 Patient very angry and told copy writer so. Says that he is thinking about provoking security so that they will beat him up, sit on his chest and caused him to have a heart attack so he will be . Patient very resistant to trying medications to help with anger, saying he has tried everything and nothing works. Patient has been taking Trileptal but otherwise refuses Geodon. Central Supply Aide discussed risks/side effects of Clozaril, 1 medication he has not taken before. Patient initially refused but then later said he was willing to try it. He also asked for Valium, saying this was helpful in the past. Of note, corner mirror was broken and hanging; staff removed it. Patient said he did not do it but was like that when he got there only taking Trileptal.... refuses Geodone refuses Testoserone Gel (says too much) refused BP/vitals so no Metopolol Impression: Patient exceedingly angry. He refuses Geodon and so copy writer will discontinue. Patient eventually amenable to starting Clozaril which can be significantly helpful for psychosis, mood stabilization and anger related to paranoid ideations. Initial concern about catatonia since patient was selectively mute; this seems to have resolved, either due to the Ativan or that he was not catatonic but just angry and resistive to treatment. Either way, Valium can also mitigate catatonic symptoms and given patient's aggressive history and current presentation, copy writer agrees that if Valium helps him that is preferable. Plan: Admit/CV/15 minute checks Start propranolol 10 mg t.i.d. for akathisia Start clozapine 25 mg q.h.s. Start Valium 10 mg daily Taper and DC Ativan Ativan 1 mg tid-rule out catatonia Discontinue Geodon; patient refuses Continue previous regime Diagnostics as needed and as pt will allow. Collateral contact Encourage milieu engagement Discharge planning 05/26:Attempted to meet with pt and Arnol LOBO. Pt asleep, he would not awaken, but stirred when his name was called. Information provided on Clozapine for pt. He did accept his dose last evening. Will increase to 50 mg this evening. Team reports pt has been approaching the front door and attempting to leave last evening. Not attending groups. Sleep and appetite appear intact. Accepting medications-declines testosterone. 05/27: Met with pt to discuss treatment noncompliance. Team has contacted sister as well to discuss. Discussed discharge with both pt and sister. Pt states, I just want to . I will take my medication. Review of all meds/rationale for meds. Pt struggling with dissociations, paranoia, tinnitus and anxiety. It is too loud here. Discussed with pt team willingness to work with him, however that we cannot force treatment upon him. Discussed the benefits of medications for symptom control. Discussed how invested family is in helping him feel secure in a living environment with resources to assist him. I don't deserve this you know. Team reports pt slept last night, no group attendance, taking meds today, I am sorry, I did not know I refused medicine last night. Plan: Continue tx 05/28/25: Meet with patient in assigned room, denies SI/SIB/HI/AVH, denies anxiety and depression not at this moment as I jsut woke up . Report stomach pain I am sick because of medications . Report pain 5/10. Feeling nausea. Advised to take medication with food to see if it improved. Patient is out to he torres, more soical, was talking and laughing per nursing this morning. Patient slept for 8 hours and started clozaril first dose last night. Nursing also report some bruised that bring concerns. Advised to contact hospitalist for medical concerns as patient in on blood thinner and continue to monitor for any bleeding. 05/29: I don't have access to my phone, I cannot check the internet, I have no advocate except for myself, I have no one to talk with, I feel medicated-no focus, no concentration, no memory. I have no access to medicine literature, I can sleep through the night, I was incontinent of urine last night, groups are a waste-I am irritated, they made the art room one half of what it should be, you want to do an EKG-it is theivery to make money. I am degraded, someone calls for me no one will take a message, groups are useless. Pt refusing of meds, diagnostics, not feeling milieu is adequate. Discussed providing literature for all psychotropics as he does not acknowledge daily discussions of his regime. Angry, targeting, apologetic. Changes made in session-diazepam decreased to 5 mg daily, lorazepam changed to prn only, propranolol decreased to 5 mg tid, trazodone decreased and changed to prn only. The standing psychotropics currently are Clozapine 50 mg, Valium 5 mg, Gabapentin 100 mg tid, Trileptal 300 mg BID and Propranolol 5 mg bid. Pt provocative in his anger- asking team for 80 pills, 80 yards of rope . Later in the afternoon, tells primary RN that meds were never discussed with him- identifies propranolol, tylenol, ASA, hydroxyzine. As a result propranolol is now prn, tylenol, hydroxyzine remain prn and ASA is a medical regime and that is left for pt to refuse at will. Will ask human rights officer and nurse clinique counter manager to meet with pt to discuss his concerns. Plan: Refuses diagnostics Several changes made to regime today. Pt, at this time, tells nursing he will refuse meds. 05/30/25: Met with patient in the exam room, he is talkative, pleasant, and cooperative. He his medication yesterday but took medication today. Reports that pharmacy is evil they are contraindicated themself. You give me medications to high and then give me dull feeling with sexually issues and other side effects. Reports feeling tension headache from the right side to the top of his head and sometimes feeling like is stabbing pain even though he denies headache at this moment. Patient spent really long time talking about suicidal thoughts and voices, suicide attempts history. Reported that he had passive SI and AH daily as he can not do anything on the unit. Reports feeling dizzy this morning when he was up. Educate patient on position change slowly to prevent dizziness. Also encourage p.o. fluid intake. He recall the incident a couple of days ago that he was in the bathroom, passing out when this provider asked what happens his right eye as some bruises around the eyes observed. Per nursing, patient slept for 7 hours. Vital signs stable. No unsafe behavior noted. Compiant with meds this morning. ANC 4.5 WNL. 05/31/25: Patient continues to be negative but denies SI and AVH today. Report that he pees all the time . Mood is not good . He wants to be on DNR. He does not want staff to take on him every 5 min states that he won't do anything here and nothing here for him to kill himself. Request to take 5 min check away. Visible at times, appears miserable, restless, disorganized, negative, not future focus. Refuse some of his meds. Continue with curent plan,encourage to compliant with meds and consistently taking them for better result. 06/01/25: Patient is negative, report side effects from possible of all medications. Report he does not like Valium how it makes he feels but it is helpful for anixety. Report chemical induced sleep when asked if he was able to sleep last night. Report medication makes me hungry, tired, dry mouth and feeling drain, low energy . Brain feels sluggish . Later on reports his brain does not sleep all I do is think, and think and think . Report I am having intrusive thoughts. I am having bad thoughts. Feeling like everyone is lying to me . Patient also later on says that he used to be on Adderall and asked if he can restart on it. Discuss with patient, it not impossibly but it is not a appropriate time. We need to see him more stable first. He agrees to have Clozaril up to total of 75mg. Disorganized, racing thoughts, psychotic, paranoid, irritable. Advised to take PRN which he did ask take meds. He took all meds this morning but selective yesterday. Covid/flu: negative. 06/02:Reports feeling weak, tired, having dry mouth, joints ache, forgetful, blurred vision. Memory is poor, states he did not recall his daughter visiting. Too much activity in his brain, too much chaos, starving for an answer, everything is a loose association that does not make sense he reports. Full review of meds- asks to re-start chlorpromazine prn as he felt it was helpful. Discussed use of Adderall XR 20 mg by history-he reports it was very helpful and asks to trial again. Gabapentin increased to 200 mg tid as it has been helpful in the past. Discussed ECT as well. Plan: Chlorpromazine 50 mg qid prn Increase Gabapentin to 200 mg tid Reason for continued inpatient stay Substantial Risk for: rapid decompensation Time Spent With Patient Time: Total time managing care of this patient today ____ minutes.
[2025-06-02 19:42] VITALS: BP 122/69; PULSE 102; TEMP 37.7; O2SAT 98
--- NOTE | 2025-06-03 | ECG_ITS ---
Test Reason : R/O QTc prolongation, stent 08/26 Blood Pressure : */* mmHG Vent. Rate : 84 BPM Atrial Rate : 84 BPM P-R Int : 190 ms QRS Dur : 88 ms QT Int : 390 ms P-R-T Axes : 52 25 27 degrees QTcB Int : 460 ms Normal sinus rhythm Normal ECG When compared with ECG of 16-Apr-2024 22:28, No significant change was found Referred By: Zhanna Lawton Electronically Signed By: YENNI AVINA
[2025-06-03] MEDS: Milk of Magnesia 30 ML ORAL.SUSP PO (06:27)
[2025-06-03 08:00] VITALS: BP 133/98; PULSE 65; TEMP 36.6; O2SAT 98
[2025-06-03 08:21] LABS: Neut%MD 64.9 %; WBCANC 6.9 X10*3/uL
[2025-06-03 08:34] VITALS: BP 133/95; PULSE 65
[2025-06-03] MEDS: Metoprolol Succinate ER 12.5 MG HALFTAB.ER.24H PO (08:34)
[2025-06-03] MEDS: Aspirin Enteric Coated 81 MG TABLET.DR PO (08:34)
--- NOTE | 2025-06-03 10:38 | P.PNPSI_ITS ---
Subjective Subjective Date of Service: 06/03/25 Reason For Visit: PTSD, schizoaffective disorder Subjective Notes: Conditional Voluntary Healthcare Proxy: No Guardianship: No Medical Problems Affecting Mental Status: No Interim History: Review of regime, SE, and pt's request to re-trial Adderall. Sx of concern which are not well managed include racing of thought, loose associations described by pt but not evidenced in dialogue and chaos in my head . Discussed potential exacerbation of those sx. Discussed cardiac hx- reports stenting 08/27/24 with 95% and 40% occlusion. EKG ordered and is wnl today. Discussed sx which may be helped with Adderall trial-weakness, memory, focus, lack of energy. Review of increase in Clozapine, blurring of vision- ?Trileptal. Pt will review literature on Lamictal. Reports constipation-requested fleet-sennosides ordered as they have been effective by history. Medication Compliance: Yes Side effects from medications: Yes Attending Groups: Yes Review of Systems Acute medical concerns: No Medical Review of Systems: unchanged Review of Systems Review of Systems blurring of vision, weakness Mental Status Exam Mental Status Exam Patient Appearance: Appropriate Patient Orientation: Person, Place, Time and Situation Level of Consciousness: Alert Patient Behavior: Talkative Mood Description: Depressed Affect Description: Flat Patient Cognition Impaired: No Ability to Follow Directions: Good Speech Pattern: Spontaneous Speech Memory Description: Remote Impaired Hallucinations: None Perceptual Disturbances: Depersonalization and Derealization Thought Process: Racing, Distracted and Rumination Thought Content: positive for Racing, positive for Circumstantial and positive for Suicidal Ideation Depressive Symptoms: Diff. Making Decisions and Thoughts of /Suicide Judgement: Fair Diagnostics Vital Signs (24Hr): Vital Signs - 24 hr 06/02/25 19:42 06/03/25 08:00 06/03/25 08:34 Temperature 99.8 F 97.8 F Pulse Rate 102 H 65 65 Blood Pressure 122/69 133/98 H 133/95 H Pulse Oximetry 98 98 Oxygen Delivery Method Room Air Room Air BMI result Body Mass Index 30.7 Labs 05/20/25 11:22 05/20/25 11:22 Labs: Laboratory Results - last 48 hr 06/01/25 06/03/25 22:15 08:11 Absolute Neuts (auto) 4.5 Influenza Type A (PCR) NEGATIVE Influenza Type B (PCR) NEGATIVE RSV RNA Qual (PCR) NEGATIVE SARS-CoV-2 RNA (RT-PCR) NEGATIVE Medications Medications Current Medications Acetaminophen (Acetaminophen 325 Mg Tablet) 650 mg PO Q6H PRN PRN Reason: Headache/Pain, Scale 1-10 Last Admin: 06/01/25 20:06 Dose: 650 mg Al Hydroxide/Mg Hydroxide (Magnesium Hydrox/Alum Hydrox 30 Ml Oral.Susp) 30 ml PO Q6H PRN PRN Reason: Heartburn/Nausea Last Admin: 05/30/25 07:46 Dose: 30 ml Aspirin (Aspirin Enteric Coated 81 Mg Tablet.Dr) 81 mg PO DAILY [facility] Last Admin: 06/03/25 08:34 Dose: 81 mg Atorvastatin Calcium (Atorvastatin Calcium 80 Mg Tablet) 80 mg PO BEDTIME [facility] Last Admin: 06/02/25 20:02 Dose: 80 mg Chlorpromazine HCl (Chlorpromazine Hcl 25 Mg Tablet) 50 mg PO QID PRN PRN Reason: agitation,psychosis Clopidogrel Bisulfate (Clopidogrel Bisulfate 75 Mg Tablet) 75 mg PO DAILY [facility] Last Admin: 06/03/25 08:33 Dose: 75 mg Clozapine (Clozapine 25 Mg Tablet) 50 mg PO BEDTIME [facility] Last Admin: 06/02/25 20:02 Dose: 50 mg Clozapine (Clozapine 25 Mg Tablet) 25 mg PO DAILY [facility] Last Admin: 06/03/25 08:33 Dose: 25 mg Diazepam (Diazepam 5 Mg Tablet) 5 mg PO BID PRN PRN Reason: anxiety/restlessness Last Admin: 06/02/25 17:57 Dose: 5 mg Gabapentin (Gabapentin 100 Mg Capsule) 200 mg PO TID@0800,1400,2000 [facility] Last Admin: 06/03/25 08:35 Dose: 200 mg Hydroxyzine HCl (Hydroxyzine Hcl 25 Mg Tablet) 25 mg PO Q6H PRN PRN Reason: mild anxiety Last Admin: 05/30/25 18:05 Dose: 25 mg Loperamide HCl (Loperamide Hcl 2 Mg Capsule) 2 mg PO Q4H PRN PRN Reason: Diarrhea Last Admin: 05/22/25 21:19 Dose: 2 mg Lorazepam (Lorazepam 0.5 Mg Tablet) 0.5 mg PO TID PRN PRN Reason: anxiety Last Admin: 06/01/25 11:51 Dose: 0.5 mg Magnesium Hydroxide (Milk Of Magnesia 30 Ml Oral.Susp) 30 ml PO DAILY PRN PRN Reason: Constipation Last Admin: 06/03/25 06:27 Dose: 30 ml Metoprolol Succinate (Metoprolol Succinate Er 12.5 Mg Halftab.Er.24h) 12.5 mg PO DAILY [facility]; Protocol Last Admin: 06/03/25 08:34 Dose: 12.5 mg Nicotine Polacrilex (Nicotine Polacrilex 2 Mg Gum) 4 mg BUCCAL Q2H PRN PRN Reason: Nicotine Cravings Last Admin: 06/03/25 09:03 Dose: 4 mg Pt Own Medication ( Testosterone 50 Mg/5 Gram (1 %) Gel) 1 packet TOPICAL DAILY [facility] Last Admin: 06/02/25 15:08 Dose: 1 packet Oxcarbazepine (Oxcarbazepine 300 Mg Tablet) 300 mg PO BID [facility] Last Admin: 06/03/25 08:35 Dose: 300 mg Propranolol HCl (Propranolol Hcl 10 Mg Tablet) 10 mg PO TID PRN; Protocol PRN Reason: akathesia Last Admin: 06/01/25 11:51 Dose: 10 mg Risperidone (Risperidone 1 Mg Tablet) 1 mg PO BID PRN PRN Reason: Anxiety Last Admin: 06/01/25 11:51 Dose: 1 mg Saliva Substitute (Dry Mouth [place] 60 Ml [place]) 1 spray MUCOUS MEM Q2H PRN PRN Reason: Dry Mouth Tamsulosin HCl (Tamsulosin Hcl 0.4 Mg Capsule) 0.4 mg PO DAILY [facility] Last Admin: 06/03/25 08:33 Dose: 0.4 mg Trazodone HCl (Trazodone Hcl 50 Mg Tablet) 50 mg PO BEDTIME PRN PRN Reason: Sleep Last Admin: 06/02/25 20:03 Dose: 50 mg Allergies Allergies Allergy/AdvReac Type Severity Reaction Status Date / Time olanzapine (From Zyprexa) AdvReac Severe Anaphylaxis Verified 05/20/25 10:47 clonidine AdvReac Fainting Verified 05/20/25 10:47 haloperidol (From Haldol) AdvReac Anaphylaxis Verified 05/20/25 10:47 ziprasidone (From Geodon) AdvReac speech Verified 05/25/25 13:11 difficulty tuna Allergy Severe Anaphylaxis Uncoded 04/18/24 12:52 Assessment & Plan Assessment & Plan (1) Schizoaffective disorder: Status: Acute Code(s): F25.9 - Schizoaffective disorder, unspecified (2) PTSD (post-traumatic stress disorder): Status: Acute Code(s): F43.10 - Post-traumatic stress disorder, unspecified Plan 59 yo male, history of PTSD, Schizoaffective Disorder, self presented to ER on 05/20 reporting to crisis SI and I am not doing well. He has been essentially mute since admission with reported hyperactive startle response. Collateral contact reports a recent discharge from [facility] as he had presented with psychosis and chest pain. He has has a difficult time caring for himself. Met with pt and Arnol LOBO. Pt is in bed, head covered, he does not startle when his name is called. He sits up, does not speak, does nod his head once and is asked if he would like to meet or if he would like team to contact sister Jyoti to collect background and return to him. There was no response, however he does have minimal eye contact. Hospital course: 05/23 Patient very angry and told marketing writer so. Says that he is thinking about provoking security so that they will beat him up, sit on his chest and caused him to have a heart attack so he will be . Patient very resistant to trying medications to help with anger, saying he has tried everything and nothing works. Patient has been taking Trileptal but otherwise refuses Geodon. Infant Childcare Provider discussed risks/side effects of Clozaril, 1 medication he has not taken before. Patient initially refused but then later said he was willing to try it. He also asked for Valium, saying this was helpful in the past. Of note, corner mirror was broken and hanging; staff removed it. Patient said he did not do it but was like that when he got there only taking Trileptal.... refuses Geodone refuses Testoserone Gel (says too much) refused BP/vitals so no Metopolol Impression: Patient exceedingly angry. He refuses Geodon and so marketing writer will discontinue. Patient eventually amenable to starting Clozaril which can be significantly helpful for psychosis, mood stabilization and anger related to paranoid ideations. Initial concern about catatonia since patient was selectively mute; this seems to have resolved, either due to the Ativan or that he was not catatonic but just angry and resistive to treatment. Either way, Valium can also mitigate catatonic symptoms and given patient's aggressive history and current presentation, marketing writer agrees that if Valium helps him that is preferable. Plan: Admit/CV/15 minute checks Start propranolol 10 mg t.i.d. for akathisia Start clozapine 25 mg q.h.s. Start Valium 10 mg daily Taper and DC Ativan Ativan 1 mg tid-rule out catatonia Discontinue Geodon; patient refuses Continue previous regime Diagnostics as needed and as pt will allow. Collateral contact Encourage milieu engagement Discharge planning 05/26:Attempted to meet with pt and Arnol LOBO. Pt asleep, he would not awaken, but stirred when his name was called. Information provided on Clozapine for pt. He did accept his dose last evening. Will increase to 50 mg this evening. Team reports pt has been approaching the front door and attempting to leave last evening. Not attending groups. Sleep and appetite appear intact. Accepting medications-declines testosterone. 05/27: Met with pt to discuss treatment noncompliance. Team has contacted sister as well to discuss. Discussed discharge with both pt and sister. Pt states, I just want to . I will take my medication. Review of all meds/rationale for meds. Pt struggling with dissociations, paranoia, tinnitus and anxiety. It is too loud here. Discussed with pt team willingness to work with him, however that we cannot force treatment upon him. Discussed the benefits of medications for symptom control. Discussed how invested family is in helping him feel secure in a living environment with resources to assist him. I don't deserve this you know. Team reports pt slept last night, no group attendance, taking meds today, I am sorry, I did not know I refused medicine last night. Plan: Continue tx 05/28/25: Meet with patient in assigned room, denies SI/SIB/HI/AVH, denies anxiety and depression not at this moment as I jsut woke up . Report stomach pain I am sick because of medications . Report pain 5/10. Feeling nausea. Advised to take medication with food to see if it improved. Patient is out to he torres, more soical, was talking and laughing per nursing this morning. Patient slept for 8 hours and started clozaril first dose last night. Nursing also report some bruised that bring concerns. Advised to contact hospitalist for medical concerns as patient in on blood thinner and continue to monitor for any bleeding. 05/29: I don't have access to my phone, I cannot check the internet, I have no advocate except for myself, I have no one to talk with, I feel medicated-no focus, no concentration, no memory. I have no access to medicine literature, I can sleep through the night, I was incontinent of urine last night, groups are a waste-I am irritated, they made the art room one half of what it should be, you want to do an EKG-it is theivery to make money. I am degraded, someone calls for me no one will take a message, groups are useless. Pt refusing of meds, diagnostics, not feeling milieu is adequate. Discussed providing literature for all psychotropics as he does not acknowledge daily discussions of his regime. Angry, targeting, apologetic. Changes made in session-diazepam decreased to 5 mg daily, lorazepam changed to prn only, propranolol decreased to 5 mg tid, trazodone decreased and changed to prn only. The standing psychotropics currently are Clozapine 50 mg, Valium 5 mg, Gabapentin 100 mg tid, Trileptal 300 mg BID and Propranolol 5 mg bid. Pt provocative in his anger- asking team for 80 pills, 80 yards of rope . Later in the afternoon, tells primary RN that meds were never discussed with him- identifies propranolol, tylenol, ASA, hydroxyzine. As a result propranolol is now prn, tylenol, hydroxyzine remain prn and ASA is a medical regime and that is left for pt to refuse at will. Will ask human rights officer and nurse support manager to meet with pt to discuss his concerns. Plan: Refuses diagnostics Several changes made to regime today. Pt, at this time, tells nursing he will refuse meds. 05/30/25: Met with patient in the exam room, he is talkative, pleasant, and cooperative. He his medication yesterday but took medication today. Reports that pharmacy is evil they are contraindicated themself. You give me medications to high and then give me dull feeling with sexually issues and other side effects. Reports feeling tension headache from the right side to the top of his head and sometimes feeling like is stabbing pain even though he denies headache at this moment. Patient spent really long time talking about suicidal thoughts and voices, suicide attempts history. Reported that he had passive SI and AH daily as he can not do anything on the unit. Reports feeling dizzy this morning when he was up. Educate patient on position change slowly to prevent dizziness. Also encourage p.o. fluid intake. He recall the incident a couple of days ago that he was in the bathroom, passing out when this provider asked what happens his right eye as some bruises around the eyes observed. Per nursing, patient slept for 7 hours. Vital signs stable. No unsafe behavior noted. Compiant with meds this morning. ANC 4.5 WNL. 05/31/25: Patient continues to be negative but denies SI and AVH today. Report that he pees all the time . Mood is not good . He wants to be on DNR. He does not want staff to take on him every 5 min states that he won't do anything here and nothing here for him to kill himself. Request to take 5 min check away. Visible at times, appears miserable, restless, disorganized, negative, not future focus. Refuse some of his meds. Continue with curent plan,encourage to compliant with meds and consistently taking them for better result. 06/01/25: Patient is negative, report side effects from possible of all medications. Report he does not like Valium how it makes he feels but it is helpful for anixety. Report chemical induced sleep when asked if he was able to sleep last night. Report medication makes me hungry, tired, dry mouth and feeling drain, low energy . Brain feels sluggish . Later on reports his brain does not sleep all I do is think, and think and think . Report I am having intrusive thoughts. I am having bad thoughts. Feeling like everyone is lying to me . Patient also later on says that he used to be on Adderall and asked if he can restart on it. Discuss with patient, it not impossibly but it is not a appropriate time. We need to see him more stable first. He agrees to have Clozaril up to total of 75mg. Disorganized, racing thoughts, psychotic, paranoid, irritable. Advised to take PRN which he did ask take meds. He took all meds this morning but selective yesterday. Covid/flu: negative. 06/02:Reports feeling weak, tired, having dry mouth, joints ache, forgetful, blurred vision. Memory is poor, states he did not recall his daughter visiting. Too much activity in his brain, too much chaos, starving for an answer, everything is a loose association that does not make sense he reports. Full review of meds- asks to re-start chlorpromazine prn as he felt it was helpful. Discussed use of Adderall XR 20 mg by history-he reports it was very helpful and asks to trial again. Gabapentin increased to 200 mg tid as it has been helpful in the past. Discussed ECT as well. Plan: Chlorpromazine 50 mg qid prn Increase Gabapentin to 200 mg tid 06/03: Review of regime, SE, and pt's request to re-trial Adderall. Sx of concern which are not well managed include racing of thought, loose associations described by pt but not evidenced in dialogue and chaos in my head . Discussed potential exacerbation of those sx. Discussed cardiac hx- reports stenting 08/27/24 with 95% and 40% occlusion. EKG ordered and is wnl today. Discussed sx which may be helped with Adderall trial-weakness, memory, focus, lack of energy. Review of increase in Clozapine, blurring of vision- ?Trileptal. Pt will review literature on Lamictal. Reports constipation-requested fleet-sennosides ordered as they have been effective by history. Plan: EKG WNL. Adderall XR 10 mg x one trial dose on 06/04. Continue remainder of regime. Reason for continued inpatient stay Substantial Risk for: rapid decompensation Time Spent With Patient Time: Total time managing care of this patient today ____ minutes.
[2025-06-03 20:18] VITALS: BP 105/67; PULSE 92; RESP 18; TEMP 37.1; O2SAT 96
[2025-06-03] MEDS: Magnesium Hydrox/Alum Hydrox 30 ML ORAL.SUSP PO (22:36)
--- NOTE | 2025-06-04 06:32 | PC.NURSE ---
Patient reported to TW that he had an extra large bowel movement, around 0630 and he feels relieved.
[2025-06-04 07:00] VITALS: BMI 32.5
[2025-06-04 08:00] VITALS: BP 157/63; PULSE 81; RESP 16; TEMP 37.1; O2SAT 95
--- NOTE | 2025-06-04 09:11 | P.PNPSI_ITS ---
Subjective Subjective Date of Service: 06/04/25 Reason For Visit: PTSD, schizoaffective disorder Subjective Notes: Conditional Voluntary Healthcare Proxy: No Guardianship: No Medical Problems Affecting Mental Status: No Interim History: Adderall XR trial 10 mg effective per pt report. Engaged, attending groups, working in treatment to address problems that brought him into the hospital. Discussed what life structure he needs to remain well. Family meeting next week. Medication Compliance: Yes Side effects from medications: No Attending Groups: Yes Review of Systems Acute medical concerns: No Medical Review of Systems: unchanged Review of Systems Review of Systems Denies Mental Status Exam Mental Status Exam Patient Appearance: Appropriate Patient Orientation: Person, Place, Time and Situation Level of Consciousness: Alert Patient Behavior: Talkative Mood Description: Constricted Affect Description: Constricted Patient Cognition Impaired: No Ability to Follow Directions: Good Speech Pattern: Spontaneous Speech Memory Description: Remote Impaired Hallucinations: None Perceptual Disturbances: Depersonalization and Derealization Thought Process: Distracted and Rumination Thought Content: positive for Circumstantial and positive for Suicidal Ideation Depressive Symptoms: Diff. Making Decisions and Thoughts of /Suicide Judgement: Fair Diagnostics Vital Signs (24Hr): Vital Signs - 24 hr 06/03/25 20:18 06/04/25 08:00 Temperature 98.8 F 98.8 F Pulse Rate 92 81 Respiratory Rate 18 16 Blood Pressure 105/67 157/63 H Pulse Oximetry 96 95 Oxygen Delivery Method Room Air Room Air BMI result Body Mass Index 30.7 Labs 05/20/25 11:22 05/20/25 11:22 Labs: Laboratory Results - last 48 hr 06/03/25 08:11 Absolute Neuts (auto) 4.5 Medications Medications Current Medications Acetaminophen (Acetaminophen 325 Mg Tablet) 650 mg PO Q6H PRN PRN Reason: Headache/Pain, Scale 1-10 Last Admin: 06/01/25 20:06 Dose: 650 mg Al Hydroxide/Mg Hydroxide (Magnesium Hydrox/Alum Hydrox 30 Ml Oral.Susp) 30 ml PO Q6H PRN PRN Reason: Heartburn/Nausea Last Admin: 06/03/25 22:36 Dose: 30 ml Aspirin (Aspirin Enteric Coated 81 Mg Tablet.) 81 mg PO DAILY [facility] Last Admin: 06/03/25 08:34 Dose: 81 mg Atorvastatin Calcium (Atorvastatin Calcium 80 Mg Tablet) 80 mg PO BEDTIME [facility] Last Admin: 06/03/25 22:27 Dose: 80 mg Chlorpromazine HCl (Chlorpromazine Hcl 25 Mg Tablet) 50 mg PO QID PRN PRN Reason: agitation,psychosis Clopidogrel Bisulfate (Clopidogrel Bisulfate 75 Mg Tablet) 75 mg PO DAILY [facility] Last Admin: 06/03/25 08:33 Dose: 75 mg Clozapine (Clozapine 25 Mg Tablet) 50 mg PO BEDTIME [facility] Last Admin: 06/03/25 22:28 Dose: 50 mg Clozapine (Clozapine 25 Mg Tablet) 25 mg PO DAILY [facility] Last Admin: 06/03/25 08:33 Dose: 25 mg Diazepam (Diazepam 5 Mg Tablet) 5 mg PO BID PRN PRN Reason: anxiety/restlessness Last Admin: 06/03/25 22:31 Dose: 5 mg Gabapentin (Gabapentin 100 Mg Capsule) 200 mg PO TID@0800,1400,2000 [facility] Last Admin: 06/03/25 22:29 Dose: 200 mg Hydroxyzine HCl (Hydroxyzine Hcl 25 Mg Tablet) 25 mg PO Q6H PRN PRN Reason: mild anxiety Last Admin: 05/30/25 18:05 Dose: 25 mg Ibuprofen (Ibuprofen 800 Mg Tablet) 800 mg PO Q8H PRN PRN Reason: sciatic nerve pain Last Admin: 06/03/25 16:58 Dose: 800 mg Loperamide HCl (Loperamide Hcl 2 Mg Capsule) 2 mg PO Q4H PRN PRN Reason: Diarrhea Last Admin: 05/22/25 21:19 Dose: 2 mg Lorazepam (Lorazepam 0.5 Mg Tablet) 0.5 mg PO TID PRN PRN Reason: anxiety Last Admin: 06/01/25 11:51 Dose: 0.5 mg Magnesium Hydroxide (Milk Of Magnesia 30 Ml Oral.Susp) 30 ml PO DAILY PRN PRN Reason: Constipation Last Admin: 06/03/25 06:27 Dose: 30 ml Metoprolol Succinate (Metoprolol Succinate Er 12.5 Mg Halftab.Er.24h) 12.5 mg PO DAILY [facility]; Protocol Last Admin: 06/03/25 08:34 Dose: 12.5 mg Nicotine Polacrilex (Nicotine Polacrilex 2 Mg Gum) 4 mg BUCCAL Q2H PRN PRN Reason: Nicotine Cravings Last Admin: 06/04/25 06:29 Dose: 4 mg Pt Own Medication ( Testosterone 50 Mg/5 Gram (1 %) Gel) 1 packet TOPICAL DAILY [facility] Last Admin: 06/02/25 15:08 Dose: 1 packet Oxcarbazepine (Oxcarbazepine 300 Mg Tablet) 300 mg PO BID [facility] Last Admin: 06/03/25 22:28 Dose: 300 mg Propranolol HCl (Propranolol Hcl 10 Mg Tablet) 10 mg PO TID PRN; Protocol PRN Reason: akathesia Last Admin: 06/01/25 11:51 Dose: 10 mg Risperidone (Risperidone 1 Mg Tablet) 1 mg PO BID PRN PRN Reason: Anxiety Last Admin: 06/01/25 11:51 Dose: 1 mg Saliva Substitute (Dry Mouth Helena 60 Ml Helena) 1 spray MUCOUS MEM Q2H PRN PRN Reason: Dry Mouth Senna (Sennosides 8.6 Mg Tablet) 17.2 mg PO DAILY PRN PRN Reason: Constipation Last Admin: 06/04/25 06:30 Dose: 17.2 mg Tamsulosin HCl (Tamsulosin Hcl 0.4 Mg Capsule) 0.4 mg PO DAILY [facility] Last Admin: 06/03/25 08:33 Dose: 0.4 mg Trazodone HCl (Trazodone Hcl 50 Mg Tablet) 50 mg PO BEDTIME PRN PRN Reason: Sleep Last Admin: 06/03/25 22:31 Dose: 50 mg Allergies Allergies Allergy/AdvReac Type Severity Reaction Status Date / Time olanzapine (From Zyprexa) AdvReac Severe Anaphylaxis Verified 05/20/25 10:47 clonidine AdvReac Fainting Verified 05/20/25 10:47 haloperidol (From Haldol) AdvReac Anaphylaxis Verified 05/20/25 10:47 ziprasidone (From Geodon) AdvReac speech Verified 05/25/25 13:11 difficulty tuna Allergy Severe Anaphylaxis Uncoded 04/18/24 12:52 Assessment & Plan Assessment & Plan (1) Schizoaffective disorder: Status: Acute Code(s): F25.9 - Schizoaffective disorder, unspecified (2) PTSD (post-traumatic stress disorder): Status: Acute Code(s): F43.10 - Post-traumatic stress disorder, unspecified Plan 59 yo male, history of PTSD, Schizoaffective Disorder, self presented to ER on 05/20 reporting to crisis SI and I am not doing well. He has been essentially mute since admission with reported hyperactive startle response. Collateral contact reports a recent discharge from [facility] as he had presented with psychosis and chest pain. He has has a difficult time caring for himself. Met with pt and Arnol LOBO. Pt is in bed, head covered, he does not startle when his name is called. He sits up, does not speak, does nod his head once and is asked if he would like to meet or if he would like team to contact sister Jyoti to collect background and return to him. There was no response, however he does have minimal eye contact. Hospital course: 05/23 Patient very angry and told selling underwriter so. Says that he is thinking about provoking security so that they will beat him up, sit on his chest and caused him to have a heart attack so he will be . Patient very resistant to trying medications to help with anger, saying he has tried everything and nothing works. Patient has been taking Trileptal but otherwise refuses Geodon. [employer] discussed risks/side effects of Clozaril, 1 medication he has not taken before. Patient initially refused but then later said he was willing to try it. He also asked for Valium, saying this was helpful in the past. Of note, corner mirror was broken and hanging; staff removed it. Patient said he did not do it but was like that when he got there only taking Trileptal.... refuses Geodone refuses Testoserone Gel (says too much) refused BP/vitals so no Metopolol Impression: Patient exceedingly angry. He refuses Geodon and so selling underwriter will discontinue. Patient eventually amenable to starting Clozaril which can be significantly helpful for psychosis, mood stabilization and anger related to paranoid ideations. Initial concern about catatonia since patient was selectively mute; this seems to have resolved, either due to the Ativan or that he was not catatonic but just angry and resistive to treatment. Either way, Valium can also mitigate catatonic symptoms and given patient's aggressive history and current presentation, selling underwriter agrees that if Valium helps him that is preferable. Plan: Admit/CV/15 minute checks Start propranolol 10 mg t.i.d. for akathisia Start clozapine 25 mg q.h.s. Start Valium 10 mg daily Taper and DC Ativan Ativan 1 mg tid-rule out catatonia Discontinue Geodon; patient refuses Continue previous regime Diagnostics as needed and as pt will allow. Collateral contact Encourage milieu engagement Discharge planning 05/26:Attempted to meet with pt and Arnol LOBO. Pt asleep, he would not awaken, but stirred when his name was called. Information provided on Clozapine for pt. He did accept his dose last evening. Will increase to 50 mg this evening. Team reports pt has been approaching the front door and attempting to leave last evening. Not attending groups. Sleep and appetite appear intact. Accepting medications-declines testosterone. 05/27: Met with pt to discuss treatment noncompliance. Team has contacted sister as well to discuss. Discussed discharge with both pt and sister. Pt states, I just want to . I will take my medication. Review of all meds/rationale for meds. Pt struggling with dissociations, paranoia, tinnitus and anxiety. It is too loud here. Discussed with pt team willingness to work with him, however that we cannot force treatment upon him. Discussed the benefits of medications for symptom control. Discussed how invested family is in helping him feel secure in a living environment with resources to assist him. I don't deserve this you know. Team reports pt slept last night, no group attendance, taking meds today, I am sorry, I did not know I refused medicine last night. Plan: Continue tx 05/28/25: Meet with patient in assigned room, denies SI/SIB/HI/AVH, denies anxiety and depression not at this moment as I jsut woke up . Report stomach pain I am sick because of medications . Report pain 5/10. Feeling nausea. Advised to take medication with food to see if it improved. Patient is out to he torres, more soical, was talking and laughing per nursing this morning. Patient slept for 8 hours and started clozaril first dose last night. Nursing also report some bruised that bring concerns. Advised to contact hospitalist for medical concerns as patient in on blood thinner and continue to monitor for any bleeding. 05/29: I don't have access to my phone, I cannot check the internet, I have no advocate except for myself, I have no one to talk with, I feel medicated-no focus, no concentration, no memory. I have no access to medicine literature, I can sleep through the night, I was incontinent of urine last night, groups are a waste-I am irritated, they made the art room one half of what it should be, you want to do an EKG-it is theivery to make money. I am degraded, someone calls for me no one will take a message, groups are useless. Pt refusing of meds, diagnostics, not feeling milieu is adequate. Discussed providing literature for all psychotropics as he does not acknowledge daily discussions of his regime. Angry, targeting, apologetic. Changes made in session-diazepam decreased to 5 mg daily, lorazepam changed to prn only, propranolol decreased to 5 mg tid, trazodone decreased and changed to prn only. The standing psychotropics currently are Clozapine 50 mg, Valium 5 mg, Gabapentin 100 mg tid, Trileptal 300 mg BID and Propranolol 5 mg bid. Pt provocative in his anger- asking team for 80 pills, 80 yards of rope . Later in the afternoon, tells primary RN that meds were never discussed with him- identifies propranolol, tylenol, ASA, hydroxyzine. As a result propranolol is now prn, tylenol, hydroxyzine remain prn and ASA is a medical regime and that is left for pt to refuse at will. Will ask human rights officer and nurse product support manager to meet with pt to discuss his concerns. Plan: Refuses diagnostics Several changes made to regime today. Pt, at this time, tells nursing he will refuse meds. 05/30/25: Met with patient in the exam room, he is talkative, pleasant, and cooperative. He his medication yesterday but took medication today. Reports that pharmacy is evil they are contraindicated themself. You give me medications to high and then give me dull feeling with sexually issues and other side effects. Reports feeling tension headache from the right side to the top of his head and sometimes feeling like is stabbing pain even though he denies headache at this moment. Patient spent really long time talking about suicidal thoughts and voices, suicide attempts history. Reported that he had passive SI and AH daily as he can not do anything on the unit. Reports feeling dizzy this morning when he was up. Educate patient on position change slowly to prevent dizziness. Also encourage p.o. fluid intake. He recall the incident a couple of days ago that he was in the bathroom, passing out when this provider asked what happens his right eye as some bruises around the eyes observed. Per nursing, patient slept for 7 hours. Vital signs stable. No unsafe behavior noted. Compiant with meds this morning. ANC 4.5 WNL. 05/31/25: Patient continues to be negative but denies SI and AVH today. Report that he pees all the time . Mood is not good . He wants to be on DNR. He does not want staff to take on him every 5 min states that he won't do anything here and nothing here for him to kill himself. Request to take 5 min check away. Visible at times, appears miserable, restless, disorganized, negative, not future focus. Refuse some of his meds. Continue with curent plan,encourage to compliant with meds and consistently taking them for better result. 06/01/25: Patient is negative, report side effects from possible of all medications. Report he does not like Valium how it makes he feels but it is helpful for anixety. Report chemical induced sleep when asked if he was able to sleep last night. Report medication makes me hungry, tired, dry mouth and feeling drain, low energy . Brain feels sluggish . Later on reports his brain does not sleep all I do is think, and think and think . Report I am having intrusive thoughts. I am having bad thoughts. Feeling like everyone is lying to me . Patient also later on says that he used to be on Adderall and asked if he can restart on it. Discuss with patient, it not impossibly but it is not a appropriate time. We need to see him more stable first. He agrees to have Clozaril up to total of 75mg. Disorganized, racing thoughts, psychotic, paranoid, irritable. Advised to take PRN which he did ask take meds. He took all meds this morning but selective yesterday. Covid/flu: negative. 06/02:Reports feeling weak, tired, having dry mouth, joints ache, forgetful, blurred vision. Memory is poor, states he did not recall his daughter visiting. Too much activity in his brain, too much chaos, starving for an answer, everything is a loose association that does not make sense he reports. Full review of meds- asks to re-start chlorpromazine prn as he felt it was helpful. Discussed use of Adderall XR 20 mg by history-he reports it was very helpful and asks to trial again. Gabapentin increased to 200 mg tid as it has been helpful in the past. Discussed ECT as well. Plan: Chlorpromazine 50 mg qid prn Increase Gabapentin to 200 mg tid 06/03: Review of regime, SE, and pt's request to re-trial Adderall. Sx of concern which are not well managed include racing of thought, loose associations described by pt but not evidenced in dialogue and chaos in my head . Discussed potential exacerbation of those sx. Discussed cardiac hx- reports stenting 08/27/24 with 95% and 40% occlusion. EKG ordered and is wnl today. Discussed sx which may be helped with Adderall trial-weakness, memory, focus, lack of energy. Review of increase in Clozapine, blurring of vision- ?Trileptal. Pt will review literature on Lamictal. Reports constipation-requested fleet-sennosides ordered as they have been effective by history. Plan: EKG WNL. Adderall XR 10 mg x one trial dose on 06/04. Continue remainder of regime. 06/04: Pt with benefit from Adderall. Will continue XR at 5 mg. Reason for continued inpatient stay Substantial Risk for: rapid decompensation Time Spent With Patient Time: Total time managing care of this patient today ____ minutes.
[2025-06-04] MEDS: Aspirin Enteric Coated 81 MG TABLET.DR PO (10:11)
[2025-06-04] MEDS: Dextroamphetamine/Amphetamine XR 10 MG CAP.ER.24H PO (10:12)
[2025-06-04] MEDS: Metoprolol Succinate ER 12.5 MG HALFTAB.ER.24H PO (10:12)
[2025-06-04 19:50] VITALS: BP 135/86; PULSE 83; RESP 18; TEMP 36.9; O2SAT 96
[2025-06-05 08:00] VITALS: BP 133/86; PULSE 76; RESP 20; TEMP 36.6; O2SAT 95
[2025-06-05] MEDS: Dextroamphetamine/Amphetamine XR 5 MG CAP.ER.24H PO (09:10)
[2025-06-05] MEDS: Aspirin Enteric Coated 81 MG TABLET.DR PO (09:11)
[2025-06-05] MEDS: Metoprolol Succinate ER 12.5 MG HALFTAB.ER.24H PO (09:11)
--- NOTE | 2025-06-05 10:15 | P.PNPSI_ITS ---
Subjective Subjective Date of Service: 06/05/25 Reason For Visit: PTSD, schizoaffective disorder Subjective Notes: Conditional Voluntary Healthcare Proxy: No Guardianship: No Medical Problems Affecting Mental Status: No Interim History: URI sx today with congestion. Diagnostics are ordered. Continued discussion today about what he wants for himself to feel secure and stable in community and not having to be hospitalized as much as he reports. Discussed conversation with his sister on 06/04, lack of direct contact with his father, and concerns. Family meeting 06/10. Medication Compliance: Yes Side effects from medications: No Attending Groups: Yes Review of Systems Acute medical concerns: No Medical Review of Systems: unchanged Review of Systems Review of Systems URI sx Mental Status Exam Mental Status Exam Patient Appearance: Appropriate Patient Orientation: Person, Place, Time and Situation Level of Consciousness: Alert Patient Behavior: Talkative Mood Description: Constricted Affect Description: Constricted Patient Cognition Impaired: No Ability to Follow Directions: Good Speech Pattern: Spontaneous Speech Memory Description: Remote Impaired Hallucinations: None Perceptual Disturbances: Depersonalization and Derealization Thought Process: Distracted and Rumination Thought Content: positive for Circumstantial and positive for Suicidal Ideation ( I don't want to . ) Depressive Symptoms: Diff. Making Decisions and Thoughts of /Suicide ( I don't want to . ) Judgement: Fair Diagnostics Vital Signs (24Hr): Vital Signs - 24 hr 06/04/25 19:50 06/05/25 08:00 Temperature 98.4 F 98 F Pulse Rate 83 76 Respiratory Rate 18 20 Blood Pressure 135/86 133/86 Pulse Oximetry 96 95 Oxygen Delivery Method Room Air Room Air BMI result Body Mass Index 32.5 Labs 05/20/25 11:22 05/20/25 11:22 Medications Medications Current Medications Acetaminophen (Acetaminophen 325 Mg Tablet) 650 mg PO Q6H PRN PRN Reason: Headache/Pain, Scale 1-10 Last Admin: 06/01/25 20:06 Dose: 650 mg Al Hydroxide/Mg Hydroxide (Magnesium Hydrox/Alum Hydrox 30 Ml Oral.Susp) 30 ml PO Q6H PRN PRN Reason: Heartburn/Nausea Last Admin: 06/03/25 22:36 Dose: 30 ml Aspirin (Aspirin Enteric Coated 81 Mg Tablet.Dr) 81 mg PO DAILY RODGER Last Admin: 06/05/25 09:11 Dose: 81 mg Atorvastatin Calcium (Atorvastatin Calcium 80 Mg Tablet) 80 mg PO BEDTIME RODGER Last Admin: 06/04/25 20:57 Dose: 80 mg Chlorpromazine HCl (Chlorpromazine Hcl 25 Mg Tablet) 50 mg PO QID PRN PRN Reason: agitation,psychosis Clopidogrel Bisulfate (Clopidogrel Bisulfate 75 Mg Tablet) 75 mg PO DAILY [facility] Last Admin: 06/05/25 09:11 Dose: 75 mg Clozapine (Clozapine 25 Mg Tablet) 50 mg PO BEDTIME RODGER Last Admin: 06/04/25 20:57 Dose: 50 mg Clozapine (Clozapine 25 Mg Tablet) 25 mg PO DAILY [facility] Last Admin: 06/05/25 09:11 Dose: 25 mg Diazepam (Diazepam 5 Mg Tablet) 5 mg PO BID PRN PRN Reason: anxiety/restlessness Last Admin: 06/04/25 20:57 Dose: 5 mg Gabapentin (Gabapentin 100 Mg Capsule) 200 mg PO TID@0800,1400,2000 [facility] Last Admin: 06/05/25 09:09 Dose: 200 mg Hydroxyzine HCl (Hydroxyzine Hcl 25 Mg Tablet) 25 mg PO Q6H PRN PRN Reason: mild anxiety Last Admin: 05/30/25 18:05 Dose: 25 mg Ibuprofen (Ibuprofen 800 Mg Tablet) 800 mg PO Q8H PRN PRN Reason: sciatic nerve pain Last Admin: 06/05/25 07:20 Dose: 800 mg Loperamide HCl (Loperamide Hcl 2 Mg Capsule) 2 mg PO Q4H PRN PRN Reason: Diarrhea Last Admin: 05/22/25 21:19 Dose: 2 mg Lorazepam (Lorazepam 0.5 Mg Tablet) 0.5 mg PO TID PRN PRN Reason: anxiety Last Admin: 06/01/25 11:51 Dose: 0.5 mg Magnesium Hydroxide (Milk Of Magnesia 30 Ml Oral.Susp) 30 ml PO DAILY PRN PRN Reason: Constipation Last Admin: 06/03/25 06:27 Dose: 30 ml Metoprolol Succinate (Metoprolol Succinate Er 12.5 Mg Halftab.Er.24h) 12.5 mg PO DAILY [facility]; Protocol Last Admin: 06/05/25 09:11 Dose: 12.5 mg Nicotine Polacrilex (Nicotine Polacrilex 2 Mg Gum) 4 mg BUCCAL Q2H PRN PRN Reason: Nicotine Cravings Last Admin: 06/05/25 07:20 Dose: 4 mg Pt Own Medication ( Testosterone 50 Mg/5 Gram (1 %) Gel) 1 packet TOPICAL DAILY [facility] Last Admin: 06/04/25 10:57 Dose: Not Given Oxcarbazepine (Oxcarbazepine 300 Mg Tablet) 300 mg PO BID [facility] Last Admin: 06/05/25 09:11 Dose: 300 mg Propranolol HCl (Propranolol Hcl 10 Mg Tablet) 10 mg PO TID PRN; Protocol PRN Reason: akathesia Last Admin: 06/04/25 20:57 Dose: 10 mg Risperidone (Risperidone 1 Mg Tablet) 1 mg PO BID PRN PRN Reason: Anxiety Last Admin: 06/04/25 20:57 Dose: 1 mg Saliva Substitute (Dry Mouth [place] 60 Ml [place]) 1 spray MUCOUS MEM Q2H PRN PRN Reason: Dry Mouth Senna (Sennosides 8.6 Mg Tablet) 17.2 mg PO DAILY PRN PRN Reason: Constipation Last Admin: 06/04/25 06:30 Dose: 17.2 mg Tamsulosin HCl (Tamsulosin Hcl 0.4 Mg Capsule) 0.4 mg PO DAILY [facility] Last Admin: 06/05/25 09:11 Dose: 0.4 mg Trazodone HCl (Trazodone Hcl 50 Mg Tablet) 50 mg PO BEDTIME PRN PRN Reason: Sleep Last Admin: 06/04/25 20:57 Dose: 50 mg Allergies Allergies Allergy/AdvReac Type Severity Reaction Status Date / Time olanzapine (From Zyprexa) AdvReac Severe Anaphylaxis Verified 05/20/25 10:47 clonidine AdvReac Fainting Verified 05/20/25 10:47 haloperidol (From Haldol) AdvReac Anaphylaxis Verified 05/20/25 10:47 ziprasidone (From Geodon) AdvReac speech Verified 05/25/25 13:11 difficulty tuna Allergy Severe Anaphylaxis Uncoded 04/18/24 12:52 Assessment & Plan Assessment & Plan (1) Schizoaffective disorder: Status: Acute Code(s): F25.9 - Schizoaffective disorder, unspecified (2) PTSD (post-traumatic stress disorder): Status: Acute Code(s): F43.10 - Post-traumatic stress disorder, unspecified Plan 59 yo male, history of PTSD, Schizoaffective Disorder, self presented to ER on 05/20 reporting to crisis SI and I am not doing well. He has been essentially mute since admission with reported hyperactive startle response. Collateral contact reports a recent discharge from [facility] as he had presented with psychosis and chest pain. He has has a difficult time caring for himself. Met with pt and Arnol LOBO. Pt is in bed, head covered, he does not startle when his name is called. He sits up, does not speak, does nod his head once and is asked if he would like to meet or if he would like team to contact sister Jyoti to collect background and return to him. There was no response, however he does have minimal eye contact. Hospital course: 05/23 Patient very angry and told public relations writer so. Says that he is thinking about provoking security so that they will beat him up, sit on his chest and caused him to have a heart attack so he will be . Patient very resistant to trying medications to help with anger, saying he has tried everything and nothing works. Patient has been taking Trileptal but otherwise refuses Geodon. Mortgage Loan Coordinator discussed risks/side effects of Clozaril, 1 medication he has not taken before. Patient initially refused but then later said he was willing to try it. He also asked for Valium, saying this was helpful in the past. Of note, corner mirror was broken and hanging; staff removed it. Patient said he did not do it but was like that when he got there only taking Trileptal.... refuses Geodone refuses Testoserone Gel (says too much) refused BP/vitals so no Metopolol Impression: Patient exceedingly angry. He refuses Geodon and so public relations writer will discontinue. Patient eventually amenable to starting Clozaril which can be significantly helpful for psychosis, mood stabilization and anger related to paranoid ideations. Initial concern about catatonia since patient was selectively mute; this seems to have resolved, either due to the Ativan or that he was not catatonic but just angry and resistive to treatment. Either way, Valium can also mitigate catatonic symptoms and given patient's aggressive history and current presentation, public relations writer agrees that if Valium helps him that is preferable. Plan: Admit/CV/15 minute checks Start propranolol 10 mg t.i.d. for akathisia Start clozapine 25 mg q.h.s. Start Valium 10 mg daily Taper and DC Ativan Ativan 1 mg tid-rule out catatonia Discontinue Geodon; patient refuses Continue previous regime Diagnostics as needed and as pt will allow. Collateral contact Encourage milieu engagement Discharge planning 05/26:Attempted to meet with pt and Arnol LOBO. Pt asleep, he would not awaken, but stirred when his name was called. Information provided on Clozapine for pt. He did accept his dose last evening. Will increase to 50 mg this evening. Team reports pt has been approaching the front door and attempting to leave last evening. Not attending groups. Sleep and appetite appear intact. Accepting medications-declines testosterone. 05/27: Met with pt to discuss treatment noncompliance. Team has contacted sister as well to discuss. Discussed discharge with both pt and sister. Pt states, I just want to . I will take my medication. Review of all meds/rationale for meds. Pt struggling with dissociations, paranoia, tinnitus and anxiety. It is too loud here. Discussed with pt team willingness to work with him, however that we cannot force treatment upon him. Discussed the benefits of medications for symptom control. Discussed how invested family is in helping him feel secure in a living environment with resources to assist him. I don't deserve this you know. Team reports pt slept last night, no group attendance, taking meds today, I am sorry, I did not know I refused medicine last night. Plan: Continue tx 05/28/25: Meet with patient in assigned room, denies SI/SIB/HI/AVH, denies anxiety and depression not at this moment as I jsut woke up . Report stomach pain I am sick because of medications . Report pain 5/10. Feeling nausea. Advised to take medication with food to see if it improved. Patient is out to he torres, more soical, was talking and laughing per nursing this morning. Patient slept for 8 hours and started clozaril first dose last night. Nursing also report some bruised that bring concerns. Advised to contact hospitalist for medical concerns as patient in on blood thinner and continue to monitor for any bleeding. 05/29: I don't have access to my phone, I cannot check the internet, I have no advocate except for myself, I have no one to talk with, I feel medicated-no focus, no concentration, no memory. I have no access to medicine literature, I can sleep through the night, I was incontinent of urine last night, groups are a waste-I am irritated, they made the art room one half of what it should be, you want to do an EKG-it is theivery to make money. I am degraded, someone calls for me no one will take a message, groups are useless. Pt refusing of meds, diagnostics, not feeling milieu is adequate. Discussed providing literature for all psychotropics as he does not acknowledge daily discussions of his regime. Angry, targeting, apologetic. Changes made in session-diazepam decreased to 5 mg daily, lorazepam changed to prn only, propranolol decreased to 5 mg tid, trazodone decreased and changed to prn only. The standing psychotropics currently are Clozapine 50 mg, Valium 5 mg, Gabapentin 100 mg tid, Trileptal 300 mg BID and Propranolol 5 mg bid. Pt provocative in his anger- asking team for 80 pills, 80 yards of rope . Later in the afternoon, tells primary RN that meds were never discussed with him- identifies propranolol, tylenol, ASA, hydroxyzine. As a result propranolol is now prn, tylenol, hydroxyzine remain prn and ASA is a medical regime and that is left for pt to refuse at will. Will ask human rights officer and nurse video manager to meet with pt to discuss his concerns. Plan: Refuses diagnostics Several changes made to regime today. Pt, at this time, tells nursing he will refuse meds. 05/30/25: Met with patient in the exam room, he is talkative, pleasant, and cooperative. He his medication yesterday but took medication today. Reports that pharmacy is evil they are contraindicated themself. You give me medications to high and then give me dull feeling with sexually issues and other side effects. Reports feeling tension headache from the right side to the top of his head and sometimes feeling like is stabbing pain even though he denies headache at this moment. Patient spent really long time talking about suicidal thoughts and voices, suicide attempts history. Reported that he had passive SI and AH daily as he can not do anything on the unit. Reports feeling dizzy this morning when he was up. Educate patient on position change slowly to prevent dizziness. Also encourage p.o. fluid intake. He recall the incident a couple of days ago that he was in the bathroom, passing out when this provider asked what happens his right eye as some bruises around the eyes observed. Per nursing, patient slept for 7 hours. Vital signs stable. No unsafe behavior noted. Compiant with meds this morning. ANC 4.5 WNL. 05/31/25: Patient continues to be negative but denies SI and AVH today. Report that he pees all the time . Mood is not good . He wants to be on DNR. He does not want staff to take on him every 5 min states that he won't do anything here and nothing here for him to kill himself. Request to take 5 min check away. Visible at times, appears miserable, restless, disorganized, negative, not future focus. Refuse some of his meds. Continue with curent plan,encourage to compliant with meds and consistently taking them for better result. 06/01/25: Patient is negative, report side effects from possible of all medications. Report he does not like Valium how it makes he feels but it is helpful for anixety. Report chemical induced sleep when asked if he was able to sleep last night. Report medication makes me hungry, tired, dry mouth and feeling drain, low energy . Brain feels sluggish . Later on reports his brain does not sleep all I do is think, and think and think . Report I am having intrusive thoughts. I am having bad thoughts. Feeling like everyone is lying to me . Patient also later on says that he used to be on Adderall and asked if he can restart on it. Discuss with patient, it not impossibly but it is not a appropriate time. We need to see him more stable first. He agrees to have Clozaril up to total of 75mg. Disorganized, racing thoughts, psychotic, paranoid, irritable. Advised to take PRN which he did ask take meds. He took all meds this morning but selective yesterday. Covid/flu: negative. 06/02:Reports feeling weak, tired, having dry mouth, joints ache, forgetful, blurred vision. Memory is poor, states he did not recall his daughter visiting. Too much activity in his brain, too much chaos, starving for an answer, everything is a loose association that does not make sense he reports. Full review of meds- asks to re-start chlorpromazine prn as he felt it was helpful. Discussed use of Adderall XR 20 mg by history-he reports it was very helpful and asks to trial again. Gabapentin increased to 200 mg tid as it has been helpful in the past. Discussed ECT as well. Plan: Chlorpromazine 50 mg qid prn Increase Gabapentin to 200 mg tid 06/03: Review of regime, SE, and pt's request to re-trial Adderall. Sx of concern which are not well managed include racing of thought, loose associations described by pt but not evidenced in dialogue and chaos in my head . Discussed potential exacerbation of those sx. Discussed cardiac hx- reports stenting 08/27/24 with 95% and 40% occlusion. EKG ordered and is wnl today. Discussed sx which may be helped with Adderall trial-weakness, memory, focus, lack of energy. Review of increase in Clozapine, blurring of vision- ?Trileptal. Pt will review literature on Lamictal. Reports constipation-requested fleet-sennosides ordered as they have been effective by history. Plan: EKG WNL. Adderall XR 10 mg x one trial dose on 06/04. Continue remainder of regime. 06/04: Pt with benefit from Adderall. Will continue XR at 5 mg. 06/05: Throat culture, SARS/Flu/RSV Continue tx Reason for continued inpatient stay Substantial Risk for: rapid decompensation Time Spent With Patient Time: Total time managing care of this patient today ____ minutes.
[2025-06-05 17:43] LABS: IDNOW Serial# 55D5AD1C
[2025-06-05 17:44] LABS: Strep A Nucleic Acid Negative (Negative)
[2025-06-05 18:06] LABS: Resp Syncy Virus RNA Qual PCR NEGATIVE (Negative); SARS COV2 PCR INHOUSE NEGATIVE (Negative)
[2025-06-05 20:00] VITALS: BP 124/74; PULSE 92; RESP 18; TEMP 37.1; O2SAT 96
--- NOTE | 2025-06-06 | ECG_ITS ---
Test Reason : check up Blood Pressure : */* mmHG Vent. Rate : 75 BPM Atrial Rate : 75 BPM P-R Int : 176 ms QRS Dur : 90 ms QT Int : 390 ms P-R-T Axes : 24 23 23 degrees QTcB Int : 435 ms Normal sinus rhythm Normal ECG When compared with ECG of 03-Jun-2025 16:47, No significant change was found Referred By: Zhanna Lawton Electronically Signed By: YENNI AVINA
--- NOTE | 2025-06-06 07:27 | PC.NURSE ---
Overnight Event, Patient woke to use BR, [facility] was in with [place] and [facility] [place] was unsteady and had almost fell twice. Pt requesting water and VS. RN in to assess patient, aphasia noted, weakness and fatigue. Patient denies headache, blurry vision or N/V. Upon assessment pt able to follow finger, difficulty with stating date, strength weak, no facial droop. BP 118/73, O2 94, HR 110 Provider notified: VS=BP 118/73, O2 94, HR 110 -MD ordered EKG, CT of Head and Stat hospitalist consult (messaged Hospitalist regarding consult). No changes to care plan at this time. Awaiting consult. Pt to have testing today. Pt sx seem to have resolved and not experiencing any sx. Provider also notified fall (pt reported unwitnessed fall with LOC): on 05/23 reported by pt and also had a black eye. Continue to Monitor as needed.
[2025-06-06 08:00] VITALS: BP 132/74; PULSE 95; RESP 18; TEMP 36.9; O2SAT 96
[2025-06-06] MEDS: Metoprolol Succinate ER 12.5 MG HALFTAB.ER.24H PO (08:46)
[2025-06-06] MEDS: Aspirin Enteric Coated 81 MG TABLET.DR PO (08:46)
[2025-06-06] MEDS: Dextroamphetamine/Amphetamine XR 5 MG CAP.ER.24H PO (08:47)
--- NOTE | 2025-06-06 10:16 | HO.PSYCHPN ---
Subjective Subjective Date of Service: 06/06/25 Reason For Visit: PTSD, schizoaffective disorder Subjective Notes: Conditional Voluntary Healthcare Proxy: No Guardianship: No Medical Problems Affecting Mental Status: No Interim History: Reviewed with team, review of plan of care, met with pt. Call from team [id number] pt awoke and felt unsteady and weak with balance being unstable, drooling, and word finding issues. Nursing neuro eval negative 118/73 94% 110. Entered emergent consult from hospitalist, ekg, cat as pt then reported a fall on 05/23 in the bathroom sustaining a black eye. No memory of fall, just waking up on the floor. When pt was approached this a.m. he reported feeling improved. We discussed decreased clozapine to 25 mg bid in trial to assess for SE. He is in agreement. Medication Compliance: Yes Side effects from medications: No Attending Groups: Yes Review of Systems as noted Medical Review of Systems: unchanged Review of Systems Review of Systems as noted Mental Status Exam Mental Status Exam Patient Appearance: Appropriate Patient Orientation: Person, Place, Time and Situation Level of Consciousness: Alert Patient Behavior: Talkative Mood Description: Constricted Affect Description: Constricted Patient Cognition Impaired: No Ability to Follow Directions: Good Speech Pattern: Spontaneous Speech Memory Description: Remote Impaired Hallucinations: None Perceptual Disturbances: Depersonalization and Derealization Thought Process: Distracted and Rumination Thought Content: positive for Circumstantial and positive for Suicidal Ideation ( I don't want to . ) Depressive Symptoms: Diff. Making Decisions and Thoughts of /Suicide ( I don't want to . ) Judgement: Fair Diagnostics Vital Signs (24Hr): Vital Signs - 24 hr 06/05/25 20:00 06/06/25 08:00 Temperature 98.8 F 98.5 F Pulse Rate 92 95 Respiratory Rate 18 18 Blood Pressure 124/74 132/74 Pulse Oximetry 96 96 Oxygen Delivery Method Room Air Room Air BMI result Body Mass Index 32.5 Labs 05/20/25 11:22 05/20/25 11:22 Labs: Laboratory Results - last 48 hr 06/05/25 17:05 Influenza Type A (PCR) NEGATIVE Influenza Type B (PCR) NEGATIVE RSV RNA Qual (PCR) NEGATIVE SARS-CoV-2 RNA (RT-PCR) NEGATIVE S. pyogenes GrpA [place] Negative Medications Medications Current Medications Acetaminophen (Acetaminophen 325 Mg Tablet) 650 mg PO Q6H PRN PRN Reason: Headache/Pain, Scale 1-10 Last Admin: 06/01/25 20:06 Dose: 650 mg Al Hydroxide/Mg Hydroxide (Magnesium Hydrox/Alum Hydrox 30 Ml Oral.Susp) 30 ml PO Q6H PRN PRN Reason: Heartburn/Nausea Last Admin: 06/03/25 22:36 Dose: 30 ml Amphetamine/Dextroamphetamine (Dextroamphetamine/Amphetamine Xr 5 Mg Cap.Er.24h) 5 mg PO DAILY [facility] Last Admin: 06/06/25 08:47 Dose: 5 mg Aspirin (Aspirin Enteric Coated 81 Mg Tablet.Dr) 81 mg PO DAILY [facility] Last Admin: 06/06/25 08:46 Dose: 81 mg Atorvastatin Calcium (Atorvastatin Calcium 80 Mg Tablet) 80 mg PO BEDTIME [facility] Last Admin: 06/05/25 20:15 Dose: 80 mg Chlorpromazine HCl (Chlorpromazine Hcl 25 Mg Tablet) 50 mg PO QID PRN PRN Reason: agitation,psychosis Clopidogrel Bisulfate (Clopidogrel Bisulfate 75 Mg Tablet) 75 mg PO DAILY [facility] Last Admin: 06/06/25 08:47 Dose: 75 mg Clozapine (Clozapine 25 Mg Tablet) 50 mg PO BEDTIME [facility] Last Admin: 06/05/25 20:15 Dose: 50 mg Clozapine (Clozapine 25 Mg Tablet) 25 mg PO DAILY [facility] Last Admin: 06/06/25 08:46 Dose: 25 mg Diazepam (Diazepam 5 Mg Tablet) 5 mg PO BID PRN PRN Reason: anxiety/restlessness Last Admin: 06/04/25 20:57 Dose: 5 mg Gabapentin (Gabapentin 100 Mg Capsule) 200 mg PO TID@0800,1400,2000 [facility] Last Admin: 06/06/25 08:47 Dose: 200 mg Hydroxyzine HCl (Hydroxyzine Hcl 25 Mg Tablet) 25 mg PO Q6H PRN PRN Reason: mild anxiety Last Admin: 05/30/25 18:05 Dose: 25 mg Ibuprofen (Ibuprofen 800 Mg Tablet) 800 mg PO Q8H PRN PRN Reason: sciatic nerve pain Last Admin: 06/06/25 06:02 Dose: 800 mg Loperamide HCl (Loperamide Hcl 2 Mg Capsule) 2 mg PO Q4H PRN PRN Reason: Diarrhea Last Admin: 05/22/25 21:19 Dose: 2 mg Lorazepam (Lorazepam 0.5 Mg Tablet) 0.5 mg PO TID PRN PRN Reason: anxiety Last Admin: 06/01/25 11:51 Dose: 0.5 mg Magnesium Hydroxide (Milk Of Magnesia 30 Ml Oral.Susp) 30 ml PO DAILY PRN PRN Reason: Constipation Last Admin: 06/03/25 06:27 Dose: 30 ml Metoprolol Succinate (Metoprolol Succinate Er 12.5 Mg Halftab.Er.24h) 12.5 mg PO DAILY [facility]; Protocol Last Admin: 06/06/25 08:46 Dose: 12.5 mg Nicotine Polacrilex (Nicotine Polacrilex 2 Mg Gum) 4 mg BUCCAL Q2H PRN PRN Reason: Nicotine Cravings Last Admin: 06/06/25 06:04 Dose: 4 mg Pt Own Medication ( Testosterone 50 Mg/5 Gram (1 %) Gel) 1 packet TOPICAL DAILY [facility] Last Admin: 06/06/25 09:17 Dose: 1 packet Oxcarbazepine (Oxcarbazepine 300 Mg Tablet) 300 mg PO BID [facility] Last Admin: 06/06/25 08:47 Dose: 300 mg Propranolol HCl (Propranolol Hcl 10 Mg Tablet) 10 mg PO TID PRN; Protocol PRN Reason: akathesia Last Admin: 06/04/25 20:57 Dose: 10 mg Risperidone (Risperidone 1 Mg Tablet) 1 mg PO BID PRN PRN Reason: Anxiety Last Admin: 06/04/25 20:57 Dose: 1 mg Saliva Substitute (Dry Mouth [place] 60 Ml [place]) 1 spray MUCOUS MEM Q2H PRN PRN Reason: Dry Mouth Senna (Sennosides 8.6 Mg Tablet) 17.2 mg PO DAILY PRN PRN Reason: Constipation Last Admin: 06/04/25 06:30 Dose: 17.2 mg Tamsulosin HCl (Tamsulosin Hcl 0.4 Mg Capsule) 0.4 mg PO DAILY [facility] Last Admin: 06/06/25 08:46 Dose: 0.4 mg Trazodone HCl (Trazodone Hcl 50 Mg Tablet) 50 mg PO BEDTIME PRN PRN Reason: Sleep Last Admin: 06/05/25 20:26 Dose: 50 mg Allergies Allergies Allergy/AdvReac Type Severity Reaction Status Date / Time olanzapine (From Zyprexa) AdvReac Severe Anaphylaxis Verified 05/20/25 10:47 clonidine AdvReac Fainting Verified 05/20/25 10:47 haloperidol (From Haldol) AdvReac Anaphylaxis Verified 05/20/25 10:47 ziprasidone (From Geodon) AdvReac speech Verified 05/25/25 13:11 difficulty tuna Allergy Severe Anaphylaxis Uncoded 04/18/24 12:52 Assessment & Plan Assessment & Plan (1) Schizoaffective disorder: Status: Acute Code(s): F25.9 - Schizoaffective disorder, unspecified (2) PTSD (post-traumatic stress disorder): Status: Acute Code(s): F43.10 - Post-traumatic stress disorder, unspecified Plan 59 yo male, history of PTSD, Schizoaffective Disorder, self presented to ER on 05/20 reporting to crisis SI and I am not doing well. He has been essentially mute since admission with reported hyperactive startle response. Collateral contact reports a recent discharge from [facility] as he had presented with psychosis and chest pain. He has has a difficult time caring for himself. Met with pt and Arnol LOBO. Pt is in bed, head covered, he does not startle when his name is called. He sits up, does not speak, does nod his head once and is asked if he would like to meet or if he would like team to contact sister Jyoti to collect background and return to him. There was no response, however he does have minimal eye contact. Hospital course: 05/23 Patient very angry and told typewriter tester so. Says that he is thinking about provoking security so that they will beat him up, sit on his chest and caused him to have a heart attack so he will be . Patient very resistant to trying medications to help with anger, saying he has tried everything and nothing works. Patient has been taking Trileptal but otherwise refuses Geodon. Linoleum Tile Layer discussed risks/side effects of Clozaril, 1 medication he has not taken before. Patient initially refused but then later said he was willing to try it. He also asked for Valium, saying this was helpful in the past. Of note, corner mirror was broken and hanging; staff removed it. Patient said he did not do it but was like that when he got there only taking Trileptal.... refuses Geodone refuses Testoserone Gel (says too much) refused BP/vitals so no Metopolol Impression: Patient exceedingly angry. He refuses Geodon and so typewriter tester will discontinue. Patient eventually amenable to starting Clozaril which can be significantly helpful for psychosis, mood stabilization and anger related to paranoid ideations. Initial concern about catatonia since patient was selectively mute; this seems to have resolved, either due to the Ativan or that he was not catatonic but just angry and resistive to treatment. Either way, Valium can also mitigate catatonic symptoms and given patient's aggressive history and current presentation, typewriter tester agrees that if Valium helps him that is preferable. Plan: Admit/CV/15 minute checks Start propranolol 10 mg t.i.d. for akathisia Start clozapine 25 mg q.h.s. Start Valium 10 mg daily Taper and DC Ativan Ativan 1 mg tid-rule out catatonia Discontinue Geodon; patient refuses Continue previous regime Diagnostics as needed and as pt will allow. Collateral contact Encourage milieu engagement Discharge planning 05/26:Attempted to meet with pt and Arnol LOBO. Pt asleep, he would not awaken, but stirred when his name was called. Information provided on Clozapine for pt. He did accept his dose last evening. Will increase to 50 mg this evening. Team reports pt has been approaching the front door and attempting to leave last evening. Not attending groups. Sleep and appetite appear intact. Accepting medications-declines testosterone. 05/27: Met with pt to discuss treatment noncompliance. Team has contacted sister as well to discuss. Discussed discharge with both pt and sister. Pt states, I just want to . I will take my medication. Review of all meds/rationale for meds. Pt struggling with dissociations, paranoia, tinnitus and anxiety. It is too loud here. Discussed with pt team willingness to work with him, however that we cannot force treatment upon him. Discussed the benefits of medications for symptom control. Discussed how invested family is in helping him feel secure in a living environment with resources to assist him. I don't deserve this you know. Team reports pt slept last night, no group attendance, taking meds today, I am sorry, I did not know I refused medicine last night. Plan: Continue tx 05/28/25: Meet with patient in assigned room, denies SI/SIB/HI/AVH, denies anxiety and depression not at this moment as I jsut woke up . Report stomach pain I am sick because of medications . Report pain 5/10. Feeling nausea. Advised to take medication with food to see if it improved. Patient is out to he torres, more soical, was talking and laughing per nursing this morning. Patient slept for 8 hours and started clozaril first dose last night. Nursing also report some bruised that bring concerns. Advised to contact hospitalist for medical concerns as patient in on blood thinner and continue to monitor for any bleeding. 05/29: I don't have access to my phone, I cannot check the internet, I have no advocate except for myself, I have no one to talk with, I feel medicated-no focus, no concentration, no memory. I have no access to medicine literature, I can sleep through the night, I was incontinent of urine last night, groups are a waste-I am irritated, they made the art room one half of what it should be, you want to do an EKG-it is theivery to make money. I am degraded, someone calls for me no one will take a message, groups are useless. Pt refusing of meds, diagnostics, not feeling milieu is adequate. Discussed providing literature for all psychotropics as he does not acknowledge daily discussions of his regime. Angry, targeting, apologetic. Changes made in session-diazepam decreased to 5 mg daily, lorazepam changed to prn only, propranolol decreased to 5 mg tid, trazodone decreased and changed to prn only. The standing psychotropics currently are Clozapine 50 mg, Valium 5 mg, Gabapentin 100 mg tid, Trileptal 300 mg BID and Propranolol 5 mg bid. Pt provocative in his anger- asking team for 80 pills, 80 yards of rope . Later in the afternoon, tells primary RN that meds were never discussed with him- identifies propranolol, tylenol, ASA, hydroxyzine. As a result propranolol is now prn, tylenol, hydroxyzine remain prn and ASA is a medical regime and that is left for pt to refuse at will. Will ask human rights officer and nurse manager [employer] to meet with pt to discuss his concerns. Plan: Refuses diagnostics Several changes made to regime today. Pt, at this time, tells nursing he will refuse meds. 05/30/25: Met with patient in the exam room, he is talkative, pleasant, and cooperative. He his medication yesterday but took medication today. Reports that pharmacy is evil they are contraindicated themself. You give me medications to high and then give me dull feeling with sexually issues and other side effects. Reports feeling tension headache from the right side to the top of his head and sometimes feeling like is stabbing pain even though he denies headache at this moment. Patient spent really long time talking about suicidal thoughts and voices, suicide attempts history. Reported that he had passive SI and AH daily as he can not do anything on the unit. Reports feeling dizzy this morning when he was up. Educate patient on position change slowly to prevent dizziness. Also encourage p.o. fluid intake. He recall the incident a couple of days ago that he was in the bathroom, passing out when this provider asked what happens his right eye as some bruises around the eyes observed. Per nursing, patient slept for 7 hours. Vital signs stable. No unsafe behavior noted. Compiant with meds this morning. ANC 4.5 WNL. 05/31/25: Patient continues to be negative but denies SI and AVH today. Report that he pees all the time . Mood is not good . He wants to be on DNR. He does not want staff to take on him every 5 min states that he won't do anything here and nothing here for him to kill himself. Request to take 5 min check away. Visible at times, appears miserable, restless, disorganized, negative, not future focus. Refuse some of his meds. Continue with curent plan,encourage to compliant with meds and consistently taking them for better result. 06/01/25: Patient is negative, report side effects from possible of all medications. Report he does not like Valium how it makes he feels but it is helpful for anixety. Report chemical induced sleep when asked if he was able to sleep last night. Report medication makes me hungry, tired, dry mouth and feeling drain, low energy . Brain feels sluggish . Later on reports his brain does not sleep all I do is think, and think and think . Report I am having intrusive thoughts. I am having bad thoughts. Feeling like everyone is lying to me . Patient also later on says that he used to be on Adderall and asked if he can restart on it. Discuss with patient, it not impossibly but it is not a appropriate time. We need to see him more stable first. He agrees to have Clozaril up to total of 75mg. Disorganized, racing thoughts, psychotic, paranoid, irritable. Advised to take PRN which he did ask take meds. He took all meds this morning but selective yesterday. Covid/flu: negative. 06/02:Reports feeling weak, tired, having dry mouth, joints ache, forgetful, blurred vision. Memory is poor, states he did not recall his daughter visiting. Too much activity in his brain, too much chaos, starving for an answer, everything is a loose association that does not make sense he reports. Full review of meds- asks to re-start chlorpromazine prn as he felt it was helpful. Discussed use of Adderall XR 20 mg by history-he reports it was very helpful and asks to trial again. Gabapentin increased to 200 mg tid as it has been helpful in the past. Discussed ECT as well. Plan: Chlorpromazine 50 mg qid prn Increase Gabapentin to 200 mg tid 06/03: Review of regime, SE, and pt's request to re-trial Adderall. Sx of concern which are not well managed include racing of thought, loose associations described by pt but not evidenced in dialogue and chaos in my head . Discussed potential exacerbation of those sx. Discussed cardiac hx- reports stenting 08/27/24 with 95% and 40% occlusion. EKG ordered and is wnl today. Discussed sx which may be helped with Adderall trial-weakness, memory, focus, lack of energy. Review of increase in Clozapine, blurring of vision- ?Trileptal. Pt will review literature on Lamictal. Reports constipation-requested fleet-sennosides ordered as they have been effective by history. Plan: EKG WNL. Adderall XR 10 mg x one trial dose on 06/04. Continue remainder of regime. 06/04: Pt with benefit from Adderall. Will continue XR at 5 mg. 06/05: Throat culture, SARS/Flu/RSV Continue tx 06/06/25: Reviewed with team, review of plan of care, met with pt. Call from team [id number] pt awoke and felt unsteady and weak with balance being unstable, drooling, and word finding issues. Nursing neuro eval negative 118/73 94% 110. Entered emergent consult from hospitalist, ekg, cat as pt then reported a fall on 05/23 in the bathroom sustaining a black eye. No memory of fall, just waking up on the floor. When pt was approached this a.m. he reported feeling improved. We discussed decreased clozapine to 25 mg bid in trial to assess for SE. He is in agreement. Reason for continued inpatient stay Substantial Risk for: rapid decompensation and med/psych decompensation Time Spent With Patient Time: Total time managing care of this patient today ____ minutes.
--- NOTE | 2025-06-06 16:32 | HO.PM.IMCN ---
History of Present Illness Data of Consult Service Date: 06/06/25 Primary Care Provider: None Physician HPI Reason for consult: Generalized weakness Pt is a 59-year-old male with a PMH significant for CAD, HLD, BPH, PTSD, schizoaffective disorder, and dysfunctional elimination syndrome who is admitted to [facility] psychiatric unit with hospitalist consult for question of sudden onset difficulty speaking generalized weakness. Pt reports last night he awoke from sleep and noticed he had drooled more than normal. He got up to get a new pillow case and staff notced he seemed to be slurring his words and had difficulty word finding. Pt reports he has been feeling a little weak and dizzy, and had a sore throat. Reports he does seems to slur his words when he wakes up at night, which has been happening for the past few days. Denies ataxia. No hemiparesis, MARTÍNEZ, or acute vision changes. Of note, pt is noted to have some mild difficulty word finding during interview, but it is unclear if this is chronic. Pt is cooperative, but ultimately seems frustrated with the workup and testing. He states he wishes he never brought this to anyone's attention and makes it clear he thinks this is all a scam to make him pay for additional testing/services. Review of Systems Review of Systems: Yes all other systems are reviewed and are negative [facility] Medical History PTSD (post-traumatic stress disorder) Schizoaffective disorder Dysfunctional elimination syndrome Social History Household Members: None Housing: House Do you presently have visiting nurse or other home services: No Unable to assess alcohol history related to: Unknown Alcohol intake: former Patient Tobacco Use Status: Former Tobacco user Tobacco use type: Cigarette e-Cigarette/Vaping Use: Never Used Second Hand Smoke Exposure: No Substance Use Type: Marijuana Currently Displaying Signs/Symptoms of Drug Intoxication Withdrawal: No Advance Directives: No Advance Directives Information Provided: Yes Do you have thoughts of harming others: None Do you have a plan to hurt others: No Plan Recently lost weight without trying: Unsure Nutrition Risks: No Nutritional Risk Poor oral hygiene: No service: No Sexual orientation: Straight/Heterosexual Meds Allergies Allergy/AdvReac Type Severity Reaction Status Date / Time olanzapine (From Zyprexa) AdvReac Severe Anaphylaxis Verified 05/20/25 10:47 clonidine AdvReac Fainting Verified 05/20/25 10:47 haloperidol (From Haldol) AdvReac Anaphylaxis Verified 05/20/25 10:47 ziprasidone (From Geodon) AdvReac speech Verified 05/25/25 13:11 difficulty tuna Allergy Severe Anaphylaxis Uncoded 04/18/24 12:52 Active Medications: Current Medications Acetaminophen (Acetaminophen 325 Mg Tablet) 650 mg PO Q6H PRN PRN Reason: Headache/Pain, Scale 1-10 Last Admin: 06/01/25 20:06 Dose: 650 mg Al Hydroxide/Mg Hydroxide (Magnesium Hydrox/Alum Hydrox 30 Ml Oral.Susp) 30 ml PO Q6H PRN PRN Reason: Heartburn/Nausea Last Admin: 06/03/25 22:36 Dose: 30 ml Amphetamine/Dextroamphetamine (Dextroamphetamine/Amphetamine Xr 5 Mg Cap.Er.24h) 5 mg PO DAILY [facility] Last Admin: 06/06/25 08:47 Dose: 5 mg Aspirin (Aspirin Enteric Coated 81 Mg Tablet.Dr) 81 mg PO DAILY [facility] Last Admin: 06/06/25 08:46 Dose: 81 mg Atorvastatin Calcium (Atorvastatin Calcium 80 Mg Tablet) 80 mg PO BEDTIME [facility] Last Admin: 06/05/25 20:15 Dose: 80 mg Chlorpromazine HCl (Chlorpromazine Hcl 25 Mg Tablet) 50 mg PO QID PRN PRN Reason: agitation,psychosis Clopidogrel Bisulfate (Clopidogrel Bisulfate 75 Mg Tablet) 75 mg PO DAILY [facility] Last Admin: 06/06/25 08:47 Dose: 75 mg Clozapine (Clozapine 25 Mg Tablet) 50 mg PO BEDTIME [facility] Last Admin: 06/05/25 20:15 Dose: 50 mg Clozapine (Clozapine 25 Mg Tablet) 25 mg PO DAILY [facility] Last Admin: 06/06/25 08:46 Dose: 25 mg Diazepam (Diazepam 5 Mg Tablet) 5 mg PO BID PRN PRN Reason: anxiety/restlessness Last Admin: 06/04/25 20:57 Dose: 5 mg Gabapentin (Gabapentin 100 Mg Capsule) 200 mg PO TID@0800,1400,2000 [facility] Last Admin: 06/06/25 14:47 Dose: 200 mg Hydroxyzine HCl (Hydroxyzine Hcl 25 Mg Tablet) 25 mg PO Q6H PRN PRN Reason: mild anxiety Last Admin: 05/30/25 18:05 Dose: 25 mg Ibuprofen (Ibuprofen 800 Mg Tablet) 800 mg PO Q8H PRN PRN Reason: sciatic nerve pain Last Admin: 06/06/25 06:02 Dose: 800 mg Loperamide HCl (Loperamide Hcl 2 Mg Capsule) 2 mg PO Q4H PRN PRN Reason: Diarrhea Last Admin: 05/22/25 21:19 Dose: 2 mg Lorazepam (Lorazepam 0.5 Mg Tablet) 0.5 mg PO TID PRN PRN Reason: anxiety Last Admin: 06/01/25 11:51 Dose: 0.5 mg Magnesium Hydroxide (Milk Of Magnesia 30 Ml Oral.Susp) 30 ml PO DAILY PRN PRN Reason: Constipation Last Admin: 06/03/25 06:27 Dose: 30 ml Metoprolol Succinate (Metoprolol Succinate Er 12.5 Mg Halftab.Er.24h) 12.5 mg PO DAILY [facility]; Protocol Last Admin: 06/06/25 08:46 Dose: 12.5 mg Nicotine Polacrilex (Nicotine Polacrilex 2 Mg Gum) 4 mg BUCCAL Q2H PRN PRN Reason: Nicotine Cravings Last Admin: 06/06/25 15:55 Dose: 4 mg Pt Own Medication ( Testosterone 50 Mg/5 Gram (1 %) Gel) 1 packet TOPICAL DAILY [facility] Last Admin: 06/06/25 09:17 Dose: 1 packet Oxcarbazepine (Oxcarbazepine 300 Mg Tablet) 300 mg PO BID [facility] Last Admin: 06/06/25 08:47 Dose: 300 mg Propranolol HCl (Propranolol Hcl 10 Mg Tablet) 10 mg PO TID PRN; Protocol PRN Reason: akathesia Last Admin: 06/04/25 20:57 Dose: 10 mg Risperidone (Risperidone 1 Mg Tablet) 1 mg PO BID PRN PRN Reason: Anxiety Last Admin: 06/04/25 20:57 Dose: 1 mg Saliva Substitute (Dry Mouth [place] 60 Ml [place]) 1 spray MUCOUS MEM Q2H PRN PRN Reason: Dry Mouth Senna (Sennosides 8.6 Mg Tablet) 17.2 mg PO DAILY PRN PRN Reason: Constipation Last Admin: 06/04/25 06:30 Dose: 17.2 mg Tamsulosin HCl (Tamsulosin Hcl 0.4 Mg Capsule) 0.4 mg PO DAILY [facility] Last Admin: 06/06/25 08:46 Dose: 0.4 mg Trazodone HCl (Trazodone Hcl 50 Mg Tablet) 50 mg PO BEDTIME PRN PRN Reason: Sleep Last Admin: 06/05/25 20:26 Dose: 50 mg Home Medications ?Medication ?Instructions ?Recorded ?Confirmed ?Last Taken ?Type aspirin 81 mg tablet,delayed 81 mg PO DAILY 05/20/25 05/20/25 Unknown History release clonazepam 0.5 mg tablet 0.25 mg PO BID PRN anxiety 05/20/25 05/20/25 Unknown History clopidogrel 75 mg tablet 75 mg PO DAILY 05/20/25 05/20/25 Unknown History gabapentin 100 mg capsule 100 mg PO Q8H 05/20/25 05/20/25 Unknown History metoprolol succinate 25 mg 12.5 mg PO DAILY 05/20/25 05/20/25 Unknown History tablet,extended release 24 hr oxcarbazepine 300 mg tablet 300 mg PO Q12H 05/20/25 05/20/25 Unknown History risperidone 1 mg tablet 1 mg PO BID PRN Anxiety 05/20/25 05/20/25 Unknown History rosuvastatin 20 mg tablet 20 mg PO BEDTIME 05/20/25 05/20/25 Unknown History tamsulosin 0.4 mg capsule 0.4 mg PO DAILY 05/20/25 05/20/25 Unknown History ziprasidone HCl 40 mg capsule 40 mg PO BID 05/20/25 05/20/25 Unknown History Physical Exam Vital Signs and Narrative: Vital Signs: Last Vital Signs Temp 98.5 F 06/06/25 08:00 Pulse 95 06/06/25 08:00 Resp 18 06/06/25 08:00 BP 132/74 06/06/25 08:00 Pulse Ox 96 06/06/25 08:00 O2 Del Method Room Air 06/06/25 08:00 BMI result Body Mass Index 32.5 General: AOx3, no acute distress Resp: CTA bilaterally CVS: S1, S2, RRR GI: +BS, NT, no distention Skin: Warm, dry Neuro: Cranial nerves II-XII grossly intact bilaterally. Motor grossly intact bilaterally. Negative pronator drift. Symmetric and preserved strength of upper and lower extrmities bilaterally. No clear dysarthria. No focal deficits noted. Extremities: No edema Psych: Calm, cooperative Results Labs 05/20/25 11:22 05/20/25 11:22 Labs: Laboratory Results - last 24 hr 06/05/25 17:05 Influenza Type A (PCR) NEGATIVE Influenza Type B (PCR) NEGATIVE RSV RNA Qual (PCR) NEGATIVE SARS-CoV-2 RNA (RT-PCR) NEGATIVE S. pyogenes GrpA [place] Negative Assessment and Plan (1) Generalized weakness: Status: Acute Plan Pt is a 59-year-old male with a PMH significant for CAD, HLD, BPH, PTSD, schizoaffective disorder, and dysfunctional elimination syndrome who is admitted to [facility] psychiatric unit with hospitalist consult for question of sudden onset difficulty speaking generalized weakness. Question of sudden-onset difficulty speaking CT of head negative for acute abnormality Pt back to baseline, no focal deficits noted Symptoms likely secondary to medication side-effects Pt's clonazepam has been reduced At this time, no additional workup or treatment indicted Thank you for allowing us to participate in the care of this pt. Please reach out if there are any additional acute issues of questions.
[2025-06-06] MEDS: Magnesium Hydrox/Alum Hydrox 30 ML ORAL.SUSP PO (18:44)
[2025-06-06 19:58] VITALS: BP 143/86; PULSE 80; RESP 15; TEMP 36.9; O2SAT 96
--- NOTE | 2025-06-07 05:52 | P.PNPSI_ITS ---
Subjective Subjective Date of Service: 06/07/25 Reason For Visit: PTSD, schizoaffective disorder Subjective Notes: Conditional Voluntary Healthcare Proxy: No Guardianship: No Medical Problems Affecting Mental Status: No Interim History: Reports feeling tired, exhausted. Believes this to be medication related. URI sx with negative respiratory panel. Denies current SI,HI,AH,VH. Attending some groups, some time with peers in milieu. Discussion of Clozaril- pt reports when discharged he will not follow up with diagnostics. Reviewed pt's admission presentation-catatonic like and the recommendation of a base antipsychotic to prevent complete decompensation when sx increase. He is reluctant. Medication Compliance: Yes Side effects from medications: Yes (exhaustion?) Attending Groups: Intermittent Review of Systems Acute medical concerns: No Medical Review of Systems: unchanged Review of Systems Review of Systems Denies Mental Status Exam Mental Status Exam Patient Appearance: Appropriate Patient Orientation: Person, Place, Time and Situation Level of Consciousness: Alert Patient Behavior: Talkative Mood Description: Constricted Affect Description: Constricted Patient Cognition Impaired: No Ability to Follow Directions: Good Speech Pattern: Spontaneous Speech Memory Description: Remote Impaired Hallucinations: None Perceptual Disturbances: Depersonalization and Derealization Thought Process: Distracted and Rumination Thought Content: positive for Circumstantial and positive for Suicidal Ideation ( I don't want to . ) Depressive Symptoms: Diff. Making Decisions and Thoughts of /Suicide ( I don't want to . ) Judgement: Fair Diagnostics Vital Signs (24Hr): Vital Signs - 24 hr 06/06/25 08:00 06/06/25 19:58 Temperature 98.5 F 98.5 F Pulse Rate 95 80 Respiratory Rate 18 15 Blood Pressure 132/74 143/86 H Pulse Oximetry 96 96 Oxygen Delivery Method Room Air BMI result Body Mass Index 32.5 Labs 05/20/25 11:22 05/20/25 11:22 Labs: Laboratory Results - last 48 hr 06/05/25 17:05 Influenza Type A (PCR) NEGATIVE Influenza Type B (PCR) NEGATIVE RSV RNA Qual (PCR) NEGATIVE SARS-CoV-2 RNA (RT-PCR) NEGATIVE S. pyogenes GrpA [place] Negative Medications Medications Current Medications Acetaminophen (Acetaminophen 325 Mg Tablet) 650 mg PO Q6H PRN PRN Reason: Headache/Pain, Scale 1-10 Last Admin: 06/01/25 20:06 Dose: 650 mg Al Hydroxide/Mg Hydroxide (Magnesium Hydrox/Alum Hydrox 30 Ml Oral.Susp) 30 ml PO Q6H PRN PRN Reason: Heartburn/Nausea Last Admin: 06/06/25 18:44 Dose: 30 ml Amphetamine/Dextroamphetamine (Dextroamphetamine/Amphetamine Xr 5 Mg Cap.Er.24h) 5 mg PO DAILY [facility] Last Admin: 06/06/25 08:47 Dose: 5 mg Aspirin (Aspirin Enteric Coated 81 Mg Tablet.Dr) 81 mg PO DAILY [facility] Last Admin: 06/06/25 08:46 Dose: 81 mg Atorvastatin Calcium (Atorvastatin Calcium 80 Mg Tablet) 80 mg PO BEDTIME [facility] Last Admin: 06/06/25 20:46 Dose: 80 mg Chlorpromazine HCl (Chlorpromazine Hcl 25 Mg Tablet) 50 mg PO QID PRN PRN Reason: agitation,psychosis Clopidogrel Bisulfate (Clopidogrel Bisulfate 75 Mg Tablet) 75 mg PO DAILY [facility] Last Admin: 06/06/25 08:47 Dose: 75 mg Clozapine (Clozapine 25 Mg Tablet) 25 mg PO DAILY [facility] Last Admin: 06/06/25 08:46 Dose: 25 mg Clozapine (Clozapine 25 Mg Tablet) 25 mg PO BEDTIME [facility] Last Admin: 06/06/25 20:45 Dose: 25 mg Diazepam (Diazepam 5 Mg Tablet) 5 mg PO BID PRN PRN Reason: anxiety/restlessness Last Admin: 06/06/25 20:51 Dose: 5 mg Gabapentin (Gabapentin 100 Mg Capsule) 200 mg PO TID@0800,1400,2000 [facility] Last Admin: 06/06/25 20:45 Dose: 200 mg Hydroxyzine HCl (Hydroxyzine Hcl 25 Mg Tablet) 25 mg PO Q6H PRN PRN Reason: mild anxiety Last Admin: 06/07/25 02:24 Dose: 25 mg Ibuprofen (Ibuprofen 800 Mg Tablet) 800 mg PO Q8H PRN PRN Reason: sciatic nerve pain Last Admin: 06/07/25 02:24 Dose: 800 mg Loperamide HCl (Loperamide Hcl 2 Mg Capsule) 2 mg PO Q4H PRN PRN Reason: Diarrhea Last Admin: 05/22/25 21:19 Dose: 2 mg Lorazepam (Lorazepam 0.5 Mg Tablet) 0.5 mg PO TID PRN PRN Reason: anxiety Last Admin: 06/01/25 11:51 Dose: 0.5 mg Magnesium Hydroxide (Milk Of Magnesia 30 Ml Oral.Susp) 30 ml PO DAILY PRN PRN Reason: Constipation Last Admin: 06/03/25 06:27 Dose: 30 ml Metoprolol Succinate (Metoprolol Succinate Er 12.5 Mg Halftab.Er.24h) 12.5 mg PO DAILY [facility]; Protocol Last Admin: 06/06/25 08:46 Dose: 12.5 mg Nicotine Polacrilex (Nicotine Polacrilex 2 Mg Gum) 4 mg BUCCAL Q2H PRN PRN Reason: Nicotine Cravings Last Admin: 06/07/25 02:24 Dose: 4 mg Pt Own Medication ( Testosterone 50 Mg/5 Gram (1 %) Gel) 1 packet TOPICAL DAILY [facility] Last Admin: 06/06/25 09:17 Dose: 1 packet Oxcarbazepine (Oxcarbazepine 300 Mg Tablet) 300 mg PO BID [facility] Last Admin: 06/06/25 20:45 Dose: 300 mg Propranolol HCl (Propranolol Hcl 10 Mg Tablet) 10 mg PO TID PRN; Protocol PRN Reason: akathesia Last Admin: 06/04/25 20:57 Dose: 10 mg Risperidone (Risperidone 1 Mg Tablet) 1 mg PO BID PRN PRN Reason: Anxiety Last Admin: 06/04/25 20:57 Dose: 1 mg Saliva Substitute (Dry Mouth [place] 60 Ml [place]) 1 spray MUCOUS MEM Q2H PRN PRN Reason: Dry Mouth Senna (Sennosides 8.6 Mg Tablet) 17.2 mg PO DAILY PRN PRN Reason: Constipation Last Admin: 06/07/25 02:26 Dose: 17.2 mg Tamsulosin HCl (Tamsulosin Hcl 0.4 Mg Capsule) 0.4 mg PO DAILY [facility] Last Admin: 06/06/25 08:46 Dose: 0.4 mg Trazodone HCl (Trazodone Hcl 50 Mg Tablet) 50 mg PO BEDTIME PRN PRN Reason: Sleep Last Admin: 06/06/25 20:45 Dose: 50 mg Allergies Allergies Allergy/AdvReac Type Severity Reaction Status Date / Time olanzapine (From Zyprexa) AdvReac Severe Anaphylaxis Verified 05/20/25 10:47 clonidine AdvReac Fainting Verified 05/20/25 10:47 haloperidol (From Haldol) AdvReac Anaphylaxis Verified 05/20/25 10:47 ziprasidone (From Geodon) AdvReac speech Verified 05/25/25 13:11 difficulty tuna Allergy Severe Anaphylaxis Uncoded 04/18/24 12:52 Assessment & Plan Assessment & Plan (1) Schizoaffective disorder: Status: Acute Code(s): F25.9 - Schizoaffective disorder, unspecified (2) PTSD (post-traumatic stress disorder): Status: Acute Code(s): F43.10 - Post-traumatic stress disorder, unspecified Plan Pt is a 59-year-old male with a PMH significant for CAD, HLD, BPH, PTSD, schizoaffective disorder, and dysfunctional elimination syndrome who is admitted to [facility] psychiatric unit with hospitalist consult for question of sudden onset difficulty speaking generalized weakness. Question of sudden-onset difficulty speaking CT of head negative for acute abnormality Pt back to baseline, no focal deficits noted Symptoms likely secondary to medication side-effects Pt's clonazepam has been reduced At this time, no additional workup or treatment indicted Thank you for allowing us to participate in the care of this pt. Please reach out if there are any additional acute issues of questions. 06/07/25: Decrease Clozapine to 25 mg bid Reason for continued inpatient stay Substantial Risk for: rapid decompensation Time Spent With Patient Time: Total time managing care of this patient today ____ minutes.
[2025-06-07 09:40] VITALS: BP 122/86; PULSE 83; RESP 14; TEMP 36.4; O2SAT 96
[2025-06-07] MEDS: Aspirin Enteric Coated 81 MG TABLET.DR PO (09:48)
[2025-06-07] MEDS: Dextroamphetamine/Amphetamine XR 5 MG CAP.ER.24H PO (09:48)
[2025-06-07] MEDS: Metoprolol Succinate ER 12.5 MG HALFTAB.ER.24H PO (09:48)
[2025-06-07 20:00] VITALS: BP 137/71; PULSE 97; RESP 15; TEMP 36.6; O2SAT 98
[2025-06-08 08:00] VITALS: BP 118/71; PULSE 80; RESP 16; TEMP 36.9; O2SAT 95
[2025-06-08] MEDS: Metoprolol Succinate ER 12.5 MG HALFTAB.ER.24H PO (08:34)
[2025-06-08] MEDS: Dextroamphetamine/Amphetamine XR 5 MG CAP.ER.24H 10 MG PO (08:35)
[2025-06-08] MEDS: Aspirin Enteric Coated 81 MG TABLET.DR PO (08:35)
--- NOTE | 2025-06-08 10:08 | HO.PSYCHPN ---
Subjective Subjective Date of Service: 06/08/25 Reason For Visit: PTSD, schizoaffective disorder Subjective Notes: Conditional Voluntary Healthcare Proxy: No Guardianship: No Medical Problems Affecting Mental Status: No Interim History: Continues to report exhaustion. Believes it is clozapine related. Will continue decrease. Family meeting 06/10 11am with sister. Discussed perphenazine trial. Pt not really interested in any antipsychotic tx. He is not in agreement of preventative nature of this intervention. Overall, appears improved. Medication Compliance: Yes Side effects from medications: Yes (exhausted) Attending Groups: Intermittent Review of Systems Acute medical concerns: No Medical Review of Systems: unchanged Review of Systems Review of Systems feeling tired and exhausted Mental Status Exam Mental Status Exam Patient Appearance: Appropriate Patient Orientation: Person, Place, Time and Situation Level of Consciousness: Alert Patient Behavior: Talkative Mood Description: Constricted Affect Description: Constricted Patient Cognition Impaired: No Ability to Follow Directions: Good Speech Pattern: Spontaneous Speech Memory Description: Remote Impaired Hallucinations: None Perceptual Disturbances: Depersonalization and Derealization Thought Process: Distracted and Rumination Thought Content: positive for Circumstantial and positive for Suicidal Ideation ( I don't want to . ) Depressive Symptoms: Diff. Making Decisions and Thoughts of /Suicide ( I don't want to . ) Judgement: Fair Diagnostics Vital Signs (24Hr): Vital Signs - 24 hr 06/07/25 20:00 06/08/25 08:00 Temperature 97.9 F 98.4 F Pulse Rate 97 80 Respiratory Rate 15 16 Blood Pressure 137/71 118/71 Pulse Oximetry 98 95 Oxygen Delivery Method Room Air BMI result Body Mass Index 32.5 Labs 05/20/25 11:22 05/20/25 11:22 Medications Medications Current Medications Acetaminophen (Acetaminophen 325 Mg Tablet) 650 mg PO Q6H PRN PRN Reason: Headache/Pain, Scale 1-10 Last Admin: 06/01/25 20:06 Dose: 650 mg Al Hydroxide/Mg Hydroxide (Magnesium Hydrox/Alum Hydrox 30 Ml Oral.Susp) 30 ml PO Q6H PRN PRN Reason: Heartburn/Nausea Last Admin: 06/06/25 18:44 Dose: 30 ml Amphetamine/Dextroamphetamine (Dextroamphetamine/Amphetamine Xr 5 Mg Cap.Er.24h) 10 mg PO DAILY [facility] Last Admin: 06/08/25 08:35 Dose: 10 mg Aspirin (Aspirin Enteric Coated 81 Mg Tablet.) 81 mg PO DAILY [facility] Last Admin: 06/08/25 08:35 Dose: 81 mg Atorvastatin Calcium (Atorvastatin Calcium 80 Mg Tablet) 80 mg PO BEDTIME [facility] Last Admin: 06/07/25 20:51 Dose: 80 mg Chlorpromazine HCl (Chlorpromazine Hcl 25 Mg Tablet) 50 mg PO QID PRN PRN Reason: agitation,psychosis Clopidogrel Bisulfate (Clopidogrel Bisulfate 75 Mg Tablet) 75 mg PO DAILY [facility] Last Admin: 06/08/25 08:35 Dose: 75 mg Clozapine (Clozapine 25 Mg Tablet) 25 mg PO DAILY [facility] Last Admin: 06/08/25 08:35 Dose: 25 mg Clozapine (Clozapine 25 Mg Tablet) 25 mg PO BEDTIME [facility] Last Admin: 06/07/25 20:51 Dose: 25 mg Diazepam (Diazepam 5 Mg Tablet) 5 mg PO BID PRN PRN Reason: anxiety/restlessness Last Admin: 06/07/25 20:51 Dose: 5 mg Gabapentin (Gabapentin 100 Mg Capsule) 200 mg PO TID@0800,1400,2000 [facility] Last Admin: 06/08/25 08:34 Dose: 200 mg Hydroxyzine HCl (Hydroxyzine Hcl 25 Mg Tablet) 25 mg PO Q6H PRN PRN Reason: mild anxiety Last Admin: 06/07/25 02:24 Dose: 25 mg Ibuprofen (Ibuprofen 800 Mg Tablet) 800 mg PO Q8H PRN PRN Reason: sciatic nerve pain Last Admin: 06/07/25 23:45 Dose: 800 mg Loperamide HCl (Loperamide Hcl 2 Mg Capsule) 2 mg PO Q4H PRN PRN Reason: Diarrhea Last Admin: 05/22/25 21:19 Dose: 2 mg Lorazepam (Lorazepam 0.5 Mg Tablet) 0.5 mg PO TID PRN PRN Reason: anxiety Last Admin: 06/01/25 11:51 Dose: 0.5 mg Magnesium Hydroxide (Milk Of Magnesia 30 Ml Oral.Susp) 30 ml PO DAILY PRN PRN Reason: Constipation Last Admin: 06/03/25 06:27 Dose: 30 ml Metoprolol Succinate (Metoprolol Succinate Er 12.5 Mg Halftab.Er.24h) 12.5 mg PO DAILY [facility]; Protocol Last Admin: 06/08/25 08:34 Dose: 12.5 mg Nicotine Polacrilex (Nicotine Polacrilex 2 Mg Gum) 4 mg BUCCAL Q2H PRN PRN Reason: Nicotine Cravings Last Admin: 06/08/25 09:14 Dose: 4 mg Pt Own Medication ( Testosterone 50 Mg/5 Gram (1 %) Gel) 1 packet TOPICAL DAILY [facility] Last Admin: 06/07/25 10:03 Dose: 1 packet Oxcarbazepine (Oxcarbazepine 300 Mg Tablet) 300 mg PO BID [facility] Last Admin: 06/08/25 08:35 Dose: 300 mg Propranolol HCl (Propranolol Hcl 10 Mg Tablet) 10 mg PO TID PRN; Protocol PRN Reason: akathesia Last Admin: 06/04/25 20:57 Dose: 10 mg Risperidone (Risperidone 1 Mg Tablet) 1 mg PO BID PRN PRN Reason: Anxiety Last Admin: 06/04/25 20:57 Dose: 1 mg Saliva Substitute (Dry Mouth [place] 60 Ml [place]) 1 spray MUCOUS MEM Q2H PRN PRN Reason: Dry Mouth Senna (Sennosides 8.6 Mg Tablet) 17.2 mg PO DAILY PRN PRN Reason: Constipation Last Admin: 06/08/25 08:39 Dose: 17.2 mg Tamsulosin HCl (Tamsulosin Hcl 0.4 Mg Capsule) 0.4 mg PO DAILY [facility] Last Admin: 06/08/25 08:35 Dose: 0.4 mg Trazodone HCl (Trazodone Hcl 50 Mg Tablet) 50 mg PO BEDTIME PRN PRN Reason: Sleep Last Admin: 06/07/25 20:50 Dose: 50 mg Allergies Allergies Allergy/AdvReac Type Severity Reaction Status Date / Time olanzapine (From Zyprexa) AdvReac Severe Anaphylaxis Verified 05/20/25 10:47 clonidine AdvReac Fainting Verified 05/20/25 10:47 haloperidol (From Haldol) AdvReac Anaphylaxis Verified 05/20/25 10:47 ziprasidone (From Geodon) AdvReac speech Verified 05/25/25 13:11 difficulty tuna Allergy Severe Anaphylaxis Uncoded 04/18/24 12:52 Assessment & Plan Assessment & Plan (1) Schizoaffective disorder: Status: Acute Code(s): F25.9 - Schizoaffective disorder, unspecified (2) PTSD (post-traumatic stress disorder): Status: Acute Code(s): F43.10 - Post-traumatic stress disorder, unspecified Plan Pt is a 59-year-old male with a PMH significant for CAD, HLD, BPH, PTSD, schizoaffective disorder, and dysfunctional elimination syndrome who is admitted to [facility] psychiatric unit with hospitalist consult for question of sudden onset difficulty speaking generalized weakness. Question of sudden-onset difficulty speaking CT of head negative for acute abnormality Pt back to baseline, no focal deficits noted Symptoms likely secondary to medication side-effects Pt's clonazepam has been reduced At this time, no additional workup or treatment indicted Thank you for allowing us to participate in the care of this pt. Please reach out if there are any additional acute issues of questions. 06/08/25 Decrease Clozapine to 25 mg daily Increase Adderall XR to 10 mg daily Reason for continued inpatient stay Substantial Risk for: rapid decompensation Time Spent With Patient Time: Total time managing care of this patient today ____ minutes.
[2025-06-08 20:00] VITALS: BP 138/88; PULSE 93; TEMP 37.2; O2SAT 95
[2025-06-09 08:00] VITALS: BP 131/76; PULSE 89; RESP 16; TEMP 36.9; O2SAT 97
[2025-06-09 09:05] VITALS: BP 131/67; PULSE 89
[2025-06-09] MEDS: Metoprolol Succinate ER 12.5 MG HALFTAB.ER.24H PO (09:05)
[2025-06-09] MEDS: Aspirin Enteric Coated 81 MG TABLET.DR PO (09:06)
[2025-06-09] MEDS: Dextroamphetamine/Amphetamine XR 5 MG CAP.ER.24H 10 MG PO (09:06)
--- NOTE | 2025-06-09 16:20 | P.PNIM_ITS ---
Subjective Subjective Date of Service: 06/09/25 Interval History: Patient is seen per nursing request for bilateral itchy scaly feet. Bilateral feet with dry scaly areas. Patient denies itch at this time. No open areas noted. Dry flaky areas noted at heel, ball of foot and toes. Appears consistent with tinea pedis. Review of Systems Denies any shortness of breath, chest pain, headaches, dysuria, abdominal pain or discomfort, nausea, vomiting or diarrhea. Denies fever or chills. Physical Exam 2 Exam: Exam: Alert and oriented X3, calm and cooperative. Answers questions. Neuro: CN II-X11 intact Cardiac: S1 S2 RRR, No ectopy Pulmonary: lungs clear to auscultation, No increased WOB. Abdominal: BS active in all 4 quadrants, no guarding or tenderness MSK: Strength 5/5 upper and lower extremities : Deferred Extremities: No edema in lower extremities Psych: Mood stable, Quiet and cooperative. Skin: Warm and dry, Intact. Bilateral feet with diffuse dry patchy areas consistent with tinea pedis Vital Signs: Vital Signs: Last Vital Signs Temp 98.4 F 06/09/25 08:00 Pulse 89 06/09/25 09:05 Resp 16 06/09/25 08:00 BP 131/67 06/09/25 09:05 Pulse Ox 97 06/09/25 08:00 O2 Del Method Room Air 06/09/25 08:00 BMI result Body Mass Index 32.5 Objective Data Active Medications Acetaminophen (Acetaminophen 325 Mg Tablet) 650 mg PO Q6H PRN PRN Reason: Headache/Pain, Scale 1-10 Last Admin: 06/01/25 20:06 Dose: 650 mg Documented By: ISABEL Al Hydroxide/Mg Hydroxide (Magnesium Hydrox/Alum Hydrox 30 Ml Oral.Susp) 30 ml PO Q6H PRN PRN Reason: Heartburn/Nausea Last Admin: 06/06/25 18:44 Dose: 30 ml Documented By: LUIS Amphetamine/Dextroamphetamine (Dextroamphetamine/Amphetamine Xr 5 Mg Cap.Er.24h) 10 mg PO DAILY [facility] Last Admin: 06/09/25 09:06 Dose: 10 mg Documented By: GALE Aspirin (Aspirin Enteric Coated 81 Mg Tablet.) 81 mg PO DAILY [facility] Last Admin: 06/09/25 09:06 Dose: 81 mg Documented By: GALE Atorvastatin Calcium (Atorvastatin Calcium 80 Mg Tablet) 80 mg PO BEDTIME [facility] Last Admin: 06/08/25 20:08 Dose: 80 mg Documented By: DENZEL Chlorpromazine HCl (Chlorpromazine Hcl 25 Mg Tablet) 50 mg PO QID PRN PRN Reason: agitation,psychosis Clopidogrel Bisulfate (Clopidogrel Bisulfate 75 Mg Tablet) 75 mg PO DAILY [facility] Last Admin: 06/09/25 09:06 Dose: 75 mg Documented By: GALE Clozapine (Clozapine 25 Mg Tablet) 25 mg PO BEDTIME [facility] Last Admin: 06/08/25 20:07 Dose: 25 mg Documented By: DENZEL Diazepam (Diazepam 5 Mg Tablet) 5 mg PO BID PRN PRN Reason: anxiety/restlessness Last Admin: 06/08/25 20:10 Dose: 5 mg Documented By: DENZEL Gabapentin (Gabapentin 100 Mg Capsule) 200 mg PO TID@0800,1400,2000 [facility] Last Admin: 06/09/25 13:00 Dose: 200 mg Documented By: GALE Hydroxyzine HCl (Hydroxyzine Hcl 25 Mg Tablet) 25 mg PO Q6H PRN PRN Reason: mild anxiety Last Admin: 06/07/25 02:24 Dose: 25 mg Documented By: GENA Ibuprofen (Ibuprofen 800 Mg Tablet) 800 mg PO Q8H PRN PRN Reason: sciatic nerve pain Last Admin: 06/07/25 23:45 Dose: 800 mg Documented By: GENA Loperamide HCl (Loperamide Hcl 2 Mg Capsule) 2 mg PO Q4H PRN PRN Reason: Diarrhea Last Admin: 05/22/25 21:19 Dose: 2 mg Documented By: DENZEL Lorazepam (Lorazepam 0.5 Mg Tablet) 0.5 mg PO TID PRN PRN Reason: anxiety Last Admin: 06/01/25 11:51 Dose: 0.5 mg Documented By: KATERINA Magnesium Hydroxide (Milk Of Magnesia 30 Ml Oral.Susp) 30 ml PO DAILY PRN PRN Reason: Constipation Last Admin: 06/03/25 06:27 Dose: 30 ml Documented By: DENZEL Metoprolol Succinate (Metoprolol Succinate Er 12.5 Mg Halftab.Er.24h) 12.5 mg PO DAILY [facility]; Protocol Last Admin: 06/09/25 09:05 Dose: 12.5 mg Documented By: GALE Nicotine Polacrilex (Nicotine Polacrilex 2 Mg Gum) 4 mg BUCCAL Q2H PRN PRN Reason: Nicotine Cravings Last Admin: 06/09/25 15:50 Dose: 4 mg Documented By: KATERINA Pt Own Medication ( Testosterone 50 Mg/5 Gram (1 %) Gel) 1 packet TOPICAL DAILY [facility] Last Admin: 06/09/25 11:37 Dose: 1 packet Documented By: GALE Oxcarbazepine (Oxcarbazepine 300 Mg Tablet) 300 mg PO BID [facility] Last Admin: 06/09/25 09:06 Dose: 300 mg Documented By: GALE Propranolol HCl (Propranolol Hcl 10 Mg Tablet) 10 mg PO TID PRN; Protocol PRN Reason: akathesia Last Admin: 06/04/25 20:57 Dose: 10 mg Documented By: SIENA Risperidone (Risperidone 1 Mg Tablet) 1 mg PO BID PRN PRN Reason: Anxiety Last Admin: 06/04/25 20:57 Dose: 1 mg Documented By: SIENA Saliva Substitute (Dry Mouth [place] 60 Ml [place]) 1 spray MUCOUS MEM Q2H PRN PRN Reason: Dry Mouth Senna (Sennosides 8.6 Mg Tablet) 17.2 mg PO DAILY [facility] Last Admin: 06/09/25 11:37 Dose: 17.2 mg Documented By: GALE Tamsulosin HCl (Tamsulosin Hcl 0.4 Mg Capsule) 0.4 mg PO DAILY [facility] Last Admin: 06/09/25 09:05 Dose: 0.4 mg Documented By: GALE Trazodone HCl (Trazodone Hcl 50 Mg Tablet) 50 mg PO BEDTIME PRN PRN Reason: Sleep Last Admin: 06/08/25 20:10 Dose: 50 mg Documented By: DENZEL Trazodone HCl (Trazodone Hcl 50 Mg Tablet) 50 mg PO BEDTIME [facility] Labs 05/20/25 11:22 05/20/25 11:22 Assessment and Plan (1) Tinea pedis: Status: Acute Plan Tinea pedis Wash and dry feet daily Apply clotrimazole b.i.d. for 14 days Thank you for allowing me to participate in the care of this patient. Will follow with you, please notify medical provider with any changes in condition or concerns. Quality Stroke Does the patient have a stroke diagnosis?: No VTE Prior VTE?: No VTE Risk Level:: Medical - low VTE Device Contraindication: Treatment Not Indicated VTE Drug Contraindication: Treatment Not Indicated
[2025-06-09 20:00] VITALS: BP 122/81; PULSE 81; RESP 20; TEMP 36.9; O2SAT 97
--- NOTE | 2025-06-09 20:31 | HO.PSYCHPN ---
Subjective Subjective Date of Service: 06/09/25 Reason For Visit: PTSD, schizoaffective disorder Subjective Notes: Conditional Voluntary Healthcare Proxy: No Guardianship: No Medical Problems Affecting Mental Status: No Interim History: Medical record and nursing notes reviewed; case discussed during rounds with team/nursing staff, and met with patient for supportive therapy/psychoeducation, as well as medication management. Met with patient in the exam room, reported that he feel better, and his brain is not sluggish . Also reports feeling better with Adderall. Denies anxiety or depression, denies SI/SIB/HI/AVH, but reports feeling paranoid, he has a feeling of people lie to me . He reported that his my usually for racing but is same settle down a little bit. He reported that he is overwhelmed with the news. He reports sleep has been better, and appetite is good but he is not happy as he is said that he is gaining weight. Reported that he usually eating very healthy and be healthy, walking a lot. Reports trouble with bowel movement which he has been asking for senna. Patient agreed to schedule it in the morning, and also requests to take trazodone scheduled as well as he has been slept better with trazodone the past couple of days. Trazodone 50 scheduled at bedtime Change senna from p.r.n. to scheduled in the morning. Per social services technician, we will have family meeting via zoom tomorrow by 1100 or 1130 Medication Compliance: Yes Side effects from medications: No Attending Groups: Intermittent Review of Systems Acute medical concerns: No Medical Review of Systems: unchanged Review of Systems Review of Systems No SOB/Wheezing. No N/V. Will continue to monitor Mental Status Exam Mental Status Exam Narrative: Visible, wearing casual attire, pleasant and cooperative but can be irritable. NO SI/SIB/HIAVH, more treatment focus, less negative. fair insight and judgment. Thought process is more organized. Over all, improving in mood. Diagnostics Vital Signs (24Hr): Vital Signs - 24 hr 06/09/25 08:00 06/09/25 09:05 Temperature 98.4 F Pulse Rate 89 89 Respiratory Rate 16 Blood Pressure 131/76 131/67 Pulse Oximetry 97 Oxygen Delivery Method Room Air BMI result Body Mass Index 32.5 Labs 05/20/25 11:22 05/20/25 11:22 Medications Medications Current Medications Acetaminophen (Acetaminophen 325 Mg Tablet) 650 mg PO Q6H PRN PRN Reason: Headache/Pain, Scale 1-10 Last Admin: 06/01/25 20:06 Dose: 650 mg Al Hydroxide/Mg Hydroxide (Magnesium Hydrox/Alum Hydrox 30 Ml Oral.Susp) 30 ml PO Q6H PRN PRN Reason: Heartburn/Nausea Last Admin: 06/06/25 18:44 Dose: 30 ml Amphetamine/Dextroamphetamine (Dextroamphetamine/Amphetamine Xr 5 Mg Cap.Er.24h) 10 mg PO DAILY [facility] Last Admin: 06/09/25 09:06 Dose: 10 mg Aspirin (Aspirin Enteric Coated 81 Mg Tablet.Dr) 81 mg PO DAILY [facility] Last Admin: 06/09/25 09:06 Dose: 81 mg Atorvastatin Calcium (Atorvastatin Calcium 80 Mg Tablet) 80 mg PO BEDTIME [facility] Last Admin: 06/08/25 20:08 Dose: 80 mg Chlorpromazine HCl (Chlorpromazine Hcl 25 Mg Tablet) 50 mg PO QID PRN PRN Reason: agitation,psychosis Clopidogrel Bisulfate (Clopidogrel Bisulfate 75 Mg Tablet) 75 mg PO DAILY [facility] Last Admin: 06/09/25 09:06 Dose: 75 mg Clotrimazole (Clotrimazole 1 % Cream 15 Gm Tube) 1 appl TOPICAL BID [facility]; Protocol Stop: 06/23/25 20:59 Clozapine (Clozapine 25 Mg Tablet) 25 mg PO BEDTIME [facility] Last Admin: 06/08/25 20:07 Dose: 25 mg Diazepam (Diazepam 5 Mg Tablet) 5 mg PO BID PRN PRN Reason: anxiety/restlessness Last Admin: 06/08/25 20:10 Dose: 5 mg Gabapentin (Gabapentin 100 Mg Capsule) 200 mg PO TID@0800,1400,2000 [facility] Last Admin: 06/09/25 13:00 Dose: 200 mg Hydroxyzine HCl (Hydroxyzine Hcl 25 Mg Tablet) 25 mg PO Q6H PRN PRN Reason: mild anxiety Last Admin: 06/07/25 02:24 Dose: 25 mg Ibuprofen (Ibuprofen 800 Mg Tablet) 800 mg PO Q8H PRN PRN Reason: sciatic nerve pain Last Admin: 06/07/25 23:45 Dose: 800 mg Loperamide HCl (Loperamide Hcl 2 Mg Capsule) 2 mg PO Q4H PRN PRN Reason: Diarrhea Last Admin: 05/22/25 21:19 Dose: 2 mg Lorazepam (Lorazepam 0.5 Mg Tablet) 0.5 mg PO TID PRN PRN Reason: anxiety Last Admin: 06/01/25 11:51 Dose: 0.5 mg Magnesium Hydroxide (Milk Of Magnesia 30 Ml Oral.Susp) 30 ml PO DAILY PRN PRN Reason: Constipation Last Admin: 06/03/25 06:27 Dose: 30 ml Metoprolol Succinate (Metoprolol Succinate Er 12.5 Mg Halftab.Er.24h) 12.5 mg PO DAILY [facility]; Protocol Last Admin: 06/09/25 09:05 Dose: 12.5 mg Nicotine Polacrilex (Nicotine Polacrilex 2 Mg Gum) 4 mg BUCCAL Q2H PRN PRN Reason: Nicotine Cravings Last Admin: 06/09/25 19:47 Dose: 4 mg Pt Own Medication ( Testosterone 50 Mg/5 Gram (1 %) Gel) 1 packet TOPICAL DAILY [facility] Last Admin: 06/09/25 11:37 Dose: 1 packet Oxcarbazepine (Oxcarbazepine 300 Mg Tablet) 300 mg PO BID [facility] Last Admin: 06/09/25 09:06 Dose: 300 mg Propranolol HCl (Propranolol Hcl 10 Mg Tablet) 10 mg PO TID PRN; Protocol PRN Reason: akathesia Last Admin: 06/04/25 20:57 Dose: 10 mg Risperidone (Risperidone 1 Mg Tablet) 1 mg PO BID PRN PRN Reason: Anxiety Last Admin: 06/04/25 20:57 Dose: 1 mg Saliva Substitute (Dry Mouth [place] 60 Ml [place]) 1 spray MUCOUS MEM Q2H PRN PRN Reason: Dry Mouth Senna (Sennosides 8.6 Mg Tablet) 17.2 mg PO DAILY [facility] Last Admin: 06/09/25 11:37 Dose: 17.2 mg Tamsulosin HCl (Tamsulosin Hcl 0.4 Mg Capsule) 0.4 mg PO DAILY [facility] Last Admin: 06/09/25 09:05 Dose: 0.4 mg Trazodone HCl (Trazodone Hcl 50 Mg Tablet) 50 mg PO BEDTIME PRN PRN Reason: Sleep Last Admin: 06/08/25 20:10 Dose: 50 mg Trazodone HCl (Trazodone Hcl 50 Mg Tablet) 50 mg PO BEDTIME [facility] Allergies Allergies Allergy/AdvReac Type Severity Reaction Status Date / Time olanzapine (From Zyprexa) AdvReac Severe Anaphylaxis Verified 05/20/25 10:47 clonidine AdvReac Fainting Verified 05/20/25 10:47 haloperidol (From Haldol) AdvReac Anaphylaxis Verified 05/20/25 10:47 ziprasidone (From Geodon) AdvReac speech Verified 05/25/25 13:11 difficulty tuna Allergy Severe Anaphylaxis Uncoded 04/18/24 12:52 Assessment & Plan Assessment & Plan (1) Schizoaffective disorder: Status: Acute Code(s): F25.9 - Schizoaffective disorder, unspecified (2) Tinea pedis: Status: Acute Code(s): B35.3 - Tinea pedis (3) PTSD (post-traumatic stress disorder): Status: Acute Code(s): F43.10 - Post-traumatic stress disorder, unspecified (4) ADHD (attention deficit hyperactivity disorder): Status: Acute Code(s): F90.9 - Attention-deficit hyperactivity disorder, unspecified type Plan Plan Pt is a 59-year-old male with a PMH significant for CAD, HLD, BPH, PTSD, schizoaffective disorder, and dysfunctional elimination syndrome who is admitted to [facility] psychiatric unit with hospitalist consult for question of sudden onset difficulty speaking generalized weakness. Question of sudden-onset difficulty speaking CT of head negative for acute abnormality Pt back to baseline, no focal deficits noted Symptoms likely secondary to medication side-effects Pt's clonazepam has been reduced At this time, no additional workup or treatment indicted 06/08/25 Decrease Clozapine to 25 mg daily Increase Adderall XR to 10 mg daily 06/09/25: Met with patient in the exam room, reported that he feel better, and his brain is not sluggish . Also reports feeling better with Adderall. Denies anxiety or depression, denies SI/SIB/HI/AVH, but reports feeling paranoid, he has a feeling of people lie to me . He reported that his my usually for racing but is same settle down a little bit. He reported that he is overwhelmed with the news. He reports sleep has been better, and appetite is good but he is not happy as he is said that he is gaining weight. Reported that he usually eating very healthy and be healthy, walking a lot. Reports trouble with bowel movement which he has been asking for senna. Patient agreed to schedule it in the morning, and also requests to take trazodone scheduled as well as he has been slept better with trazodone the past couple of days. Trazodone 50 scheduled at bedtime Change senna from p.r.n. to scheduled in the morning. Per social services technician, we will have family meeting via zoom tomorrow by 1100 or 1130 Also met with hospitalist regarding Tinea pedis Plan: Wash and dry feet daily and Apply clotrimazole b.i.d. for 14 days Patient educated on: diagnosis, medication risk/benefits and therapeutic strategies Informed Consent: understands and further education needed Reason for continued inpatient stay Substantial Risk for: med/psych decompensation Time Spent With Patient Time: Total time managing care of this patient today ____ minutes.
[2025-06-09] MEDS: Clotrimazole 1 % Cream 15 GM TUBE 1 APPL TOPICAL (20:35)
[2025-06-10 08:00] VITALS: BP 116/84; PULSE 75; RESP 16; TEMP 36.6; O2SAT 95
[2025-06-10] MEDS: Dextroamphetamine/Amphetamine XR 5 MG CAP.ER.24H 10 MG PO (08:29)
[2025-06-10] MEDS: Aspirin Enteric Coated 81 MG TABLET.DR PO (08:29)
[2025-06-10] MEDS: Metoprolol Succinate ER 12.5 MG HALFTAB.ER.24H PO (08:30)
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
[2025-06-10] MEDS: Clotrimazole 1 % Cream 15 GM TUBE 1 APPL TOPICAL ×2 (12:49→20:24)
[2025-06-10 20:00] VITALS: BP 121/67; PULSE 91; TEMP 36.8; O2SAT 98
[2025-06-10] MEDS: Magnesium Hydrox/Alum Hydrox 30 ML ORAL.SUSP PO (21:34)
[2025-06-11 07:00] VITALS: BMI 33.6
[2025-06-11 08:00] VITALS: BP 121/81; PULSE 73; RESP 18; TEMP 36.7; O2SAT 100
[2025-06-11] MEDS: Metoprolol Succinate ER 12.5 MG HALFTAB.ER.24H PO (08:13)
[2025-06-11] MEDS: Dextroamphetamine/Amphetamine XR 5 MG CAP.ER.24H 10 MG PO (08:14)
[2025-06-11] MEDS: Aspirin Enteric Coated 81 MG TABLET.DR PO (08:14)
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
[2025-06-11] MEDS: Clotrimazole 1 % Cream 15 GM TUBE 1 APPL TOPICAL (15:28)
[2025-06-11 19:41] VITALS: BP 110/73; PULSE 77; RESP 17; TEMP 36.9; O2SAT 96
[2025-06-12] MEDS: guaiFENesin 100 MG/5 ML 5 ML LIQUID PO ×2 (01:27→13:57)
[2025-06-12 08:00] VITALS: BP 111/61; PULSE 68; RESP 18; TEMP 36.8; O2SAT 95
[2025-06-12] MEDS: Dextroamphetamine/Amphetamine XR 5 MG CAP.ER.24H 10 MG PO (08:50)
[2025-06-12] MEDS: Metoprolol Succinate ER 12.5 MG HALFTAB.ER.24H PO (08:50)
[2025-06-12] MEDS: Aspirin Enteric Coated 81 MG TABLET.DR PO (08:51)
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
[2025-06-12] MEDS: Clotrimazole 1 % Cream 15 GM TUBE 1 APPL TOPICAL ×2 (11:20→20:53)
[2025-06-12] MEDS: guaiFENesin DM 200/20/10 ML 10 ML SYRUP PO (18:44)
[2025-06-12 19:58] VITALS: BP 125/89; PULSE 89; TEMP 36.4; O2SAT 96
[2025-06-13] MEDS: guaiFENesin DM 200/20/10 ML 10 ML SYRUP PO ×3 (01:43→20:36)
[2025-06-13] MEDS: guaiFENesin LA 600 MG TAB.ER.12H PO ×2 (01:43→20:37)
[2025-06-13 08:00] VITALS: BP 138/75; PULSE 76; RESP 16; TEMP 36.6; O2SAT 97
[2025-06-13] MEDS: Aspirin Enteric Coated 81 MG TABLET.DR PO (08:38)
[2025-06-13] MEDS: Dextroamphetamine/Amphetamine XR 5 MG CAP.ER.24H 10 MG PO (08:39)
[2025-06-13] MEDS: Metoprolol Succinate ER 12.5 MG HALFTAB.ER.24H PO (08:39)
[2025-06-13 09:27] VITALS: BMI 32.9
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
[2025-06-13 11:29] LABS: Resp Syncy Virus RNA Qual PCR NEGATIVE (Negative); SARS COV2 PCR INHOUSE NEGATIVE (Negative)
[2025-06-13] MEDS: Clotrimazole 1 % Cream 15 GM TUBE 1 APPL TOPICAL (13:19)
[2025-06-13 16:50] VITALS: BP 122/79; PULSE 94; RESP 22; TEMP 37.7; O2SAT 93
[2025-06-13 19:46] VITALS: BP 133/88; PULSE 88; RESP 16; TEMP 37.2; O2SAT 96
[2025-06-14] MEDS: guaiFENesin DM 200/20/10 ML 10 ML SYRUP PO ×3 (01:24→20:32)
[2025-06-14] MEDS: Throat Lozenge, Medicated LOZENGE 1 LOZENGE MUCOUS MEM (01:24)
[2025-06-14 01:35] VITALS: BP 134/67; PULSE 80; RESP 16; TEMP 36.4; O2SAT 95
[2025-06-14 04:46] VITALS: TEMP 37.9
--- NOTE | 2025-06-14 04:56 | PC.NURSE ---
Patient continues to have a nonproductive cough, prns have been effective, but only for an hour or two. He c/o having chills , current skin temperature is 100.3 No SOB noted, patient is just c/o fatigue and leg pain.
[2025-06-14 08:00] VITALS: BP 116/69; PULSE 87; RESP 18; TEMP 36.4; O2SAT 93
[2025-06-14] MEDS: Dextroamphetamine/Amphetamine XR 5 MG CAP.ER.24H 10 MG PO (08:14)
[2025-06-14] MEDS: Aspirin Enteric Coated 81 MG TABLET.DR PO (08:15)
[2025-06-14] MEDS: Metoprolol Succinate ER 12.5 MG HALFTAB.ER.24H PO (08:15)
[2025-06-14 12:23] VITALS: BP 138/78; PULSE 93; RESP 22; TEMP 39.2; O2SAT 98
[2025-06-14 13:19] LABS: Strep A Nucleic Acid Negative (Negative)
--- NOTE | 2025-06-14 13:37 | PM.EVENT ---
Event Note Date of Service: 06/14/25 Event Note: consulted due to fever. pt with temperature of 102.5 patient reports dry cough, headache cxr negative for pneumonia. flud, rsv, covid screen negative seems like viral illness, check full RPP symptomatic support h/o asthma, add prn albuterol; continue cepacol, cough medicine Time Spent With Patient Time: Total time managing care of this patient today ____ minutes.
[2025-06-14 14:02] LABS: Chlamydia pneumoniae PCR Not Detected (Not Detect.); Coronavirus 229E PCR Not Detected (Not Detect.); Coronavirus HKU1 PCR Not Detected (Not Detect.); Coronavirus NL63 PCR Not Detected (Not Detect.); Coronavirus OC43 PCR Not Detected (Not Detect.); Influenza A H3 PCR Detected (Not Detect.); RSV PCR Not Detected (Not Detect.); Rhino/Enterovirus PCR Not Detected (Not Detect.)
[2025-06-14 14:10] LABS: Influenza A H1 PCR Not Detected (Not Detect.); Influenza A H1-2009 PCR Not Detected (Not Detect.); SARS-CoV-2 PCR Not Detected (Not Detect.)
[2025-06-14 15:53] LABS: MANUAL DIFF FLAG NO
[2025-06-14 15:55] LABS: Hematocrit 37.3 % (42.0-52.0); Hemoglobin 13.2 g/dl (14.0-18.0); Imm Gran Abs Auto 0.01 X10*3/uL (0.00-0.03); Imm Gran Pct Auto 0.2 % (0.0-0.4); Lymphocytes Absolute Auto 0.7 X10*3/uL (1.2-4.9); Mean Corpuscular HGB Conc 35.4 g/dl (31.0-36.0); Mean Corpuscular Hemoglobin 32.0 pg (27.0-33.0); Mean Corpuscular Volume 90.3 fL (80.0-98.0); NRBC Abs Auto 0.000 X10*3/uL (0.0-0.012); NRBC Pct Auto 0.0 /100WBC (0.0-0.2); Platelet Count 167 X10*3/uL (160-400); Red Blood Count 4.13 X10*6/uL (4.60-5.80); White Blood Count 6.6 X10*3/uL (4.8-10.8)
[2025-06-14 16:00] VITALS: BP 119/67; PULSE 88; RESP 16; TEMP 36.9; O2SAT 96
[2025-06-14 16:19] LABS: Alanine Aminotransferase 42 U/L (0-40); Albumin Level 4.3 g/dL (3.5-5.0); Alkaline Phosphatase 68 U/L (39-117); Anion Gap 14 (12-20); Aspartate Amino Transferase 34 U/L (5-37); Blood Urea Nitrogen 12 mg/dL (9-16); Calcium 8.8 mg/dL (8.4-10.2); Carbon Dioxide 24 mmol/L (22-29); Chloride 102 mmol/L (96-108); Creatinine Clr Calc Pharmacy 88.4; Estimated Glomerular Filt Rate > 60; Potassium 4.1 mmol/L (3.3-5.1); Sodium 136 mmol/L (135-145); Total Protein 6.7 g/dL (6.5-8.0)
[2025-06-14] MEDS: Clotrimazole 1 % Cream 15 GM TUBE 1 APPL TOPICAL (16:44)
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
[2025-06-14] MEDS: guaiFENesin LA 600 MG TAB.ER.12H PO (23:14)
[2025-06-15] VITALS: BP 124/72; PULSE 99; RESP 20; TEMP 37; O2SAT 94
[2025-06-15] MEDS: guaiFENesin DM 200/20/10 ML 10 ML SYRUP PO ×2 (02:54→07:31)
[2025-06-15 08:00] VITALS: BP 132/77; PULSE 86; RESP 18; TEMP 36.5; O2SAT 94
[2025-06-15] MEDS: Aspirin Enteric Coated 81 MG TABLET.DR PO (09:03)
[2025-06-15] MEDS: Metoprolol Succinate ER 12.5 MG HALFTAB.ER.24H PO (09:04)
[2025-06-15] MEDS: Dextroamphetamine/Amphetamine XR 5 MG CAP.ER.24H 10 MG PO (09:04)
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
[2025-06-15] MEDS: guaiFENesin LA 600 MG TAB.ER.12H PO (21:04)
[2025-06-16 08:00] VITALS: BP 121/76; PULSE 80; RESP 16; TEMP 37; O2SAT 93
[2025-06-16] MEDS: Metoprolol Succinate ER 12.5 MG HALFTAB.ER.24H PO (08:34)
[2025-06-16] MEDS: Dextroamphetamine/Amphetamine XR 5 MG CAP.ER.24H 10 MG PO (08:34)
[2025-06-16] MEDS: Aspirin Enteric Coated 81 MG TABLET.DR PO (08:34)
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
[2025-06-16] MEDS: Clotrimazole 1 % Cream 15 GM TUBE 1 APPL TOPICAL (17:56)
[2025-06-16 20:18] VITALS: BP 136/86; PULSE 90; RESP 15; TEMP 36.6; O2SAT 97
[2025-06-17] VITALS: RESP 14
[2025-06-17 08:00] VITALS: BP 118/56; PULSE 68; RESP 18; TEMP 36.8; O2SAT 96
[2025-06-17] MEDS: Aspirin Enteric Coated 81 MG TABLET.DR PO (08:03)
[2025-06-17] MEDS: Dextroamphetamine/Amphetamine XR 5 MG CAP.ER.24H 10 MG PO (08:03)
[2025-06-17] MEDS: Metoprolol Succinate ER 12.5 MG HALFTAB.ER.24H PO (08:04)
[2025-06-17 08:22] LABS: Neut%MD 60.3 %; WBCANC 6.9 X10*3/uL
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
[2025-06-17 16:00] VITALS: BP 124/82; PULSE 71
[2025-06-17] MEDS: Clotrimazole 1 % Cream 15 GM TUBE 1 APPL TOPICAL (19:03)
[2025-06-17 19:44] VITALS: BP 117/82; PULSE 88; RESP 16; TEMP 37; O2SAT 100
[2025-06-18] MEDS: Throat Spray, Medicated 177 ML BOTTLE 1 SPRAY MUCOUS MEM ×2 (06:57→09:47)
[2025-06-18 08:37] VITALS: BP 123/71; PULSE 77; TEMP 36.6; O2SAT 96
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
[2025-06-18] MEDS: Clotrimazole 1 % Cream 15 GM TUBE 1 APPL TOPICAL (09:47)
[2025-06-18 09:48] VITALS: BP 120/69; PULSE 80
[2025-06-18] MEDS: Aspirin Enteric Coated 81 MG TABLET.DR PO (09:48)
[2025-06-18] MEDS: Metoprolol Succinate ER 12.5 MG HALFTAB.ER.24H PO (09:48)
[2025-06-18] MEDS: Dextroamphetamine/Amphetamine XR 5 MG CAP.ER.24H 10 MG PO (09:50)
[2025-06-18 16:00] VITALS: BP 115/75; PULSE 74; RESP 16; TEMP 37.1; O2SAT 96
[2025-06-18 19:13] LABS: Testosterone, Free 72.0 pg/mL (35.0-155.0)
[2025-06-19 08:52] VITALS: BP 121/72; PULSE 66; RESP 16; TEMP 36.8; O2SAT 96
[2025-06-19] MEDS: Aspirin Enteric Coated 81 MG TABLET.DR PO (08:53)
[2025-06-19] MEDS: Metoprolol Succinate ER 12.5 MG HALFTAB.ER.24H PO (08:53)
[2025-06-19] MEDS: Dextroamphetamine/Amphetamine XR 5 MG CAP.ER.24H 10 MG PO (08:55)
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
[2025-06-19 16:54] VITALS: BP 120/75; PULSE 77; RESP 16; TEMP 37.3; O2SAT 96
[2025-06-19 20:10] VITALS: BP 140/74; PULSE 73; TEMP 36.7; O2SAT 96
[2025-06-20] MEDS: Metoprolol Succinate ER 12.5 MG HALFTAB.ER.24H PO (08:25)
[2025-06-20] MEDS: Aspirin Enteric Coated 81 MG TABLET.DR PO (08:25)
[2025-06-20] MEDS: Dextroamphetamine/Amphetamine XR 5 MG CAP.ER.24H 15 MG PO (08:26)
[2025-06-20 08:30] VITALS: BP 121/57; PULSE 61; RESP 18; TEMP 36.4; O2SAT 97
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
[2025-06-20 15:35] VITALS: BP 127/76; PULSE 75; RESP 18; TEMP 36.9; O2SAT 99
[2025-06-20] MEDS: Clotrimazole 1 % Cream 15 GM TUBE 1 APPL TOPICAL (18:24)
[2025-06-21 08:00] VITALS: BP 104/65; PULSE 72; RESP 18; TEMP 37.1; O2SAT 98
[2025-06-21] MEDS: Aspirin Enteric Coated 81 MG TABLET.DR PO (08:02)
[2025-06-21] MEDS: Metoprolol Succinate ER 12.5 MG HALFTAB.ER.24H PO (08:02)
[2025-06-21] MEDS: Dextroamphetamine/Amphetamine XR 5 MG CAP.ER.24H 15 MG PO (08:03)
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
[2025-06-21 16:00] VITALS: BP 122/77; PULSE 78; RESP 18; TEMP 36.8; O2SAT 98
[2025-06-21 20:25] VITALS: BP 145/82; PULSE 89; RESP 15; TEMP 36.9; O2SAT 97
[2025-06-21] MEDS: Clotrimazole 1 % Cream 15 GM TUBE 1 APPL TOPICAL (21:03)
[2025-06-22] VITALS: RESP 15
[2025-06-22 08:00] VITALS: BP 115/60; PULSE 83; RESP 18; TEMP 36.2; O2SAT 96
[2025-06-22] MEDS: Metoprolol Succinate ER 12.5 MG HALFTAB.ER.24H PO (08:29)
[2025-06-22] MEDS: Dextroamphetamine/Amphetamine XR 5 MG CAP.ER.24H 15 MG PO (08:29)
[2025-06-22] MEDS: Aspirin Enteric Coated 81 MG TABLET.DR PO (08:29)
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
[2025-06-22] MEDS: Clotrimazole 1 % Cream 15 GM TUBE 1 APPL TOPICAL (15:06)
[2025-06-22 22:00] VITALS: BP 130/73; PULSE 78; RESP 16; TEMP 36.9; O2SAT 97
[2025-06-23 08:12] VITALS: BP 102/61; PULSE 60; RESP 18; TEMP 36.6; O2SAT 94
[2025-06-23] MEDS: Metoprolol Succinate ER 12.5 MG HALFTAB.ER.24H PO (08:31)
[2025-06-23] MEDS: Aspirin Enteric Coated 81 MG TABLET.DR PO (08:32)
[2025-06-23] MEDS: Dextroamphetamine/Amphetamine XR 5 MG CAP.ER.24H 15 MG PO (08:58)
[2025-06-23 09:22] LABS: MANUAL DIFF FLAG NO
[2025-06-23 09:26] LABS: Hematocrit 42.9 % (42.0-52.0); Hemoglobin 14.8 g/dl (14.0-18.0); Imm Gran Abs Auto 0.08 X10*3/uL (0.00-0.03); Imm Gran Pct Auto 1.2 % (0.0-0.4); Lymphocytes Absolute Auto 1.9 X10*3/uL (1.2-4.9); Mean Corpuscular HGB Conc 34.5 g/dl (31.0-36.0); Mean Corpuscular Hemoglobin 31.7 pg (27.0-33.0); Mean Corpuscular Volume 91.9 fL (80.0-98.0); NRBC Abs Auto 0.000 X10*3/uL (0.0-0.012); NRBC Pct Auto 0.0 /100WBC (0.0-0.2); Platelet Count 215 X10*3/uL (160-400); Red Blood Count 4.67 X10*6/uL (4.60-5.80); White Blood Count 6.8 X10*3/uL (4.8-10.8)
[2025-06-23 09:46] LABS: Alanine Aminotransferase 34 U/L (0-40); Albumin Level 4.5 g/dL (3.5-5.0); Alkaline Phosphatase 68 U/L (39-117); Anion Gap 11 (12-20); Aspartate Amino Transferase 23 U/L (5-37); Blood Urea Nitrogen 14 mg/dL (9-16); Calcium 9.3 mg/dL (8.4-10.2); Carbon Dioxide 27 mmol/L (22-29); Chloride 107 mmol/L (96-108); Creatinine Clr Calc Pharmacy 94.1; Estimated Glomerular Filt Rate > 60; Potassium 4.4 mmol/L (3.3-5.1); Sodium 141 mmol/L (135-145); Total Protein 7.1 g/dL (6.5-8.0)
--- NOTE | 2025-06-23 11:46 | P.DS_ITS ---
DS: Providers Provider Date of admission: 05/20/25 16:45 Date of discharge: 06/23/25 Primary care physician: None Physician Admitting clinician: Zhanna Lawton Attending physician on admission: Wyatt Gaona Consults: 06/06/25 01:50 Consult to Hospitalist Stat Comment: sudden onset, 118/73 110 Consulting Provider: [facility] Hospitalists Reason For Exam: weakness,loss of balance, word finding issues 06/14/25 12:22 Consult to Hospitalist Routine Comment: Consulting Provider: [facility] Hospitalists Reason For Exam: worsening cough/pounding headache/Febrile/ Attending physician on discharge: Wyatt Gaona Discharging clinician: Zhanna Lawton DS: Diagnosis Discharge Diagnosis (1) Schizoaffective disorder: Status: Acute (2) Tinea pedis: Status: Acute (3) PTSD (post-traumatic stress disorder): Status: Acute (4) ADHD (attention deficit hyperactivity disorder): Status: Acute DS: Medications Discharge Medications Home Medications: Previous Rx's ?Medication ?Instructions ?Recorded testosterone 50 mg/5 gram (1 %) 1 tube transdermal QAM #150 grams 05/21/25 transdermal gel testosterone 50 mg/5 gram (1 %) 1 tube transdermal QAM #150 grams 06/15/25 transdermal gel acetaminophen 325 mg tablet 650 mg (2 x 325 mg) PO Q6H PRN 06/22/25 Headache/Pain, Scale 1-10 #0 tabs aspirin 81 mg tablet,delayed 81 mg PO DAILY #30 tabs 1 08/23/24 release chlorpromazine 25 mg tablet 50 mg (2 x 25 mg) PO QID P RN 06/22/25 agitation,psychosis #30 tabs clopidogrel 75 mg tablet 75 mg PO DAILY #30 tabs 06/02 08/26 clotrimazole 1 % topical cream 1 appl topical BID PRN tenia pedis 06/22/25 #21 grams clozapine 25 mg tablet 75 mg (3 x 25 mg) PO BEDTIME #21 06/22/25 tabs diazepam 2 mg tablet 5 mg (2.5 x 2 mg) PO BID PRN 06/22/25 Anxiety/Restlessness #10 tabs gabapentin 300 mg capsule 300 mg PO TID@0800,1400,2000 #90 06/22/25 caps ibuprofen 800 mg tablet 800 mg PO Q8H PRN sciatic ne rve 06/22/25 pain #0 tabs metoprolol succinate 25 mg 12.5 mg (1/2 x 25 mg) PO DA PAM #15 06/22/25 tablet,extended release 24 hr tabs nicotine (polacrilex) 2 mg gum 4 mg buccal Q2H PRN Richard otine 06/22/25 Cravings #100 ea oxcarbazepine 300 mg tablet 300 mg PO BID #60 tabs rosuvastatin 20 mg tablet 20 mg PO BEDTIME #30 tabs sennosides 8.6 mg tablet (Senna 17.2 mg (2 x 8.6 mg) P O DAILY #30 06/22/25 Lax) tabs tamsulosin 0.4 mg capsule 0.4 mg PO DAILY #30 caps trazodone 50 mg tablet 50 mg PO BEDTIME #30 tabs Mental Status Exam Mental Status Exam Patient Appearance: Appropriate Patient Orientation: Person, Place, Time and Situation Level of Consciousness: Awake and Alert Patient Behavior: Appropriate, Cooperative and Good Eye Contact Mood Description: Anxious Affect Description: Calm Patient Cognition Impaired: No Ability to Follow Directions: Good Speech Pattern: Clear Memory Description: Intact Hallucinations: None Delusions: Not Present Thought Process: Intact Thought Content: positive for Intact Data Data Completed and Pending Completed studies during hospitalization [Text1]: 06/12/25 06/17/25 06/23/25 07:48 08:02 08:41 WBC 6.8 RBC 4.67 Hgb 14.8 Hct 42.9 MCV 91.9 MCH 31.7 MCHC 34.5 RDW 13.1 Plt Count 215 D MPV 10.3 Immature Gran % (Auto) 1.2 H Neut % (Auto) 57.1 Lymph % (Auto) 28.5 [place] % (Auto) 7.8 Eos % (Auto) 4.7 H Baso % (Auto) 0.7 Lymph # (Auto) 1.9 [place] # (Auto) 0.5 Eos # (Auto) 0.3 Baso # (Auto) 0.1 Abs Immat Gran (auto) 0.08 H Absolute Neuts (auto) 4.1 3.9 Absolute Nucleated RBC 0.000 Nucleated RBC % (auto) 0.0 Sodium 141 Potassium 4.4 Chloride 107 Carbon Dioxide 27 Anion Gap 11 L BUN 14 Creatinine 0.93 Estim Creat Clear Calc 94.1 Estimated GFR > 60 Random Glucose 106 Calcium 9.3 Total Bilirubin 0.3 AST 23 ALT 34 Alkaline Phosphatase 68 Total Protein 7.1 Albumin 4.5 Total Testosterone 341 Fr Testosterone Dialys 72.0 DS: Summary Hospital Course Hospital Course: 59 yo male, history of PTSD, Schizoaffective Disorder, self presented to ER on 05/20 reporting to crisis SI and I am not doing well. He has been essentially mute since admission with reported hyperactive startle response. Collateral contact reports a recent discharge from [facility] as he had presented with psychosis and chest pain. He has has a difficult time caring for himself. Met with pt and Arnol LOBO. Pt is in bed, head covered, he does not startle when his name is called. He sits up, does not speak, does nod his head once and is asked if he would like to meet or if he would like team to contact sister Jyoti to collect background and return to him. There was no response, however he does have minimal eye contact. Past Psychiatric History: IP: [facility], [facility], [facility], [facility] OP: [place]- a psychiatrist who is from [facility] along with therapy psychiatric issues since first grade Trials: Haldol- seizure, fainting, anaphylaxis Olanzapine- SJS Latuda Risperdal-facial tic Seroquel-facial tic Sedatives- no response Sister Ashly Patterson [phone] Medications were evaluated and adjusted. Vraylar trial was not helpful for symptom mgt. Clozapine was helpful. Titration was up to 75 mg upon discharge. Labs will be drawn at [facility] for WBC and ANC on 06/30/25 and 07/07/25 before transition to [facility]. Pt was offered full milieu to help strengthen coping skills. Pt will discharge to his home. His family are strong supports and will continue to assist him in moving forward. Time Spent with Patient Time attestation: Total time managing care of this patient today ____ minutes. Discharge Plan Discharge Anticipated Discharge Date/Time: 06/23/25 11:00 Patient Disposition: Home, Self-Care Discharge Diagnosis: Schizoaffective Disorder PTSD Tinea Pedia Referrals: [facility] [Other] - 1 Week Referral Note: fax- [phone] Visiting RN to start following the Client being seen by either a PCP or Mental Health Medication Provider. [facility]: MARIO Mckeon (psychiatry) [Other] - 07/08/25 12:30 pm Referral Note: Initial psychiatric evaluation by psychiatric provider for medication management services. Appointment in person at [facility] in [facility]: Kandace Dewitt (therapist) [Other] - 07/03/25 9:00 am Referral Note: Hospital discharge appointment Initial diagnostic evaluation with therapist. Appointment in person at [facility] in [place], [place] Physician,None [Primary Care Provider, Medical] - 1 Week Referral Note: Pt instructed to follow up with PCP after discharge. Discharge Medications: New testosterone 50 mg/5 gram (1 %) gel 1 tube transdermal QAM Qty: 150 0RF testosterone 50 mg/5 gram (1 %) gel 1 tube transdermal QAM Qty: 150 0RF acetaminophen 325 mg Tablet 650 mg PO Q6H PRN (Reason: Headache/Pain, Scale 1-10) Qty: 0 0RF nicotine (polacrilex) 2 mg Gum 4 mg buccal Q2H PRN (Reason: Nicotine Cravings) Qty: 100 0RF chlorpromazine 25 mg Tablet 50 mg PO QID PRN (Reason: agitation,psychosis) Qty: 30 0RF sennosides [Senna Lax] 8.6 mg Tablet 17.2 mg PO DAILY Qty: 30 0RF trazodone 50 mg Tablet 50 mg PO BEDTIME Qty: 30 0RF ibuprofen 800 mg Tablet 800 mg PO Q8H PRN (Reason: sciatic nerve pain) Qty: 0 0RF oxcarbazepine 300 mg Tablet 300 mg PO BID Qty: 60 0RF diazepam 2 mg Tablet 5 mg PO BID PRN (Reason: Anxiety/Restlessness) Qty: 10 0RF gabapentin 300 mg Capsule 300 mg PO TID@0800,1400,2000 Qty: 90 0RF clozapine 25 mg Tablet 75 mg PO BEDTIME Qty: 21 3RF clotrimazole 1 % Cream 1 appl topical BID PRN (Reason: tenia pedis) Qty: 21 0RF Protocol: Apply to: Apply to: Bilateral feet Continued clopidogrel 75 mg tablet 75 mg PO DAILY Qty: 30 0RF aspirin 81 mg tablet,delayed release (DR/EC) 81 mg PO DAILY Qty: 30 0RF tamsulosin 0.4 mg capsule 0.4 mg PO DAILY Qty: 30 0RF metoprolol succinate 25 mg tablet extended release 24 hr 12.5 mg PO DAILY Qty: 15 0RF rosuvastatin 20 mg tablet 20 mg PO BEDTIME Qty: 30 0RF Discontinued clonazepam 0.5 mg tablet 0.25 mg PO BID PRN (Reason: anxiety) oxcarbazepine 300 mg tablet 300 mg PO Q12H ziprasidone HCl 40 mg capsule 40 mg PO BID gabapentin 100 mg capsule 100 mg PO Q8H risperidone 1 mg tablet 1 mg PO BID PRN (Reason: Anxiety) testosterone 50 mg/5 gram (1 %) gel 2 packet topical DAILY Discharge Orders: Discharge Order (Routine); Ordered 06/23/25 Ordered By: Zhanna Lawton Diet: Advance to usual diet Activity on Discharge: As tolerated Stand Alone Forms: Patient Portal Discharge page, Community Support Print Language: Mongolian Care Plan Goals: Maintain mood and safe behaviors Take medications as prescribed Do not use alcohol Practice coping skills Attend out pt provider appointments on 07/03/25 and 07/08/25. Health Concerns: Mood and behavioral stability Abstinence from alcohol Plan of Treatment: Call your PCP to make a follow up appt (their request) Dr. Karyna Gant [phone] Weekly labs at [facility] for Clozapine on 06/30/25 and 07/07/25, then with your new prescriber. Take medications as directed. Morning Medications: Medications to take as needed: Aspirin 81 mg Tylenol Plavix 75 mg Ibuprofen Gabapentin 300 mg Nicotine Gum Metoprolol 12.5 mg Albuterol Inhaler Senokot 17.2 mg Chlorpromazine Flomax 0.4 mg Clotrimazole topical cream Testosterone 1 pkt. Valium 2pm Medications: Gabapentin 300 mg Bedtime Medications: Rosuvastatin 20 mg Clozapine 75 mg Gabapentin 300 mg Trileptal 300 mg Trazodone 50 mg Assessment: Pt was interviewed prior to discharge and found to be fully oriented and without SI/HI. Pt has improved insight and judgment and wants to continue treatment. Pt is not in imminent risk of harm to self or others and has a safety plan that includes presenting to the closest ER or calling 911 if feeling unsafe. Pt has been observed closely by nursing and unit staff throughout admission Pt has not engaged in any behaviors that suggest dangerousness to self or others and has demonstrated appropriate behaviors and impulse control. Discharge Date/Time: 06/23/25 11:10
== END 2025-06-23 11:10 | disposition home or self-care (01) | DRG 885 ==
LOC: HO.ED 15:57 → HO.PM5 17:16
PROVIDERS: Physician Assistant; Physician Assistant Medical; Psychiatry & Neurology Psychiatry; Admitting Provider Clinical Nurse Specialist Psychiatric/Mental Health, Adult; Emergency Provider Emergency Medicine; Visit Provider Clinical Nurse Specialist Psychiatric/Mental Health, Adult
DX: F25.9 Schizoaffective disorder, unspecified (principal); F90.9 Attention-deficit hyperactivity disorder, unspecified type; J10.1 Influenza due to other identified influenza virus with other respiratory manifestations; I25.10 Atherosclerotic heart disease of native coronary artery without angina pectoris; N40.0 Benign prostatic hyperplasia without lower urinary tract symptoms; E78.5 Hyperlipidemia, unspecified; F43.10 Post-traumatic stress disorder, unspecified; B35.3 Tinea pedis; Z20.822 Contact with and (suspected) exposure to COVID-19; Z87.891 Personal history of nicotine dependence; Z79.82 Long term (current) use of aspirin; Z79.899 Other long term (current) drug therapy
CPT/HCPCS: 36415; 70450; 71045; 80048; 80053; 80061; 80076; 80307; 81001; 82607; 82746; 83036; 83735; 84402; 84403; 84439; 84443; 85025; 85048; 87633; 87637; 87651; 93005; 99285; S9485

== ENCOUNTER 2025-05-20 16:45 | Outpatient (BNV) | payer MEDICARE, MEDICAID, SELFPAY | END 2025-06-06 12:25 | PROVIDERS: Admitting Provider Clinical Nurse Specialist Psychiatric/Mental Health, Adult; Emergency Provider Emergency Medicine; Visit Provider Internal Medicine | DX: R53.1 Weakness (principal); R26.81 Unsteadiness on feet; R47.01 Aphasia | CPT/HCPCS: 93010 ==

== ENCOUNTER 2025-05-20 16:45 | Outpatient (BNV) | payer MEDICARE, MEDICAID, SELFPAY | END 2025-06-06 11:47 | PROVIDERS: Admitting Provider Clinical Nurse Specialist Psychiatric/Mental Health, Adult; Emergency Provider Emergency Medicine; Visit Provider Nuclear Medicine | DX: S09.90XD Unspecified injury of head, subsequent encounter (principal); Z04.3 Encounter for examination and observation following other accident | CPT/HCPCS: 70450 ==

== ENCOUNTER 2025-05-20 16:45 | Outpatient (BNV) | payer MEDICARE, MEDICAID, SELFPAY | END 2025-06-03 16:47 | PROVIDERS: Admitting Provider Clinical Nurse Specialist Psychiatric/Mental Health, Adult; Emergency Provider Emergency Medicine; Visit Provider Internal Medicine | DX: Z13.6 Encounter for screening for cardiovascular disorders (principal); Z95.5 Presence of coronary angioplasty implant and graft | CPT/HCPCS: 93010 ==

== ENCOUNTER → 2025-05-20 16:45 | Outpatient (BNV) | payer MEDICARE, MEDICAID, SELFPAY | PROVIDERS: Admitting Provider Clinical Nurse Specialist Psychiatric/Mental Health, Adult; Emergency Provider Emergency Medicine; Visit Provider Student in an Organized Health Care Education/Training Program | DX: R53.1 Weakness (principal) | CPT/HCPCS: 99222; 99231 ==

== ENCOUNTER → 2025-05-20 16:45 | Outpatient (BNV) | payer MEDICARE, MEDICAID, SELFPAY | PROVIDERS: Admitting Provider Clinical Nurse Specialist Psychiatric/Mental Health, Adult; Emergency Provider Emergency Medicine; Visit Provider Clinical Nurse Specialist Psychiatric/Mental Health, Adult | DX: F25.9 Schizoaffective disorder, unspecified (principal); F43.10 Post-traumatic stress disorder, unspecified | CPT/HCPCS: 90792; 99232 ==